=== PATIENT | female | born 1945 | race Caucasian/White ===

== ENCOUNTER 2021-09-19 14:50 | Outpatient (CLI) | payer MEDICARE, OTHER, SELFPAY ==
--- NOTE | 2021-09-19 15:00 | CRLHL7_ITS ---
For Patients: As a result of the Century Cures Act, medical imaging exams and procedure reports are released immediately into your electronic medical record. You may view this report before your referring provider. If you have questions, please contact your health care provider. INDICATION: RIGHT ADNEXAL CYST NOTED ON MRI COMPARISON: Lumbar MRI 12/07/2020 TECHNIQUE: 2D grigsby scale and color Doppler images were acquired of the pelvis using a transabdominal and transvaginal approach. Spectral Doppler evaluation of the right ovary also performed. FINDINGS: Sonographic images demonstrate a normal size and smooth outer contour of the uterus. Uterus measures 5.0 cm in length by 3.0 cm in AP diameter by 3.7 cm in transverse dimension. The myometrium has a heterogeneous echotexture. The endometrial lining measures 2 mm in composite thickness. Complex nabothian cyst is noted measuring 9 millimeters. The right ovary measures 8.7 x 5.7 x 6.3 cm in size and the left ovary is not visualized. The right ovary demonstrates normal arterial and venous blood flow on color Doppler analysis. Normal spectral Doppler flow to the right ovary as well. No torsion. Cystic lesion right ovary with internal septations measuring 7.7 x 5.0 x 5.9 cm. No solid mural component. There are no suspicious fluid collections within the cul-de-sac. IMPRESSION: Complex right ovarian cyst with several thin internal septations measuring 7.7 x 5.0 x 5.9 cm. No torsion. 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 Dictated by David Antoine MD @ 09/19/2021 3:54:04 PM (Electronically Signed)
== END 2021-09-19 14:51 | disposition home or self-care (01) ==
LOC: US 14:55
PROVIDERS: PCP Family Medicine; Visit Provider Family Medicine
DX: N94.9 Unspecified condition associated with female genital organs and menstrual cycle (principal); N83.201 Unspecified ovarian cyst, right side
CPT/HCPCS: 76830; 76856; 93976

== ENCOUNTER 2021-10-24 14:48 | Outpatient (CLI) | payer MEDICARE, OTHER, SELFPAY ==
[2021-10-26 17:57] LABS: Cancer Antigen 125 45 U/mL (<=38)
== END 2021-10-24 14:49 | disposition home or self-care (01) ==
LOC: NFLDREF 14:48
PROVIDERS: PCP Family Medicine; Visit Provider Obstetrics & Gynecology
DX: D39.11 Neoplasm of uncertain behavior of right ovary (principal); Z78.0 Asymptomatic menopausal state
CPT/HCPCS: 86304

== ENCOUNTER 2021-11-08 08:50 | Outpatient (CLI) | payer MEDICARE, OTHER, SELFPAY ==
[2021-11-08 11:21] LABS: Albumin* 4.3 g/dL (3.3-5.0); Chloride* 103 mmol/L (96-114)
[2021-11-08 11:22] LABS: Potassium* 4.7 mmol/L (3.6-5.1); Sodium* 137 mmol/L (135-149)
[2021-11-08 11:24] LABS: Aspartate Amino Transferase* 25 U/L (12-35); Bilirubin Total* 0.5 mg/dL (0.1-1.5); Blood Urea Nitrogen* 24 mg/dL (7-30); Carbon Dioxide* 24 mmol/L (20-32); Cholesterol* 220 mg/dL (90-199); Creatinine* 1.4 mg/dL (0.5-1.5); Estimated Glomerular Filt Rate 39 ml/min; Glucose* 102 mg/dL (60-115); Total Protein* 6.9 g/dL (6.0-8.3)
[2021-11-08 11:25] LABS: Alanine Aminotransferase* 14 U/L (4-35); Alkaline Phosphatase* 92 U/L (40-150); Calcium* 9.8 mg/dL (8.4-10.6); HDL Cholesterol* 67 mg/dL (>=50); LDL Cholesterol Calculated 126 mg/dL (<100); Triglycerides* 134 mg/dL (40-149)
== END 2021-11-08 08:51 | disposition home or self-care (01) ==
PROVIDERS: PCP Family Medicine; Visit Provider Family Medicine
DX: I10 Essential (primary) hypertension (principal); N18.32 Chronic kidney disease, stage 3b; N94.9 Unspecified condition associated with female genital organs and menstrual cycle; E78.5 Hyperlipidemia, unspecified; N39.0 Urinary tract infection, site not specified
CPT/HCPCS: 80053; 80061; 87186

== ENCOUNTER 2021-11-27 08:36 | Outpatient (CLI) | payer MEDICARE, OTHER, SELFPAY ==
[2021-11-27 12:44] LABS: Chloride* 104 mmol/L (96-114); Creatinine Urine 93.8 mg/dL; Sodium* 137 mmol/L (135-149)
[2021-11-27 12:45] LABS: Albumin* 4.1 g/dL (3.3-5.0); Potassium* 4.3 mmol/L (3.6-5.1)
[2021-11-27 12:47] LABS: Creatinine* 1.4 mg/dL (0.5-1.5); Estimated Glomerular Filt Rate 39 ml/min
[2021-11-27 12:48] LABS: Blood Urea Nitrogen* 22 mg/dL (7-30); Calcium* 9.3 mg/dL (8.4-10.6); Carbon Dioxide* 25 mmol/L (20-32); Glucose* 93 mg/dL (60-115); Phosphorus* 3.3 mg/dL (2.5-4.5); Uric Acid* 5.6 mg/dL (2.2-8.4)
[2021-11-27 12:52] LABS: Microalbumin Creatinine Ratio 130 mg/g (0-30); Microalbumin Urine 13 mg/dL
[2021-12-01 00:39] LABS: 25-Hydroxyvitamin D2 1.3 ng/mL; 25-Hydroxyvitamin D2,D3 Total 23.5 ng/mL (30.0-80.0); 25-Hydroxyvitamin D3 22.2 ng/mL
== END 2021-11-27 08:37 | disposition home or self-care (01) ==
PROVIDERS: PCP Family Medicine; Visit Provider Internal Medicine Nephrology
DX: I10 Essential (primary) hypertension (principal); N18.32 Chronic kidney disease, stage 3b; N39.0 Urinary tract infection, site not specified; E66.9 Obesity, unspecified; E78.5 Hyperlipidemia, unspecified
CPT/HCPCS: 80069; 82043; 82306; 82310; 82570; 83970; 84550; 87086

== ENCOUNTER 2022-01-14 07:30 | Outpatient (RCR) | payer MEDICARE, OTHER, SELFPAY ==
--- NOTE | 2021-09-28 14:53 | PT.OPEX ---
PT [place] Outpatient Eval PT [facility] Outpatient Eval Start: 09/28/21 07:27 Freq: Status: Active Protocol: Document 09/28/21 14:11 NAVI (Rec: 09/28/21 14:41 NAVI [id number]) E-signed By Karen Banuelos DPT Physical Therapy Outpatient Evaluation Insurance Information Recert Due Date 12/14/21 Medical Diagnosis lumbosacral radiculopathy L2 hip flexor weakness Treating Diagnosis LBP, L buttock/hip pain, core/ hip/glut weakness, impaired balance, unsteady gait Subjective Subjective Patient reports having chronic LBP issues with an MRI last Jan showing L2 herniated disc. She had prior PT earlier this year which was helpful. States that some of her pain/ sx returned since being done with PT. She is doing a few of the home exercises, but unable to recall them this session. She c/o LBP L>R and L buttock/hip pain. Patient denies pain/sx going down her LEs. States her R ankle is bone on bone so that gives her problems. She has been using a SPC or walking stick when going out of the home. Going some without the cane at home. Reports having a fall a couple of weeks ago. Maybe 2 falls in the last 4 months. She is using tylenol as needed , occasional heating pad. Patient has an appt with Dr Mazariegos coming up in Oct. Pain range 0-6/10. Sleep has been fine. Date of Last Physician Visit 09/12/21 Assessment Assessment/Impression Patient is a 75 year old female with chronic LBP, L buttock/hip pain, core/hip/ glut weakness, impaired balance, unsteady gait. Pain range 0-6/10. Patient localizes her pain to LB L>R and L buttock/hip region. She denies any LE burning/ tingling/numbness with this current flare up. Trunk ROM is limited in all direction with general tightness, stiffness, pain. Patient with increased pain and guarded with transitional movements, initially stiff/painful with standing/walking. Gait is slow, antalgic, shuffling, unsteady with SPC. She reports having hx of falls with one fall last week, 2 falls over the last 4 months. She is active daily on the [employer]. Patient is tight, tender with palpation L buttock region, including glut max, glut med, and piriformis. Patient had MRI last Dec showing L2 herniated disc. Patient with core/hip/glut/LE weakness noted with exercises, transfers, and gait. Patient would benefit from skilled PT for pain/sx management, improved trunk ROM, core/hip/ glut/LE strengthening, posture /body mechanics training, balance/gait training, and establishment of HEP. Plan of Care Rehabilitation Potential Good Physical Therapy Goals 1. Decrease LBP and L buttock /hip pain to less than/equal to 3/10 with daily/work activities and with the progression of PT activities over the next 4-6 weeks. 2. Patient will be educated on posture/body mechanics and pain management strategies over the next 4-6 weeks for decreased stress on LB/hip and decreased LBP and L buttock/ hip pain. 3. Improve core/hip/glut/LE strength and posture over the next 8-10 weeks for improved posture, decreased stress on LB/hip, decreased LBP/L buttock and hip pain, improved stability in LB/spine, and improved tolerance for extended sitting/standing/ walking for daily/work activities with decreased risk of falling. 4. Patient will be I with HEP within 10 weeks for progression toward above goals, ongoing self management of pain/sx, ongoing self improvements in core/hip/glut/LE strength, posture/body mechanics, improved tolerance for extended sitting /standing/walking activities and return to PLF with daily/work activities on the family [employer]. Coordination/Communication With Referral Source Treatment Plan/Direct Interventions Manual Therapy,Neuromuscular Re-ed,Therapeutic Exercises Frequency/Duration 1-2x/week Patient Will Be Discharged From Therapy Completion of LTG(s),Skills Plateau,Independent w/HEP, Independently Progressing Evaluation Billing Untimed Code Treatment Minutes 22 Complexity Moderate Certification Information Initial Certification Date 09/28/21 Ending Certification Date 12/14/21 Provider Signature Shows Agreement With POC & Medical Necessity Physician Comment/Change Comment or Changes Physician NPI Number #
--- NOTE | 2021-12-03 08:33 | PT.OPDNX ---
PT [place] Outpatient Daily Note PT [facility] Outpatient Daily Note Start: 09/28/21 07:27 Freq: Status: Active Protocol: Document 12/03/21 07:52 LINSEY (Rec: 12/03/21 08:31 LINSEY [id number]) E-signed By Ghassan Monique, PT PT OP Daily Progress Note Visit Information Note Type Daily Note,Recert/Progress Note Visit Number [id number] Insurance Authorized Visits - Physician Authorized Visits - Insurance Information Recert Due Date 12/14/21 Insurance Name Medicare B,[employer] Medical Diagnosis lumbosacral radiculopathy L2 hip flexor weakness Treating Diagnosis LBP, L buttock/hip pain, core/ hip/glut weakness, impaired balance, unsteady gait Referring MD Tilley Subjective Subjective Pt reports seeing MD at spine clinic for assessment and he wanted her to continue with aggressive therapy for strengthening at this time. She states that overall she has made slow but steady progress in PT. Her biggest complaint is her balance and her left sided LBP currently. She feels like continued therapy will benefit her with continued functional improvement. Pain Comments 0-07/20 Home Exercise Home Exercise Comments [facility]: [facility] Objective Other/Pertinent Objective Isometric strength testing Hip flexor index: 75% Quad index: 71% ROM Lumbar flexion: WNL; pain free Lumbar extension: WNL; pain free Lumbar rotation L: WNL; pain free R: WNL; pain free Lumbar side flexion L: Provoked pain in back R: WNL; pain free Balance: Romberg WBOS + EO: 9 seconds Romberg NBOS + EC: 2 seconds Special test: +SLR -Slump -Cross over SLR +pain w. resisted abduction testing +pain w. resisted hip ER testing TTP: Over glute medius and greater trochanter; Mild TTP present around QL Patient Instructed in Risks/Benefits Yes Therapeutic Exercise Therapeutic Exercise Minutes (minutes) 40 Therapeutic Exercise: To Restore Nu-step machine; L4; x6 Functional Status minutes Leg Press 3x12 w. 95 lbs rotary hip: 1 plate 2 sets of 8 standing hip flexion 2 sets of 10 SLR 2x10 B Glute bridge 2x12 NT Panamanian ball knee to chest x10 NT Straight leg bridge on ball 2x12 NT Posterior pelvic tilting 2x10 NT Supine double leg marches 2x10 -15 NT Adductor squeezes 2x10 w. 3 sec holds NT Leg extension machine 2x12 w. 2 plates Added tandem stance to HEP Neuromuscular Re-Ed Neuromuscular Reeducation Minutes ( 10 minutes) Neuromuscular Reeducation Comments tandem stance in parallel bars 5 reps each 4 sec max with right 2 sec max with left back. sidestepping at wall: [address] backwards walking with bar 20 ft 3 reps. Treatment Minutes Timed Code Treatment Minutes 50 Total Treatment Time 50 Billing Units Neuromuscular Reeducation Units 1 Therapeutic Exercise Units 2 Assessment/Impression Assessment/Impression Pt. returns today after seeing Dr[facility]. He felt that continued aggressive therapy for strengthening is best plan at this point. Today she continues to show decreased leg strength on her L side compared to her R side, with continued deficits in gait noted including impaired balance and decreased gait speed. She continues to demonstrate weakness during single limb workouts, most significant with quad and hip flexion movements. Ongoing skilled PT services recommended to achieve PLOF goals as outlined in PT plan of care. She will be seen 1-2 times a week moving forward as part of our [facility] rehab protocol. Plan of Care Physical Therapy Goals 1. Decrease LBP and L buttock /hip pain to less than/equal to 3/10 with daily/work activities and with the progression of PT activities over the next 8 weeks. 2. Patient will be educated on posture/body mechanics and pain management strategies over the next 4-6 weeks for decreased stress on LB/hip and decreased LBP and L buttock/ hip pain. 3. Improve core/hip/glut/LE strength and posture over the next 8-10 weeks for improved posture, decreased stress on LB/hip, decreased LBP/L buttock and hip pain, improved stability in LB/spine, and improved tolerance for extended sitting/standing/ walking for daily/work activities with decreased risk of falling. 4. Patient will be I with HEP within 10 weeks for progression toward above goals , ongoing self management of pain/sx, ongoing self improvements in core/hip/glut/ LE strength, posture/body mechanics, improved tolerance for extended sitting/standing/ walking activities and return to PLF with daily/work activities on the [employer]. Daily Plan of Care Change POC; See Comments Daily Plan of Care Comments See pt. 2 times a week for 6-8 weeks for aggressive strengthening and balance rehab Recertification Information Initial Certification Date 09/28/21 Recertification Start Date 12/03/21 Recertification Due Date 02/25/22 Reasons to Continue Skilled Therapy Pt. returns today after seeing Dr. Mazariegos [facility] for assessment. He felt that continued aggressive therapy for strengthening is best plan at this point. Today she continues to show decreased leg strength on her L side compared to her R side, with continued deficits in gait noted including impaired balance and decreased gait speed. She continues to demonstrate weakness during single limb workouts, most significant with quad and hip flexion movements. Ongoing skilled PT services recommended to achieve PLOF goals as outlined in PT plan of care. She will be seen 1-2 times a week moving forward as part of our [facility] rehab protocol. Rehabilitation Potential Good for Goals Continued Plan of Care and Interventions See pt. 2 times a week for 6-8 weeks for spine care rehab program. Provider Signature Shows Agreement With POC & Medical Necessity Physician Comment/Change Comment or Changes Physician NPI Number #
== END 2022-05-21 13:56 | disposition home or self-care (01) ==
PROVIDERS: PCP Family Medicine; Visit Provider Family Medicine
DX: M54.17 Radiculopathy, lumbosacral region (principal); M25.552 Pain in left hip; R26.81 Unsteadiness on feet; M79.18 Myalgia, other site; Z51.89 Encounter for other specified aftercare
CPT/HCPCS: 97110; 97112; 97140; 97162

== ENCOUNTER 2022-02-21 12:45 | Outpatient (CLI) | payer OTHER, SELFPAY ==
--- NOTE | 2022-02-21 13:00 | MR_ITS ---
[facility] [address] [facility] [address] Phone:?[phone] Fax:?[phone] Referring Physician Information: Nain Mazariegos M.D. [address] [facility] [address] Phone:?[phone] Fax:?[phone] Patient:?Ladan Garcia D.O.B:?1945 Sex:?Female Phone:?[phone] [facility] MRN:?[id number] Exam Date:?02/21/2022 ? EXAM:?MR LUMBAR SPINE WITHOUT CONTRAST CLINICAL INFORMATION: Left-sided low back pain and left leg radiculopathy. COMPARISON: 12/07/2020.?CONTRAST:?None.?SEDATION:?None. TECHNICAL INFORMATION: Imaging was performed at [facility]. Sagittal and axial T1 / FSE T2, and sagittal STIR images were obtained through the lumbar spine. INTERPRETATION: L5-S1:?Moderate degeneration, no herniation or central stenosis and mild right facet degeneration. No ganglion compression. L4-5: Mild degeneration with 5 mm spondylolisthesis and moderate central/left subarticular stenosis. Facet hypertrophy contributes to left L5 root impingement. Foramina appear patent. L3-4: Mild disc degeneration, left hypertrophic facet arthropathy without central stenosis and mild left foraminal narrowing with ganglion contact. Mild Modic 1 endplate marrow changes and active left facet capsulitis. L2-3: Moderate left-sided disc degeneration with mild Modic 1 marrow changes. Left subarticular L3 encroachment due to osteophyte and disc protrusion. Left facet joint hypertrophy and mild left/no right foraminal stenosis. L1-2: Mild degeneration, osteophyte and bulge flatten the dural sac without central stenosis and foramina appear patent. T12-L1: Left central disc herniation indents the dural sac without neural impingement and mild right foraminal narrowing/patent left nerve root canal. T11-12: Normal dorsal disc margin and no central or foraminal stenosis. Unremarkable facet joints. Osseous Structures: Fat suppressed images are negative for acute or subacute fractures. Paraspinous Soft Tissues: No mass lesions. Conus, Cord and Cauda Equina: Normal position conus and no evidence of intradural mass or arachnoiditis. CONCLUSION: Multilevel spondylosis, no acute fractures and right convex scoliosis. Significant findings are as follows: 1. Moderate central and left foraminal stenosis at L4-5 due to grade I spondylolisthesis and hypertrophic facet arthropathy. 2. Active Modic 1 endplate marrow changes at L2-3 and L3-4, and multilevel chronic hypertrophic facet degeneration including moderate left L3-4 facet capsulitis. 3. Comparison to 12/07/2020 shows progression of central stenosis at L4-5. Electronically signed on 02/22/2022 10:31:00 AM by Porfirio Keys M.D.
== END 2022-02-21 12:46 | disposition home or self-care (01) ==
LOC: MRI 12:48
PROVIDERS: PCP Family Medicine; Visit Provider Family Medicine
DX: M54.50 Low back pain, unspecified (principal); M43.16 Spondylolisthesis, lumbar region; M54.16 Radiculopathy, lumbar region
CPT/HCPCS: 72148

== ENCOUNTER 2022-04-30 07:46 | Outpatient (CLI) | payer OTHER, SELFPAY | END 2022-04-30 07:47 | disposition home or self-care (01) | LOC: INJ CL 07:47 | PROVIDERS: PCP Family Medicine; Visit Provider Family Medicine | DX: M54.16 Radiculopathy, lumbar region (principal); M51.36 Other intervertebral disc degeneration, lumbar region | CPT/HCPCS: 62323; J0702; Q9966 ==

== ENCOUNTER 2022-05-31 10:01 | Outpatient (CLI) | payer OTHER, SELFPAY | END 2022-05-31 10:02 | disposition home or self-care (01) | LOC: NFLDREF 06-02 07:46 | PROVIDERS: PCP Family Medicine; Referring Provider Family Medicine; Visit Provider Internal Medicine Nephrology | DX: D63.1 Anemia in chronic kidney disease (principal); I10 Essential (primary) hypertension; M54.16 Radiculopathy, lumbar region; N18.30 Chronic kidney disease, stage 3 unspecified; N18.32 Chronic kidney disease, stage 3b; R53.83 Other fatigue; Z52.4 Kidney donor | CPT/HCPCS: 80069; 82043; 82306; 82570; 82728; 83540; 83550; 84550; 87086; 87186 ==

== ENCOUNTER 2022-11-18 07:35 | Outpatient (CLI) | payer OTHER, SELFPAY ==
--- OUTSIDE RECORDS SUMMARY | 2022-11-20 08:21 | XMS_ITS | Continuity of Care Document ---
Author Name Unknown Organization [facility] Address [address] [place] [address] Phone Care Team Providers Care Guzzler Builder Name Role Phone Kwasi JACOBS, PhD, Lee Unavailable Unavai lable Allergies, Adverse Reactions, Alerts Substance Reaction Status Criticality NSAIDS (Non-Steroidal Anti-Inflammatory Drug) Unknown Active No Information hydrochlorothiazide Unknown Active No Infor mation Medications Medication Instructions Dosage Effective Dates (start - stop) Status Comments TYLENOL (unknown strength) Not Available - Active SIMVASTATIN (unknown strength) Not Available - Active LOSARTAN POTASSIUM (unknown strength) Not Available - Active GABAPENTIN (unknown strength) Not Available - Active Procedures Procedure Date Office/Outpatient Visit,Est, Mod 2022 Office/Outpatient Visit,New, Mod 2020 Advance Directives Directive Yes / No Effective Date File Name No Information Encounters Encounter Description Practice Location Reason(s) For Visit Diagnoses Date Provider Providers Copied on Encounter [facility], [address], [place], [place], [id number] , [place] tel:[phone] [facility] - [facility] No Information 3 Kwasi Howard. [facility], [address], [address], [place]. tel:[phone] Referring Provider: Jojo Melara, [facility] [address] [place], [address]. tel:[phone] Office/Outpa tient Visit,Est, Mod [facility], [address], [place], [place], [id number] , [place] tel:[phone] [facility] Spinal stenosis, lumbar region with neurogenic claudication 3 Kwasi Howard. [facility], [address], [place], [address], [place]. tel:[phone] Referring Provider: Jojo Melara, [facility] [address] [place], [address]. tel:[phone] Office/Outpa tient Visit,New, Mod [facility], [address], [place], [place], [id number] , [place] [phone] [facility] Other intervertebral disc displacement, lumbar region No Information Referring Provider: Jojo Melara, [facility] [address] [place], [address]. tel:[phone] Family History Family Member Type Diagnosis Age At Onset No Information Payers Payer name Insurance type Covered constitution party ID Authoriza jeannette(s) [employer] Medicare Gold Choice [facility] [id number] Social History Type Description Quantity Date Captured Comments Alcohol Use Details Unknown Caffeine Use Details Unknown Tobacco Use Status Current non-smoker Smoking Status Never smoker Non-Smoking Tobacco Use Details : No Details Available : No Details Available Sex Female Vital Signs Date / Time: Height Weight BMI Pulse Rate Blood Pressure Temperature Respiratory Rate Body Surface Area Head Circumference Head Circ. Percentile Wt./Tono. Percentile BMI percentile Pulse Ox Inhaled Ox 1:17 PM 63.00 in 73.028 kg (161.00 lbs) 28.5 2 kg/m eter (2) Chief Complaint And Reason For Visit No Information Reason For Referral Reason For Referral No Information Plan Of Treatment Date Type Action Status Appointment Ladan Garcia BOOKMARIYA History Of Present Illness Encounter Date Complaint History Of Prese nt Illness No Information Functional Status Date Functional Assessmen t No Information Instructions Date Instruction Additional Infor mation No Information Assessments Type Assessment Date No Information Patient Care Teams Name Effective Dates (start - stop) Status Members No Information
== END 2022-11-18 07:36 | disposition home or self-care (01) ==
LOC: NFLDREF 11-20 08:19
PROVIDERS: PCP Family Medicine; Referring Provider Family Medicine; Visit Provider Internal Medicine Nephrology
DX: D63.1 Anemia in chronic kidney disease (principal); I10 Essential (primary) hypertension; N18.30 Chronic kidney disease, stage 3 unspecified; N18.32 Chronic kidney disease, stage 3b; E78.5 Hyperlipidemia, unspecified
CPT/HCPCS: 80061; 80069; 82043; 82570; 82728; 83540; 83550; 84550; 87086; 87186

== ENCOUNTER 2022-12-18 07:48 | Outpatient (CLI) | payer OTHER, SELFPAY ==
--- OUTSIDE RECORDS SUMMARY | 2022-12-18 07:50 | XMS_ITS | Continuity of Care Document ---
Author Name Unknown Organization [facility] Address [address] [place] [address] Phone Care Team Providers Care Car Supplier Name Role Phone Kwasi JACOBS, PhD, Lee [...] Procedure Date Office/Outpatient Visit,Est, Mod 2022 Office/Outpatient Visit,Est, Mod 2022 Office/Outpatient Visit,New, Mod 2020 Advance Directives Directive Yes / No Effective Date File Name No Information Encounters Encounter Description Practice Location Reason(s) For Visit Diagnoses Date Provider Providers Copied on Encounter Office/Outpa tient Visit,Est, Mod [facility], [address], [place], [place], [id number] , [place] tel:[phone] [facility] - [facility] Spinal stenosis, lumbar region with neurogenic claudication 3 Kwasi Howard. [facility], [address], [address], [place]. tel:[phone] Referring Provider: Jojo Melara, [facility] [address] [place], [address]. tel:[phone] Office/Outpa tient Visit,Est, Mod [facility], [address], [facility], [place], [id number] , [place] [phone] [facility] Spinal stenosis, lumbar region with neurogenic claudication 3 Kwasi Howard. [facility], [address], [place], [address], [place]. tel:[phone] Referring Provider: Jojo Melara [facility] [address] [place], [address]. [phone] Office/Outpa tient Visit,New, Mod [facility], [address], [place], [place], [id number] , [place] [phone] [facility] Other intervertebral disc displacement, lumbar region No Information [facility] [address] [place], [address]. tel:[phone] Family History Family Member Type Diagnosis Age At Onset No Information Payers Payer name Insurance type Covered green party ID Authoriza tion(s) [employer] Medicare Gold Choice [employer] [id number] Social History Type Description Quantity Date [...] Date Type Action Status Appointment Ladan Garcia BOOKED History Of Present Illness Encounter Date Complaint History Of Prese nt Illness No Information Functional Status Date Functional Assessmen t No Information Instructions Date Instruction Additional Infor mation No Information Assessments Type Assessment Date No Information Patient Care Teams Name Effective Dates (start - stop) Status Members No Information
--- NOTE | 2022-12-18 08:15 | CRLHL7_ITS ---
For Patients: As a result of the Century Cures Act, medical imaging exams and procedure reports are released immediately into your electronic medical record. You may view this report before your referring provider. If you have questions, please contact your health care provider. Indication: Cervical stenosis Technique: Multiplanar, multisequence MRI of the cervical spine obtained without contrast. Comparison: None available Findings: The normal cervical lordosis is preserved. There is grade 1 anterolisthesis at C6-7, C7-T1 and T1-2. Vertebral body heights maintained. No acute osseus abnormality. Unremarkable bone signal. Included views of the intracranial structures demonstrate generalized cerebral volume loss with venous sinus mucosal thickening. The spinal cord appears normal in course, caliber, and intrinsic signal. No suspicious findings in the prevertebral or paraspinal soft tissues. C2-C3: No significant neural foraminal or spinal canal stenosis. C3-C4: Shallow posterior disc bulge. Left asymmetric uncovertebral and facet arthropathy. No right, mild left neural foraminal narrowing. No spinal canal stenosis. C4-C5: Posterior disc-osteophyte complex, uncovertebral arthropathy. No right, mild left neural foraminal narrowing. No spinal canal stenosis. C5-C6: Shallow posterior disc-osteophyte complex, left asymmetric uncovertebral arthropathy. Mild right, mild-moderate left neural foraminal narrowing. No spinal canal stenosis. C6-C7: Anterolisthesis, disc unroofing, uncovertebral and facet arthropathy. No right, moderate left neural foraminal stenosis. No spinal canal stenosis. C7-T1: Trace anterolisthesis, left asymmetric facet arthropathy. No neural foraminal or spinal canal stenosis. Impression: 1. Cervical spondylosis, with degenerative grade 1 spondylolisthesis at the lower cervical/upper thoracic levels. 2. At C5-6, mild-moderate left neural foraminal narrowing. 3. At C6-7, moderate left neural foraminal stenosis. 4. Additional scattered mild neural foraminal narrowing elsewhere as detailed. No spinal canal stenosis. Dictated by Genny Cassidy MD @ 12/18/2022 1:55:40 PM (Electronically Signed)
== END 2022-12-18 07:49 | disposition home or self-care (01) ==
LOC: MRI 07:48
PROVIDERS: PCP Family Medicine; Visit Provider Orthopaedic Surgery Orthopaedic Surgery of the Spine
DX: M48.02 Spinal stenosis, cervical region (principal); M47.892 Other spondylosis, cervical region; M50.222 Other cervical disc displacement at C5-C6 level; M50.223 Other cervical disc displacement at C6-C7 level; M54.2 Cervicalgia
CPT/HCPCS: 72141

== ENCOUNTER 2023-01-09 08:10 | Outpatient (CLI) | payer OTHER, SELFPAY ==
--- OUTSIDE RECORDS SUMMARY | 2023-01-09 08:11 | XMS_ITS | Continuity of Care Document ---
Author Name Unknown Organization [facility] Address [address] [place] [address] Phone Care Team Providers Care Salesperson New Cars Name Role Phone Kwasi JACOBS, PhD, Lee Unavailable Unavai lable Allergies, Adverse Reactions, Alerts Substance Reaction Status Criticality NSAIDS (Non-Steroidal Anti-Inflammatory Drug) Unknown Active No Information hydrochlorothiazide Unknown Active No Infor mation Medications Medication Instructions Dosage Effective Dates (start - stop) Status Comments GABAPENTIN (unknown strength) Not Available - Active LOSARTAN POTASSIUM (unknown strength) Not Available - Active SIMVASTATIN (unknown strength) Not Available - Active TYLENOL (unknown strength) Not Available - Active Procedures Procedure Date Office/Outpatient Visit,Est, Mod 2022 Office/Outpatient Visit,Est, Mod 2022 Office/Outpatient Visit,New, Mod 2020 Advance Directives Directive Yes / No Effective Date File Name No Information Encounters Encounter Description Practice Location Reason(s) For Visit Diagnoses Date Provider Providers Copied on Encounter [facility], [address], [place], [place], [id number] , [place] tel:[phone] [facility] [place] No Information 3 Kwasi Howard. [facility], [address], [place], [address], [place]. tel:[phone] Office/Outpa tient Visit,Est, Mod [facility], [address], [place], [place], [id number] , [place] [phone] [facility] Spinal stenosis, lumbar region with neurogenic claudication 3 Kwasi Howard. [facility], [address], [place], [address], [place]. tel:[phone] Referring Provider: Jojo Melara [facility] [address] [place], [address]. tel:[phone] Office/Outpa tient Visit,Est, Mod [facility], [address], [place], [place], [id number] , [place] tel:[phone] [facility] Spinal stenosis, lumbar region with neurogenic claudication 3 Kwasi Howard. [facility], [address], [place], [address], [place]. tel:[phone] Referring Provider: Jojo Melara [facility] [address] [place], [address]. tel:[phone] Office/Outpa tient Visit,New, Mod [facility], [address], [place], [place], [id number] , [place] tel:[phone] [facility] Other intervertebral disc displacement, lumbar region 1 No Information Referring Provider: Jojo Melara [facility] [address] [place], [address]. tel:[phone] Family History Family Member Type Diagnosis Age At Onset No Information Payers Payer name Insurance type Covered alliance party ID Authoriza tion(s) [employer] Medicare Gold Choice Ada PIERRE [id number] Social History Type Description Quantity Date Captured Comments Sex Female Smoking Status No Information Chief Complaint And Reason For Visit No [...]
--- NOTE | 2023-01-09 08:30 | CRLHL7_ITS ---
For Patients: As a result of the Century Cures Act, medical imaging exams and procedure reports are released immediately into your electronic medical record. You may view this report before your referring provider. If you have questions, please contact your health care provider. DXA BONE MINERAL DENSITY STUDY Current height (in): 64.0. Weight (lb): 145.0. Menopause age: 53. Ethnicity: White. Reason for exam: Neck pain. Followup osteoporosis. 1. Have you had a previous hip or vertebral fracture? No. 2. Have you had any fractures during your adult life which did not result from significant trauma (e.g., auto accident)? No. 3. Did either of your parents have a hip fracture? No. 4. Do you smoke? No. 5. Have you ever taken Glucocorticoids? No. 6. Do you have rheumatoid arthritis? No. 7. Do you have secondary osteoporosis? No. 8. Do you drink 3 or more alcoholic drinks per day? No. 9. Are you being treated for osteoporosis? No. 10. Have you ever taken any of the following medications: Actonel, Evista, Fosamax, Miacalcin, Reclast, Boniva, Forteo, HRT (i.e. estrogen/hormone therapy), Protelos, Prolia, Vitamin D, Calcium, other ??? please specify. ANSWER: Yes, calcium. 11. Do you have any of the following medical conditions: Anorexia or bulimia, asthma or emphysema, end stage renal disease, hyperparathyroidism, any seizure disorders, cancer, inflammatory bowel diseases, hysterectomy, other ??? please specify. ANSWER: No. 12. What was your maximum height (inches)? 64. 13. Do you perform weight bearing exercise regularly? No. 14. Do you regularly consume dairy products? Yes. 15. Do you drink caffeinated beverages? No. 16. At what age did your period start? 12. 17. Are you premenopausal? No. 18. How many full-term pregnancies have you had? 2. 19. Have you ever missed your period for more than 6 months in a row (not including or menopause)? No. TECHNIQUE: Bone mineral density study was performed using the [employer]. FINDINGS: The results of the study expressed as bone mineral density (BMD) are as follows: Lumbar spine L1 to L4: BMD: 0.972 g/cm2. T-score: -0.7. Z-score: 1.9. Neck Left: BMD: 0.660 g/cm2. T-score: -1.7. Z-score: 0.5. Right: BMD: 0.662 g/cm2. T-score: -1.7. Z-score: 0.5. Total Left: BMD: 0.813 g/cm2. T-score: -1.1. Z-score: 0.9. Right: BMD: 0.806 g/cm2. T-score: -1.1. Z-score: 0.8. IMPRESSION: Osteopenia. *Comparison exams done prior to 07/2019 were performed on different unit, [employer]. COMPARISON: Compared with scan of 02/23/2018, the bone mineral density has decreased by 3.9 percent at the spine and decreased by 11.7 percent at the hip. FRAX 10-year Fracture Risk Major Osteoporotic Fracture: 13 percent Hip Fracture: 3.2 percent Reported Risk Factors: [place] () Neck BMD = 0.660, BMI = 24.9 David Antoine M.D. Diagnostic Radiologist [email or web address] Transcribed: 10:24 am DW/Dictated by: David Antoine MD @ 01/13/2023 6:41:00 AM (Electronically Signed)
== END 2023-01-09 08:11 | disposition home or self-care (01) ==
LOC: RAD 08:10
PROVIDERS: PCP Family Medicine; Visit Provider Orthopaedic Surgery Orthopaedic Surgery of the Spine
DX: M54.2 Cervicalgia (principal); M85.89 Other specified disorders of bone density and structure, multiple sites
CPT/HCPCS: 77080

== ENCOUNTER 2023-02-24 07:29 | Outpatient (CLI) | payer OTHER, SELFPAY ==
--- OUTSIDE RECORDS SUMMARY | 2023-02-26 12:11 | XMS_ITS | Encounter Summary ---
Author Name Unknown Organization [facility] Address [address] [place] [address] Care Team Providers Care Pastry Decorator Name Role Phone Elsewhere, Pcp Primary Care Provider Unavailabl e Reason for Visit * Appointment Request (Routine) - Closed Specialty Diagnoses / Procedures Referred By Marko t Referred To Contact Orthopedic Surgery Referral ID Status Reason Start Date Expiration Date Visits Re quested Visits Authorized [id number] Closed 10/24/2022 10/24/2023 1 1 Encounter Details Date Type Department Care Team (Late st Contact Info) Description 11/21/2022 2:15 PM CDT Office Visit Department of Orthopedic Surgery in [place], [place] [address] [place] [phone] Blanco Burt M.D. [address] [place] [phone] Arthritis Ankle (Primary Dx) Social History Tobacco Use Types Packs/Day Years Used Date Smoking Tobacco: Former Cigarettes Smokeless Tobacco: Never Alcohol Use Standard Drinks/Week Comments Yes 0 (1 standard drink = 0.6 oz pur e alcohol) rare glass on wine Nutrition Answer Date Recorded Nutrition: EVOO Fat Source Unknown 04/10 Nutrition: Servings of Fruits/Vegetables per Day Not on file 04/10/2020 Dental Answer Date Recorded Dental: Regular Dentist Unknown 04/11/19 Sex and Gender Information Value Date Recorded Sex Assigned at Female 07/31/2017 10:09 AM CDT Gender Identity Female 07/31/2017 10:09 AM CDT Sexual Orientation Straight 07/31/2017 10 :09 AM CDT documented as of this encounter Progress Notes * Blanco Burt M.D. - 11/21/2022 2:15 PM CDT CHIEF COMPLAINT / PURPOSE OF VISIT: 1. 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 For further details, please refer my last note on February 22, 2021. Since last visit, she has had progressive and persistent right ankle pain. The ankle injection helped for a time but the benefits have diminished. She is tried a brace which did not give much help. The pain is mainly at the ankle that is activity related. PHYSICAL EXAMINATION: General: Awake and alert. No acute distress Skin: The skin is intact. There is swelling diffusely about the right ankle. Musc: She has pes planus bilaterally. Hindfoot alignment about 6?? valgus bilaterally. Decreased motion on the right ankle compared to left. Neuro: Sensation intact to light touch throughout Vasc: Toes are well perfused Today significant tenderness to palpation over the ankle joint. No tenderness over the sinus tarsi. IMAGING: Weight-bearing x-rays of the right foot and ankle were obtained today and reviewed. She has severe ankle arthritis. Overall alignment has not changed since last x-rays. ASSESSMENT & PLAN: The patient has persistent ankle arthritis and pain from this. She feels like she has exhausted nonsurgical treatment and desires surgery. Currently, it seems that the hindfoot is asymptomatic. Therefore, we focused on the ankle joint today. I think surgical options include either an ankle fusion or an ankle replacement. We talked at length about the pros and cons of each. We also discussed the expected postoperative recovery process and outcomes. If she chooses an ankle replacement, we will need to get the CT scan for alignment planning and this will help me to discern if an ankle replacement is reasonable in her situation. She will think about the options and call me to tell me how she would like to proceed. All questions answered. 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 [address] [place] [phone] 03/26/2023 9:00 AM CUSHION SPRING ASSEMBLER Comprehensive Visit Preoperative Evaluation Center in [place], [place] [address] [place] [phone] Mary Partida P.A.-C. [address] [place] [phone] 03/26/2023 10:30 AM CUSHION SPRING ASSEMBLER Office Visit Department of Orthopedic Surgery in [place], [place] [address] [place] [phone] Blanco Burt M.D. [address] [place] [phone] 03/26/2023 1:00 PM CUSHION SPRING ASSEMBLER Comprehensive Visit Department of Physical Medicine and Rehabilitation in [place], [place] [address] [place] [phone] Mary Partida P.A.-C. [address] [place] [phone] Marina Major P.T., D.P.T. [address] [place] [phone] 03/27/2023 7:25 AM CUSHION SPRING ASSEMBLER Hospital Encounter Outpatient Procedure Center in [place], [place] [address] [place] [phone] Blanco Burt M.D. [address] [place] [phone] 03/27/2023 7:25 AM CUSHION SPRING ASSEMBLER - 03/27/2023 10:52 AM CUSHION SPRING ASSEMBLER Surgery Outpatient Procedure Center in [place], [place] [address] [place] [phone] Blanco Burt M.D. [address] [place] [phone] right ARTHROPLASTY replacement total ankle; proceed as indicated Scheduled Procedures Name Priority Associated Diagnoses Date/Ti me ARTHROPLASTY ANKLE Arthritis Ankle 03/27/2023 7:25 AM CUSHION SPRING ASSEMBLER OPERATIVE LAPAROSCOPY Mass Ovary SALPINGO - OOPHORECTOMY Mass Ovary documented as of this encounter Visit Diagnoses Diagnosis Arthritis Ankle- Primary Arthritis Ankle documented in this encounter Care Teams Pastry Decorator Relationship Specialty Start Date End Date Elsewhere, Pcp PCP - General Family Medicine 01/16/18 documented as of this encounter
--- OUTSIDE RECORDS SUMMARY | 2023-02-26 12:11 | XMS_ITS | Clinical Summary ---
Author Name Unknown Organization [facility] Address [address] [place] [address] Care Team Providers Care Acoustical Material Worker Name Role Phone Elsewhere, Pcp Primary Care Provider Unavailabl e Source Comments Patient records contain information from all sites at [facility]. For routine questions regarding patient records, call [phone] during business hours, M-F 8:00 AM - 5:00 PM Central Time. Record requests for emergency care only can be directed to [phone] at any time.[facility] Allergies Active Allergy Reactions Criticality Noted Date Comments Nsaids (Non-Steroidal Anti-Inflammatory Drug) Other (see comments) 11/21/2017 Other reaction(s): Other - Describe In Comment Field Triamterene-Hydrochl orothiazid Rash 11/28/2005 Medications Medication Sig Dispensed Refills Start Date End Date Status losartan (COZAAR) 50 mg tablet Take 1 tablet by mouth daily. 0 12/30/2008 Active simvastatin (ZOCOR) 10 mg tablet Take 1 tablet by mouth at bedtime. 0 12/29/2008 Active acetaminophen (TYLENOL EXTRA STRENGTH ORAL) Take 2 capsules by mouth as needed. pain 0 07/20/2013 Active amLODIPine (NORVASC) 2.5 mg tablet Take 1 tablet (2.5 mg total) by mouth at bedtime. 90 tablet 3 12/05/2021 Active calcium carbonate-vitamin D3 1,250 mg (500 mg calcium)-5 mcg (200 Unit) per tablet Take 1 tablet by mouth daily with breakfast. 0 Active Active Problems Problem Noted Date Diagnosed Date Hypertension Essential Primary 01/15/2023 Obesity Unspecified 01/15/2023 Arthritis Ankle 11/21/2022 Mass Ovary 12/20/2021 Overview: Added automatically from request for surgery [id number] Proteinuria 03/13/2020 Hyperparathyroidism Secondary 07/24/2016 Incontinence Urinary Stress Female 10/09/2015 Abnormal Pap Smear Cervix 05/30/2011 Overview: reactive reparative 12/2006; ASCUS 07/2007(negative HPV) ASCUS positve HPV 10/16/2009 LEEP on 05/17/2010 Pap 05/30/2011 is Negative for intraepithelial lesion or malignancy. 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 Question 01/15/2023 Orders Only Department of Orthopedic Surgery in [address] [phone] Mary Partida P.A.-CStephen Arthritis Ankle (Primary Dx); Deficiency Vitamin D 01/14/2023 10:03 AM SOLDERING INSPECTOR - 01/14/2023 11:59 PM SOLDERING INSPECTOR Hospital Encounter Department of Radiology, [facility], in [place], [place] [address] [place] [phone] Mary Partida P.A.-CStephen Arthritis Ankle Discharge Disposition: Home or Self Care 12/30/2022 Orders Only Department of Orthopedic Surgery in [place], [place] [address] [place] [phone] Mary Partida P.A.-CStepehn Arthritis Ankle (Primary Dx) 12/30/2022 Clinical Communication Department of Orthopedic Surgery in [place], [place] [address] [place] [address] Blanco Burt M.D. Surgical Listing from Last 3 Months Immunizations Name Administration Dates Next Due HZV (ZOSTAVAX) 05/12/2009 Influenza (IM) Preservative Free 11/02/2014 Influenza Split 12/11/2014,11/10/2013,11/10/2010 Influenza, Seasonal, Injectable 11/04/19 14,12/08/2012,10/24/2011,2010 Influenza, Unspecified 12/04/2015,2014,11/04/2013,2010 PCV13 11/03/2014 PPSV23 07/11/2009 Td (Adult), adsorbed 05/16/2001 Td, (Adult) Unspecified 05/16/2001 Tdap 05/31/2011 Tetanus Toxoid, Adsorbed (discontinued) 08/03/2001 influenza high dose (65 year s or older) (PF) 11/19/2016,12/03/2015,12/11/2014,2013 Family History Medical History Relation Name Comments Diabetes Mother Hypertension Mother Relation Name Status Comments Mother Social History Tobacco Use Types Packs/Day Years [...] Date Recorded Dental: Regular Dentist Unknown 04/11/19 21 Sex and Gender Information Value Date Recorded Sex Assigned at Female 07/31/2017 10:09 AM CDT Gender Identity Female 07/31/2017 10:09 AM CDT Sexual Orientation Straight 07/31/2017 10 :09 AM CDT Last Filed Vital Signs Vital Sign Reading Time Taken Comments Blood Pressure 148/98 06/20/2021 10:55 AM CDT Pulse 63 06/20/2021 10:54 AM CDT Temperature 36.6 ??C (97.9 ??F) 07/31/2017 1 0:37 AM CDT Respiratory Rate 16 10/09/2015 8:51 AM CDT Oxygen Saturation - - Inhaled Oxygen Concentration - - Weight 78.4 kg (172 lb 13.5 oz) 018 10:37 AM CDT Height 160 cm (5' 2.99) 07/31/2017 10: 37 AM CDT Body Mass Index 30.63 07/31/2017 10:37 AM CDT Plan of Treatment Upcoming Encounters Date Type Department Care Team (Latest Contact Info) Description 03/25/2023 9:00 AM SOLDERING INSPECTOR Clinical Communication Virtual Review in [place], [place] 200 [place] [address] 03/26/2023 8:30 AM SOLDERING INSPECTOR Appointment Department of Laboratory Medicine and Pathology, [facility] in [place], [place] [address] [place] [phone] Mary Partida P.A.-Holly [address] [place] [phone] 03/26/2023 9:00 AM SOLDERING INSPECTOR Comprehensive Visit Preoperative Evaluation Center in [address] [phone] Mary Partida P.A.-C. [address] [place] [phone] 03/26/2023 10:30 AM SOLDERING INSPECTOR Office Visit Department of Orthopedic Surgery in [address] [phone] Blanco Burt M.D. [address] [place] [phone] 03/26/2023 1:00 PM SOLDERING INSPECTOR Comprehensive Visit Department of Physical Medicine and Rehabilitation in [address] [phone] Mary Partida P.A.-CStephen [address] [place] [phone] Marina Major P.T., D.P.T. [address] [place] [phone] 03/27/2023 7:25 AM SOLDERING INSPECTOR Hospital Encounter Outpatient Procedure Center in [place], [place] [address] [place] [address] Blanco Burt M.D. [address] [place] [phone] 03/27/2023 7:25 AM SOLDERING INSPECTOR - 03/27/2023 10:52 AM SOLDERING INSPECTOR Surgery Outpatient Procedure Center in [place], [place] [address] [place] [address] Blanco Burt M.D. [address] [place] [address] right ARTHROPLASTY replacement total ankle; proceed as indicated Scheduled Procedures Name Priority Associated Diagnoses Date/Ti me ARTHROPLASTY ANKLE Arthritis Ankle 03/27/2023 7:25 AM SOLDERING INSPECTOR OPERATIVE LAPAROSCOPY Mass Ovary SALPINGO - OOPHORECTOMY Mass Ovary Health Maintenance Due Date Last Done Comments Pneumococcal vaccine (65+ ye ars) (3 of 3 - PPSV23 or PCV20) 11/04/2019 11/03/2014, 07/11/2009 DTaP,Tdap,and Td Vaccines (2 - Td or Tdap) 05/30/2021 05/31/2011, 07/14/2001, 05/16/2001, Additional history exists Office Visit for Blood Press ure Check / Re-check 09/20/2021 06/20/2021 Creatinine Level (Kidney Fun ction Test) 12/20/2022 12/20/2021, 07/31/2017, 07/24/2016, Additional history exists Potassium Level 12/20/2022 12/20/2021, 07/12, 07/24/2016, Additional history exists Sodium Level 12/20/2022 12/20/2021, 07/12, 07/24/2016, Additional history exists Depression Screening (Annual PHQ-2) 02/10/2023 Fall Risk Screen (Annual) 02/10/2023 Hepatitis C Screening Completed 11/27/2005 Mammogram Discontinued 09/27/2019, 06/11 (Performed elsewhere), 05/19/2015, Additional history exists Zoster Vaccines Completed 02/27/2021, 12/11, 05/12/2009 Influenza Vaccine Completed 10/22/2022, , 12/01/2020, Additional history exists COVID-19 Vaccine Completed 11/13/2022, 06/2021, 06/22/2021, Additional history exists Procedures Procedure Name Priority Date/Time Associated Diagnosis Comments CT ANKLE RIGHT WITHOUT IV CONTRAST RAD - Routine (most inpatients and all outpatients) 01/14/2023 11:16 AM SOLDERING INSPECTOR Arthritis Ankle from Last 3 Months Results * CT Ankle Right without IV Contrast (01/14/2023 11:16 AM SOLDERING INSPECTOR) Anatomical Region Laterality Modality Ankle, Lower Extremity, Musc uloskeletal RST LOS, Musculoskeletal ARZ LOS, Muskuloskeletal FLA LOS Right Computed Tomography, Compute d Tomography 01/14/2023 11:2 1 AM SOLDERING INSPECTOR Impressions 01/14/2023 12:06 PM SOLDERING INSPECTOR 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 Narrative 01/14/2023 12:06 PM SOLDERING INSPECTOR EXAM: ??CT ANKLE RIGHT WITHOUT IV CONTRAST No 3D post-processing performed. COMPARISON: Correlation with radiographs 11/21/2022. FINDINGS: Noncontrast CT right ankle. Additional imaging of the right knee performed according to the [facility] ankle protocol for preoperative planning. Advanced osteoarthrosis of the tibiotalar joint with complete joint space loss and ihrx-ka-kuix apposition centrally. Chronic flattening and remodeling of the talar dome and distal tibial articular surface. There may be an old posttraumatic deformity of the distal right tibia. Multifocal subchondral cysts and sclerosis. Hypertrophic changes. Heterotopic ossification and/or loose bodies anterior to the joint. Lateral talar tilt. There are also advanced degenerative changes between the distal fibula and the talus. Mild widening of the syndesmosis with chronic posttraumatic changes at the syndesmotic ligament is attachment sites. More moderate degenerative findings in the subtalar joint. Os trigonum and os naviculare. No acute fracture or dislocation. Well-corticated loose bodies adjacent to the malleoli likely degenerative or sequela of prior trauma. Hindfoot valgus. Dorsal and plantar calcaneal enthesophytes. Fusiform thickening of the Achilles tendon suggests tendinopathy. Fluid/synovitis within the proximal flexor hallucis longus tendon sheath. Additional scattered osteoarthrosis throughout the midfoot and forefoot including severe osteoarthrosis at the 1st MTP with hallux valgus/bony bunion. Vascular calcifications. Slight lateral subluxation of the patella. Procedure Note Greta Jacob M.D. - 01/14/2023 EXAM: CT ANKLE RIGHT WITHOUT IV CONTRAST No 3D post-processing performed. COMPARISON: Correlation with radiographs 11/21/2022. FINDINGS: Noncontrast CT right ankle. Additional imaging of the right knee performedaccording to the [facility] ankle protocol for preoperative planning. Advanced osteoarthrosis of the tibiotalar joint with complete joint spaceloss and wvoj-fg-pmhl apposition centrally. Chronic flattening andremodeling of the talar dome and distal tibial articular surface. Theremay be an old posttraumatic deformity of the distal right tibia. Multifocal subchondral cysts and sclerosis.Hypertrophic changes. Heterotopic ossification and/or loose bodiesanterior to the joint. Lateral talar tilt. There are also advanceddegenerative changes between the distal fibula and the talus. Mild widening of the syndesmosis with chronic posttraumaticchanges at the syndesmotic ligament is attachment sites. More moderatedegenerative findings in the subtalar joint. Os trigonum and osnaviculare. No acute fracture or dislocation. Well-corticated loose bodies adjacent tothe malleoli likely degenerative or sequela of prior trauma. Hindfootvalgus. Dorsal and plantar calcaneal enthesophytes. Fusiform thickening ofthe Achilles tendon suggests tendinopathy. Fluid/synovitis within the proximal flexor hallucis longustendon sheath. Additional scattered osteoarthrosis throughout the midfootand forefoot including severe osteoarthrosis at the 1st MTP with halluxvalgus/bony bunion. Vascular calcifications. Slight lateral subluxation of the patella. IMPRESSION: 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 Mary Partida P.A.-C. IMG CT PROCEDURES from Last 3 Months Care Teams Acoustical Material Worker Relationship Specialty Start Date End Date Elsewhere, Pcp PCP - General Family Medicine 01/16/18
--- OUTSIDE RECORDS SUMMARY | 2023-02-26 12:11 | XMS_ITS ---
Author Name Unknown Organization [facility] Address [address] [place] [address] Care Team Providers Care Administrative Support Associate Name Role Phone Unavailable Unavailable Unavailable Surgery Details Not on file Complications Check Surgery Details section. Procedure Estimated Blood Loss Check Surgery Details section. Procedure Findings Check Surgery Details section. Procedure Specimens Taken Check Surgery Details section.
--- OUTSIDE RECORDS SUMMARY | 2023-02-26 12:11 | XMS_ITS | Encounter Summary ---
Author Name Unknown Organization [facility] Address [address] [place] [address] Care Team Providers Care Handmade Tile Artist Name Role Phone Elsewhere, Pcp Primary Care Provider Unavailabl e Reason for Referral * Outpatient (Routine) - Authorized Specialty Diagnoses / Procedures Referred By Homeac t Referred To Contact Anesthesiology Diagnoses Arthritis Ankle Mary Partida P.A.-C. [address] [place] [phone] [facility] Referral ID Status Reason Start Date Expiration Date V isits Requested Visits Authorized [id number] Authorized 01/15/2023 01/15/2024 1 1 CAL TRANSCRIPTION RADIOLOGY * Physical Therapy (Routine) - Authorized Specialty Diagnoses / Procedures Referred By Contac t Referred To Contact Diagnoses Arthritis Ankle Procedures PT Evaluate and treat Mary Partida P.A.-C. [address] [place] [phone] [facility] Referral ID Status Reason Start Date Expiration Date V isits Requested Visits Authorized [id number] Authorized 01/15/2023 01/15/2024 1 1 CAL TRANSCRIPTION RADIOLOGY * Outpatient (Routine) - Authorized Specialty Diagnoses / Procedures Referred By Contac t Referred To Contact Orthopedic Surgery Mary Partida P.A.-C. [address] [place] [phone] Blanco Burt M.D. [address] [place] [phone] Referral ID Status Reason Start Date Expiration Date V isits Requested Visits Authorized [id number] Authorized 01/15/2023 01/14/2026 1 1 CAL TRANSCRIPTION RADIOLOGY Encounter Details Date Type Department Care Team (Late st Contact Info) Description 01/15/2023 Orders Only Department of Orthopedic Surgery in [place], [place] [address] [place] [phone] Mayr Partida P.A.-C. [address] [place] [phone] Arthritis Ankle (Primary Dx); Deficiency Vitamin D Social History Tobacco Use Types Packs/Day Years [...] AM CDT documented as of this encounter Plan of Treatment Upcoming Encounters Date Type Department Care Team (Latest Contact Info) Description 03/25/2023 9:00 AM MEDICAL TRANSCRIPTION RADIOLOGY Clinical Communication Virtual Review in [place], [place] 200 [place] [address] 03/26/2023 8:30 AM MEDICAL TRANSCRIPTION RADIOLOGY Appointment Department of Laboratory Medicine and Pathology, [facility], in [place], [place] [address] [place] [phone] Mary Partida P.A.-C. [address] [place] [phone] 03/26/2023 9:00 AM MEDICAL TRANSCRIPTION RADIOLOGY Comprehensive Visit Preoperative Evaluation Center in [place], [place] [address] [place] [phone] Mary Partida P.A.-C. [address] [place] [phone] 03/26/2023 10:30 AM MEDICAL TRANSCRIPTION RADIOLOGY Office Visit Department of Orthopedic Surgery in [address] [phone] Blanco Burt M.D. [address] [place] [phone] 03/26/2023 1:00 PM MEDICAL TRANSCRIPTION RADIOLOGY Comprehensive Visit Department of Physical Medicine and Rehabilitation in [address] [phone] Mary Partida P.A.-C. [address] [place] [phone] Marina Major P.T., D.P.TStephen [address] [place] [phone] 03/27/2023 7:25 AM MEDICAL TRANSCRIPTION RADIOLOGY Hospital Encounter Outpatient Procedure Center in [address] [phone] Blanco Burt M.D. [address] [place] [phone] 03/27/2023 7:25 AM MEDICAL TRANSCRIPTION RADIOLOGY - 03/27/2023 10:52 AM MEDICAL TRANSCRIPTION RADIOLOGY Surgery Outpatient Procedure Center in [address] [phone] Blanco Burt M.D. [address] [place] [phone] right ARTHROPLASTY replacement total ankle; proceed as indicated Scheduled Orders Name Type Priority Associated Diagnoses Orde r Schedule 1,25-Dihydroxyvitamin D Lab Routine Deficiency Vitamin D Expected: 03/26/2023 (Approximate), Expires: 01/16/2024 25-Hydroxyvitamin D2 and D3 Lab Routine Deficiency Vitamin D Expected: 03/26/2023 (Approximate), Expires: 01/16/2024 Calcium, Total Lab Routine Deficiency Vitamin D Expected: 03/26/2023 (Approximate), Expires: 01/16/2024 Scheduled Procedures Name Priority Associated Diagnoses Date/Ti me ARTHROPLASTY ANKLE Arthritis Ankle 03/27/2023 7:25 AM MEDICAL TRANSCRIPTION RADIOLOGY OPERATIVE LAPAROSCOPY Mass Ovary SALPINGO - OOPHORECTOMY Mass Ovary Scheduled Referrals Name Type Priority Associated Diagnoses Order Schedule Orthopedic Surgery Pre Op (clinic) Outpatient Referral Routine Expected: 03/26/2023, Expires: 04/15/2024 Preoperative Evaluation GUILLERMO consult (clinic) Outpatient Referral Routine Arthritis Ankle Expected: 03/26/2023, Expires: 04/15/2024 documented as of this encounter Visit Diagnoses Diagnosis Arthritis Ankle- Primary Deficiency Vitamin D Arthritis Ankle- Primary Arthritis Ankle documented in this encounter Care Teams Handmade Tile Artist Relationship Specialty Start Date End Date Elsewhere, Pcp PCP - General Family Medicine 01/16/18 documented as of this encounter
--- OUTSIDE RECORDS SUMMARY | 2023-02-26 12:11 | XMS_ITS | Encounter Summary ---
Author Name Unknown Organization [facility] Address [address] [place] [address] Care Team Providers Care Utility Tractor Operator Name Role Phone Elsewhere, Pcp Primary Care Provider Unavailabl e Reason for Referral * MRI/CAT/PET Scan (Routine) - Closed Specialty Diagnoses / Procedures Referred By Contac t Referred To Contact Radiology Diagnoses Arthritis Ankle Procedures CT Ankle Right without IV Contrast Mary Partida P.A.-C. [address] [place] [phone] [facility] Referral ID Status Reason Start Date Expiration Date Visits Re quested Visits Authorized [id number] Closed 12/30/2022 12/30/2023 1 1 L OPERATOR Encounter Details Date Type Department Care Team (Late st Contact Info) Description 12/30/2022 Orders Only Department of Orthopedic Surgery in [place], [place] [address] [place] [phone] Mary Partida P.A.-C. [address] [place] [phone] Arthritis Ankle (Primary Dx) Social History Tobacco [...] (Latest Contact Info) Description 03/25/2023 9:00 AM BEVEL OPERATOR Clinical Communication Virtual Review in [place], [place] 200 [place] [address] 03/26/2023 8:30 AM BEVEL OPERATOR Appointment Department of Laboratory Medicine and Pathology, [facility] in [place], [place] [address] [place] [phone] Mary Partida P.A.-CStephen [address] [place] [phone] 03/26/2023 9:00 AM BEVEL OPERATOR Comprehensive Visit Preoperative Evaluation Center in [place], [place] [address] [place] [phone] Mary Partida P.A.-CStephen [address] [place] [phone] 03/26/2023 10:30 AM BEVEL OPERATOR Office Visit Department of Orthopedic Surgery in [place], [place] [address] [place] [phone] Blanco Burt M.D. [address] [place] [phone] 03/26/2023 1:00 PM BEVEL OPERATOR Comprehensive Visit Department of Physical Medicine and Rehabilitation in [place], [place] [address] [place] [phone] Mary Partida P.A.-CStephen [address] [place] [phone] Marina Major P.T., D.P.T. [address] [place] [phone] 03/27/2023 7:25 AM BEVEL OPERATOR Hospital Encounter Outpatient Procedure Center in [place], [place] [address] [place] [address] Blanco Burt M.D. [address] [place] [phone] 03/27/2023 7:25 AM BEVEL OPERATOR - 03/27/2023 10:52 AM BEVEL OPERATOR Surgery Outpatient Procedure Center in [place], [place] [address] [place] [phone] Blanco Burt M.D. [address] [place] [phone] right ARTHROPLASTY replacement total ankle; proceed as indicated Scheduled Procedures Name Priority Associated Diagnoses Date/Ti me ARTHROPLASTY ANKLE Arthritis Ankle 03/27/2023 7:25 AM BEVEL OPERATOR OPERATIVE LAPAROSCOPY Mass Ovary SALPINGO - OOPHORECTOMY Mass Ovary documented as of this encounter Results * CT Ankle Right without IV Contrast (01/14/2023 11:16 AM BEVEL OPERATOR) Anatomical Region Laterality Modality Ankle, Lower Extremity, Musc uloskeletal RST LOS, Musculoskeletal ARZ LOS, Muskuloskeletal FLA LOS Right Computed Tomography, Compute d Tomography 01/14/2023 11:2 1 AM BEVEL OPERATOR Impressions 01/14/2023 12:06 PM BEVEL OPERATOR 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 Narrative 01/14/2023 12:06 PM BEVEL OPERATOR EXAM: ??CT ANKLE RIGHT WITHOUT IV CONTRAST No 3D post-processing performed. COMPARISON: Correlation with radiographs 11/21/2022. FINDINGS: Noncontrast CT right ankle. Additional imaging of the right knee performed according to the [facility] ankle protocol for preoperative planning. Advanced osteoarthrosis of the tibiotalar joint with complete joint space loss and [id number] apposition centrally. Chronic flattening and remodeling of [...] of the right knee performedaccording to the [facility] ankle protocol for preoperative planning. Advanced osteoarthrosis of the tibiotalar joint with complete joint spaceloss and xnuw-to-jyum apposition centrally. Chronic flattening andremodeling of the [...] ankle. Mary Partida P.A.-C. IMG CT PROCEDURES documented in this encounter Visit Diagnoses Diagnosis Arthritis Ankle- Primary Arthritis Ankle Arthritis Ankle documented in this encounter Care Teams Utility Tractor Operator Relationship Specialty Start Date End Date Elsewhere, Pcp PCP - General Family Medicine 01/16/18 documented as of this encounter
--- OUTSIDE RECORDS SUMMARY | 2023-02-26 12:11 | XMS_ITS | Encounter Summary ---
Author Name Unknown Organization [facility] Address [address] [place] [address] Care Team Providers Care Recreation Officer Name Role Phone Elsewhere, Pcp Primary Care Provider Unavailabl e Reason for Visit * Reason Onset Date Comments Question 02/24/2023 Encounter Details Date Type Department Care Team (Late st Contact Info) Description 02/24/2023 Clinical Communication Department of Orthopedic Surgery in [place], [place] [address] [place] [phone] Blanco Burt M.D. [address] [place] [phone] Question Social History Tobacco Use Types Packs/Day Years [...] (Latest Contact Info) Description 03/25/2023 9:00 AM LOCKER ROOM MANAGER Clinical Communication Virtual Review in [place], [place] 200 [place] [address] 03/26/2023 8:30 AM LOCKER ROOM MANAGER Appointment Department of Laboratory Medicine and Pathology, [facility], in [place], [place] [address] [place] [phone] Mary Partida P.A.-C. [address] [place] [phone] 03/26/2023 9:00 AM LOCKER ROOM MANAGER Comprehensive Visit Preoperative Evaluation Center in [place], [place] [address] [place] [phone] Mary Partida P.A.-C. [address] [place] [phone] 03/26/2023 10:30 AM LOCKER ROOM MANAGER Office Visit Department of Orthopedic Surgery in [address] [phone] Blanco Burt M.D. [address] [place] [phone] 03/26/2023 1:00 PM LOCKER ROOM MANAGER Comprehensive Visit Department of Physical Medicine and Rehabilitation in [address] [phone] Mary Partida P.A.-C. [address] [place] [phone] Marina Major P.T., D.P.T. [address] [place] [phone] 03/27/2023 7:25 AM LOCKER ROOM MANAGER Hospital Encounter Outpatient Procedure Center in [place], [place] [address] [place] [phone] Blanco Burt M.D. [address] [place] [phone] 03/27/2023 7:25 AM LOCKER ROOM MANAGER - 03/27/2023 10:52 AM LOCKER ROOM MANAGER Surgery Outpatient Procedure Center in [place], [place] [address] [place] [address] Blanco Burt M.D. [address] [place] [address] right ARTHROPLASTY replacement total ankle; proceed as indicated Scheduled Procedures Name Priority Associated Diagnoses Date/Ti me ARTHROPLASTY ANKLE Arthritis Ankle 03/27/2023 7:25 AM LOCKER ROOM MANAGER OPERATIVE LAPAROSCOPY Mass Ovary SALPINGO - OOPHORECTOMY Mass Ovary documented as of this encounter Visit Diagnoses Not on filedocumented in this encounter Care Teams Recreation Officer Relationship Specialty Start Date End Date Elsewhere, Pcp PCP - General Family Medicine 01/16/18 documented as of this encounter
--- OUTSIDE RECORDS SUMMARY | 2023-02-26 12:11 | XMS_ITS | Referral Summary ---
Author Name Unknown Organization [facility] Address [address] [place] [address] Care Team Providers Care Computer Hardware Developer Name Role Phone Elsewhere, Pcp Primary Care Provider Unavailabl e Source Comments Patient records contain information from all sites at [facility]. For routine questions regarding patient records, call [phone] during business hours, M-F 8:00 AM - 5:00 PM Central Time. Record requests for emergency care only can be directed to [phone] at any time.[facility] Encounters Date Type Department Care Team Description 02/24/2023 Clinical Communication Department of Orthopedic Surgery in [place], [place] [address] [place] [phone] Blanco Burt M.D. Question 01/15/2023 Orders Only Department of Orthopedic Surgery in [place], [place] [address] [place] [address] Mary Partida P.A.-C. Arthritis Ankle (Primary Dx); Deficiency Vitamin D 01/14/2023 10:03 AM INDUSTRIAL ELECTRICAL ENGINEER - 01/14/2023 11:59 PM INDUSTRIAL ELECTRICAL ENGINEER Hospital Encounter Department of Radiology, [facility], in [place], [place] [address] [place] [address] Mary Partida P.A.-C. Arthritis Ankle Discharge Disposition: Home or Self Care 12/30/2022 Orders Only Department of Orthopedic Surgery in [place], [place] [address] [place] [address] HelgaMary kirby P.A.-C. Arthritis Ankle (Primary Dx) 12/30/2022 Clinical Communication Department of Orthopedic Surgery in [place], [place] [address] [place] [address] Blanco Burt M.D. Surgical Listing from Last 3 Months Allergies Active Allergy Reactions Criticality Noted Date [...] Overview: Added automatically from request for surgery [id number] Proteinuria 03/13/2020 Hyperparathyroidism Secondary 07/24/2016 Incontinence Urinary Stress Female 10/09/2015 Abnormal Pap Smear Cervix 05/30/2011 Overview: reactive reparative 12/2006; ASCUS 07/2007(negative HPV) ASCUS positve HPV 10/16/2009 LEEP on 05/17/2010 Pap 05/30/2011 is Negative for intraepithelial lesion or malignancy. 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[place] Chronic Kidney Disease (CKD) , Stage 3b Glomerular Filtration Rate (GFR) 30 To 44 12/15/2005 Donor Kidney 12/15/2005 Hypertensive Chronic Kidney Disease (CKD) Stage 3b Glomerular Filtration Rate (GFR) 30 To 44 12/02/2005 Immunizations Name Administration Dates Next Due HZV (ZOSTAVAX) 05/12/2009 Influenza (IM) Preservative Free 11/02/2014 Influenza Split 12/11/2014,11/10/2013,11/10/2010 Influenza, Seasonal, Injectable 11/04/19 14,12/08/2012,10/24/2011,2010 Influenza, Unspecified 12/04/2015,2014,11/04/2013,2010 PCV13 11/03/2014 PPSV23 07/11/2009 Td (Adult), adsorbed 05/16/2001 Td, (Adult) Unspecified 05/16/2001 Tdap 05/31/2011 Tetanus Toxoid, Adsorbed (discontinued) 08/03/2001 influenza high dose (65 year s or older) (PF) 11/19/2016,12/03/2015,12/11/2014,2013 Social History Tobacco Use Types Packs/Day Years [...] (Latest Contact Info) Description 03/25/2023 9:00 AM INDUSTRIAL ELECTRICAL ENGINEER Clinical Communication Virtual Review in [place], [place] 200 [place] [address] 03/26/2023 8:30 AM INDUSTRIAL ELECTRICAL ENGINEER Appointment Department of Laboratory Medicine and Pathology, [facility] in [place], [place] [address] [place] [phone] Mary Partida P.A.-C. [address] [place] [phone] 03/26/2023 9:00 AM INDUSTRIAL ELECTRICAL ENGINEER Comprehensive Visit Preoperative Evaluation Center in [address] [phone] Mary Partida P.A.-C. [address] [place] [phone] 03/26/2023 10:30 AM INDUSTRIAL ELECTRICAL ENGINEER Office Visit Department of Orthopedic Surgery in [address] [phone] Blanco Burt M.D. [address] [place] [phone] 03/26/2023 1:00 PM INDUSTRIAL ELECTRICAL ENGINEER Comprehensive Visit Department of Physical Medicine and Rehabilitation in [address] [phone] Mary Partida P.A.-C. [address] [place] [phone] Marina Major P.T., D.P.T. [address] [place] [phone] 03/27/2023 7:25 AM INDUSTRIAL ELECTRICAL ENGINEER Hospital Encounter Outpatient Procedure Center in [address] [place] [address] Blanco Burt M.D. [address] [place] [address] 03/27/2023 7:25 AM INDUSTRIAL ELECTRICAL ENGINEER - 03/27/2023 10:52 AM INDUSTRIAL ELECTRICAL ENGINEER Surgery Outpatient Procedure Center in [place], [place] [address] [place] [address] Blanco Burt M.D. [address] [place] [address] right ARTHROPLASTY replacement total ankle; proceed as indicated Scheduled Procedures Name Priority Associated Diagnoses Date/Ti me ARTHROPLASTY ANKLE Arthritis Ankle 03/27/2023 7:25 AM INDUSTRIAL ELECTRICAL ENGINEER OPERATIVE LAPAROSCOPY Mass Ovary SALPINGO - OOPHORECTOMY Mass Ovary Procedures Procedure Name Priority Date/Time Associated Diagnosis Comments CT ANKLE RIGHT WITHOUT IV CONTRAST RAD - Routine (most inpatients and all outpatients) 01/14/2023 11:16 AM INDUSTRIAL ELECTRICAL ENGINEER Arthritis Ankle from Last 3 Months Results * CT Ankle Right without IV Contrast (01/14/2023 11:16 AM INDUSTRIAL ELECTRICAL ENGINEER) Anatomical Region Laterality Modality Ankle, Lower Extremity, Musc uloskeletal RST LOS, Musculoskeletal ARZ LOS, Muskuloskeletal FLA LOS Right Computed Tomography, Compute d Tomography 01/14/2023 11:2 1 AM INDUSTRIAL ELECTRICAL ENGINEER Impressions 01/14/2023 12:06 PM INDUSTRIAL ELECTRICAL ENGINEER 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 Narrative 01/14/2023 12:06 PM INDUSTRIAL ELECTRICAL ENGINEER EXAM: ??CT ANKLE RIGHT WITHOUT IV CONTRAST No 3D post-processing performed. COMPARISON: Correlation with radiographs 11/21/2022. FINDINGS: Noncontrast CT right ankle. Additional imaging of the right knee performed according to the [facility] ankle protocol for preoperative planning. Advanced osteoarthrosis of the tibiotalar joint with complete joint space loss and [id number] apposition centrally. Chronic flattening and remodeling of [...] of the right knee performedaccording to the [facility] ankle protocol for preoperative planning. Advanced osteoarthrosis of the tibiotalar joint with complete joint spaceloss and [id number] apposition centrally. Chronic flattening andremodeling of the [...] PROCEDURES from Last 3 Months Care Teams Computer Hardware Developer Relationship Specialty Start Date End Date Elsewhere, Pcp PCP - General Family Medicine 01/16/18
--- OUTSIDE RECORDS SUMMARY | 2023-02-26 12:11 | XMS_ITS | Encounter Summary ---
Author Name Unknown Organization [facility] Address [address] [place] [address] Care Team Providers Care Liquefier Name Role Phone Elsewhere, Pcp Primary Care Provider Unavailabl e Reason for Referral * Outpatient (Routine) - Closed Specialty Diagnoses / Procedures Referred By Marko mares Referred To Contact Diagnoses Pain Right Ankle And Joints Right Foot Procedures DX Foot Ankle Right 3+ Views Mary Partida P.A.-C. [address] [place] [phone] [facility] Referral ID Status Reason Start Date Expiration Date Visits Re quested Visits Authorized [id number] Closed 10/24/2022 10/24/2023 1 1 Reason for Visit * Outpatient (Routine) - Closed Specialty Diagnoses / Procedures Referred By Marko mares Referred To Contact Diagnoses Pain Right Ankle And Joints Right Foot Procedures DX Foot Ankle Right 3+ Views Mary Partida P.A.-C. [address] [place] [phone] [facility] Referral ID Status Reason Start Date Expiration Date Visits Re quested Visits Authorized [id number] Closed 10/24/2022 10/24/2023 1 1 Encounter Details Date Type Department Care Team (Latest Contact Info) Description 11/21/2022 12:41 PM CDT - 11/21/2022 11:59 PM CDT Hospital Encounter Department of Radiology, [facility], in [place], [place] [address] [place] [address] Mary Partida P.A.-C. [address] [place] [address] Pain Right Ankle And Joints Right Foot Discharge Disposition: Home or Self Care Social History Tobacco Use Types Packs/Day Years [...] AM CDT documented as of this encounter Medications at Time of Discharge Medication Sig Dispensed Refills Start Date End Date acetaminophen (TYLENOL EXTRA STRENGTH ORAL) Take 2 capsules by mouth as needed. pain 0 07/20/2013 amLODIPine (NORVASC) 2.5 mg tablet Take 1 tablet (2.5 mg total) by mouth at bedtime. 90 tablet 3 12/05/2021 calcium carbonate-vitamin D3 1,250 mg (500 mg calcium)-5 mcg (200 Unit) per tablet Take 1 tablet by mouth daily with breakfast. 0 losartan (COZAAR) 50 mg tablet Take 1 tablet by mouth daily. 0 12/30/2008 simvastatin (ZOCOR) 10 mg tablet Take 1 tablet by mouth at bedtime. 0 12/29/2008 cefdinir (OMNICEF) 300 mg capsule Take 1 capsule (300 mg total) by mouth 2 (two) times a day before breakfast and dinner for 5 days. 10 capsule 0 11/20/2022 11/25/2022 documented as of this encounter Plan of Treatment Upcoming Encounters Date Type Department Care Team (Latest Contact Info) Description 03/25/2023 9:00 AM PRESCHOOL AIDE Clinical Communication Virtual Review in [place], [place] 200 [place] [address] 03/26/2023 8:30 AM PRESCHOOL AIDE Appointment Department of Laboratory Medicine and Pathology, [facility], in [place], [place] [address] [place] [phone] Mary Partida P.A.-C. [address] [place] [phone] 03/26/2023 9:00 AM PRESCHOOL AIDE Comprehensive Visit Preoperative Evaluation Center in [address] [phone] Mary Partida P.A.-C. [address] [place] [phone] 03/26/2023 10:30 AM PRESCHOOL AIDE Office Visit Department of Orthopedic Surgery in [address] [phone] Blanco Butr M.D. [address] [place] [phone] 03/26/2023 1:00 PM PRESCHOOL AIDE Comprehensive Visit Department of Physical Medicine and Rehabilitation in [address] [phone] Mary Partida P.A.-C. [address] [place] [phone] Marina Major P.T., D.P.T. [address] [place] [phone] 03/27/2023 7:25 AM PRESCHOOL AIDE Hospital Encounter Outpatient Procedure Center in [address] [phone] Blanco Burt M.D. [address] [place] [phone] 03/27/2023 7:25 AM PRESCHOOL AIDE - 03/27/2023 10:52 AM [facility] Surgery Outpatient Procedure Center in [place], [place] [address] [place] [address] Blanco Burt M.D. [address] [place] [address] right ARTHROPLASTY replacement total ankle; proceed as indicated Scheduled Procedures Name Priority Associated Diagnoses Date/Ti me ARTHROPLASTY ANKLE Arthritis Ankle 03/27/2023 7:25 AM PRESCHOOL AIDE OPERATIVE LAPAROSCOPY Mass Ovary SALPINGO - OOPHORECTOMY Mass Ovary documented as of this encounter Procedures Procedure Name Priority Date/Time Associated Diagnosis Comments DX FOOT ANKLE RIGHT 3+ VIEWS RAD - Routine (most inpatients and all outpatients) 11/21/2022 1:07 PM CDT Pain Right Ankle And Joints Right Foot documented in this encounter Results * DX Foot Ankle Right 3+ Views (11/21/2022 1:07 PM CDT) Anatomical Region Laterality Modality Lower Extremity, Foot, Ankle , Musculoskeletal RST LOS, Musculoskeletal ARZ LOS, Muskuloskeletal FLA LOS Right Digit al Radiography 11/21/2022 2:44 PM CDT Impressions 11/21/2022 2:45 PM CDT Advanced right tibiotalar joint degeneration. Mild to moderate subtalar and midfoot degeneration. Large osteochondral joint body right tibiotalar joint. Small right heel spur. Pes planus. Advanced right 1st MTP joint degeneration with moderate hallux valgus. Large bony bunion deformities. Mild to moderate left 1st MTP joint degeneration. Mild left hallux valgus. Narrative 11/21/2022 2:45 PM CDT EXAM: ??DX FOOT ANKLE RIGHT 3+ VIEWS Procedure Note Jimmy Brian M.D. - 11/21/2022 EXAM: DX FOOT ANKLE RIGHT 3+ VIEWS IMPRESSION: Advanced right tibiotalar joint degeneration. Mild to moderate subtalarand midfoot degeneration. Large osteochondral joint body right tibiotalar joint. Smallright heel spur. Pes planus. Advanced right 1st MTP joint degeneration with moderate halluxvalgus. Large bony bunion deformities. Mild to moderate left 1st MTP joint degeneration. Mild lefthallux valgus. Mary Partida P.A.-C. IMG DIAGNOSTIC IM AGING PROCEDURES documented in this encounter Visit Diagnoses Diagnosis Pain Right Ankle And Joints Right Foot Arthritis Ankle documented in this encounter Care Teams Liquefier Relationship Specialty Start Date End Date Elsewhere, Pcp PCP - General Family Medicine 01/16/18 documented as of this encounter
--- OUTSIDE RECORDS SUMMARY | 2023-02-26 12:11 | XMS_ITS | Encounter Summary ---
Author Name Unknown Organization [facility] Address [address] [place] [address] Care Team Providers Care Aged Or Disabled Care Worker Name Role Phone Elsewhere, Pcp Primary Care Provider Unavailabl e Reason for Referral * MRI/CAT/PET Scan (Routine) - Closed Specialty Diagnoses / Procedures Referred By Marko mares Referred To Contact Radiology Diagnoses Arthritis Ankle Procedures CT Ankle Right without IV Contrast Mary Partida P.A.-C. [address] [place] [phone] [facility] Referral ID Status Reason Start Date Expiration Date Visits Re quested Visits Authorized [id number] Closed 12/30/2022 12/30/2023 1 1 S SALES MANAGER Reason for Visit * MRI/CAT/PET Scan (Routine) - Closed Specialty Diagnoses / Procedures Referred By Marko mares Referred To Contact Radiology Diagnoses Arthritis Ankle Procedures CT Ankle Right without IV Contrast Mary Partida P.A.-C. [address] [place] [phone] [facility] Referral ID Status Reason Start Date Expiration Date Visits Re quested Visits Authorized [id number] Closed 12/30/2022 12/30/2023 1 1 Encounter Details Date Type Department Care Team (Latest Contact Info) Description 01/14/2023 10:03 AM PARTS SALES MANAGER - 01/14/2023 11:59 PM PARTS SALES MANAGER Hospital Encounter Department of Radiology, [facility] in [place], [place] [address] [place] [address] Mary Partida P.A.-C. [address] [place] [phone] Arthritis Ankle Discharge Disposition: Home or Self Care Social [...] by mouth as needed. pain 0 07/20/2013 calcium carbonate-vitamin D3 1,250 mg (500 mg calcium)-5 mcg (200 Unit) per tablet Take 1 tablet by mouth daily with breakfast. 0 losartan (COZAAR) 50 mg tablet Take 1 tablet by mouth daily. 0 12/30/2008 simvastatin (ZOCOR) 10 mg tablet Take 1 tablet by mouth at bedtime. 0 12/29/2008 documented as of this encounter Plan of Treatment Upcoming Encounters Date Type Department Care Team (Latest Contact Info) Description 03/25/2023 9:00 AM PARTS SALES MANAGER Clinical Communication Virtual Review in [place], [place] 200 [place] [address] 03/26/2023 8:30 AM PARTS SALES MANAGER Appointment Department of Laboratory Medicine and Pathology, [facility], in [place], [place] [address] [place] [phone] Mary Partida P.A.-C. [address] [place] [phone] 03/26/2023 9:00 AM PARTS SALES MANAGER Comprehensive Visit Preoperative Evaluation Center in [place], [place] [address] [place] [phone] Mary Partida P.A.-C. [address] [place] [phone] 03/26/2023 10:30 AM PARTS SALES MANAGER Office Visit Department of Orthopedic Surgery in [place], [place] [address] [place] [phone] Blanco Burt M.D. [address] [place] [phone] 03/26/2023 1:00 PM PARTS SALES MANAGER Comprehensive Visit Department of Physical Medicine and Rehabilitation in [place], [place] [address] [place] [phone] Mary Partida P.A.-C. [address] [place] [phone] Marina Major PEma, D.P.T. [address] [place] [phone] 03/27/2023 7:25 AM PARTS SALES MANAGER Hospital Encounter Outpatient Procedure Center in [place], [place] [address] [place] [phone] Blanco Burt M.D. [address] [place] [phone] 03/27/2023 7:25 AM PARTS SALES MANAGER - 03/27/2023 10:52 AM PARTS SALES MANAGER Surgery Outpatient Procedure Center in [place], [place] [address] [place] [phone] Blanco Burt M.D. [address] [place] [phone] right ARTHROPLASTY replacement total ankle; proceed as indicated Scheduled Procedures Name Priority Associated Diagnoses Date/Ti me ARTHROPLASTY ANKLE Arthritis Ankle 03/27/2023 7:25 AM PARTS SALES MANAGER OPERATIVE LAPAROSCOPY Mass Ovary SALPINGO - OOPHORECTOMY Mass Ovary documented as of this encounter Procedures Procedure Name Priority Date/Time Associated Diagnosis Comments CT ANKLE RIGHT WITHOUT IV CONTRAST RAD - Routine (most inpatients and all outpatients) 01/14/2023 11:16 AM PARTS SALES MANAGER Arthritis Ankle documented in this encounter Results * CT Ankle Right without IV Contrast (01/14/2023 11:16 AM PARTS SALES MANAGER) Anatomical Region Laterality Modality Ankle, Lower Extremity, Musc uloskeletal RST LOS, Musculoskeletal ARZ LOS, Muskuloskeletal FLA LOS Right Computed Tomography, Compute d Tomography 01/14/2023 11:2 1 AM PARTS SALES MANAGER Impressions 01/14/2023 12:06 PM PARTS SALES MANAGER 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 Narrative 01/14/2023 12:06 PM PARTS SALES MANAGER EXAM: ??CT ANKLE RIGHT WITHOUT IV CONTRAST No 3D post-processing performed. COMPARISON: Correlation with radiographs 11/21/2022. FINDINGS: Noncontrast CT right ankle. Additional imaging of the right knee performed according to the [facility] ankle protocol for preoperative planning. Advanced osteoarthrosis of the tibiotalar joint with complete joint space loss and [id number] apposition centrally. Chronic flattening and remodeling of [...] of the right knee performedaccording to the [facility] ankle protocol for preoperative planning. Advanced osteoarthrosis of the tibiotalar joint with complete joint spaceloss and [id number] apposition centrally. Chronic flattening andremodeling of the [...] of the right ankle. Mary Partida P.A.-C. [facility] [place] PROCEDURES documented in this encounter Visit Diagnoses Diagnosis Arthritis Ankle Arthritis Ankle documented in this encounter Care Teams Aged Or Disabled Care Worker Relationship Specialty Start Date End Date Elsewhere, Pcp PCP - General Family Medicine 01/16/18 documented as of this encounter
--- OUTSIDE RECORDS SUMMARY | 2023-02-26 12:11 | XMS_ITS | Clinical Summary ---
Author Name Unknown Organization [facility] Address [place], [place] [address] Care Team Providers Care Mutuel Machine Operator Name Role Phone None Primary Care Provider Unavailabl e Allergies Active Allergy Reactions Criticality Noted Date Comments Hydrochlorothiazide *Unknown 11/09/2015 Nsaids (Non-Steroidal Anti-Inflammatory Drug) Other - Describe In Comment Field,*Unknown 11/21/2017 Other reaction(s): Other - Describe In Comment Field Medications Medication Sig Dispensed Refills Start Date End Date Status simvastatin (ZOCOR) 10 mg tablet Take 10 mg by mouth at bedtime. 0 Active losartan (COZAAR) 50 mg tablet Take 50 mg by mouth once daily. 0 Active acetaminophen (TYLENOL EXTRA STRGTH) 500 mg tablet Three Times A Day as needed 0 08/04/2019 Active Active Problems No known active problems Social History Tobacco Use Types Packs/Day Years Used Date Smoking Tobacco: Former Smokeless Tobacco: Never Tobacco Cessation:Counseling Given: Yes Alcohol Use Standard Drinks/Week Comments Never 0 (1 standard drink = 0.6 oz pur e alcohol) Social Connections Answer Date Recorded Frequency of Communication with Friends and Fami ly Not on file 12/31/2021 Sex and Gender Information Value Date Recorded Sex Assigned at Not on file Gender Identity Not on file Sexual Orientation Not on file Obstetrics History Last Filed Vital Signs Vital Sign Reading Time Taken Comments Blood Pressure 124/84 07/31/2022 1:38 PM CDT Pulse 77 07/31/2022 1:38 PM CDT Temperature 36.5 ??C (97.7 ??F) 04/25/2022 8:43 AM CD T Respiratory Rate 18 11/16/2015 12:00 PM CDT Oxygen Saturation 98% 07/31/2022 1:38 PM CDT Inhaled Oxygen Concentration - - Weight 75.3 kg (166 lb 1.6 oz) 07/31/2022 1:38 P M CDT Height - - Body Mass Index - - Plan of Treatment Health Maintenance Due Date Last Done Comments Tdap 10/30/1955 Depression screening for age 12+ 1956 BMI (ht and wt on same day) for age 18+ 1962 Hepatitis C screening for ag e 18-79 1962 Tetanus booster 1964 Zoster (shingles) series for age 50+ (1 of 2) 1994 DEXA/DXA scan for age 65+ 2009 Medicare Wellness for age 65+ 2009 Pneumococcal series for age 65+ (1 of 1 - PCV) 2009 COVID-19 vaccine series (2022- season) 2022 11/14/2021, 06/22/2021, 12/07/2020, Additional history exists Influenza for age 65+ 10/11/2022 Advance Directives Latest Code Status on File Code Status Date Activated Date Inactivated Comments Full Code 11/16/2015 9:37 AM 11/16/2015 2:27 PM Care Teams Mutuel Machine Operator Relationship Specialty Start Date End Date None . PCP - General 07/31/22
--- OUTSIDE RECORDS SUMMARY | 2023-02-26 12:11 | XMS_ITS | Encounter Summary ---
Author Name Unknown Organization [facility] Address [address] [place] [address] Care Team Providers Care Brand Strategist Name Role Phone Elsewhere, Pcp Primary Care Provider Unavailabl e Reason for Visit * Reason Onset Date Comments Surgical Listing 12/30/2022 Encounter Details Date Type Department Care Team (Latest Contact Info) Description 12/30/2022 Clinical Communication Department of Orthopedic Surgery in [place], [place] [address] [place] [phone] Blanco Burt M.D. [address] [place] [phone] Surgical Listing Social History Tobacco Use Types Packs/Day Years [...] (Latest Contact Info) Description 03/25/2023 9:00 AM PLANT OPERATOR HELPER Clinical Communication Virtual Review in [place], [place] 200 [place] [address] 03/26/2023 8:30 AM PLANT OPERATOR HELPER Appointment Department of Laboratory Medicine and Pathology, [facility], in [place], [place] [address] [place] [phone] Mary Partida P.A.-C. [address] [place] [phone] 03/26/2023 9:00 AM PLANT OPERATOR HELPER Comprehensive Visit Preoperative Evaluation Center in [place], [place] [address] [place] [phone] Mary Partida P.A.-C. [address] [place] [phone] 03/26/2023 10:30 AM PLANT OPERATOR HELPER Office Visit Department of Orthopedic Surgery in [address] [phone] Blanco Burt M.D. [address] [place] [phone] 03/26/2023 1:00 PM PLANT OPERATOR HELPER Comprehensive Visit Department of Physical Medicine and Rehabilitation in [address] [phone] Mary Partida P.A.-C. [address] [place] [phone] Marina Major P.T., D.P.T. [address] [place] [phone] 03/27/2023 7:25 AM PLANT OPERATOR HELPER Hospital Encounter Outpatient Procedure Center in [place], [place] [address] [place] [phone] Blanco Burt M.D. [address] [place] [phone] 03/27/2023 7:25 AM PLANT OPERATOR HELPER - 03/27/2023 10:52 AM PLANT OPERATOR HELPER Surgery Outpatient Procedure Center in [place], [place] [address] [place] [address] Blanco Burt M.D. [address] [place] [address] right ARTHROPLASTY replacement total ankle; proceed as indicated Scheduled Procedures Name Priority Associated Diagnoses Date/Ti me ARTHROPLASTY ANKLE Arthritis Ankle 03/27/2023 7:25 AM PLANT OPERATOR HELPER OPERATIVE LAPAROSCOPY Mass Ovary SALPINGO - OOPHORECTOMY Mass Ovary documented as of this encounter Visit Diagnoses Not on filedocumented in this encounter Care Teams Brand Strategist Relationship Specialty Start Date End Date Elsewhere, Pcp PCP - General Family Medicine 01/16/18 documented as of this encounter
--- OUTSIDE RECORDS SUMMARY | 2023-02-26 12:11 | XMS_ITS | Encounter Summary ---
Author Name Unknown Organization [facility] Address [address] [place] [address] Care Team Providers Care Ophthalmic Lens Inspector Name Role Phone Elsewhere, Pcp Primary Care Provider Unavailabl e Encounter Details Date Type Department Care Team ( Contact Info) Description 11/20/2022 Orders Only Division of Nephrology and Hypertension in [place], [place] [address] [place] [phone] Debra Zarate M.D., Ph.D. [address] [place] [phone] Social History Tobacco Use Types Packs/Day Years [...] (Latest Contact Info) Description 03/25/2023 9:00 AM TWISTING PRESS OPERATOR Clinical Communication Virtual Review in [place], [place] 200 [place] [address] 03/26/2023 8:30 AM TWISTING PRESS OPERATOR Appointment Department of Laboratory Medicine and Pathology, [facility], in [place], [place] [address] [place] [phone] Mary Partida P.A.-C. [address] [place] [phone] 03/26/2023 9:00 AM TWISTING PRESS OPERATOR Comprehensive Visit Preoperative Evaluation Center in [place], [place] [address] [place] [phone] Mary Partida P.A.-C. [address] [place] [phone] 03/26/2023 10:30 AM TWISTING PRESS OPERATOR Office Visit Department of Orthopedic Surgery in [place], [place] [address] [place] [phone] Blanco Burt M.D. [address] [place] [phone] 03/26/2023 1:00 PM TWISTING PRESS OPERATOR Comprehensive Visit Department of Physical Medicine and Rehabilitation in [place], [place] [address] [place] [phone] Mary Partida P.A.-C. [address] [place] [phone] Marina Major PEma, D.P.T. [address] [place] [phone] 03/27/2023 7:25 AM TWISTING PRESS OPERATOR Hospital Encounter Outpatient Procedure Center in [place], [place] [address] [place] [phone] Blanco Burt M.D. [address] [place] [phone] 03/27/2023 7:25 AM TWISTING PRESS OPERATOR - 03/27/2023 10:52 AM TWISTING PRESS OPERATOR Surgery Outpatient Procedure Center in [place], [place] [address] [place] [address] Blanco Burt M.D. [address] [place] [phone] right ARTHROPLASTY replacement total ankle; proceed as indicated Scheduled Procedures Name Priority Associated Diagnoses Date/Ti me ARTHROPLASTY ANKLE Arthritis Ankle 03/27/2023 7:25 AM TWISTING PRESS OPERATOR OPERATIVE LAPAROSCOPY Mass Ovary SALPINGO - OOPHORECTOMY Mass Ovary documented as of this encounter Visit Diagnoses Not on filedocumented in this encounter Care Teams Ophthalmic Lens Inspector Relationship Specialty Start Date End Date Elsewhere, Pcp PCP - General Family Medicine 01/16/18 documented as of this encounter
--- OUTSIDE RECORDS SUMMARY | 2023-02-26 12:12 | XMS_ITS | Encounter Summary ---
Author Name Unknown Organization [facility] Address [address] [place] [address] Care Team Providers Care Drafting Layout Man Name Role Phone Elsewhere, Pcp Primary Care Provider Unavailabl e Encounter Details Date Type Department Care Team (Latest Contact Info) Description 07/04/2022 10:40 AM CDT - 07/04/2022 10:55 AM CDT Hospital Encounter Department of Laboratory Medicine and Pathology, [place], [place] [address] [place] [address] Raisa Vasques M.D. [address] [place] [phone] Mass Ovary Discharge Disposition: Home or Self Care Social [...] (Latest Contact Info) Description 03/25/2023 9:00 AM MIXOLOGIST Clinical Communication Virtual Review in [place], [place] 200 [place] [address] 03/26/2023 8:30 AM MIXOLOGIST Appointment Department of Laboratory Medicine and Pathology, [facility] in [address] [phone] Mary Partida, P.A.-CStephen [address] [place] [phone] 03/26/2023 9:00 AM MIXOLOGIST Comprehensive Visit Preoperative Evaluation Center in [address] [phone] Mary Partida P.A.-CStephen [address] [place] [phone] 03/26/2023 10:30 AM MIXOLOGIST Office Visit Department of Orthopedic Surgery in [address] [phone] Blanco Burt M.D. [address] [place] [phone] 03/26/2023 1:00 PM MIXOLOGIST Comprehensive Visit Department of Physical Medicine and Rehabilitation in [address] [phone] Mary Partida P.A.-C. [address] [place] [phone] Marina Major P.T., Priscilla.P.T. [address] [place] [phone] 03/27/2023 7:25 AM MIXOLOGIST Hospital Encounter Outpatient Procedure Center in [place], [place] [address] [place] [phone] Blanco Burt M.D. [address] [place] [phone] 03/27/2023 7:25 AM MIXOLOGIST - 03/27/2023 10:52 AM MIXOLOGIST Surgery Outpatient Procedure Center in [place], [place] [address] [place] [phone] Blanco Burt M.D. [address] [place] [phone] right ARTHROPLASTY replacement total ankle; proceed as indicated Scheduled Procedures Name Priority Associated Diagnoses Date/Ti me ARTHROPLASTY ANKLE Arthritis Ankle 03/27/2023 7:25 AM MIXOLOGIST OPERATIVE LAPAROSCOPY Mass Ovary SALPINGO - OOPHORECTOMY Mass Ovary documented as of this encounter Procedures Procedure Name Priority Date/Time Associated Diagnosis Comments CANCER AG 125 (CA 125), S Routine 07/04/2022 10:45 AM CDT Mass Ovary documented in this encounter Results * Cancer Antigen 125 (CA 125) (07/04/2022 10:45 AM CDT) Cancer Ag 125 (CA 125), S 38 <46 U/mL 07/04/2022 3:38 PM CDT [facility] Comment: ----ADDITIONAL INFORMATION---- The testing method is an electrochemiluminescence assay manufactured by [employer] and performed on the Richard system. Values obtained with different assay methods or kits may be different and cannot be used interchangeably. Test results cannot be interpreted as absolute evidence for the presence or absence of malignant disease. Blood (Blood, Venous) 07/04/2022 10:45 AM CDT 07/04/2022 3:01 PM CDT Raisa Vasques M.D. LAB BLOOD ADD-ON [facility] [address] [place] [address] [place] [facility] [address] [place] [address] documented in this encounter Visit Diagnoses Diagnosis Mass Ovary Arthritis Ankle documented in this encounter Care Teams Drafting Layout Man Relationship Specialty Start Date End Date Elsewhere, Pcp PCP - General Family Medicine 01/16/18 documented as of this encounter
--- OUTSIDE RECORDS SUMMARY | 2023-02-26 12:12 | XMS_ITS | Encounter Summary ---
Author Name Unknown Organization [facility] Address [address] [place] [address] Care Team Providers Care Hardwood Floor Refinisher Name Role Phone Elsewhere, Pcp Primary Care Provider Unavailabl e Reason for Visit * Appointment Request (Routine) - Closed Specialty Diagnoses / Procedures Referred By Contge t Referred To Contact Nephrology and Hypertension Referral ID Status Reason Start Date Expiration Date Visits Re quested Visits Authorized [id number] Closed 04/18/2022 04/18/2023 1 Encounter Details Date Type Department Care Team (Latest Contact Info) Description 06/05/2022 10:00 AM CDT External Outreach Division of Nephrology and Hypertension in [place], [place] [address] [place] [address] Debra Zarate M.D., Ph.D. [address] [place] [address] Chronic Kidney Disease (CKD), Stage 3b Glomerular Filtration Rate (GFR) 30 To 44 (HCC) (Primary Dx); Donor Kidney; Hypertensive Chronic Kidney Disease (CKD) Stage 3b Glomerular Filtration Rate (GFR) 30 To 44 (HCC) Social History Tobacco Use Types Packs/Day Years [...] as of this encounter Progress Notes * Debra Zarate M.D., Ph.D. - 06/05/2022 10:00 AM CDT SUBJECTIVE REASON FOR CONSULT Follow up CKD stage 3 management. [facility] [place] outreach visit Location: [facility] HISTORY OF PRESENT ILLNESS Ms. 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 She donated a kidney to her son. Her baseline creatinine has been ranging between 1.3 and 1.4. She has history of hypertension that is well controlled on therapy with losartan 50 mg daily and amlodipine 2.5 mg daily. Her blood pressure has been at goal at home. 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 She follows a low-salt diet. Overall she fells well and does not have any current concerns. Recently treated for UTI, she is about to complete antibiotic therapy. She does not recall name of antibiotic. Patient has not noticed any lightheadedness, dizziness, vision changes, diaphoresis, chest pain, difficulty breathing, or edema. Patient has not noticed any changes in urinary habits. No hesitancy tourinate, no difficulty to urinate. OBJECTIVE VITAL SIGNS Blood pressure 138/80, pulse 72. PHYSICAL EXAMINATION General: No acute distress, breathing comfortably. Neuro: No focal deficits. Alert and oriented X 4. Skin: Warm. No rashes. Psych: Answers questions appropriately. No signs of anxiety or depression noted. DIAGNOSTICS Labs: I have reviewed available labs in detail with patient. Cr. 1.3, uACR 310 UA is cloudy, presence of bacteria. ASSESSMENT / PLAN #1 CKD stage 3 in the setting of solitary kidney status post kidney donation in 1999 and hypertension #2 Anemia in CKD #3 Vitamin D deficiency Her kidney function remains stable. There are no signs of progression. She has an albumin to creatinine ratio of 1310 when compared to 6 months ago it was 130 mg/g. As her blood pressure is well controlled, I will not increase the dose of losartan at this moment. Increased proteinuria could be fromUTI. I will continue to monitor and perhaps increase losartan in the future if her albuminuria was to progress and discontinuation of amlodipine at that time. Her low hemoglobin of 11.8 has improved to 13.4. Iron studies at goal. She has low vitamin D levels. She restarted supplementation with calcium and vitamin D. We have rechecked levels they are currently pending. For now, continue Calcium + Vit D. Follow up in 6 months Vielka Crouch M.D., Ph.D. documented in this encounter Plan of Treatment Upcoming Encounters Date Type Department Care Team (Latest Contact Info) Description 03/25/2023 9:00 AM CASINO DEALER Clinical Communication Virtual Review in [address] [address] 03/26/2023 8:30 AM CASINO DEALER Appointment Department of Laboratory Medicine and Pathology, [facility] in [address] [phone] Mary Partida P.A.-Holly [address] [place] [phone] 03/26/2023 9:00 AM CASINO DEALER Comprehensive Visit Preoperative Evaluation Center in [address] [phone] Mary Partida P.A.-C. [address] [place] [phone] 03/26/2023 10:30 AM CASINO DEALER Office Visit Department of Orthopedic Surgery in [address] [phone] Blanco Burt M.D. [address] [place] [phone] 03/26/2023 1:00 PM CASINO DEALER Comprehensive Visit Department of Physical Medicine and Rehabilitation in [place], [place] [address] [place] [address] Mary Partida P.A.-C. [address] [place] [phone] Marina Major P.T., D.P.T. [address] [place] [phone] 03/27/2023 7:25 AM CASINO DEALER Hospital Encounter Outpatient Procedure Center in [place], [place] [address] [place] [address] Blanco Burt M.D. [address] [place] [phone] 03/27/2023 7:25 AM CASINO DEALER - 03/27/2023 10:52 AM CASINO DEALER Surgery Outpatient Procedure Center in [place], [place] [address] [place] [address] Blanco Burt M.D. [address] [place] [phone] right ARTHROPLASTY replacement total ankle; proceed as indicated Scheduled Procedures Name Priority Associated Diagnoses Date/Ti me ARTHROPLASTY ANKLE Arthritis Ankle 03/27/2023 7:25 AM CASINO DEALER OPERATIVE LAPAROSCOPY Mass Ovary SALPINGO - OOPHORECTOMY Mass Ovary documented as of this encounter Visit Diagnoses Diagnosis Chronic Kidney Disease (CKD), Stage 3b Glomerular Filtration Rate (GFR) 30 To 44 (HCC)- Primary Donor Kidney Hypertensive Chronic Kidney Disease (CKD) Stage 3b Glomerular Filtration Rate (GFR) 30 To 44 (HCC) Arthritis Ankle documented in this encounter Care Teams Hardwood Floor Refinisher Relationship Specialty Start Date End Date Elsewhere, Pcp PCP - General Family Medicine 01/16/18 documented as of this encounter
--- OUTSIDE RECORDS SUMMARY | 2023-02-26 12:12 | XMS_ITS | Encounter Summary ---
Author Name Unknown Organization [facility] Address [address] [place] [address] Care Team Providers Care Fishing Floats Assembler Name Role Phone Elsewhere, Pcp Primary Care Provider Unavailabl e Reason for Referral * Outpatient (Routine) - Closed Specialty Diagnoses / Procedures Referred By Contac t Referred To Contact Diagnoses Pain Right Ankle And Joints Right Foot Procedures DX Foot Ankle Right 3+ Views Mary Partida P.A.-C. [address] [place] [phone] [facility] Referral ID Status Reason Start Date Expiration Date Visits Re quested Visits Authorized [id number] Closed 10/24/2022 10/24/2023 1 1 Encounter Details Date Type Department Care Team (Late st Contact Info) Description 10/24/2022 Orders Only Department of Orthopedic Surgery in [place], [place] [address] [place] [phone] Mary Partida P.A.-C. [address] [place] [phone] Pain Right Ankle And Joints Right Foot (Primary Dx) Social History Tobacco Use Types [...] (Latest Contact Info) Description 03/25/2023 9:00 AM SYSTEMS DESIGN ENGINEER Clinical Communication Virtual Review in [place], [place] 200 [place] [address] 03/26/2023 8:30 AM SYSTEMS DESIGN ENGINEER Appointment Department of Laboratory Medicine and Pathology, [facility] in [place], [place] [address] [place] [phone] Mary Partida P.A.-CStephen [address] [place] [phone] 03/26/2023 9:00 AM SYSTEMS DESIGN ENGINEER Comprehensive Visit Preoperative Evaluation Center in [address] [phone] Mary Partida P.A.-CStephen [address] [place] [phone] 03/26/2023 10:30 AM SYSTEMS DESIGN ENGINEER Office Visit Department of Orthopedic Surgery in [place], [place] [address] [place] [phone] Blanco Burt M.D. [address] [place] [phone] 03/26/2023 1:00 PM SYSTEMS DESIGN ENGINEER Comprehensive Visit Department of Physical Medicine and Rehabilitation in [place], [place] [address] [place] [phone] Mary Partida P.A.-CStephen [address] [place] [phone] Marina Major P.T., Priscilla.P.T. [address] [place] [phone] 03/27/2023 7:25 AM SYSTEMS DESIGN ENGINEER Hospital Encounter Outpatient Procedure Center in [place], [place] [address] [place] [address] Blanco Burt M.D. [address] [place] [phone] 03/27/2023 7:25 AM SYSTEMS DESIGN ENGINEER - 03/27/2023 10:52 AM SYSTEMS DESIGN ENGINEER Surgery Outpatient Procedure Center in [place], [place] [address] [place] [address] Blanco Burt M.D. [address] [place] [phone] right ARTHROPLASTY replacement total ankle; proceed as indicated Scheduled Procedures Name Priority Associated Diagnoses Date/Ti me ARTHROPLASTY ANKLE Arthritis Ankle 03/27/2023 7:25 AM SYSTEMS DESIGN ENGINEER OPERATIVE LAPAROSCOPY Mass Ovary SALPINGO - OOPHORECTOMY Mass Ovary documented as of this encounter Results * DX Foot Ankle [...] Diagnosis Pain Right Ankle And Joints Right Foot- Primary Pain Right Ankle And Joints Right Foot Arthritis Ankle documented in this encounter Care Teams Fishing Floats Assembler Relationship Specialty Start Date End Date Elsewhere, Pcp PCP - General Family Medicine 01/16/18 documented as of this encounter
--- OUTSIDE RECORDS SUMMARY | 2023-02-26 12:12 | XMS_ITS | Encounter Summary ---
Author Name Unknown Organization [facility] Address [address] [place] [address] Care Team Providers Care Parachute Harness Rigger Name Role Phone Elsewhere, Pcp Primary Care Provider Unavailabl e Reason for Visit * Reason Onset Date Comments Appointment 10/24/2022 Encounter Details Date Type Department Care Team (Late st Contact Info) Description 10/24/2022 Clinical Communication Department of Orthopedic Surgery in [place], [place] [address] [place] [phone] Blanco Burt M.D. [address] [place] [phone] Appointment Social History Tobacco Use Types Packs/Day Years [...] Contact Info) Description 03/25/2023 9:00 AM SYSTEMS INTEGRATION ADVISOR Clinical Communication Virtual Review in [place], [place] 200 [place] [address] 03/26/2023 8:30 AM SYSTEMS INTEGRATION ADVISOR Appointment Department of Laboratory Medicine and Pathology, [facility], in [place], [place] [address] [place] [phone] Mary Partida P.A.-C. [address] [place] [phone] 03/26/2023 9:00 AM SYSTEMS INTEGRATION ADVISOR Comprehensive Visit Preoperative Evaluation Center in [place], [place] [address] [place] [phone] Mary Partida P.A.-C. [address] [place] [phone] 03/26/2023 10:30 AM SYSTEMS INTEGRATION ADVISOR Office Visit Department of Orthopedic Surgery in [address] [phone] Blanco Burt M.D. [address] [place] [phone] 03/26/2023 1:00 PM SYSTEMS INTEGRATION ADVISOR Comprehensive Visit Department of Physical Medicine and Rehabilitation in [address] [phone] Mary Partida P.A.-C. [address] [place] [phone] Marina Major P.T., D.P.T. [address] [place] [phone] 03/27/2023 7:25 AM SYSTEMS INTEGRATION ADVISOR Hospital Encounter Outpatient Procedure Center in [place], [place] [address] [place] [phone] Blanco Burt M.D. [address] [place] [phone] 03/27/2023 7:25 AM SYSTEMS INTEGRATION ADVISOR - 03/27/2023 10:52 AM SYSTEMS INTEGRATION ADVISOR Surgery Outpatient Procedure Center in [place], [place] [address] [place] [address] Blanco Burt M.D. [address] [place] [address] right ARTHROPLASTY replacement total ankle; proceed as indicated Scheduled Procedures Name Priority Associated Diagnoses Date/Ti me ARTHROPLASTY ANKLE Arthritis Ankle 03/27/2023 7:25 AM SYSTEMS INTEGRATION ADVISOR OPERATIVE LAPAROSCOPY Mass Ovary SALPINGO - OOPHORECTOMY Mass Ovary documented as of this encounter Visit Diagnoses Not on filedocumented in this encounter Care Teams Parachute Harness Rigger Relationship Specialty Start Date End Date Elsewhere, Pcp PCP - General Family Medicine 01/16/18 documented as of this encounter
--- OUTSIDE RECORDS SUMMARY | 2023-02-26 12:12 | XMS_ITS | Encounter Summary ---
Author Name Unknown Organization [facility] Address [address] [place] [address] Care Team Providers Care Aligning Inspector Name Role Phone Elsewhere, Pcp Primary Care Provider Unavailabl e Reason for Visit * Appointment Request (Routine) - Closed Specialty Diagnoses / Procedures Referred By Contge t Referred To Contact Nephrology and Hypertension Referral ID Status Reason Start Date Expiration Date Visits Re quested Visits Authorized [id number] Closed 10/03/2022 10/03/2023 1 1 Encounter Details Date Type Department Care Team (Latest Contact Info) Description 11/20/2022 8:00 AM CDT External Outreach Division of Nephrology and Hypertension in [place], [place] [address] [place] [address] Debra Zarate M.D., Ph.D. [address] [place] [address] Chronic Kidney Disease (CKD), Stage 3b Glomerular Filtration Rate (GFR) 30 To 44 (HCC) (Primary Dx); Hypertension Essential Primary Social History Tobacco Use Types Packs/Day Years [...] Notes * Debra Zarate M.D., Ph.D. - 11/20/2022 8:00 AM CDT PROGRESS NOTE SUBJECTIVE CHIEF COMPLAINT / REASON FOR VISIT Follow up CKD 3B management [facility] [place] Outreach Visit Location: [facility] HISTORY OF PRESENT ILLNESS Ladan Garcia is a 77 y.o. female who is seen for follow up. 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 She donated a kidneyto her son. Her baseline creatinine has been [...] and does not have any current concerns. Her last UTI was in May 2022, she received antibiotic therapy at that time. She does not have anysymptoms of UTI, but her urine shows presence of bacteria, WBC, RBCs and it is cloudy. OBJECTIVE BP 140/78 mmHg Pulse 68 Weight 73.4 BMI 27.8 DIAGNOSTICS I have reviewed available labs in detail with patient. ASSESSMENT / PLAN #1 CKD stage 3 in the setting of solitary kidney status post kidney donation in 1999 and hypertension #2 Anemia in CKD #3 Vitamin D deficiency Her kidney function remains stable. No metabolic acidosis. There are no signs of progression. She has an albumin to creatinine ratio of 200 but she has cloudy urine, unclear if it is related to UTI. I'm ordering a urine culture and treat accordingly. Her blood pressure is well controlled at home, it is slightly higher today in clinic. I will not increase the dose of losartan at this moment. I will continue to monitor and perhaps increase losartanin the future if her albuminuria was to progress and discontinuation of amlodipine at that time. Her more recent hemoglobin is 13.4 from 05/2022. Iron studies at goal. Plan to repeat CBC in next visit for monitoring. She had low vitamin D levels. She restarted supplementation with calcium and vitamin D. We have rechecked levels next visit. Follow up in 6 months Vielka Crouch M.D., Ph.D. documented in this encounter Plan of Treatment Upcoming Encounters Date Type Department Care Team (Latest Contact Info) Description 03/25/2023 9:00 AM TRUCK REPAIR SUPERVISOR Clinical Communication Virtual Review in [address] [address] 03/26/2023 8:30 AM TRUCK REPAIR SUPERVISOR Appointment Department of Laboratory Medicine and Pathology, [facility], in [address] [phone] Mary Partida P.A.-Holly [address] [place] [phone] 03/26/2023 9:00 AM TRUCK REPAIR SUPERVISOR Comprehensive Visit Preoperative Evaluation Center in [address] [phone] Mary Partida P.A.-CStephen [address] [place] [phone] 03/26/2023 10:30 AM TRUCK REPAIR SUPERVISOR Office Visit Department of Orthopedic Surgery in [address] [phone] Blanco Burt M.D. [address] [place] [phone] 03/26/2023 1:00 PM TRUCK REPAIR SUPERVISOR Comprehensive Visit Department of Physical Medicine and Rehabilitation in [address] [phone] Mary Partida P.A.-CStephen [address] [place] [phone] Marina Major P.T., D.P.T. [address] [place] [phone] 03/27/2023 7:25 AM TRUCK REPAIR SUPERVISOR Hospital Encounter Outpatient Procedure Center in [place], [place] [address] [place] [phone] Blanco Burt M.D. [address] [place] [phone] 03/27/2023 7:25 AM TRUCK REPAIR SUPERVISOR - 03/27/2023 10:52 AM TRUCK REPAIR SUPERVISOR Surgery Outpatient Procedure Center in [place], [place] [address] [place] [address] Blanco Burt M.D. [address] [place] [phone] right ARTHROPLASTY replacement total ankle; proceed as indicated Scheduled Procedures Name Priority Associated Diagnoses Date/Ti me ARTHROPLASTY ANKLE Arthritis Ankle 03/27/2023 7:25 AM TRUCK REPAIR SUPERVISOR OPERATIVE LAPAROSCOPY Mass Ovary SALPINGO - OOPHORECTOMY Mass Ovary documented as of this encounter Visit Diagnoses Diagnosis Chronic Kidney Disease (CKD), Stage 3b Glomerular Filtration Rate (GFR) 30 To 44 (HCC)- Primary Hypertension Essential Primary Arthritis Ankle documented in this encounter Care Teams Aligning Inspector Relationship Specialty Start Date End Date Elsewhere, Pcp PCP - General Family Medicine 01/16/18 documented as of this encounter
--- OUTSIDE RECORDS SUMMARY | 2023-02-26 12:12 | XMS_ITS | Encounter Summary ---
Author Name Unknown Organization [facility] Address [address] [place] [address] Care Team Providers Care Auto Body Straightener Name Role Phone Elsewhere, Pcp Primary Care Provider Unavailabl e Reason for Referral * Outpatient (Routine) - Closed Specialty Diagnoses / Procedures Referred By Contac t Referred To Contact Diagnoses Mass Ovary Procedures US Pelvis Transvaginal and Transabdominal Raisa Vasques M.D. [address] [place] [address] [facility] Referral ID Status Reason Start Date Expiration Date Visits Re quested Visits Authorized [id number] Closed 01/04/2022 01/04/2023 1 1 Reason for Visit * Outpatient (Routine) - Closed Specialty Diagnoses / Procedures Referred By Contac t Referred To Contact Diagnoses Mass Ovary Procedures US Pelvis Transvaginal and Transabdominal Raisa Vasques M.D. [address] [place] [address] [facility] Referral ID Status Reason Start Date Expiration Date Visits Re quested Visits Authorized [id number] Closed 01/04/2022 01/04/2023 1 1 Encounter Details Date Type Department Care Team (Latest Contact Info) Description 07/04/2022 10:56 AM CDT - 07/04/2022 11:59 PM CDT Hospital Encounter Department of Radiology, [facility], in [place], [place] [address] [place] [phone] Raisa Vasques M.D. [address] [place] [phone] Mass Ovary Discharge Disposition: Home or Self [...] (Latest Contact Info) Description 03/25/2023 9:00 AM TITLE I DIRECTOR Clinical Communication Virtual Review in [place], [place] 200 [place] [address] 03/26/2023 8:30 AM TITLE I DIRECTOR Appointment Department of Laboratory Medicine and Pathology, [facility], in [place], [place] [address] [place] [phone] Mary Partida P.A.-C. [address] [place] [phone] 03/26/2023 9:00 AM TITLE I DIRECTOR Comprehensive Visit Preoperative Evaluation Center in [place], [place] [address] [place] [address] Mary Partida P.A.-C. [address] [place] [phone] 03/26/2023 10:30 AM TITLE I DIRECTOR Office Visit Department of Orthopedic Surgery in [place], [place] [address] [place] [phone] Blanco Burt M.D. [address] [place] [phone] 03/26/2023 1:00 PM TITLE I DIRECTOR Comprehensive Visit Department of Physical Medicine and Rehabilitation in [place], [place] [address] [place] [phone] Mary Partida P.A.-C. [address] [place] [phone] Marina Major PEma, D.P.TStephen [address] [place] [phone] 03/27/2023 7:25 AM TITLE I DIRECTOR Hospital Encounter Outpatient Procedure Center in [place], [place] [address] [place] [phone] Blanco Burt M.D. [address] [place] [phone] 03/27/2023 7:25 AM TITLE I DIRECTOR - 03/27/2023 10:52 AM TITLE I DIRECTOR Surgery Outpatient Procedure Center in [place], [place] [address] [place] [phone] Blanco Burt M.D. [address] [place] [phone] right ARTHROPLASTY replacement total ankle; proceed as indicated Scheduled Procedures Name Priority Associated Diagnoses Date/Ti me ARTHROPLASTY ANKLE Arthritis Ankle 03/27/2023 7:25 AM TITLE I DIRECTOR OPERATIVE LAPAROSCOPY Mass Ovary SALPINGO - OOPHORECTOMY Mass Ovary documented as of this encounter Procedures Procedure Name Priority Date/Time Associated Diagnosis Comments US PELVIS TRANSVAGINAL AND TRANSABDOMINAL RAD - Routine (most inpatients and all outpatients) 07/04/2022 12:36 PM CDT Mass Ovary documented in this encounter Results * US Pelvis Transvaginal and Transabdominal (07/04/2022 12:36 PM CDT) Anatomical Region Laterality Modality Pelvis, Ultrasound RST LOS, Ultrasound ARZ LOS, Ultrasound FLA LOS N/A Ultrasound 07/04/2022 12:3 7 PM CDT Impressions 07/04/2022 12:45 PM CDT No substantial change in the multilocular right adnexal cystic lesion with thin avascular septations, 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 Continued follow-up recommended given postmenopausal status. Narrative 07/04/2022 12:45 PM CDT EXAM: US PELVIS TRANSVAGINAL AND TRANSABDOMINAL COMPARISON: CT abdomen/pelvis 01/03/2022 and pelvic ultrasound 09/19/2021. TECHNIQUE: Transabdominal and transvaginal. Transvaginal exam performed to better visualize the uterus and/or adnexal regions. FINDINGS: Uterus: 2.8 cm x 4.4 cm x . Myometrium: Small fibroid. Possible tiny calcifications, better seen on the comparison CT. Endometrium: Normal. Thickness: 1 mm ?? Right ovary: Multilocular cyst with thin avascular septations measures 8.6 x 5.9 x 6 cm, not substantially changed. ??Ovarian volume: 168 ml. Left ovary: Not seen. ?? Intraperitoneal Fluid: None. Procedure Note Corey Donis M.D., M.S. - 07/04/2022 EXAM: US PELVIS TRANSVAGINAL AND TRANSABDOMINAL COMPARISON: CT abdomen/pelvis 01/03/2022 and pelvic aaxvqkpvzh83/10/2022. TECHNIQUE: Transabdominal and transvaginal. Transvaginal exam performed tobetter visualize the uterus and/or adnexal regions. FINDINGS: Uterus: 2.8 cm x 4.4 cm x . Myometrium: Small fibroid. Possible tiny calcifications, better seen onthe comparison CT. Endometrium: Normal. Thickness: 1 mm Right ovary: Multilocular cyst with thin avascular septations measures 8.6x 5.9 x 6 cm, not substantially changed. Ovarian volume: 168 ml. Left ovary: Not seen. Intraperitoneal Fluid: None. IMPRESSION: No substantial change in the multilocular right adnexal cystic lesion withthin avascular septations, 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 Continued follow-uprecommended given postmenopausal status. Raisa COBOS US PROCEDURES documented in this encounter Visit Diagnoses Diagnosis Mass Ovary Arthritis Ankle documented in this encounter Care Teams Auto Body Straightener Relationship Specialty Start Date End Date Elsewhere, Pcp PCP - General Family Medicine 01/16/18 documented as of this encounter
--- OUTSIDE RECORDS SUMMARY | 2023-02-26 12:12 | XMS_ITS | Encounter Summary ---
Author Name Unknown Organization [facility] Address [address] [place] [address] Care Team Providers Care Last Pattern Grader Name Role Phone Elsewhere, Pcp Primary Care Provider Unavailabl e Encounter Details Date Type Department Care Team (Late st Contact Info) Description 07/05/2022 Clinical Communication Department of Obstetrics and Gynecology in [place], [place] [address] [place] [address] Liz Collazo RStephenN. [address] [place] [address] Social History Tobacco Use Types Packs/Day Years [...] AM CDT documented as of this encounter Miscellaneous Notes * Telephone Encounter - Liz Collazo RStephenN. - 07/05/2022 10:21 AM CDT Doctor Aury saw Ladan in December 2021 for right adnexal mass, and it was decided to repeat ultrasound and CA-125 in 6 months. Per Doctor Jeffers, I contacted Ladan to notify her that the pelvic ultrasound on 07/02/22 was unchanged or stable. The CA-125 was 38, which is also stable. Patient denies any pelvic pain, pressure, or any other symptoms at this time. Doctor Aury recommends repeating the ultrasound and CA-125, which I will schedule. Ladan understands to contact us if she has any new symptoms before then. documented in this encounter Plan of Treatment Upcoming Encounters Date Type Department Care Team (Latest Contact Info) Description 03/25/2023 9:00 AM ATTORNEY AT LAW Clinical Communication Virtual Review in [address] [address] 03/26/2023 8:30 AM ATTORNEY AT LAW Appointment Department of Laboratory Medicine and Pathology, [facility] in [address] [phone] Mary Partida, P.A.-C. [address] [place] [phone] 03/26/2023 9:00 AM ATTORNEY AT LAW Comprehensive Visit Preoperative Evaluation Center in [address] [phone] Mary Partida, P.A.-C. [address] [place] [phone] 03/26/2023 10:30 AM ATTORNEY AT LAW Office Visit Department of Orthopedic Surgery in [address] [phone] Blanco Burt M.D. [address] [place] [phone] 03/26/2023 1:00 PM ATTORNEY AT LAW Comprehensive Visit Department of Physical Medicine and Rehabilitation in [address] [phone] Mary Partida P.A.-C. [address] [place] [phone] Marina Major P.T., D.P.T. [address] [place] [phone] 03/27/2023 7:25 AM ATTORNEY AT LAW Hospital Encounter Outpatient Procedure Center in [place], [place] [address] [place] [phone] Blanco Burt M.D. [address] [place] [phone] 03/27/2023 7:25 AM ATTORNEY AT LAW - 03/27/2023 10:52 AM ATTORNEY AT LAW Surgery Outpatient Procedure Center in [place], [place] [address] [place] [phone] Blanco Burt M.D. [address] [place] [phone] right ARTHROPLASTY replacement total ankle; proceed as indicated Scheduled Procedures Name Priority Associated Diagnoses Date/Ti me ARTHROPLASTY ANKLE Arthritis Ankle 03/27/2023 7:25 AM ATTORNEY AT LAW OPERATIVE LAPAROSCOPY Mass Ovary SALPINGO - OOPHORECTOMY Mass Ovary documented as of this encounter Visit Diagnoses Not on filedocumented in this encounter Care Teams Last Pattern Grader Relationship Specialty Start Date End Date Elsewhere, Pcp PCP - General Family Medicine 01/16/18 documented as of this encounter
--- OUTSIDE RECORDS SUMMARY | 2023-02-26 12:12 | XMS_ITS | Continuity of Care Document ---
Author Name Unknown Organization [facility] Address [address] [place] [address] Phone Care Team Providers Care Scrum Product Owner Name Role Phone Kwasi JACOBS, PhD, Lee [...] on Encounter [facility], [address], [place], [place], [id number] , [place] tel:[phone] [facility] [place] No Information 3 Kwasi Howard. [facility], [address], [place], [address], [place]. tel:[phone] Office/Outpa tient Visit,Est, Mod [facility], [address], [place], [place], [id number] , [place] [phone] [facility] Spinal stenosis, lumbar region with neurogenic claudication 3 Kwasi Lee. [facility], [address], [place], [address], [place]. tel:[phone] Referring Provider: Jojo Melara [facility] [address] [place], [address]. tel:[phone] Office/Outpa tient Visit,Est, Mod [facility], [address], [place], [place], [id number] , [place] tel:[phone] [facility] Spinal stenosis, lumbar region with neurogenic claudication 3 Kwasi Howard. [facility], [address], [place], [address], [place]. tel:[phone] Referring Provider: Jojo Melara [facility] [address] [place], [address]. tel:[phone] Office/Outpa tient Visit,New, Mod [facility], [address], [place], [place], [id number] , [place] tel:[phone] [facility] Other intervertebral disc displacement, lumbar region 1 No Information Referring Provider: Jojo Melara [facility] [address] [place], [address]. tel:[phone] Family History Family Member Type Diagnosis Age At Onset No Information Payers Payer name Insurance type Covered alliance party ID Authoriza tisuman(s) [employer] Medicare Gold Choice Ada PIERRE [id number] Social History Type Description Quantity Date Captured Comments Sex Female Smoking Status No Information Chief Complaint And Reason For Visit No Information Reason For Referral Reason For Referral No Information History Of Present Illness Encounter Date Complaint History Of Prese nt Illness No Information Functional Status Date Functional Assessmen t No Information Instructions Date Instruction Additional Infor mation No Information Assessments Type Assessment Date No Information Patient Care Teams Name Effective Dates (start - stop) Status Members No Information
--- OUTSIDE RECORDS SUMMARY | 2023-02-26 12:12 | XMS_ITS | Encounter Summary ---
Author Name Unknown Organization [facility] Address [address] [place] [address] Care Team Providers Care Liver Trimmer Name Role Phone Elsewhere, Pcp Primary Care Provider Unavailabl e Reason for Referral * Outpatient (Routine) - Authorized Specialty Diagnoses / Procedures Referred By Contac t Referred To Contact Diagnoses Mass Ovary Procedures US Pelvis Transvaginal and Transabdominal Mike Sellers M.D. 200 [place] [address] [facility] Referral ID Status Reason Start Date Expiration Date V isits Requested Visits Authorized [id number] Authorized 07/05/2022 07/05/2023 1 1 Encounter Details Date Type Department Care Team (Late st Contact Info) Description 07/05/2022 Orders Only Department of Obstetrics and Gynecology in [place], [place] [address] [place] [phone] Liz Collazo RStephenNStephen [address] [place] [phone] Mass Ovary (Primary Dx) Social History Tobacco Use Types [...] (Latest Contact Info) Description 03/25/2023 9:00 AM MILITARY SOURCE OPERATIONS SPECIALIST Clinical Communication Virtual Review in [place], [place] 200 [place] [address] 03/26/2023 8:30 AM MILITARY SOURCE OPERATIONS SPECIALIST Appointment Department of Laboratory Medicine and Pathology, [facility] in [address] [phone] Mary Partida P.A.-CStephen [address] [place] [phone] 03/26/2023 9:00 AM MILITARY SOURCE OPERATIONS SPECIALIST Comprehensive Visit Preoperative Evaluation Center in [address] [phone] Mary Partida P.A.-CStephen [address] [place] [phone] 03/26/2023 10:30 AM MILITARY SOURCE OPERATIONS SPECIALIST Office Visit Department of Orthopedic Surgery in [address] [phone] Blanco Burt M.D. [address] [place] [phone] 03/26/2023 1:00 PM MILITARY SOURCE OPERATIONS SPECIALIST Comprehensive Visit Department of Physical Medicine and Rehabilitation in [address] [phone] Mary Partida P.A.-CStephen [address] [place] [phone] Marina Major P.T., GodwinP.TStephen [address] [place] [address] 03/27/2023 7:25 AM MILITARY SOURCE OPERATIONS SPECIALIST Hospital Encounter Outpatient Procedure Center in [place], [place] [address] [place] [address] Blanco Burt M.D. [address] [place] [phone] 03/27/2023 7:25 AM MILITARY SOURCE OPERATIONS SPECIALIST - 03/27/2023 10:52 AM MILITARY SOURCE OPERATIONS SPECIALIST Surgery Outpatient Procedure Center in [place], [place] [address] [place] [address] Blanco Burt M.D. [address] [place] [phone] right ARTHROPLASTY replacement total ankle; proceed as indicated Scheduled Orders Name Type Priority Associated Diagnoses Order Schedule Cancer Antigen 125 (CA 125) Lab Routine Mass Ovary Expected: 07/06/2023 (Approximate), Expires: 07/06/2023 US Pelvis Transvaginal and Transabdominal Imaging RAD - Routine (most inpatients and all outpatients) Mass Ovary Expected: 07/06/2023 (Approximate), Expires: 10/06/2023 Scheduled Procedures Name Priority Associated Diagnoses Date/Ti me ARTHROPLASTY ANKLE Arthritis Ankle 03/27/2023 7:25 AM MILITARY SOURCE OPERATIONS SPECIALIST OPERATIVE LAPAROSCOPY Mass Ovary SALPINGO - OOPHORECTOMY Mass Ovary documented as of this encounter Visit Diagnoses Diagnosis Mass Ovary- Primary Arthritis Ankle documented in this encounter Care Teams Liver Trimmer Relationship Specialty Start Date End Date Elsewhere, Pcp PCP - General Family Medicine 01/16/18 documented as of this encounter
== END 2023-02-24 07:30 | disposition home or self-care (01) ==
LOC: NFLDREF 02-26 12:08
PROVIDERS: PCP Family Medicine; Referring Provider Family Medicine; Visit Provider Family Medicine
DX: D63.1 Anemia in chronic kidney disease (principal); I10 Essential (primary) hypertension; N18.30 Chronic kidney disease, stage 3 unspecified; N18.32 Chronic kidney disease, stage 3b; R41.3 Other amnesia
CPT/HCPCS: 80053; 82607; 84443

== ENCOUNTER 2023-03-05 13:00 | Outpatient (RCR) | payer OTHER, SELFPAY ==
--- NOTE | 2023-01-20 15:37 | PT.OPEX ---
Please sign the attached outpatient physical therapy evaluation completed on 01/20/23. Thank you. PT [facility] Outpatient Eval PT [facility] Outpatient Eval Start: 01/17/23 08:42 Freq: Status: Active Protocol: Document 01/20/23 14:08 TLQ (Rec: 01/20/23 15:32 TLQ [id number]) E-signed By Taylor Lamb DPT Physical Therapy Outpatient Evaluation Insurance Information Recert Due Date 04/20/23 Insurance Name Medicare B Insurance Information/Comments Medicare Advantage [employer] Gold Choice Medical Diagnosis Other abnormality of gait and mobility R26.89 Treating Diagnosis Unsteady on feet R26.81 Gait abnormality R26.9 Falls R29.6 Muscle weakness M62.81 Referring MD Jojo Tilley MD Subjective Subjective Patient states her primary complaint is that she has a pinched nerve in her neck that is causing some numbness and tingling in her left arm and hand, patient is right hand dominant. Patient states she had a pinched nerve for 2 years before it un-pinched. Patient is also here to address her balance. States she is falling about once a week, fell this morning after she turned around too fast. Denies any injuries related to her falls, is usually able to get herself back up after she falls. States she also has some trouble with her left leg ever since she had her pinched nerve. Patient is here today using a cane for ambulation, this is what she uses at home. [place], son lives nearby and is over everyday. Lives in a 3-story home, has railings with all of her stairs, no stairs to enter her home. States she does a lot of walking in the [place] because it is warm and soft if she falls. Scheduled to have surgery on her R ankle at [facility] on 03/25/23 . Per MD note on 01/14/23 patient had MRI of cervical spine without findings of stenosis or narrowing of the spinal canal. 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 Preferred Name Ladan Precautions Therapy Limitations/Systems Review Not Limited Objective Other/Pertinent Objective BALANCE 30 seconds STS: 7 reps, arms crossed, fair eccentric control TU seconds trial 1, 21 seconds trial 2, use of SPC SLS: L <1 seconds, R <2 seconds Romberg: eyes open <2 seconds Myers Balance Scale: 43/56 (<45 risk of falls) GAIT use of SPC, short stride length B, minimal foot clearance on L gait speed: 0.47 m/s STAIR NAVIGATION step over step with use of 2 railings LOWER EXTREMITY STRENGTH hip flexion: L 4-, R 4+ hip abduction: 4 B hip adduction: 4 B knee flexion: L 4-, R 4+ knee extension: L 4, R 4+ dorsiflexion: L 4-, R 5 Assessment Assessment/Impression Patient is a 77 year old female who presents to outpatient physical therapy to address balance deficits due to history of falling. Per patient's report she falls about 1x per week without significant injury, often able to get herself off of the floor without assistance. Using a SPC for all ambulation , lives in a three-story home and demonstrates ability to ascend/descend stairs safely today with use of 2 railings/ wall support. Strength assessments revealed weakness of bilateral lower extremities , weaker in the LLE where patient reports history of radiculopathy and weakness. Functional strength deficits observed during 30 second STS, patient completed 7 repetitions with fair eccentric control, <10 reps are indicative of increased risk of falls for her age/ gender. Patient is also at risk for falls based on score on Myers Balance Scale, Timed Up and Go, and gait zane (< 1.0 m/s). Patient is observed to ambulate with use of SPC, decreased stride length present bilaterally with minimal toe clearance on the L . Patient was educated on today's examination findings and expected POC, she verbally agreed to this plan. I instructed her through initial strength and balance exercises and provided her with a printed home program. Patient also verbalizes complaint of LUE numbness/ tingling of 2 years duration which she would like to address, this PT will reach out to referring provider for PT/OT referral. Based on today 's examination findings the patient is appropriate for skilled physical therapy interventions to address strength and balance deficits to reduce the frequency at which the patient falls. Primary Functional Limitations muscle weakness, LLE weakness, abnormal gait, impaired balance, history of falls Plan of Care Rehabilitation Potential Fair Physical Therapy Goals In 6 weeks: - Patient will complete TUG in <20 seconds to meet standards associated with IND transfer ability. - Patient will report no falls for 2 consecutive weeks to demonstrate functional improvements in balance. In 12 weeks: - Patient will complete TUG with LRD in <15 seconds to demonstrates functional improvements of gait and transitional movements. - Patient will complete 10 reps during 30 second STS to meet age-appropriate standards for decreased risk of falls. - Score on BBS will improve to >45/56 for decreased risk of falls. - Patient will report no falls for 1 month for improved safety when navigating her home environment. Treatment Plan/Direct Interventions Gait Training,Manual Therapy, Neuromuscular Re-ed,Self-Care/ Home Management,Therapeutic Activities,Therapeutic Exercises Frequency/Duration 1-2x/week for 10-12 weeks Patient Will Be Discharged From Therapy Completion of LTG(s),Skills Plateau,Independent w/HEP, Independently Progressing Evaluation Billing Untimed Code Treatment Minutes 30 Complexity Low Certification Information Initial Certification Date 01/20/23 Ending Certification Date 04/20/23 Provider Signature Shows Agreement With POC & Medical Necessity Physician Signature & Date Requested Please Sign/Date Here Physician Comment/Change : Physician NPI Number #
--- NOTE | 2023-01-20 15:56 | REH.PT ---
Cristian Tilley, I evaluated the patient earlier this afternoon (01/20/23) for gait and balance. During the evaluation she mentioned chronic numbness and tingling in her L arm/hand that she wanted to be addressed in therapy. If possible, please send a referral for PT/OT to evaluate/treat these symptoms. Thank you, Taylor Lamb DPT P: [phone]
== END 2023-05-12 10:19 | disposition home or self-care (01) ==
PROVIDERS: PCP Family Medicine; Visit Provider Family Medicine
DX: R26.89 Other abnormalities of gait and mobility (principal); R26.81 Unsteadiness on feet; R26.9 Unspecified abnormalities of gait and mobility; R29.6 Repeated falls; M62.81 Muscle weakness (generalized); Z51.89 Encounter for other specified aftercare
CPT/HCPCS: 97110; 97112; 97161; 97530

== ENCOUNTER 2023-06-25 14:08 | Outpatient (CLI) | payer OTHER, SELFPAY ==
--- OUTSIDE RECORDS SUMMARY | 2023-06-26 05:16 | XMS_ITS | Clinical Summary ---
Author Name Unknown Organization [facility] Address [place], [place] [address] Care Team Providers Care Banking Attorney Name Role Phone None Primary Care Provider Unavailabl e Allergies Active Allergy Reactions Criticality Noted Date Comments Hydrochlorothiazide *Unknown 11/09/2015 Nsaids (Non-Steroidal Anti-Inflammatory Drug) Other - Describe In Comment Field,*Unknown 11/21/2017 Other reaction(s): Other - Describe In Comment Field Medications Medication Sig Dispensed Refills Start Date End Date Status simvastatin (ZOCOR) 10 mg tablet Take 10 mg by mouth at bedtime. Active losartan (COZAAR) 50 mg tablet Take 50 mg by mouth once daily. Active acetaminophen (TYLENOL EXTRA STRGTH) 500 mg tablet Three Times A Day as needed 08/04/2019 Active Active Problems Problem Noted Date Diagnosed Date Stage 3b chronic kidney disease 05/01/2023 History of arthroplasty of right ankle Encounters Date Type Department Care Team Description 06/18/2023 Telephone [facility] [address] [place] [address] Marina Sharp PA Form 05/01/2023 12:45 PM CDT Office Visit [facility] [address] [place] [address] Marina Sharp PA Hospital F/U (Right ankle replacement//Parking permit ) 05/01/2023 Travel 04/08/2023 Lab Requisition [facility] [phone] Ladan Caputo BUCKLE ATTACHER from Last 3 Months Immunizations Name Administration Dates Next Due COVID-19 vaccine (OQOBio NTech 30mcg/0.3mL) LEEANN FRANKEL 06/22/2021 Influenza Virus, Unspecified 12/04/2015, 11/03/2014,11/04/2013,2010 Influenza, High-dose Inactivated 019,12/03/2017,11/19/2016,2015,12/11/2014,11/10/2013 Influenza, High-dose Quadriv alent Inactivated 11/14/2021,12/01/2020,11/23/2019 Influenza, IIV3 (Age 6-35 mos) 11/02/2014 Influenza, IIV3 (Age >=3 years) 11/04/19 14,12/08/2012,10/24/2011,2010 Influenza, split (incl. david fied surface antigen) 12/11/2014,11/10/2013,11/10/2010 Pneumococcal Poly,23-Valent (Pneumovax) 07/11/2009 Pneumococcal conj 13-Valent (Prevnar 13) 11/02/2014 TD, UNSPECIFIED 05/16/2001 Td (Age >=7 Years) 07/14/2001,05/16/2001 Td, Preservative Free (age > = 7 Years) 05/31/2011,07/14/2001 Tdap 05/31/2011 Tetanus Toxoid 08/03/2001 Varicella Vaccine 05/12/2009 Zoster (Shingrix-RZV, recombinant) 02/27/2021, Zoster (Zostavax-ZVL, live) 05/12/2009 Social History Tobacco Use Types Packs/Day Years [...] Sign Reading Time Taken Comments Blood Pressure 115/77 05/01/2023 12:48 PM CDT Pulse 88 05/01/2023 12:48 PM CDT Temperature 36.5 ??C (97.7 ??F) 04/25/2022 8:43 AM CD T Respiratory Rate 18 11/16/2015 12:00 PM CDT Oxygen Saturation 98% 05/01/2023 12:48 PM CDT Inhaled Oxygen Concentration - - Weight 75.3 kg (166 lb 1.6 oz) 07/31/2022 1:38 P M CDT Height - - Body Mass Index - - Plan of Treatment Health Maintenance Due Date Last Done Comments Depression screening for age 12+ 1956 BMI (ht and wt on same day) for age 18+ 1962 Hepatitis C screening for ag e 18-79 1962 DEXA/DXA scan for age 65+ 2009 Medicare Wellness for age 65+ 2009 Pneumococcal series for age 65+ (3 of 3 - PPSV23 or PCV20) 11/03/2019 11/02/2014, 07/11/2009 Tetanus booster 05/30/2021 05/31/2011, 05/12, 07/14/2001, Additional history exists Influenza for age 65+ 10/12/2023 11/14/2021 , 12/01/2020, 11/23/2019, Additional history exists Tdap Completed 05/31/2011 Zoster (shingles) series for age 50+ Completed 02/27/2021, 12/28/2020, 05/12/2009 COVID-19 vaccine series Completed 11/14/19, 11/14/2021, 06/22/2021, Additional history exists Procedures Procedure Name Priority Date/Time Associated Diagnosis Comments BASIC METABOLIC PANEL Routine 04/09/2023 8:09 AM SPECIAL NEEDS TUTOR Encounter for other orthopedic aftercare Hyperlipidemia, unspecified Chronic kidney disease, stage 3 unspecified (HC) Essential (primary) hypertension CBC W PLT NO DIFF Routine 04/09/2023 8:0 9 AM SPECIAL NEEDS TUTOR Encounter for other orthopedic aftercare Hyperlipidemia, unspecified Chronic kidney disease, stage 3 unspecified (HC) Essential (primary) hypertension from Last 3 Months Results * CBC W PLT NO DIFF (04/09/2023 8:09 AM SPECIAL NEEDS TUTOR) WHITE BLOOD COUNT 10.8 4.5 - 11.0 thou/cu mm 04/09/2023 8:59 AM SPECIAL NEEDS TUTOR [facility] RED BLOOD COUNT 4.41 4.00 - 5.20 mil/cu mm 04/09/2023 8:59 AM [facility] HEMOGLOBIN 13.4 12.0 - 16.0 g/dL 04/09/2023 8:59 AM [facility] HEMATOCRIT 40.6 33.0 - 51.0 % 04/09/2023 8:59 AM [facility] MCV 92 80 - 100 fL 04/09/2023 8:59 AM [facility] MCH 30.4 26.0 - 34.0 pg 04/09/2023 8:59 AM [facility] MCHC 33.0 32.0 - 36.0 g/dL 04/09/2023 8:59 AM [facility] RDW 14.5 11.5 - 15.5 % 04/09/2023 8:59 AM [facility] PLATELET COUNT 373 140 - 440 thou/cu mm 04/09/2023 8:59 AM [facility] MPV 9.9 6.5 - 11.0 fL 04/09/2023 8:59 AM [facility] Blood BLOOD SPECIMEN / Unknown Venipuncture / Unknown 04/09/2023 8:[address] [facility] 04/09/2023 8:[address] [facility] Ladan Caputo NP HEMATOLOGY [facility] [address] [place] [phone] * (ABNORMAL) BASIC METABOLIC PANEL (04/09/2023 8:[address] [facility]) SODIUM 139 136 - 145 mmol/L 04/09/2023 9:14 AM [facility] POTASSIUM 4.3 3.5 - 5.1 mmol/L 04/09/2023 9:14 AM [facility] CHLORIDE 107 98 - 107 mmol/L 04/09/2023 9:14 AM [facility] CO2,TOTAL 23 22 - 29 mmol/L 04/09/2023 9:14 AM [facility] ANION GAP 9 5 - 18 04/09/2023 9:14 AM [facility] GLUCOSE 94 70 - 99 mg/dL 04/09/2023 9:14 AM [facility] CALCIUM 8.7(L) 8.8 - 10.2 mg/dL 04/09/2023 9:14 AM [facility] BUN 22 8 - 23 mg/dL 04/09/2023 9:14 AM [facility] CREATININE 1.09(H) 0.50 - 0.90 mg/dL 04/09/2023 9:14 AM [facility] BUN/CREAT RATIO 20 10 - 20 9:14 AM [facility] eGFR 52(L) >90 mL/min/1.7 3m2 04/09/2023 9:14 AM [facility] Comment:As of 2021, eG FR is calculated by the CKD-EPI creatinine equation without race adjustment. ??eGFR can be influenced by muscle mass, exercise, and diet. ??The reported eGFR is an estimation only and is only applicable if the renal function is stable. Blood BLOOD SPECIMEN / Unknown Venipuncture / Unknown 04/09/2023 8:09 AM SPECIAL NEEDS TUTOR 04/09/2023 8:49 AM SPECIAL NEEDS TUTOR Ladan Caputo NP CHEMISTRY Performing Organization Address City/State/[facility] Co de Phone Number [facility] [address] [place] [address] from Last 3 Months Advance Directives * Full Code (Latest Code Status on File) Date Activated Date Inactivated Comments 11/16/2015 9:37 AM 11/16/2015 2:27 PM Care Teams Banking Attorney Relationship Specialty Start Date End Date None . PCP - General 07/31/22
--- OUTSIDE RECORDS SUMMARY | 2023-06-26 05:17 | XMS_ITS | Encounter Summary ---
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 [address] [place] [phone] [facility] Referral ID Status Reason Start Date Expiration Date V isits Requested Visits Authorized [id number] Authorized 06/18/2023 06/17/2024 1 1 * Outpatient (Routine) - Authorized Specialty Diagnoses / Procedures Referred By Contac t Referred To Contact Orthopedic Surgery Jin Purvis M.D. [address] [place] [address] [facility] Referral ID Status Reason Start Date Expiration Date V isits Requested Visits Authorized [id number] Authorized 06/18/2023 12/17/2024 1 1 * Physical Therapy (Routine) - Authorized Specialty Diagnoses / Procedures Referred By Contac t Referred To Contact Diagnoses Replacement Ankle Status Post Right Jin Purvis M.D. [address] [place] [phone] Referral ID Status Reason Start Date Expiration Date Visits Requested Visits Authorized [id number] Authorized Patient Preference 06/18/2023 12/17/2024 1 1 Reason for Visit * Outpatient (Routine) - Closed Specialty Diagnoses / Procedures Referred By Marko mares Referred To Contact Orthopedic Surgery Mary Partida P.A.-C. [address] [place] [phone] [facility] Referral ID Status Reason Start Date Expiration Date Visits Re quested Visits Authorized [id number] Closed 03/25/2023 09/23/2024 1 1 Encounter Details Date Type Department Care Team (Late st Contact Info) Description 06/18/2023 11:15 AM CDT Office Visit Department of Orthopedic Surgery in [place], [place] [address] [place] [phone] Blanco Burt M.D. [address] [place] [phone] Replacement Ankle Status Post Right (Primary Dx) Social History Tobacco Use Types Packs/Day Years Used Date Smoking Tobacco: Former Cigarettes Smokeless Tobacco: Never Alcohol Use Standard Drinks/Week Comments Yes 0 (1 standard drink = 0.6 oz pur e alcohol) rare glass on wine [facility] Utilities Answer Date Recorded In the past 12 months has [employer] electric, gas, oil, or water [employer] threatened to shut off services in your home? No 03/31/2023 Humiliation, Afraid, Rape, a nd Kick questionnaire Answer Date Recorded Within the last year, have y ou been afraid of your partner or ex-partner? Patient unable to answer 03/31/2023 Within the last year, have y ou been humiliated or emotionally abused in other ways by your partner or ex-partner? Patient unable to answer 03/31/2023 Within the last year, have y ou been kicked, hit, slapped, or otherwise physically hurt by your partner or ex-partner? Patient unable to answer 03/31/2023 Within the last year, have y ou been raped or forced to have any kind of sexual activity by your partner or ex-partner? Patient unable to answer 03/31/2023 Hunger Vital Sign Answer Date Recorded Within the past 12 months, y ou worried that your food would run out before you got the money to buy more. Never true 03/31/19 24 Within the past 12 months, t he food you bought just didn't last and you didn't have money to get more. Never true 03/31/2023 PRAPARE - Transportation Answer Date Re corded In the past 12 months, has l ack of transportation kept you from medical appointments or from getting medications? No 03/13 In the past 12 months, has l ack of transportation kept you from meetings, work, or from getting things needed for daily living? No 03/31/2023 Nutrition Answer Date Recorded Nutrition: EVOO Fat Source Unknown 04/10 Nutrition: Servings of Fruits/Vegetables per Day Not on file 04/10/2020 Dental Answer Date Recorded Dental: Regular Dentist Unknown 04/11/19 Housing Stability Answer Date Recorded What is your living situation today? I have a [facility] place to live 03/31/2023 Sex and Gender Information Value Date Recorded Sex Assigned at Female 07/31/2017 10:09 AM CDT Gender Identity Female 07/31/2017 10:09 AM CDT Sexual Orientation Straight 07/31/2017 10 :09 AM CDT documented as of this encounter Progress Notes * Blanco Burt M.D. - 06/18/2023 11:15 AM CDT CHIEF COMPLAINT / PURPOSE OF VISIT: 1. 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 She is doing well. She is up to full weight-bearing in the boot. She has no pain and no complaints. PHYSICAL EXAMINATION: General: Awake and alert. No acute distress Skin: The incision is well healed. No erythema or drainage. The swelling about the ankle, has dramatically increased since last visit. Musc: Smooth ankle motion. No pain. Neuro: Sensation intact to light touch throughout Vasc: Toes are well perfused IMAGING: Weight-bearing x-rays of the right ankle were obtained today and reviewed. Alignment satisfactory. There is no evidence of loosening. The components look to be well fixed. ASSESSMENT & PLAN: The patient is doing well. She can now wean out of the boot and work with physical therapy to gradually strengthen the ankle. She can gradually increase activities as tolerated. I would like to see her back for routine follow up at the year sadia from the time of surgery. She expressed understanding. documented in this encounter Plan of Treatment Scheduled Orders Name Type Priority Associated Diagnoses Orde r Schedule DX Ankle Right 3+ Views Imaging RAD - Routine (most inpatients and all outpatients) Replacement Ankle Status Post Right Expected: 03/29/2024 (Approximate), Expires: 09/17/2024 Scheduled Procedures Name Priority Associated Diagnoses Date/Ti me OPERATIVE LAPAROSCOPY [place] SALPINGO - OOPHORECTOMY [place] Scheduled Referrals Name Type Priority Associated Diagnoses Order Schedule PT non-Frank referral Outpatient Referral Routine Replacement Ankle Status Post Right Expected: 06/18/2023, Expires: 09/17/2024 Orthopedic Surgery office visit (clinic) Outpatient Referral Routine Expected: 03/29/2024 (Approximate), Expires: 09/17/2024 documented as of this encounter Visit Diagnoses Diagnosis Replacement Ankle Status Post Right- Primary documented in this encounter 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
--- OUTSIDE RECORDS SUMMARY | 2023-06-26 05:17 | XMS_ITS | Clinical Summary ---
Author Name Unknown Organization [facility] Address [address] [place] [address] Care Team Providers Care Respiratory Care Specialist Name Role Phone Elsewhere, Pcp Primary Care Provider Unavailabl e Source Comments Patient records contain information from all sites at [facility]. For routine questions regarding patient records, call [phone] during business hours, M-F 8:00 AM - 5:00 PM Central Time. Record requests for emergency care only can be directed to [phone] at any time.[facility] Allergies Active Allergy Reactions Criticality Noted Date Comments Nsaids (Non-Steroidal Anti-Inflammatory Drug) Other (see comments) 11/21/2017 Other reaction(s): Other - Describe In Comment Field Triamterene Other (see comments) 07/29/2022 Triamterene-Hydrochloro thiazid Rash 11/28/2005 Medications Medication Sig Dispensed Refills Start Date End Date Status losartan (COZAAR) 50 mg tablet Take 1 tablet by mouth daily. 12/30/2008 Active simvastatin (ZOCOR) 10 mg tablet Take 1 tablet by mouth at bedtime. 12/29/2008 Active enoxaparin (LOVENOX) 40 mg/0.4 mL injection Inject 0.4 mL (40 mg total) under the skin daily. Beginning the day after surgery, take for 2 weeks. 5.6 mL 03/28/2023 Active Additional Information Patient not taking.Reported on 06/16/2023 acetaminophen (TYLENOL) 500 mg tablet Take 2 tablets (1,000 mg total) by mouth every 6 (six) hours as needed for pain. Take on a routine schedule following surgery while having pain. Safe to combine with oxycodone. 03/27/2023 Active aspirin 325 mg tablet Take 1 tablet (325 mg total) by mouth 2 (two) times a day. After finishing Lovenox injections, take twice daily until done with immobilization. 100 tablet 1 04/12/2023 Active Additional Information Patient not taking.Reported on 06/16/2023 oxyCODONE (ROXICODONE) 5 mg immediate release tabletIndications :Acute Pain Exception Take 1 tablet (5 mg total) by mouth every 4 (four) hours as needed for pain Indication: Acute Pain Exception. 25 tablet 04/01/2023 Active ergocalciferol (Vitamin D2) 50,000 Unit capsule Take 1 capsule (50,000 Units total) by mouth once a week. Until healed 12 capsule 3 04/15/2023 04/14/2024 Active Additional Information Patient not taking.Reported on 06/16/2023 Active Problems Problem Noted Date Diagnosed Date Replacement Ankle Status Post Right 03/27/2023 Dyslipidemia 03/26/2023 Hypertension Essential Primary 01/15/2023 Obesity Unspecified 01/15/2023 Arthritis Ankle 11/21/2022 Mass Ovary 12/20/2021 Overview: Added automatically from request for surgery [id number] Proteinuria 03/13/2020 Hyperparathyroidism Secondary 07/24/2016 Incontinence Urinary Stress Female 10/09/2015 Abnormal Pap Smear Cervix 05/30/2011 Overview: reactive reparative 12/2006; ASCUS 07/2007(negative HPV) ASCUS positve HPV 10/16/2009 LEEP on 05/17/2010 Pap 05/30/2011 is Negative for intraepithelial lesion or malignancy. 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 Replacement Ankle Status Post Right (Primary Dx) 06/18/2023 9:41 AM CDT - 06/18/2023 11:59 PM CDT Hospital Encounter Department of Radiology, [facility], in [address] [address] Mary Partida P.A.-CStephen Replacement Ankle Status Post Right Discharge Disposition: Home or Self Care 06/16/2023 10:15 AM CDT Clinical Communication Virtual Review in [address] [address] Pre-visit Intake 05/09/2023 2:13 PM CDT - 05/09/2023 11:59 PM CDT Hospital Encounter Department of Radiology, [facility], in [address] [address] Mary Partida P.A.-CStephen Replacement Ankle Status Post Right Discharge Disposition: Home or Self Care 05/09/2023 2:13 PM CDT - 05/09/2023 3:58 PM CDT Hospital Encounter Department of Orthopedic Surgery in [address] [address] Mary Partida P.A.-CStephen Replacement Ankle Status Post Right Discharge Disposition: Home or Self Care 04/15/2023 2:35 PM PROTOTYPE TECHNICIAN - 04/15/2023 11:59 PM PROTOTYPE TECHNICIAN Hospital Encounter Department of Radiology, [facility], in [address] [address] Mary Partida P.A.-CStephen Replacement Ankle Status Post Right Discharge Disposition: Home or Self Care 04/15/2023 2:35 PM PROTOTYPE TECHNICIAN - 04/15/2023 3:49 PM PROTOTYPE TECHNICIAN Hospital Encounter Department of Orthopedic Surgery in [address] [address] Mary Partida P.A.-C. Replacement Ankle Status Post Right 04/01/2023 Orders Only Department of Orthopedic Surgery in [place], [place] [address] [place] [address] Mary Partida P.A.-C. 03/31/2023 8:22 AM PROTOTYPE TECHNICIAN - 03/31/2023 11:59 PM PROTOTYPE TECHNICIAN Hospital Encounter Department of Radiology, [facility], in [place], [place] [address] [place] [address] Blanco Burt M.D. Replacement Ankle Status Post Right Discharge Disposition: Home or Self Care 03/31/2023 7:55 AM PROTOTYPE TECHNICIAN - 03/31/2023 8:21 AM PROTOTYPE TECHNICIAN Hospital Encounter Department of Orthopedic Surgery in [place], [place] [address] [place] [address] Sam Graham M.D. Ryssman, Daniel B, M.D. Arthritis Ankle (Primary Dx); Replacement Ankle Status Post Right Discharge Disposition: Home or Self Care 03/29/2023 Orders Only Department of Orthopedic Surgery in [place], [place] [address] [place] [address] Porfirio Luna M.D. 03/28/2023 Documentation Department of Orthopedic Surgery in [place], [place] [address] [place] [phone] Blanco Burt M.D. 03/27/2023 6:17 AM PROTOTYPE TECHNICIAN - 04/01/2023 11:18 AM PROTOTYPE TECHNICIAN Hospital Encounter [facility], Ninth Floor [address] [place] [address] Blanco Burt M.D. Other Abnormalities Of Gait And Mobility [R26.89] (Primary Dx); Difficulty Walking Orthopedic Ankle Cause [R26.2]; Decline Functional Status [R53.81] Discharge Disposition: Long-Term Facility from Last 3 Months Immunizations Name Administration [...] Smoking Tobacco: Former Cigarettes Smokeless Tobacco: Never Tobacco Cessation:Counseling Given: Not Answered Alcohol Use Standard Drinks/Week Comments Yes 0 (1 standard drink = 0.6 oz pur e alcohol) rare glass on wine [employer] Answer Date Recorded In the past 12 months has [employer] gas, oil, or water [employer] threatened to shut off services in your [...] your living situation today? I have a [facility] place to live 03/31/2023 Sex and Gender Information Value Date Recorded Sex Assigned at Female 07/31/2017 10:09 AM CDT Gender Identity Female 07/31/2017 10:09 AM CDT Sexual Orientation Straight 07/31/2017 10 :09 AM CDT Last Filed Vital Signs Vital Sign Reading Time Taken Comments Blood Pressure 135/94 04/01/2023 11:04 AM PROTOTYPE TECHNICIAN Pulse 81 04/01/2023 11:04 AM PROTOTYPE TECHNICIAN Temperature 36.4 ??C (97.5 ??F) 04/01/2023 11:[address] Respiratory Rate 18 04/01/2023 11:04 AM PROTOTYPE TECHNICIAN Oxygen Saturation 98% 04/01/2023 11:04 AM PROTOTYPE TECHNICIAN Inhaled Oxygen Concentration - - Weight 73.7 kg (162 lb 7.7 oz) 03/27/2023 3:00 P M PROTOTYPE TECHNICIAN Height 162 cm (5' 3.78) 03/27/2023 3:00 PM PROTOTYPE TECHNICIAN Body Mass Index 28.08 03/27/2023 3:00 PM PROTOTYPE TECHNICIAN Plan of Treatment Scheduled Procedures Name Priority Associated Diagnoses Date/Ti me OPERATIVE LAPAROSCOPY Mass Ovary SALPINGO - OOPHORECTOMY Mass Ovary Health Maintenance Due Date Last Done Comments Pneumococcal vaccine (65+ ye ars) (3 of 3 - PPSV23 or PCV20) 11/04/2019 11/03/2014, 07/11/2009 DTaP,Tdap,and Td Vaccines (2 - Td or Tdap) 05/30/2021 05/31/2011, 05/31/2011, 07/14/2001, Additional history exists Depression Screening (Annual PHQ-2) 02/10/2023 COVID-19 Vaccine (2022-2 4 season) 2023 11/13/2022, 11/14/2021, 06/22/2021, Additional history exists Office Visit for Blood Press ure Check / Re-check 03/26/2024 03/26/2023 Creatinine Level (Kidney Fun ction Test) 04/09/2024 04/09/2023, 03/28/2023, 12/20/2021, Additional history exists Potassium Level 04/09/2024 04/09/2023, 03/13, 12/20/2021, Additional history exists Sodium Level 04/09/2024 04/09/2023, 03/13, 12/20/2021, Additional history exists Hepatitis C Screening Completed 11/27/2005 Mammogram Discontinued 09/27/2019, 06/11 (Performed elsewhere), 05/19/2015, Additional history exists Zoster Vaccines Completed 02/27/2021, 12/11, 05/12/2009 Influenza Vaccine Completed 10/22/2022, , 12/01/2020, Additional history exists Fall Risk Screen (Annual) Completed 03/27/2023 Medical Devices Implanted Type Area Petrophysicist Device Identifier Shelf Expiration Date Model / Serial / Lot Ankl Tlr Dom Inf 3d Sz2 Implanted:Qt y: 1 on 03/27/2023 by Blanco Burt M.D. at [facility] Ankle Implant Right: Ankle [facility] [id number] 11/11/2030 [id number] / / [id number] Ankl Tib Comp 3d Inf Sz2 Implanted:Qt y: 1 on 03/27/2023 by [facility] at [facility] Ank[facility] Implant Right: Ankle [facility] [id number] 06/17/2030 [id number] / / [id number] Ankl Tl Inf Sz2.8 Implanted:Qt y: 1 on 03/27/2023 by Bl[facility] M[facility]D. at [facility] Ank[facility] Implant Right: Ankle [facility] [id number] 10/21/2030 [id number] / / [id number] Procedures Procedure Name Priority Date/Time Associated Diagnosis Comments DX ANKLE RIGHT 3+ VIEWS RAD - Routine (most inpatients and all outpatients) 06/18/2023 10:17 AM CDT Replacement Ankle Status Post Right DX ANKLE RIGHT 3+ VIEWS RAD - Routine (most inpatients and all outpatients) 05/09/2023 3:36 PM CDT Replacement Ankle Status Post Right ORS CAST ROOM VISIT Routine 05/09/2023 3:00 PM CDT Replacement Ankle Status Post Right DX ANKLE RIGHT 3+ VIEWS RAD - Routine (most inpatients and all outpatients) 04/15/2023 3:33 PM PROTOTYPE TECHNICIAN Replacement Ankle Status Post Right ORS CAST ROOM VISIT Routine 04/15/2023 3:00 PM PROTOTYPE TECHNICIAN Replacement Ankle Status Post Right EXTI BASIC METABOLIC PANEL, S/P Routine 04/09/2023 8:09 AM PROTOTYPE TECHNICIAN DX ANKLE RIGHT 3+ VIEWS RAD - Routine (most inpatients and all outpatients) 03/31/2023 9:11 AM PROTOTYPE TECHNICIAN Replacement Ankle Status Post Right DIPSTICK, U Routine 03/29/2023 2:17 PM PROTOTYPE TECHNICIAN PH, U Routine 03/29/2023 2:17 PM PROTOTYPE TECHNICIAN OSMOLALITY, U Routine 03/29/2023 2:17 PM PROTOTYPE TECHNICIAN MICROSCOPIC AUTOMATED Routine 03/29/2023 2:17 PM PROTOTYPE TECHNICIAN URINALYSIS WITH MICROSCOPIC Routine 03/29/2023 2:17 PM PROTOTYPE TECHNICIAN ECG Routine 03/29/2023 8:58 AM PROTOTYPE TECHNICIAN CBC WITHOUT DIFFERENTIAL, B Routine 03/28/2023 4:26 AM PROTOTYPE TECHNICIAN BASIC METABOLIC PANEL, S/P Routine 03/28/2023 4:26 AM PROTOTYPE TECHNICIAN OUTSIDE MG MAMMOGRAM Routine 09/27/2019 1:45 PM CDT from Last 3 Months or Most Recently Relevant to Health Maintenance Results * DX Ankle Right 3+ Views (06/18/2023 10:17 AM CDT) Only the most recent of4 resultswithin the time period is included. Anatomical Region Laterality Modality Lower Extremity, Ankle, Musc uloskeletal RST LOS, Musculoskeletal ARZ LOS, Muskuloskeletal FLA LOS Right Digit al Radiography Impressions 06/18/2023 10:34 AM CDT Right total ankle arthroplasty. No radiographic evidence of loosening. Marked soft tissue swelling about the ankle. Metallic debris about the distal leg and ankle. Degenerative changes about the tibiofibular syndesmosis and between the distal tibia and talus. Degenerative changes between medial malleolus and talus. Osteopenia. Calcaneal spurs. Pes planus deformity. 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 Narrative 06/18/2023 10:34 AM CDT EXAM: ??DX ANKLE RIGHT 3+ VIEWS Procedure Note Geovanna Diallo M.D. - 06/18/2023 EXAM: DX ANKLE RIGHT 3+ VIEWS IMPRESSION: Right total ankle arthroplasty. No radiographic evidence of loosening.Marked soft tissue swelling about the ankle. Metallic debris about thedistal leg and ankle. Degenerative changes about the tibiofibularsyndesmosis and between the distal tibia and talus. Degenerative changes between medial malleolus andtalus. Osteopenia. Calcaneal spurs. Pes planus deformity. Degenerativearthritis multiple joints of the foot. Mary Partida P.A.-C. IMG DIAGNOSTIC IM AGING PROCEDURES * PROCEDURE PLACEHOLDER (05/09/2023 3:00 PM CDT) Narrative MMODAL - 05/09/2023 3:00 PM CDT Mary Partida P.A.-C. ? 05/09/2023 ??4:06 PM ORS Cast Room Visit Performed by: Mary Partida P.A.-C. Authorized by: Mary Partida P.A.-C. ?? Cast Room Note GONDA CASTROOM PREPROCEDURE/POSTPROCEDURE DIAGNOSIS: 1. Status post right total ankle arthroplasty (March 27, 2023) INDICATION: Continuing care SURGEON: Mary Partida PA-C PROCEDURE: Right cast removal and boot application HISTORY OF PRESENT ILLNESS: Ladan Garcia is about 6 weeks out from surgery. ??She is doing well. Pain is well-controlled. ??She states that she has been walking some in the cast. PHYSICAL EXAM: On exam the incision is well-healed with some residual scabbing in the midportion of the incision overlying the ankle. ??There is no drainage, erythema, or evidence of infection. ??She has a significant amount of swelling about the foot and ankle. ??No tenderness to palpation.. Alignment of the ankle and hindfoot is satisfactory. ??She is neurovascularly intact distally. ?? IMAGING: Weightbearing x-rays of the right ankle were obtained today and reviewed personally. ??They show satisfactory alignment with no evidence of hardware failure. ??There is bony on growth to the prosthesis. PLAN: The patient was seen in conjunction with Dr. Burt and is doing well. ?? Unfortunately, she started weight-bearing sooner than we wanted her to in the cast. ??However, her x-rays are looking very good. ??Therefore, she was placed in a boot. ??We will start gradual progressive weight-bearing in the boot as instructed and was provided with written instructions. ??Follow-up in 6 weeks, in clinic, with standing x-rays. ??At that time, hopefully we can start weaning out of the boot and progressing activities. ??She was given an Say bandage and will work persistently on edema control. ??She will continue to elevate consistently for edema control as well. ??She will never walk without the boot. ??She needs to sleep in the boot also. ??She will work on gentle active motion up and down with the ankle. ??She will keep a close eye on the anterior ankle incision. ??If she notices any changes she will let us know. ??Certainly, if she notices any drainage or erythema she needs to back off on her activities and give us a call right away. ??All questions were answered. ??The patient expressed understanding. ?? Mary Partida P.A.-C. PROCEDURE/MINOR S URGICAL ORDERABLES EVARISTO NA * PROCEDURE PLACEHOLDER (04/15/2023 3:00 PM PROTOTYPE TECHNICIAN) Narrative MMODAL - 04/15/2023 3:00 PM PROTOTYPE TECHNICIAN Mary Partida P.A.-C. ? 04/15/2023 ??3:47 PM ORS Cast Room Visit Performed by: Mary Partida P.A.-C. Authorized by: Mary Partida P.A.-C. ?? Cast Room Note GONDA CASTROOM PREPROCEDURE/POSTPROCEDURE DIAGNOSIS: Status post right total ankle arthroplasty (March 27, 2023) INDICATION: Continuing care SURGEON: Mary Partida PA-C PROCEDURE: Right splint removal, suture removal, and short-leg cast application HISTORY OF PRESENT ILLNESS: Ladan aGrcia is about 2 weeks out from surgery. ??She is doing well. Pain is well-controlled. ??She has at a care home facility. PHYSICAL EXAM: On exam the incision is clean, dry, and intact with sutures. Alignment of the ankle and hindfoot is satisfactory. ??She is neurovascularly intact distally. ?? IMAGING: Nonweightbearing x-rays of the right ankle were obtained today and reviewed personally. ??They show satisfactory alignment with no evidence of hardware failure. PLAN: The patient is doing well. Sutures were removed today. She was placed in a short-leg cast by the castroom personnel. ??She will remain nonweightbearing on the operative extremity. ??Follow-up in 4 weeks for cast removal, x-rays and likely transition to a boot. ??She was instructed to bring the boot that she already has to that appointment. ??Her last Lovenox injection was yesterday and she states that she initiated aspirin this morning. ??I reminded her that this is twice daily for the duration of immobilization. ??Her vitamin-D is low (34) and we will initiate a weekly vitamin-D supplement. ??A prescription was provided for her to bring to the facility. ??All questions were answered. ??The patient expressed understanding. ?? Mary Partida P.A.-C. PROCEDURE/MINOR S URGICAL ORDERABLES Performing Organization Address [facility] de Phone Number MMODAL NA * Dipstick, Urine (03/29/2023 2:17 PM PROTOTYPE TECHNICIAN) Hemoglobin, QL, U Negative Negative 03/29/2023 2:50 PM PROTOTYPE TECHNICIAN DTL Leukocyte Esterase, U Negative Negative 03/29/2023 2:50 PM PROTOTYPE TECHNICIAN DTL Nitrite, U Negative Negative 03/29/2023 2:50 PM PROTOTYPE TECHNICIAN DTL Ketone, U Negative Negative mg/dL 03/29/2023 2:50 PM PROTOTYPE TECHNICIAN DTL Glucose, U Negative Negative mg/dL 03/29/2023 2:50 PM PROTOTYPE TECHNICIAN DTL Urine 03/29/2023 2:17 PM PROTOTYPE TECHNICIAN 03/29/2023 2:28 PM PROTOTYPE TECHNICIAN David Fuller M.D. LAB URINE ORDERA BLES Performing Organization Address [facility] de Phone Number [facility] [address] [place] [address], [facility] DTL [facility] [address] [place] [address] * Microscopic Automated (03/29/2023 2:17 PM PROTOTYPE TECHNICIAN) Pathologist [facility] Microscopy Normal 03/29/2023 2:50 PM PROTOTYPE TECHNICIAN DTL RBC None Seen <3 /hpf 03/29/2023 2:50 PM PROTOTYPE TECHNICIAN DTL WBC 1-3 /hpf 03/29/2023 2:50 PM PROTOTYPE TECHNICIAN DTL Comment: ----REFERENCE VALUE---- <4 ??(Males) <11 (Females) Casts, Hyaline 1-3 /lpf 03/29/2023 2:50 PM PROTOTYPE TECHNICIAN DTL Squamous Epithelial Cells, U 1-3 /hpf 03/29/2023 2:50 PM PROTOTYPE TECHNICIAN DTL Urine 03/29/2023 2:17 PM PROTOTYPE TECHNICIAN 03/29/2023 2:28 PM PROTOTYPE TECHNICIAN David Fuller M.D. LAB URINE ORDERA BLES Performing Organization Address [facility]/ZIP Co de Phone Number [facility] [address] [place] [address], [facility] [address] [place] [address] * pH, Urine (03/29/2023 2:17 PM PROTOTYPE TECHNICIAN) pH, U 5.6 4.5 - 8.0 03/29/2023 3:2 1 PM PROTOTYPE TECHNICIAN DTL Urine 03/29/2023 2:17 PM PROTOTYPE TECHNICIAN 03/29/2023 2:28 PM PROTOTYPE TECHNICIAN David Fuller M.D. LAB URINE ORDERA KELLY Performing Organization Address City/[facility] Co de Phone Number [facility] [address] [place] [address], [facility] [address] [place] [address] * Osmolality, Urine (03/29/2023 2:17 PM PROTOTYPE TECHNICIAN) Osmolality, U 366 150 - 1150 mOsm/kg 03/29/2023 3:21 PM PROTOTYPE TECHNICIAN DTL Urine 03/29/2023 2:17 PM PROTOTYPE TECHNICIAN 03/29/2023 2:28 PM PROTOTYPE TECHNICIAN David Fuller M.D. LAB URINE ORDERA MASSIMOAlejandra Performing Organization Address City/[facility] Co de Phone Number [facility] [address] [place] [address], [facility] [address] [place] [address] * Urinalysis, with Microscopic: Urine, Midstream (03/29/2023 2:17 PM PROTOTYPE TECHNICIAN) Source Urine, Urine, Midstream 03/29/2023 2:28 PM PROTOTYPE TECHNICIAN DTL Color, U Yellow 03/29/2023 2:28 PM PROTOTYPE TECHNICIAN DTL Clarity, U Clear 03/29/2023 2:28 PM PROTOTYPE TECHNICIAN DTL Protein, U 10 <26 mg/dL 03/29/2023 3:14 PM PROTOTYPE TECHNICIAN DTL Protein/Osmol ality 0.27 <0.42 ratio 03/29/2023 3:21 PM PROTOTYPE TECHNICIAN DTL Predicted 24 HR Protein, U 206 <229 mg/24 h 03/29/2023 3:21 PM PROTOTYPE TECHNICIAN DTL Predicted Range 51-834 mg/24 h 03/29/2023 3:21 PM PROTOTYPE TECHNICIAN DTL Urine (Urine, Midstream) 03/29/2023 2:17 PM PROTOTYPE TECHNICIAN 03/29/2023 2:28 PM PROTOTYPE TECHNICIAN David Fuller M.D. LAB URINE ORDERA BLES Performing Organization Address [facility] de Phone Number [facility] [address] [place] [address], [facility] DTL [facility] [address] [place] [address] * ECG 12 Lead (03/29/2023 8:58 AM PROTOTYPE TECHNICIAN) Ventricular Rate ECG/Min 68 BPM MUSE IN Interval 164 ms MUSE QRSD Interval 72 ms MUSE QT Interval 366 ms MUSE QTC Interval 389 ms MUSE P [place] 51 degrees MUSE R [place] -21 degrees MUSE T Wave [place] 50 degrees MUSE 03/29/2023 8:58 AM PROTOTYPE TECHNICIAN 03/29/2023 9:13 AM PROTOTYPE TECHNICIAN Impressions MUSE - 03/29/2023 9:13 AM PROTOTYPE TECHNICIAN Normal sinus rhythm Normal ECG When compared with ECG of 20-DEC-2021 12:54, Premature ventricular complexes are no longer present Reviewed by EMILY Castrejon Narrative Procedure Note Nando Valdes M.D. - 03/29/2023 IMPRESSION: Normal sinus rhythm Normal ECG When compared with ECG of 20-DEC-2021 12:54, Premature ventricular complexes are no longer present Reviewed by EMILY Castrejon David Fuller M.D. ECG ORDERABLES Performing Organization Address [facility] Co de Phone Number MUSE NA * (ABNORMAL) CBC without Differential (03/28/2023 4:26 AM PROTOTYPE TECHNICIAN) Hemoglobin 12.8 11.6 - 15.0 g/dL 03/28/2023 4:56 AM PROTOTYPE TECHNICIAN DTL Hematocrit 37.6 35.5 - 44.9 % 03/28/2023 4:56 AM PROTOTYPE TECHNICIAN DTL Erythrocytes 4.20 3.92 - 5.13 x10(12)/L 03/28/2023 4:56 AM PROTOTYPE TECHNICIAN DTL MCV 89.5 78.2 - 97.9 fL 03/28/2023 4:56 AM PROTOTYPE TECHNICIAN DTL RBC Distrib Width 13.7 12.2 - 16.1 % 03/28/2023 4:56 AM PROTOTYPE TECHNICIAN DTL Platelet Count 286 157 - 371 x10(9)/L 03/28/2023 4:56 AM PROTOTYPE TECHNICIAN DTL Leukocytes 16.4(H) 3.4 - 9.6 x10(9)/L 03/28/2023 4:56 AM PROTOTYPE TECHNICIAN DTL Blood (Blood, Venous) 03/28/2023 4:26 AM PROTOTYPE TECHNICIAN 03/28/2023 4:50 AM PROTOTYPE TECHNICIAN Sam Graham M.D. LAB BLOOD ADD-ON [address] [address], [facility] [address] [place] [address] * (ABNORMAL) Basic Metabolic Panel (03/28/2023 4:26 AM PROTOTYPE TECHNICIAN) Pathologist [facility] Potassium, S 4.2 3.6 - 5.2 mmol/L 03/28/2023 5:30 AM PROTOTYPE TECHNICIAN DTL Sodium, S 139 135 - 145 mmol/L 03/28/2023 5:30 AM PROTOTYPE TECHNICIAN DTL Chloride, S 107 98 - 107 mmol/L 03/28/2023 5:30 AM PROTOTYPE TECHNICIAN DTL Bicarbonate, S 20(L) 22 - 29 mmol/L 03/28/2023 5:30 AM PROTOTYPE TECHNICIAN DTL Anion Gap 12 7 - 15 03/28/2023 5:30 AM PROTOTYPE TECHNICIAN DTL BUN (Blood Urea Nitrogen), S 23(H) 6 - 21 mg/dL 03/28/2023 5:30 AM PROTOTYPE TECHNICIAN DTL Creatinine 1.37(H) 0.59 - 1.04 mg/dL 03/28/2023 5:30 AM PROTOTYPE TECHNICIAN DTL Estimated GFR (eGFR) 40(L) >=60 mL/min/BSA 03/28/2023 5:30 AM PROTOTYPE TECHNICIAN DTL Comment: Estimated GFR calculated using the 2020 CKD_EPI creatinine equation. Calcium, Total, S 8.9 8.8 - 10.2 mg/dL 03/28/2023 5:30 AM PROTOTYPE TECHNICIAN DTL Glucose, S 93 70 - 140 mg/dL 03/28/2023 5:30 AM PROTOTYPE TECHNICIAN DTL Blood (Blood, Venous) 03/28/2023 4:26 AM PROTOTYPE TECHNICIAN 03/28/2023 5:05 AM PROTOTYPE TECHNICIAN Sam Graham M.D. LAB BLOOD ADD-ON Performing Organization Address City/[facility]/ZIP Co de Phone Number [facility] [address] [place] [address], [facility] [address] [place] [address] * MAMMO SCREEN, BILAT, W/CAD-Outside Mammogram (09/27/2019 1:45 PM CDT) Narrative [facility] - 01/02/2021 3:36 PM PROTOTYPE TECHNICIAN This order has been created and auto-finalized to support the import of outside images. If available, original interpretation can be found on the Media Tab in Chart Review, in Document Viewer, or as an image in QREADS. If a re-interpretation or overread is required please follow defined workflow. ?? Provider Not In System IMG BI PROCEDURES [facility] NA from Last 3 Months or Most Recently Relevant to Health Maintenance Advance Directives For more information, please contact: [phone] * Full Code (Latest Code Status on File) Date Activated Date Inactivated Comments 03/27/2023 12:11 PM 04/01/2023 1:23 PM Question Answer Comments Full Code: Not Discussed Due to: Patient not available Care Teams Respiratory Care Specialist Relationship Specialty Start Date End Date Elsewhere, Pcp PCP - General Family Medicine 01/16/18
--- OUTSIDE RECORDS SUMMARY | 2023-06-26 05:17 | XMS_ITS | Encounter Summary ---
Author Name Unknown Organization [facility] Address [address] [place] [address] Care Team Providers Care Sidehand Name Role Phone Elsewhere, Pcp Primary Care Provider Unavailabl e Reason for Visit * Reason Onset Date Comments Pre-visit Intake 06/16/2023 Encounter Details Date Type Department Care Team (Latest Contact Info) Description 06/16/2023 10:15 AM CDT Clinical Communication Virtual Review in [place], [place] [address] [place] [phone] Pre-visit Intake Social History Tobacco Use Types Packs/Day Years Used Date Smoking Tobacco: Former Cigarettes Smokeless Tobacco: Never Alcohol Use Standard Drinks/Week Comments Yes 0 (1 standard drink = 0.6 oz pur e alcohol) rare glass on wine [facility] Utilities Answer Date Recorded In the past 12 months has [employer], gas, oil, or water [employer] threatened to shut off services in your [...] your living situation today? I have a [facility] place to live 03/31/2023 Sex and Gender Information Value Date Recorded Sex Assigned at Female 07/31/2017 10:09 AM CDT Gender Identity Female 07/31/2017 10:09 AM CDT Sexual Orientation Straight 07/31/2017 10 :09 AM CDT documented as of this encounter Plan of Treatment Scheduled Procedures Name Priority Associated Diagnoses Date/Ti me OPERATIVE LAPAROSCOPY Mass Ovary SALPINGO - OOPHORECTOMY Mass Ovary documented as of this encounter Visit Diagnoses Not on filedocumented in this encounter Care Teams Sidehand Relationship Specialty Start Date End Date Elsewhere, Pcp PCP - General Family Medicine 01/16/18 documented as of this encounter
--- OUTSIDE RECORDS SUMMARY | 2023-06-26 05:17 | XMS_ITS | Encounter Summary ---
Author Name Unknown Organization [facility] Address [address] [place] [address] Care Team Providers Care Electric Welder Helper Name Role Phone Elsewhere, Pcp Primary Care Provider Unavailabl e Reason for Referral * Outpatient (Routine) - Closed Specialty Diagnoses / Procedures Referred By Contac t Referred To Contact Diagnoses Replacement Ankle Status Post Right Procedures DX Ankle Right 3+ Views Mary Partida P.A.-C. [address] [place] [phone] [facility] Referral ID Status Reason Start Date Expiration Date Visits Re quested Visits Authorized [id number] Closed 03/25/2023 03/24/2024 1 1 NESS SYSTEMS CONSULTANT Reason for Visit * Outpatient (Routine) - Closed Specialty Diagnoses / Procedures Referred By Marko mares Referred To Contact Diagnoses Replacement Ankle Status Post Right Procedures DX Ankle Right 3+ Views Mary Partida P.A.-C. [address] [place] [phone] [facility] Referral ID Status Reason Start Date Expiration Date Visits Re quested Visits Authorized [id number] Closed 03/25/2023 03/24/2024 1 1 Encounter Details Date Type Department Care Team (Latest Contact Info) Description 04/15/2023 2:35 PM BUSINESS SYSTEMS CONSULTANT - 04/15/2023 11:59 PM BUSINESS SYSTEMS CONSULTANT Hospital Encounter Department of Radiology, [facility], in [place], [place] [address] [place] [phone] Mary Partida P.A.-C. [address] [place] [phone] Replacement Ankle Status Post Right Discharge Disposition: Home or Self Care Social History Tobacco Use Types Packs/Day Years Used Date Smoking Tobacco: Former Cigarettes Smokeless Tobacco: Never Alcohol Use Standard Drinks/Week Comments Yes 0 (1 standard drink = 0.6 oz pur e alcohol) rare glass on wine [facility] Utilities Answer Date Recorded In the past 12 months has e electric, gas, oil, or water [employer] threatened to shut off services in your [...] your living situation today? I have a [facility] place to live 03/31/2023 Sex and Gender Information Value Date Recorded Sex Assigned at Female 07/31/2017 10:09 AM CDT Gender Identity Female 07/31/2017 10:09 AM CDT Sexual Orientation Straight 07/31/2017 10 :09 AM CDT documented as of this encounter Medications at Time of Discharge Medication Sig Dispensed Refills Start Date End Date acetaminophen (TYLENOL) 500 mg tablet Take 2 tablets (1,000 mg total) by mouth every 6 (six) hours as needed for pain. Take on a routine schedule following surgery while having pain. Safe to combine with oxycodone. 03/27/2023 aspirin 325 mg tablet Take 1 tablet (325 mg total) by mouth 2 (two) times a day. After finishing Lovenox injections, take twice daily until done with immobilization. 100 tablet 1 04/12/2023 enoxaparin (LOVENOX) 40 mg/0.4 mL injection Inject 0.4 mL (40 mg total) under the skin daily. Beginning the day after surgery, take for 2 weeks. 5.6 mL 03/28/2023 ergocalciferol (Vitamin D2) 50,000 Unit capsule Take 1 capsule (50,000 Units total) by mouth once a week. Until healed 12 capsule 3 04/15/2023 04/14/2024 losartan (COZAAR) 50 mg tablet Take 1 tablet by mouth daily. 12/30/2008 oxyCODONE (ROXICODONE) 5 mg immediate release tabletIndications:Acut e Pain Exception Take 1 tablet (5 mg total) by mouth every 4 (four) hours as needed for pain Indication: Acute Pain Exception. 25 tablet 04/01/2023 simvastatin (ZOCOR) 10 mg tablet Take 1 tablet by mouth at bedtime. 12/29/2008 documented as of this encounter Plan of Treatment Scheduled Procedures Name Priority Associated Diagnoses Date/Ti me OPERATIVE LAPAROSCOPY Mass Ovary SALPINGO - OOPHORECTOMY Mass Ovary documented as of this encounter Procedures Procedure Name Priority Date/Time Associated Diagnosis Comments DX ANKLE RIGHT 3+ VIEWS RAD - Routine (most inpatients and all outpatients) 04/15/2023 3:33 PM BUSINESS SYSTEMS CONSULTANT Replacement Ankle Status Post Right documented in this encounter Results * DX Ankle Right 3+ Views (04/15/2023 3:33 PM BUSINESS SYSTEMS CONSULTANT) Anatomical Region Laterality Modality Lower Extremity, Ankle, Musc uloskeletal RST LOS, Musculoskeletal ARZ LOS, Muskuloskeletal FLA LOS Right Compu corinne Radiography Impressions 04/15/2023 3:35 PM BUSINESS SYSTEMS CONSULTANT Right ankle arthroplasty is well seated. Plantar calcaneal spur. Soft tissue swelling about the right ankle. Narrative 04/15/2023 3:35 PM BUSINESS SYSTEMS CONSULTANT EXAM: ??DX ANKLE RIGHT 3+ VIEWS Procedure Note Joshua Long M.D. - 04/15/2023 EXAM: DX ANKLE RIGHT 3+ VIEWS IMPRESSION: Right ankle arthroplasty is well seated. Plantar calcaneal spur. Softtissue swelling about the right ankle. Mary Partida P.A.-C. IMG DIAGNOSTIC IM AGING PROCEDURES documented in this encounter Visit Diagnoses Diagnosis Replacement Ankle Status Post Right documented in this encounter Care Teams Electric Welder Helper Relationship Specialty Start Date End Date Elsewhere, Pcp PCP - General Family Medicine 01/16/18 documented as of this encounter
--- OUTSIDE RECORDS SUMMARY | 2023-06-26 05:17 | XMS_ITS | Encounter Summary ---
Author Name Unknown Organization [facility] Address [address] [place] [address] Care Team Providers Care Histopathology Technician Name Role Phone Elsewhere, Pcp Primary Care Provider Unavailabl e Encounter Details Date Type Department Care Team (Late st Contact Info) Description 04/01/2023 Orders Only Department of Orthopedic Surgery in [place], [place] [address] [place] [phone] Mary Partida P.A.-Juana. [address] [place] [phone] Social History Tobacco Use Types Packs/Day Years Used Date Smoking Tobacco: Former Cigarettes Smokeless Tobacco: Never Alcohol Use Standard Drinks/Week Comments Yes 0 (1 standard drink = 0.6 oz pur e alcohol) rare glass on wine [facility] Utilities Answer Date Recorded In the past 12 months has th e electric, gas, oil, or water [employer] threatened to shut off services in your [...] your living situation today? I have a [facility] place to live 03/31/2023 Sex and Gender [...] on filedocumented in this encounter Care Teams Histopathology Technician Relationship Specialty Start Date End Date Elsewhere, Pcp PCP - General Family Medicine 01/16/18 documented as of this encounter
--- OUTSIDE RECORDS SUMMARY | 2023-06-26 05:17 | XMS_ITS | Encounter Summary ---
Author Name Unknown Organization [facility] Address [address] [place] [address] Care Team Providers Care Catering Driver Name Role Phone Elsewhere, Pcp Primary Care Provider Unavailabl e Reason for Visit * Auth/Cert (Routine) Specialty Diagnoses / Procedures Referred By Marko t Referred To Contact Diagnoses Arthritis Ankle Arthritis Ankle [M19.90] Procedures MT ARTHROPLASTY ANK W IMPLANT right ARTHROPLASTY replacement total ankle; proceed as indicated Referral ID Status Reason Start Date Expiration Date Visits Re quested Visits Authorized [id number] 1 1 Encounter Details Date Type Department Care Team (Latest Contact Info) Description 03/27/2023 6:17 AM PERISHABLE FREIGHT INSPECTOR - 04/01/2023 11:18 AM PERISHABLE FREIGHT INSPECTOR Hospital Encounter [facility], Ninth Floor [address] [place] [address] Blanco Burt M.D. [address] [place] [address] Other Abnormalities Of Gait And Mobility [R26.89] (Primary Dx); Difficulty Walking Orthopedic Ankle Cause [R26.2]; Decline Functional Status [R53.81] Discharge Disposition: Alf Facility Social History Tobacco Use Types Packs/Day Years Used Date Smoking Tobacco: Former Cigarettes Smokeless Tobacco: Never Tobacco Cessation:Counseling Given: Not Answered Alcohol Use Standard Drinks/Week Comments Yes 0 (1 standard drink = 0.6 oz pur e alcohol) rare glass on wine [facility] Utilities Answer Date Recorded In the past 12 months has e electric, gas, oil, or water company threatened to shut off services in your [...] money to buy more. Never true 03/31/19 Within the past 12 months, t he [...] your living situation today? I have a [facility] place to live 03/31/2023 Sex and Gender Information Value Date Recorded Sex Assigned at Female 07/31/2017 10:09 AM CDT Gender Identity Female 07/31/2017 10:09 AM CDT Sexual Orientation Straight 07/31/2017 10 :09 AM CDT documented as of this encounter Last Filed Vital Signs Vital Sign Reading Time Taken Comments Blood Pressure 135/94 04/01/2023 11:04 AM PERISHABLE FREIGHT INSPECTOR Pulse 81 04/01/2023 11:04 AM PERISHABLE FREIGHT INSPECTOR Temperature 36.4 ??C (97.5 ??F) 04/01/2023 11:[address] Respiratory Rate 18 04/01/2023 11:04 AM PERISHABLE FREIGHT INSPECTOR Oxygen Saturation 98% 04/01/2023 11:04 AM PERISHABLE FREIGHT INSPECTOR Inhaled Oxygen Concentration - - Weight 73.7 kg (162 lb 7.7 oz) 03/27/2023 3:00 P M PERISHABLE FREIGHT INSPECTOR Height 162 cm (5' 3.78) 03/27/2023 3:00 PM PERISHABLE FREIGHT INSPECTOR Body Mass Index 28.08 03/27/2023 3:00 PM PERISHABLE FREIGHT INSPECTOR documented in this encounter Discharge Summaries * Sam Graham M.D. - 04/01/2023 8:30 AM CST DISCHARGE SUMMARY BRIEF OVERVIEW Hospital: [facility] Discharge Provider: Blanco Burt M.D. Primary Team: [facility] Orthopedic Surgery - [facility] Primary Care Providers: Elsewhere, Pcp (General) No address on file Primary Care Provider Phone Number: None Primary Care Provider Fax Number: None Other Providers: Admission Date: 03/27/2023 Discharge Date: 04/01/23 PRINCIPAL DIAGNOSIS Arthritis Ankle SECONDARY DIAGNOSES Principal Problem: Arthritis Ankle Active Problems: Replacement Ankle Status Post Right Resolved Problems: * No resolved hospital problems. * Surgery Information This Encounter Past Procedures (04/01/2022 to Today) Date Procedures Providers Loc / Dept 03/27/2023 Right ARTHROPLASTY replacement total ankle and Achilles tendon lengthening Blanco Burt M.D.Hamann, Emily N, P.A.-C.Sam Graham M.D. RST [facility] 15 OR DISCHARGE DISPOSITION Alf Facility [3] ACTIVE ISSUES REQUIRING FOLLOW UP OUTPATIENT FOLLOW UP Scheduled Appointments 04/15/2023 3:00 PM Mary Partida, P.A.-C.; RM CAST RESERVED [facility] ORS Orthopedic Surgery 04/15/2023 4:15 PM DX [facility] 15 RM 455E ORS CR Radiology 05/09/2023 3:00 PM Blanco Burt M.D.; RM CAST RESERVED [facility] ORS Orthopedic Surgery 05/09/2023 4:15 PM DX [facility] 15 RM 455E ORS CR Radiology 06/16/2023 10:15 AM RST INTAKE VISIT POD G 07 Admitting/Central Scheduling 06/18/2023 10:15 AM DX [facility] [address] [place] 06/18/2023 11:15 AM Blanco Burt M.D. Orthopedic Surgery For appointment details refer to your Patient Appointment Guide. TEST RESULTS PENDING AT DISCHARGE Pending Labs None DETAILS OF HOSPITAL STAY REASON FOR ADMISSION Arthritis Ankle Replacement Ankle Status Post Right HOSPITAL COURSE Operative Course: The patient was taken to the operating room on the above date and underwent the above-stated procedure by Dr. Burt. Please see Dr. Burt's dictation for additional operative details. The patient tolerated the procedure without complications. The patient was transferred from the operating room to the post-anesthesia care unit for postoperative monitoring. Postoperative Course: The patient was transferred to the orthopedic floor in stable condition. The patient's pain was managed with oral pain medications with excellent effect as the patient's diet was advanced. The patient's diet was advanced as tolerated. When the patient's pain was well controlled with oral pain medication, they were mobilizing and toileting acceptably, and tolerating a regular diet, they were dismissed from the hospital. CONSULTS ORDERED DURING THIS ADMISSION IP CONSULT TO CARE MANAGEMENT CONDITION AT DISCHARGE stable Discharge instructions were provided to the patient and caregiver(s). Total time spent in discharge services today: 15 minutes. SHABLE FREIGHT INSPECTOR documented in this encounter Medications at Time of Discharge [...] take for 2 weeks. 5.6 mL 03/28/2023 losartan (COZAAR) 50 mg tablet Take 1 tablet by mouth daily. 12/30/2008 oxyCODONE (ROXICODONE) 5 mg immediate release tabletIndications:Acute Pain Exception Take 1 tablet (5 mg total) by mouth every 4 (four) hours as needed for pain Indication: Acute Pain Exception. 25 tablet 04/01/2023 simvastatin (ZOCOR) 10 mg tablet Take 1 tablet by mouth at bedtime. 12/29/2008 documented as of this encounter Progress Notes * María Whittaker P.T.A. - 03/31/2023 4:11 PM CST Physical Therapy Inpatient Treatment Note SUBJECTIVE Patient's Name: Ladan Garcia Referring/Attending: Blanco Burt M.D. Medical Diagnosis: Arthritis Ankle [M19.90] Replacement Ankle Status Post Right [Z96.661] Reason for Referral: PT Evaluate and Treat PT - Ortho Payor: HUMANA / Plan: HU[employer]NA CHOICE / Product Type: PPO / History of Present Illness: Patient was admitted 03/27/2023 for R TAA and Achilles tendon lengthening. She is R LE non-weight bearing. Family/Caregiver Present: No Patient/Caregiver Goals: Son present. Goal for dismissal to shelter facility Patient Comments: Patient greeted in bed and agreeable to working with physical therapy. Patient reports no pain too little pain in her right leg/foot. Patient now with short leg cast on right. Precautions Weight Bearing Status: R LE non-weight bearing Other Precautions: fall risk, cognition Fall Risk (65 and older) Fall in the last 12 months: Yes Did you have an injury with the fall?: Yes (she scraped her nose) Fall Risk Comments: has fallen forward twice, patient attributes to lack of balance and ankle issues OBJECTIVE Treatment consisted of: Bed Mobility - Supine to Sit # of Assistants: 1 Level of Assistance: Supervision/Set-up, Minimal assistance Device: Bed rail, Head of bed elevated Cuing: Verbal Bed Mobility - Sit to Supine # of Assistants: 1 Level of Assistance: Minimal assistance Device: Head of bed elevated, Bed rail Cuing: Verbal, Tactile Sit to Stand Transfers # of Assistants: 1 (2nd person standing by to assist if needed) Transfer Surface: Bed Transfer Equipment: Gait belt, Other (comment) Level of Assistance: Minimal assistance Assessment/Delivery: Assessed, Instructed, Therapist assisted, Educated Comments: Verbal cues to have patient push off the bed bathroom left upper extremity and maintain right nonweightbearing. Stand to Sit Transfers # of Assistants: 1 Transfer Surface: Bed Transfer Equipment: Gait belt, Front wheeled walker Level of Assistance: Minimal assistance Assessment/Delivery: Assessed, Instructed Comments: Verbal cues for reaching back with her left upper extremity reaching for the bed while maintaining right and weight-bearing.. Gait Assessment/Training Distance (m): 0.25 m Surface: Even, Smooth/hard Device: Gait belt, Front-wheeled walker # of Assistants: 2 Level of Assistance: Minimal assistance Assessment of Gait: Patient stood with front wheeled walker patient was able to take some slight hops with left lower extremity but had difficulty maintaining right nonweightbearing. Patient tried toscoot to the left but was unable to move her left lower extremity towards the head of the bed. Cueing Provided: Verbal, Tactile Training/Intervention: Verbal cues for having patient stand erect and to use her upper extremities to straighten her arms to hold more weight. Patient reported my arms are strong but I can not do this. Patient transferred from sit to stand several times maintaining nonweightbearing with static standing but not when trying to move. Response: Very fatiguing to perform, but no adverse symptoms reported. Patient's nurse was contacted and patient's status was discussed Patient was left in bed at end of session with call light in reach, all needs met and questions answered. Outcome Measures -[facility] Inpatient Short Form: AM-[facility] Basic Mobility (V.2) How much help from another person do you currently need???If the patient hasn't done an activity recently, how much help from another person do you think he/she would needif he/she tried? 1. Turning from your back to your side while in a flat bed without using bedrails?: A Little 2. Moving from lying on your back to sitting on the side of a flat bed without using bedrails?: A Little 3. Moving to and from a bed to a chair (including a wheelchair)?: A Lot 4. Standing up from a chair using your arms (e.g., wheelchair, or bedside chair)?: A Lot 5. To walk in hospital room?: Total 6. Climbing 3-5 steps with a railing?: Total -[facility] Basic Mobility (V.2) Raw Score: 12 -[facility] Basic Mobility (V.2) Standardized Score: 32.23 Interpretation: Clinicians answer the -[facility] Inpatient Short Form based on observed patient activity and/or clinical judgement (ie. patient can be scored without physically performing each activity) Based on scoring guidelines using the raw score value: Those going to home had an average score at or above 18 Those going to facility had an average score at or below 17 Assessment Discharge Therapy Needs - PT: Ongoing skilled physical therapy Skilled therapy can include physical therapy provided by home health, outpatient clinic, or a post-acute facility. The location of these services is determined by the patient's care team in partnership with patient/family. Level of Care Needed - PT: Assistance with transfers (Comment), Assistance with walking and moving around the home, Assistance with stairs, Physical assistance needed Equipment Recommended - PT: Front-wheeled walker Owns FWW From a physical therapy perspective, the level of care above has been recommended for Ms. Garciaafter hospital discharge. This level of care is based on her functional abilities during today's session. This may change throughout the hospital course and will be updated as appropriate. Clinical Impression of today's session: Patient actively participate in physical therapy for transfers, standing with front wheeled walker.Patient unable to ambulate and maintain right nonweightbearing so did not ambulate at this date. Patient distracted by her mobile phone ringing at one point let go of walker reaching for her phone while trying to stand maintaining right nonweightbearing. Patient's functional baseline and will continue to benefit from skilled physical therapy intervention. Rehab potential: Ms. Garcia has potential to achieve established physical therapy goals within the time frame outlined below. Progress: Slow progress, limited activity tolerance Functional Goals and Timeframes: PT Inpatient Goals PT Goal #1: Patient will perform sit to stand from standard height surface, modified independent, to return to prior level of function. PT Goal #1 Status: Slowly progressing PT Goal #2: Patient will ambulate 20m with least restrictive assistive device, modified independent, to navigate from bedroom to bathroom. PT Goal #2 Status: Slowly progressing PT Goal #3: Patient will climb 4 stairs with 1 rail, modified independent, to access home and community. PT Goal #3 Status: Ongoing Plan Patient agrees with the plan of care and goals. Treatment Plan: PT Frequency: PT Amount: 1 visit per day PT Frequency: 6 times per week PT Inpatient Duration : Until goals are met or hospital discharge Requires Inpatient Follow-Up: Yes PT - Next Inpatient Appointment: 04/01/23 PT Plan Comments: Progress transfers as able to maintain weight bearing precautions, strengthening,ambulation, stairs when appropriate. Trial platform walker if left wrist inhibits ability to ambulate with front wheeled walker Treatment interventions may include: Treatment/Interventions: Therapeutic exercise, Therapeutic functional activity, Neuromuscular re-education, Gait training, Self-care/home management SEXUAL ASSAULT SOCIAL WORKER Visit Trackin Billing: Time Spent with Patient Therapeutic Interventions Therapeutic Activity (min): 21 min Time Tracking Total Timed Units (min): 21 min Total Treatment Time (min): 21 min María Whittaker P.T.A. SHABLE FREIGHT INSPECTOR Associated attestation - Maryuri Michaud P.T., D.P.TStephen - 04/02/2023 3:47 PM PERISHABLE FREIGHT INSPECTOR The patient has dismissed from the hospital. Current functional status is documented in this note. Further skilled therapy is recommended at this time. Patient is discharged from acute physical therapy. Maryuri Michaud P.T., D.P.TStephen * Dora Lopez D.T.R. - 03/31/2023 3:52 PM CST Patient was assessed and determined to be nutritionally stable. Clinical nutrition will sign off but will continue to screen per departmental guidelines. Please reconsult for any questions/concerns regarding patient's nutritional status. For questions about patient's nutritional care please contact pager [phone] on weekdays or [phone] on weekends/holidays. SHABLE FREIGHT INSPECTOR * Alana Mendez R.N. - 03/31/2023 11:45 AM CST SUBJECTIVE Following for Discharge Planning: Alf [facility] OBJECTIVE The patient is hospitalized on [facility], Room 209 ASSESSMENT / PLAN ASSESSMENT The Nurse Vision Teacher spoke with Narinder in admissions from the [facility]. Narinder shared thathe has received the insurance authorization approval. The Nurse Vision Teacher also relayed to Narinder about the patient's delirium over the weekend and verified that it has been resolved since Friday. He stated he would still accept the patient for admission on Friday04/01/23. The Nurse Vision Teacher met with the patient and her son, Timothy. The Nurse Vision Teacher relayed that the facility has accepted her for an admission tomorrow. She needs to arrive by 3:00 PM. Timothy statedlucille could provide transportation and would like to pick her up at 10:00 AM. The patient is in agreement with the following plan. PLAN The patient is being prepared to discharge on Friday04/01/23 at 10:00 AM if medically ready for transfer. Contact CASE MANAGEMENT if time needs to be changed. Transportation will be provided by family. . Destination - Admitted Since 03/27/2023 Service Provider Selected Services Address Phone Fax Patient Preferred The [address] [phone] -- Contact: Intake Nurse for handoff report Transportation oxygen: No oxygen needed. NURSING: - Complete documentation in the Discharge Navigator including Nursing Report Info and Facility/NextLevel of Care Info - Contact facility to give report on morning of discharge. - Please have any narcotics faxed to [facility] in [place] [phone]. Orders needto be faxed by 2:00 PM - Send After Visit Summary, Medication Administration Record, and Discharge Summary and required packet of dismissal information with patient, including advance directive. PRIMARY SERVICE: - Provider to Provider call is not required. - Provide written prescriptions for all narcotics. After Visit Summary to Include: - All discharge medications include dosage, times for administration, diagnosis, and stop date. - Ongoing care - wound care, infection precautions and phone numbers to call. CASE MANAGEMENT: - Pre-admission screen has been completed. Confirmation number is: [id number] - Will continue to follow. Alana Mendez R.N. 03/31/23 SHABLE FREIGHT INSPECTOR * Sam Graham M.D. - 03/31/2023 6:28 AM CST Orthopedic Surgery Progress Note Name: Ladan Garcia ADMISSION DATE: 03/27/2023 SUBJECTIVE Ms. Garcia is doing well this morning. No further documented episodes of agitation or delirium since Friday. Her son was at bedside this morning. She complains of some expected soreness in her ankle but otherwise feels okay. She has been intermittently elevating the leg. Her son is aware of the facility in [facility] that has been selected and is hopeful of potentially selecting a facility here in [place], but he is appropriately cautious of any further delays in discharge. OBJECTIVE Physical Exam: Vital signs: Temperature: [36.4 ??C-36.7 ??C] 36.5 ??C Resp Rate: [14-16] 15 Blood Pressure: (126-155)/(79-103) 144/103 SpO2: [93 %-96 %] 96 % Pulse Rate: [63-86] 84 GEN: Resting comfortably in bed in no acute distress. Alert and oriented x 3. Answers questions appropriately. HEART: Regular rate. LUNGS: Normal work of breathing. MUSCULOSKELETAL: Right lower extremity. Short-leg splint in place. Clean dry and intact. Able to wiggle all toes. Sensory intact to light touch in dorsal, plantar, and in the first webspace surfaces of the toes and foot. Toes well-perfused. ?? LABS Lab Results Component Value Date HGB 12.8 03/28/2023 WBC 16.4 (H) 03/28/2023 PLT 286 03/28/2023 CREATININE 1.37 (H) 03/28/2023 NA 139 03/28/2023 ASSESSMENT / PLAN Radha / [phone] y.o. female now s/p right total ankle replacement and Achilles tendon lengthening performed by Dr. Burt on March 28, 2023. She is doing fine from this perspective. We will take her to the cast room this morning for splint removal, wound examination, and short leg cast application. Pending a uthorization of her SNF, she may discharge today. PLAN #1 Arthritis Ankle #2 Replacement Ankle Status Post Right - Activity: Mobilize as tolerated. Non-weight bearing on operative extremity. Physical therapy to assist with mobility. - Antibiotics: Perioperative cefazolin x2 doses completed. - Blood: Hemodynamically stable; currently asymptomatic. - Brace: Short leg splint in place - Cultures/Path: None. - Diet: ADAT to general diet. - Drains: None. - Dressing: Surgical dressing in place. Will remove at cast room this morning - VTE Prophylaxis: Mechanical prophylaxis with SCDs, early mobilization, and Lovenox 40mg daily - Pain: Acetaminophen, oxycodone, and hydromorphone IV pushes for breakthrough pain. P.r.n. Seroquel available for continued agitation and delirium. To be used only after verbal attempts for re orientation are exhausted. - Bowel Regimen: Senna, Miralax, Bisacodyl enema prn - Urinary: No urinary catheter. Urinalysis from 03/29 unremarkable. - Labs: CBC and BMP compatible with baseline. No new labs needed. - Consults: PT, OT, SW - Dispo: Anticipate discharge to shelter facility as early as today. From 6am-6pm Friday-Friday, please contact [facility] with any questions regarding this patient. If overnight [phone] or any time on weekends, please contact the [facility] at [phone] For any questions or concerns from 6 am until 6 pm, please page the service of Dr. Burt at [phone]. If outside of 06:00 - 18:00 on weekdays or any time on the weekend, please contact the [facility] Orthopedic Surgery house resident customer resolution specialist at [phone]. Glen Graham M.D. Orthopedic Surgery Resident 03/31/23 6:29 AM PERISHABLE FREIGHT INSPECTOR SHABLE FREIGHT INSPECTOR * Becki Smith M.S., O.T., CLT-CRYSTAL - 03/30/2023 10:37 AM CST Occupational Therapy Acute Hospital Inpatient Treatment SUBJECTIVE Patient's Name: Ladan Garcia Referring/Attending Provider: Blanco Burt M.D. Medical Diagnosis: Arthritis Ankle [M19.90] Replacement Ankle Status Post Right [Z96.661] Reason for Referral: Occupational Therapy Evaluation and Treatment OT eval and treat - ortho, ankle Onset Date: Payor: HUMANA / Plan: HUMANA CHOICE / Product Type: PPO / History of Present Illness:Patient was admitted 03/27/2023 for R TAA and Achilles tendon lengthening. She is R LE non-weight bearing. Family/Caregiver Present: Yes (Son) Patient/Caregiver Goals: Son present. Goal for dismissal to shelter facility Patient Comments: Patient in bed upon arrival and agreeable to OT session. I remember you from yesterday. Rates her pain 2/10 and that right leg feels heavy with all the bandaging Fall Risk (65 and older) Fall in the last 12 months: Yes Did you have an injury with the fall?: Yes (she scraped her nose) Fall Risk Comments: has fallen forward twice, patient attributes to lack of balance and ankle issues OBJECTIVE Cognition Cognitive assessment method: Cognitive screening results Arousal/Alertness: Appropriate responses to stimuli Initiation: No difficulty with initiation Orientation: Oriented X4 Following Commands: One Step Commands, Two Step Commands, Multistep Commands One Step Commands: Follows one step commands consistently Two Step Commands: Follows two step commands with increased time Multistep Commands: Follows multistep commands with repetition, Follows multistep commands with increased time Following Commands Comments: ACL score: 4.4/5.8 with most difficulty with new learning and multi-step instructions; does well with simple, direct tasks/commands and routine-based, familiar activities Cognition Comments: See below for cognitive screen scores and results Education provided today: Handout on ACL score with caregiver recommendations. Team Communication: Patient's nurse was contacted and patient's status was discussed Outcome Measures Current Cognitive Status-: Short Blessed Test: What year is it now?: Correct What month is it now?: Correct Without looking at your watch or clock, tell me about what time it is.: Incorrect Count aloud backwards from 20: 0 errors Say the months of the year in reverse order: 0 errors Repeat the name and address I asked you to remember: 1 error Short Blessed Test Total: 5 Patient was administered the Short Blessed Test, a screening tool used to assess orientation, memory and concentration. Results indicate 5 - 9 Questionable Impairment (evaluate for early dementing disorder). ACLS: Yaniv Cognitive Level Screen-5 (ACLS-5) Patients ACLS-5 Score: 4.4/5.8 - live with someone wiith a daily check The Yaniv Cognitive Level Screen-5 (ACLS-5) is a standardized screening measurement of current cognitive functioning. It measures what the patient can do as an estimate of cognitive function that mayinclude features such as: cues, attention, action/activity, speed, visual spatial processes, verbalpropositional processes, and memory. Optimally it would be validated by further observations of performance as allowed by time. [facility] Inpatient Short Form: Putting on and taking off regular lower body clothing?: A lot Putting on and taking off regular upper body clothing?: A Little Taking care of personal grooming such as brushing teeth?: A Little Bathing (including washing, rinsing, drying)?: A lot Toileting, which includes using toilet, bedpan, or urinal?: A lot Eating meals?: None Daily Activities Raw Score (max 24): 16 Daily Activities Standardized Score: 35.96 Interpretation: Clinicians answer the [facility] [facility] In[facility] Short Form based on observed patient activity and/or clinical judgement (ie. patient can be scored without physically performing each activity) Based on scoring guidelines using the raw score value: Those going to home had an average score at or above 18 Those going to facility had an average score at or below 17 Patient was left in bed with bed alarm on at end of session with call light in reach, all needs metand questions answered. Assessment Discharge Therapy Needs - OT: Ongoing skilled occupational therapy Skilled therapy can include occupational therapy provided by home health, outpatient clinic, or a post-acute facility. The location of these services is determined by the patient's care team in partnership with patient/family. Level of Care Needed - OT: Assistance with toileting, Assistance with toilet/shower transfers, Assistance with medication set up/administration, Assistance with showering/bathing, Assistance with dressing, Assistance with financial services manager, Assistance with transportation, Assistance with housekee ping, Assistance with shopping, Assistance with meal preparation, Cognitive assistance needed, Physical assistance needed Recommended Adaptive Equipment - OT: Shower chair with back Barriers to Discharge Home: Current functional status, Fall risk Clinical Impression: Ladan was pleasant this morning after having taken a shower and done full morning routine prior to OT session. She participated in a Tier 1 and Tier 2 cognitive screens this morning as family has noticed cognitive changes especially with hospitalization. Her scores for the Short Blessed Test and Yaniv Cognitive Lacing Screen both indicate impairment is present especially with new learning and multi-step learning and cueing impacting her problem solving, frustration tolerance and recall. Family is planning for patient to discharge to a Alf Facility from the hospital and would recommend a more formal cognitive assessment with ongoing occupational therapy services to assess her safety and independence with more functional IADL tasks such as cooking, medication management, driving, etc. Rehab potential: Ms. Garcia has good potential to achieve established occupational therapy goalswithin the time frame outlined below. Functional Goals: OT Goal #1: Patient to complete cognitive screen and/or assessment in order to assist with caregiver training for instruction and level of assist in order for patient to complete tasks with maximum level of independence and safety. OT Goal #1 Status: Achieved OT Goal #2: Patient to complete functional ADLs with Minimal Assistance while adhering to her NWB for right lower extremity. OT Goal #2 Status: Ongoing Progress: Progressing toward goals Plan Occupational Therapy Attestation Statement: Patient agrees with the plan of care and goals. OT Frequency: OT Frequency: 2 times per week OT Inpatient Duration : Until goals are met or hospital discharge Requires Inpatient OT Follow-Up: Yes OT - Next Inpatient Appointment: 04/01/23 Plan: Continue with current plan OT Plan Comments: ADL session with bathroom tasks to assess clothing management, standing toleranceon left lower extremity during grooming tasks. Treatment interventions may include: Treatment Interventions: Self-care/home management, Cognitive skills training, Therapeutic functional activity Billing: Time Spent with Patient Therapeutic Interventions Home Management Training (min): 32 min Time Tracking Total Timed Units (min): 32 min Total Treatment Time (min): 32 min Becki Smith M.S., O.T., SIMEON SHABLE FREIGHT INSPECTOR * David Fuller M.D. - 03/30/2023 6:54 AM CST Orthopedic Surgery Progress Note Name: Ladan Garcia ADMISSION DATE: 03/27/2023 SUBJECTIVE NAEO. No further episodes of delirium. UA returns clean. EKG normal. Patient denies fevers, chills,shortness of breath, nausea. Patient's sons are not present this morning. The RJ on her right lowerextremity remains intact and in proper condition. Patient requests to be left alone so that she cancontinue to rest. OBJECTIVE Physical Exam: Vital signs: Temperature: [36.4 ??C-36.9 ??C] 36.4 ??C Resp Rate: [14-16] 14 Blood Pressure: (136-155)/(85-105) 155/94 SpO2: [94 %-96 %] 95 % Pulse Rate: [63-81] 63 GEN: Resting comfortably in bed in no acute distress. Alert and oriented x 3. Answers questions appropriately. HEART: Regular rate. LUNGS: Normal work of breathing. MUSCULOSKELETAL: Right lower extremity. Short-leg splint in place. Clean dry and intact. Able to wiggle all toes. Sensory intact to light touch in dorsal, plantar, and in the first webspace surfaces of the toes and foot. Toes well-perfused. ?? LABS Lab Results Component Value Date HGB 12.8 03/28/2023 WBC 16.4 (H) 03/28/2023 PLT 286 03/28/2023 CREATININE 1.37 (H) 03/28/2023 NA 139 03/28/2023 ASSESSMENT / PLAN Radha / [phone] y.o. female now s/p right total ankle replacement and Achilles tendon lengthening performed by Dr. Burt on March 28, 2023. Her delirium continued overnight. At this time it was likely due topostoperative measures. Urinalysis will be checked this morning given her continued trips to the [facility]. Suspicion for PE remain low at this time. We will continue close observation, and the importance of continued non weight-bearing of her right lower extremity were emphasized. It was explained that she missed be helped to the commode since she can not bear weight on her right ankle. The patient expressed understanding. PLAN #1 Arthritis Ankle #2 Replacement Ankle Status Post Right - Activity: Mobilize as tolerated. Non-weight bearing on operative extremity. Physical therapy to assist with mobility. - Antibiotics: Perioperative cefazolin x2 doses. - Blood: Hemodynamically stable; currently asymptomatic. - Brace: Short leg splint in place - Cultures/Path: None. - Diet: ADAT to general diet. - Drains: None. - Dressing: Surgical dressing in place. Will remain in place until follow-up - VTE Prophylaxis: Mechanical prophylaxis with SCDs, early mobilization, and Lovenox 40mg daily - Pain: Acetaminophen, oxycodone, and hydromorphone IV pushes for breakthrough pain. P.r.n. Seroquel available for continued agitation and delirium. To be used only after verbal attempts for re orientation are exhausted. - Bowel Regimen: Senna, Miralax, Bisacodyl enema prn - Urinary: No urinary catheter. We will check UTI morning of March 29. - Labs: CBC and BMP compatible with baseline. No new labs needed. - Consults: PT, OT, SW - Dispo: Anticipate discharge to shelter facility. From 6am-6pm Friday-Friday, please contact [facility] with any questions regarding this patient. If overnight [phone] or any time on weekends, please contact the [facility] at [phone] For any questions or concerns from 6 am until 6 pm, please page the service of Dr. Burt at [phone]. If outside of 06:00 - 18:00 on weekdays or any time on the weekend, please contact the [facility] Orthopedic Surgery house resident customer resolution specialist at [phone]. David Fuller MD Orthopedic Surgery Resident 03/30/23 6:55 AM PERISHABLE FREIGHT INSPECTOR SHABLE FREIGHT INSPECTOR * Michael Castelan P.T., D.P.T. - 03/29/2023 11:10 AM CST Physical Therapy Inpatient Treatment Note SUBJECTIVE Patient's Name: Ladan Garcia Referring/Attending: Blanco Burt M.D. Medical Diagnosis: Arthritis Ankle [M19.90] Replacement Ankle Status Post Right [Z96.661] Reason for Referral: PT Evaluate and Treat PT - Ortho Payor: [employer] / Plan: [employer] CHOICE / Product Type: PPO / History of Present Illness: Patient was admitted 03/27/2023 for R TAA and Achilles tendon lengthening. She is R LE non-weight bearing. Family/Caregiver Present: Yes (Son) Patient/Caregiver Goals: Son present. Goal for dismissal to shelter facility Patient Comments: Patient in bed upon PT arrival. Patient moderately agreeable to physical therapy,citing lack of energy, but willing to trial knee scooter after PT educated on therapy style. Pain: Not at rest, increased with any right leg movement with associated pain behavior (verbal exclamation). She intermittently argumentative during session, but was easily redirectable with validation of her concerns and explanation of next steps. Precautions Weight Bearing Status: R LE non-weight bearing Other Precautions: fall risk Fall Risk (65 and older) Fall in the last 12 months: Yes Did you have an injury with the fall?: Yes (she scraped her nose) Fall Risk Comments: has fallen forward twice, patient attributes to lack of balance and ankle issues OBJECTIVE Treatment consisted of: Bed Mobility - Supine to Sit # of Assistants: 1 Level of Assistance: Moderate assistance Comments: Performs approximate log roll to left, requiring assist at right lower extremity to position with foot off edge of bed before transitioning to assist at trunk to help with sitting up. Once in sitting, able to maintain steadiness with light use of arms on bed surface; sat for 3 minutes to allow patient time to rehabituate to upright sitting position as she had been in bed all morning. Bed Mobility - Sit to Supine # of Assistants: 1 Level of Assistance: Moderate assistance Device: Head of bed elevated, Bed rail Comments: Assistance provided at right lower extremity. Performed with poor trunk control to a diagonal supine position, but able to readjust herself with use of bed rail. Sit to Stand Transfers # of Assistants: 1 Transfer Surface: Bed Transfer Equipment: Gait belt, Other (comment) (Knee Scooter) Level of Assistance: Minimal assistance Assessment/Delivery: Assessed Comments: Verbal and visual education on transfer performance with knee scooter for optimal safety and efficiency. Adequate power to rise with both hands on knee scooter but did weightbear slightly through right lower extremity during performance despite instruction to maintain off ground. Once in standing, patient endorsed that she could not lift her right leg to the knee scooter, requiring physical assistance to complete this. Stood within knee scooter for approximately 2 minutes to allow patient to habituate to standing position. Stand to Sit Transfers # of Assistants: 1 Transfer Surface: Bed Transfer Equipment: Gait belt, Other (comment) (Knee scooter) Level of Assistance: Minimal assistance Assessment/Delivery: Assessed Comments: Required physical assistance at right lower extremity to mobilize during transfer and formaintaining nonweightbearing status during performance. Verbal cues during performance for optimizing hand placement and pelvic positioning awareness. Gait Assessment/Training Distance (m): 0.25 m Device: Gait belt, Knee scooter # of Assistants: 1 Level of Assistance: Minimal assistance Stability: No instability when on knee scooter, but not much dynamic movement occurred. Assessment of Gait: Significant exertion required to move left lower extremity forward with contactguard assistance maintained at trunk to ensure stability; completed 2 movements with left leg forward. Required physical assistance to move left lower extremity back and postural support with moving knee scooter backwards. Cueing Provided: Verbal, Visual Training/Intervention: Verbal and visual education on knee scooter use. Verbal cues for using detacker brakes for advancing left leg due to exertion required, then to use push brakes for stability duringassisted retroambulation. Response: Very fatiguing to perform, but no adverse symptoms reported. Stairs/Curb Stairs Comments: Attempted to educate on alternate stair navigation method with use of adjusted shower chair, but patient was not attending to education as she was more concerned about level-ground mobility tolerance. Education provided this session: Importance of mobility out of bed (including sitting edge of bed) for improving activity tolerance and avoiding hospital- based deconditioning. The following coordination of care occurred today: Patient's nurse was contacted and patient's status was discussed, Discussed patient's care with OT Patient was left in bed at end of session with call light in reach, all needs met and questions answered. Outcome Measures AM-PAC Inpatient Short Form: AM-PAC Basic Mobility (V.2) How much help from another person do you currently need???If the patient hasn't done an activity recently, how much help from another person do you think he/she would needif he/she tried? 1. Turning from your back to your side while in a flat bed without using bedrails?: A Little 2. Moving from lying on your back to sitting on the side of a flat bed without using bedrails?: A Little 3. Moving to and from a bed to a chair (including a wheelchair)?: A Lot 4. Standing up from a chair using your arms (e.g., wheelchair, or bedside chair)?: A Lot 5. To walk in hospital room?: Total 6. Climbing 3-5 steps with a railing?: Total -[facility] Basic Mobility (V.2) Raw Score: 12 -[facility] Basic Mobility (V.2) Standardized Score: 32.23 Interpretation: Clinicians answer the -[facility] Inpatient Short Form based on observed patient activity and/or clinical judgement (ie. patient can be scored without physically performing each activity) Based on scoring guidelines using the raw score value: Those going to home had an average score at or above 18 Those going to facility had an average score at or below 17 Assessment Discharge Therapy Needs - PT: Ongoing skilled physical therapy Skilled therapy can include physical therapy provided by home health, outpatient clinic, or a post-acute facility. The location of these services is determined by the patient's care team in partnership with patient/family. Level of Care Needed - PT: Assistance with transfers (Comment), Assistance with walking and moving around the home, Assistance with stairs, Physical assistance needed Equipment Recommended - PT: Front-wheeled walker, Other (Comment) (Knee Scooter) Owns FWW Barriers to Discharge Home: Current functional status, Fall risk From a physical therapy perspective, the level of care above has been recommended for Ms. Garciaafter hospital discharge. This level of care is based on her functional abilities during today's session. This may change throughout the hospital course and will be updated as appropriate. Clinical Impression of today's session: Patient tolerated today's session [id number]. Demonstrated bed mobility with physical assistance,functional transfers to/from knee scooter with physical assistance for moving right lower extremity, and very brief performance of ambulation within knee scooter requiring physical assistance for postural support and left leg mobility . She was demonstrating profound fatigue today and had significant difficulty with any functional lower extremity movement bilaterally. Her adherence to weight-bearing status with use of front wheeled walker is likely to be very poor as she has difficulty attending to this weight- bearing restriction and is not incentivized to do so when attempting mobility secondary to generalized weakness limiting her ability to perform 3-limbed ambulation. PT will continue to work with patient on improving mobility tolerance via direct practice of knee scooter mobility, generalized functional strengthening as able. Patient is currently not at baseline functional mobility and continues to be appropriate for skilled inpatient physical therapy services to address remaining deficits. Recommending assist of 2 with front-wheeled walker for stand pivots for bedside chair / commode access; may require 2nd electrical assistant to manually force nonweightbearing directly to ensure adherence to weight-bearing status. Current mobility goal: Sitting Edge of Bed: Multiple times per day, as able, for meals at minimum Rehab potential: Ms. Garcia has Fair potential to achieve established physical therapy goals within the time frame outlined below. Progress: Progressing toward goals Functional Goals and Timeframes: PT Inpatient Goals PT Goal #1: Patient will perform sit to stand from standard height surface, modified independent, to return to prior level of function. PT Goal #1 Status: Slowly progressing PT Goal #2: Patient will ambulate 20m with least restrictive assistive device, modified independent, to navigate from bedroom to bathroom. PT Goal #2 Status: Slowly progressing PT Goal #3: Patient will climb 4 stairs with 1 rail, modified independent, to access home and community. PT Goal #3 Status: Ongoing Plan Patient agrees with the plan of care and goals. Treatment Plan: Plan: Plan of care initiated PT Frequency: PT Amount: 1 visit per day PT Frequency: 6 times per week PT Inpatient Duration : Until goals are met or hospital discharge Requires Inpatient Follow-Up: Yes PT - Next Inpatient Appointment: 03/31/23 PT Plan Comments: Continue knee scooter practice. Progress transfers as able to maintain weight bearing precautions, strengthening, ambulation, stairs when appropriate. Trial platform walker if left wrist inhibits ability to ambulate with front wheeled walker Treatment interventions may include: Treatment/Interventions: Therapeutic exercise, Therapeutic functional activity, Neuromuscular re-education, Gait training, Self-care/home management Billing: Time Spent with Patient Therapeutic Interventions Therapeutic Activity (min): 19 min Time Tracking Total Timed Units (min): 19 min Total Treatment Time (min): 19 min Michael Castelan PEma, D.P.T. SHABLE FREIGHT INSPECTOR * David Fuller M.D. - 03/29/2023 7:39 AM CST Orthopedic Surgery Progress Note Name: Ladan Garcia ADMISSION DATE: 03/27/2023 SUBJECTIVE A second MURALI was called for this patient last night around midnight for continued aggressive behavior. Oriented to person, place this morning, but not time. Initial MURALI was called at 6:00 p.m. See ortho house resident note for further details. After midnight, a p.r.n. of Seroquel was given for continued delirious behavior despite verbal reorientation measures being attempted. The patient reports right lower extremity pain today, appropriate for the surgery she received yesterday. Nursing states the patient was up to the commode several times last night to urinate. Patient denies fevers, chills, shortness of breath, nausea. Patient's sons are not present this morning. The RJ on her right lower extremity remains intact and in proper condition. Patient requests to be left alone so that shecan continue to rest. OBJECTIVE Physical Exam: Vital signs: Temperature: [36.3 ??C-36.6 ??C] 36.4 ??C Resp Rate: [16-20] 16 Blood Pressure: (109-152)/(63-94) 152/94 SpO2: [94 %-96 %] 94 % Pulse Rate: [64-78] 75 GEN: Resting comfortably in bed in no acute distress. Alert and oriented x 3. Answers questions appropriately. HEART: Regular rate. LUNGS: Normal work of breathing. MUSCULOSKELETAL: Right lower extremity. Short-leg splint in place. Clean dry and intact. Able to wiggle all toes. Sensory intact to light touch in dorsal, plantar, and in the first webspace surfaces of the toes and foot. Toes well-perfused. ?? LABS Lab Results Component Value Date HGB 12.8 03/28/2023 WBC 16.4 (H) 03/28/2023 PLT 286 03/28/2023 CREATININE 1.37 (H) 03/28/2023 NA 139 03/28/2023 ASSESSMENT / PLAN Radha / [phone] y.o. female now s/p right total ankle replacement and Achilles tendon lengthening performed by Dr. Burt on March 28, 2023. Her delirium continued overnight. At this time it was likely due topostoperative measures. Urinalysis will be checked this morning given her continued trips to the [facility]. Suspicion for PE remain low at this time. We will continue close observation, and the importance of continued non weight-bearing of her right lower extremity were emphasized. It was explained that she missed be helped to the commode since she can not bear weight on her right ankle. The patient expressed understanding. PLAN #1 Arthritis Ankle #2 Replacement Ankle Status Post Right - Activity: Mobilize as tolerated. Non-weight bearing on operative extremity. Physical therapy to assist with mobility. - Antibiotics: Perioperative cefazolin x2 doses. - Blood: Hemodynamically stable; currently asymptomatic. - Brace: Short leg splint in place - Cultures/Path: None. - Diet: ADAT to general diet. - Drains: None. - Dressing: Surgical dressing in place. Will remain in place until follow-up - VTE Prophylaxis: Mechanical prophylaxis with SCDs, early mobilization, and Lovenox 40mg daily - Pain: Acetaminophen, oxycodone, and hydromorphone IV pushes for breakthrough pain. P.r.n. Seroquel available for continued agitation and delirium. To be used only after verbal attempts for re orientation are exhausted. - Bowel Regimen: Senna, Miralax, Bisacodyl enema prn - Urinary: No urinary catheter. We will check UTI morning of March 29. - Labs: CBC and BMP compatible with baseline. No new labs needed. - Consults: PT, OT, SW - Dispo: Anticipate discharge to shelter facility. From 6am-6pm Friday-Friday, please contact [facility] with any questions regarding this patient. If overnight [phone] or any time on weekends, please contact the [facility] at [phone] For any questions or concerns from 6 am until 6 pm, please page the service of Dr. Burt at [phone]. If outside of 06:00 - 18:00 on weekdays or any time on the weekend, please contact the [facility] Orthopedic Surgery house resident customer resolution specialist at [phone]. SHABLE FREIGHT INSPECTOR * Julio Woods Pharm.D., R.Ph. - 03/29/2023 7:34 AM CST Pharmacist Progress Note Reason for admission: 77 y.o. female (Wt: 73.7 kg) S/P POD #2 Right ARTHROPLASTY replacement total ankle, proceed as indicated. on 03/27/2023. Past Medical History: Diagnosis Date Arthritis Hypertension NOS Patient Active Problem List Diagnosis Hypertensive Chronic Kidney Disease (CKD) Stage 3b Glomerular Filtration Rate (GFR) 30 To 44 (HCC) Peripheral Vascular Disease (HCC) Hyperparathyroidism Secondary (HCC) Chronic Kidney Disease (CKD), Stage 3b Glomerular Filtration Rate (GFR) 30 To 44 (HCC) Abnormal Pap Smear Cervix Donor Kidney Incontinence Urinary Stress Female Proteinuria Mass Ovary Arthritis Ankle Hypertension Essential Primary Obesity Unspecified Dyslipidemia Replacement Ankle Status Post Right OBJECTIVE Home medications: reviewed. Held: Aspirin, Simvastatin. Changed: Home dose of Simvastatin changed to formulary Atorvastatin. Patient own medications: none. Prophylaxis: GI: none. DVT/VTE: Lovenox 40 mg SubQ daily. Results from last 7 days Lab Units 03/28/23 0426 SODIUM mmol/L 139 POTASSIUM mmol/L 4.2 CHLORIDE mmol/L 107 BICARBONATE S mmol/L 20* CREATININE mg/dL 1.37* ESTIMATED GFR EGFR mL/min/BSA 40* BUN mg/dL 23* ANION GAP 12 GLUCOSE S mg/dL 93 CALCIUM mg/dL 8.9 Neuro: pain 5-6/10, managed with Tylenol 1000 mg q6h, PRN Oxycodone (15 mg yesterday), PRN IV Dilaudid (no use). PRN Quetiapine available for sleep. PRN IV Olanzapine x 1 dose available for agitation S/P MURALI call. CV: hypertensive, SBP 116 - 152, HR 64 - 78, no CV medications. Neph: SCr 1.37 (on 03/28), 0.7 mL/kg/hour, UOP adequate. ID: AF, completed Ancef x24 hours on 03/28. GI: bowel regimen (Senna-S 1 tablet BID, Miralax daily, PRN Bisacodyl). Continues Atorvastatin for HLD. ASSESSMENT / PLAN Neuro: Pain managed with scheduled Tylenol and PRN Oxycodone. CV: Hypertensive overnight, monitoring vital sign. Consider resuming home dosing of Losartan. Changes to medications anticipated at discharge: Acetaminophen 1000 mg orally every 6 hours as needed for pain. Bowel regimen. Enoxaparin (Lovenox) 40 mg subcutaneous daily for 6 weeks. Oxycodone 5 mg orally every 4 hours as needed for pain. Pharmacy barriers to discharge: none. Julio Woods Pharm.D., R.Ph. [phone] SHABLE FREIGHT INSPECTOR * Porfirio Luna M.D. - 03/29/2023 12:44 AM CST I visited with the patient around 9 P.M to check in and see how she was doing. When I entered the room, she was resting comfortably in bed in no acute distress. I had a nice discussion with the patient regarding compliance with weightbearing restrictions and the need to comply with our nurses to prevent falls and undue safety concerns. The patient was aware that she had given some resistance to nursing and vowed to make an effort to be more compliant. We provided a 50mg dose of Seroquel to assist with her sleep and delirum. I was then called around midnight after nursing called a MURALI as the patient continued to demonstrate frustration while receiving assistance in getting to the commode, in an event described by nursing as slamming her walker and being combative. When I arrived as bedside, the MURALI team was present and the patient was laying in bed calm with the MEDICAL AIDES TEACHER at bedside. We again discussed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 short, simple sentences to allow patient to process information Environment: Decrease stimulation from the environment by dimming lights, Decrease stimulation fromthe environment by limiting noises from the sim, Decrease stimulation from the environments by limiting number of people in the room at one time, Promote a safe environment by removing medical equipment when not in use, Promote a safe environment by removing objects that could potentially be used as weapons, Provide an environment that supports a healthy sleep-wake cycle by providing adequate stimulation during daytime and decreasing stimulation at night, Use the environment to assist with orientation by dimming lights at night, Use the environment to assist with orientation by opening the blinds during the day, Use the environment to assist with orientation by providing meals at regular meal times Medications: Provide prn medication as ordered for anxiety and agitation Resources: Consider consult to psychiatry Follow Up: The [facility] RN will follow up within the next four hours If there are any questions or concerns please feel free to contact the [facility] RN at [phone], or in an emergent situation by activating the [facility] team through the hospital master control operator by dialing [phone]. SHABLE FREIGHT INSPECTOR documented in this encounter OR Notes * Op Note - Blanco Burt M.D. - 03/27/2023 8:10 AM CST PREOPERATIVE DIAGNOSIS: 1. Right ankle arthritis 2. Right equinus contracture POSTOPERATIVE DIAGNOSIS: As above PROCEDURE: 1. Right total ankle replacement 2. Right percutaneous Achilles tendon lengthening SURGEON: Blanco Burt MD ASSISTANTS: Sam CHAWLA ANESTHESIA: General with popliteal and saphenous block TOURNIQUET TIME: - SPECIMENS: None COMPLICATIONS: None INDICATIONS: Ladan Garcia is a 77 y.o. female with a prolonged history of right ankle pain related to posttraumatic arthritis. Nonsurgical treatment has failed and she desires surgery. We have talked at length about the pros and cons of ankle fusion versus ankle replacement. She expressed understanding and wishes to proceed. PROCEDURE: The patient was identified in the holding area. Informed consent was obtained. The correct surgicalside and site were identified and marked. The patient underwent a right popliteal and saphenous block by our anesthesia colleagues. The patient was brought to the operating room. The patient underwent general anesthesia. She was placed in a supine position with the ipsilateral hip bumped up. The right lower extremity was prepped and draped in the usual sterile fashion. Appropriate IV antibiotics were administered per our insititution protocol. A procedural pause was then performed. The leg was exsanguinated and the thigh tourniquet inflated to 300 mm Hg. I first made a midline, anterior ankle incision. Sharp dissection was carried through skin only. I bluntly dissected through the adipose tissue. Branches of the superficial peroneal nerve were identified, retracted, and protected the entire case. I then incised the extensor retinaculum directly over the EHL tendon. The tibialis anterior tendon was kept in its tendon sheath. The EHL with the neurovascular bundle was mobilized laterally, and the tibialis anterior tendon mobilized medially. I thenexposed sharply the anterior ankle joint. All of the soft tissue was removed from the anterior distal tibia. I used the ishBowlity Total Ankle Replacement system. I first placed the [employer] alignment guide for the tibia directly over the secure position of the distal tibia. Alignment was found to be in satisfactory position using fluoroscopy. I then placed 4 pins in the Prophecy distal tibia alignment guide. Again fluoroscopy confirmed adequate alignment. The tibial cutting jig was included within the prophecy guide. Fluoroscopy confirmed adequate sizing.It appeared that a size 1/2 tibial component would fit nicely. I then used the tibial corner drill to drill both corners. An oscillating saw was then used to make the distal tibia cuts. The cutting block was removed. The cut portion of the distal tibial cut bone was then removed with an osteotome and rongeur. I then turned my attention to the talus. I removed all remaining articular cartilage from off of the anterior talus as well as the soft tissue off the dorsal talus neck. The Prophecy talus alignment guide was then placed in the secure position. This was pinned in place. Fluoroscopy confirmed adequate placement of both pins. The Prophecy guide was then removed. I then placed the talus cutting guide over the pins. Given the preoperative planning, I chose to proceed with a flat top talus, particularly given the plantar flexed position of the talus preoperatively. I therefore used the talus cutting guide for the flat cut. I placed additional gutter pins for stability. I then used an oscillating saw to make the flat dorsal cut on the talus. The cutting guide and pins were removed. The wound was then thoroughly irrigated with normal saline. The trial size 1/2 tibial tray was inserted into place. A laminar electric vehicle electrician was introduced and the joint distracted. Fluoroscopy confirmed adequate placement of the trial tibial tray. The 3 peg holes were then broached through the 3 holes in the trial tibial tray. The talar dome trial with a poly insert trial was then inserted into the appropriate position in the ankle. I ranged the ankle so that the talar dome trial found a good position. Position of the talar dome trial was found to be in satisfactory position with fluoroscopy. This was then pinned in place through the provided holes. I then drilled the 3 peg holes through the talus guide into the talus. I then trialed all components with a size 1/2 tibial tray, size 2 talus component, and size 8 mm polyethylene insert. I ranged the ankle and trialed until I found stability. Fluoroscopy confirmed adequate placement of all trial components. While the ankle replacement was stable with the 8 mm insert, she did have significant equinus contracture. I therefore used a 15 blade scalpel a made for taqueria tenotomies in the Achilles tendon. I then gently manipulated the ankle into dorsiflexion and was able to gain close to 10?? of dorsiflexion of the ankle. The ankle was quite stiff because of the equinus contracture which made trialing of the components and insertion of the components more challenging. Once I was able to get adequate dorsiflexion with the posterior release, I removed all trial components. The wound was thoroughly irrigated with normal saline and pulsatile lavage. I then impacted into place the real size 2 tibial tray. I then impacted into place the size 2 taluscomponent. The ankle was then examined again with a trial 8 mm poly insert, which gave good stability. The trial was removed and the real size 8 mm polyethylene insert was then inserted. The ankle was stable. The wounds were thoroughly irrigated with normal saline. The extensor retinaculum was closed with 2-0 Vicryl. The subcutaneous tissue was closed with 3-0 Monocryl. The skin was closed with 3-0 nylon.Sterile bandages were placed over the incisions. The foot and ankle were placed in well-padded, plaster reinforced splint, with ankle in neutral dorsiflexion. The patient was awakened, extubated, andtransferred to the PACU in stable condition. She tolerated the procedure well, and there no complications. I was present and scrubbed in for the entire case. PLAN: The patient will be admitted to the hospital for close observation and IV antibiotics. I will see the patient in the castroom in 10-14 days for suture removal and cast application. We will initiate Lovenox for DVT prophylaxis. Pre-op Diagnosis Arthritis Ankle Post-op Diagnosis Arthritis Ankle Avionics Electrical Engineer A assistant project manager actively participated and was necessary for one or more of the following: opening, exposure and visualization during the case, maintaining hemostasis, wound closure resulting in itssafe and expeditious completion. Findings As expected. This case was substantially more difficult than usual because of significant effort and difficulty mobilizing and identifying anatomical structures due to altered surgical field secondary to distorted anatomy. Complications Operative Note Narrative Blanco Burt M.D. SHABLE FREIGHT INSPECTOR documented in this encounter Miscellaneous Notes * Hospital Course - Sam Graham M.D. - 04/01/2023 8:30 AM CST Operative Course: The patient was taken to the operating room on the above date and underwent the above-stated procedure by Dr. Burt. Please see Dr. Burt's dictation for additional operative details. The patient tolerated the procedure without complications. The patient was transferred from the operating room to the post-anesthesia care unit for postoperative monitoring. Postoperative Course: The patient was transferred to the orthopedic floor in stable condition. The patient's pain was managed with oral pain medications with excellent effect as the patient's diet was advanced. The patient's diet was advanced as tolerated. When the patient's pain was well controlled with oral pain medication, they were mobilizing and toileting acceptably, and tolerating a regular diet, they were dismissed from the hospital. SHABLE FREIGHT INSPECTOR documented in this encounter Plan of Treatment Scheduled Orders Name Type Priority Associated Diagnoses Orde r Schedule ORS Cast Room Visit Procedures Routine Once for 1 Occurrences starting 03/28/2023 until 03/28/2023 Scheduled Procedures Name Priority Associated Diagnoses Date/Ti me OPERATIVE LAPAROSCOPY Mass Ovary SALPINGO - OOPHORECTOMY Mass Ovary documented as of this encounter Procedures Procedure Name Priority Date/Time Associated Diagnosis Comments DIPSTICK, U Routine 03/29/2023 2:17 PM PERISHABLE FREIGHT INSPECTOR MICROSCOPIC AUTOMATED Routine 03/29/2023 2:17 PM PERISHABLE FREIGHT INSPECTOR PH, U Routine 03/29/2023 2:17 PM PERISHABLE FREIGHT INSPECTOR OSMOLALITY, U Routine 03/29/2023 2:17 PM PERISHABLE FREIGHT INSPECTOR URINALYSIS WITH MICROSCOPIC Routine 03/29/2023 2:17 PM PERISHABLE FREIGHT INSPECTOR ECG Routine 03/29/2023 8:58 AM PERISHABLE FREIGHT INSPECTOR CBC WITHOUT DIFFERENTIAL, B Routine 03/28/2023 4:26 AM PERISHABLE FREIGHT INSPECTOR BASIC METABOLIC PANEL, S/P Routine 03/28/2023 4:26 AM PERISHABLE FREIGHT INSPECTOR FL FLUORO LESS THAN 1 HOUR RAD - Routine (most inpatients and all outpatients) 03/27/2023 10:15 AM PERISHABLE FREIGHT INSPECTOR ARTHROPLASTY ANKLE 03/27/2023 7:24 AM PERISHABLE FREIGHT INSPECTOR Arthritis Ankle Case Notes Service: RyssmanPost-op orders: Family: Son Kaushik: DavidD/C plans: inpatient overnightAssistive Devices: can, walker, crutches @ homeOther needs: Special Needs TXA, supine, hip bump, thigh tourniquet, [employer] total aretha equipment, hard Mundo Girard, big fluoroscopy. ADULT OXYGEN THERAPY Routine 03/27/2023 6:53 AM PERISHABLE FREIGHT INSPECTOR ADULT OXYGEN THERAPY Routine 03/27/2023 6:53 AM PERISHABLE FREIGHT INSPECTOR documented in this encounter Results * Dipstick, Urine (03/29/2023 2:17 PM PERISHABLE FREIGHT INSPECTOR) Hemoglobin, QL, U Negative Negative 03/29/2023 2:50 PM PERISHABLE FREIGHT INSPECTOR DTL Leukocyte Esterase, U Negative Negative 03/29/2023 2:50 PM PERISHABLE FREIGHT INSPECTOR DTL Nitrite, U Negative Negative 03/29/2023 2:50 PM PERISHABLE FREIGHT INSPECTOR DTL Ketone, U Negative Negative mg/dL 03/29/2023 2:50 PM PERISHABLE FREIGHT INSPECTOR DTL Glucose, U Negative Negative mg/dL 03/29/2023 2:50 PM PERISHABLE FREIGHT INSPECTOR DTL Urine 03/29/2023 2:17 PM PERISHABLE FREIGHT INSPECTOR 03/29/2023 2:28 PM PERISHABLE FREIGHT INSPECTOR David Fuller M.D. LAB URINE ORDERA BLES [facility] [address] [place] [address], [place] [facility] [address] [place] [address] * pH, Urine (03/29/2023 2:17 PM PERISHABLE FREIGHT INSPECTOR) pH, U 5.6 4.5 - 8.0 03/29/2023 3:2 1 PM PERISHABLE FREIGHT INSPECTOR DTL Urine 03/29/2023 2:17 PM PERISHABLE FREIGHT INSPECTOR 03/29/2023 2:28 PM PERISHABLE FREIGHT INSPECTOR David Fuller M.D. LAB URINE ORDERA BLES [facility] [address] [place] [address], [facility] [address] [place] [address] * Osmolality, Urine (03/29/2023 2:17 PM PERISHABLE FREIGHT INSPECTOR) Osmolality, U 366 150 - 1150 mOsm/kg 03/29/2023 3:21 PM PERISHABLE FREIGHT INSPECTOR DTL Urine 03/29/2023 2:17 PM PERISHABLE FREIGHT INSPECTOR 03/29/2023 2:28 PM PERISHABLE FREIGHT INSPECTOR David Fuller M.D. LAB URINE ORDERA BLES Performing Organization Address [facility] Co de Phone Number [facility] [address] [place] [address], [facility] [address] [place] [address] * Microscopic Automated (03/29/2023 2:17 PM PERISHABLE FREIGHT INSPECTOR) Microscopy Normal 03/29/2023 2:50 PM PERISHABLE FREIGHT INSPECTOR DTL RBC None Seen <3 /hpf 03/29/2023 2:50 PM PERISHABLE FREIGHT INSPECTOR DTL WBC 1-3 /hpf 03/29/2023 2:50 PM PERISHABLE FREIGHT INSPECTOR DTL Comment: ----REFERENCE VALUE---- <4 ??(Males) <11 (Females) Casts, Hyaline 1-3 /lpf 03/29/2023 2:50 PM PERISHABLE FREIGHT INSPECTOR DTL Squamous Epithelial Cells, U 1-3 /hpf 03/29/2023 2:50 PM PERISHABLE FREIGHT INSPECTOR DTL Urine 03/29/2023 2:17 PM PERISHABLE FREIGHT INSPECTOR 03/29/2023 2:28 PM PERISHABLE FREIGHT INSPECTOR David Fuller M.D. LAB URINE ORDERA BLES [facility] [address] [place] [address], [facility] DTL [facility] [address] [place] [address] * Urinalysis, with Microscopic: Urine, Midstream (03/29/2023 2:17 PM PERISHABLE FREIGHT INSPECTOR) Source Urine, Urine, Midstream 03/29/2023 2:28 PM PERISHABLE FREIGHT INSPECTOR DTL Color, U Yellow 03/29/2023 2:28 PM PERISHABLE FREIGHT INSPECTOR DTL Clarity, U Clear 03/29/2023 2:28 PM PERISHABLE FREIGHT INSPECTOR DTL Protein, U 10 <26 mg/dL 03/29/2023 3:14 PM PERISHABLE FREIGHT INSPECTOR DTL Protein/Osmol ality 0.27 <0.42 ratio 03/29/2023 3:21 PM PERISHABLE FREIGHT INSPECTOR DTL Predicted 24 HR Protein, U 206 <229 mg/24 h 03/29/2023 3:21 PM PERISHABLE FREIGHT INSPECTOR DTL Predicted Range 51-834 mg/24 h 03/29/2023 3:21 PM PERISHABLE FREIGHT INSPECTOR DTL Urine (Urine, Midstream) 03/29/2023 2:17 PM PERISHABLE FREIGHT INSPECTOR 03/29/2023 2:28 PM PERISHABLE FREIGHT INSPECTOR David Fuller M.D. LAB URINE LOIDA MENDOZA [facility] [address] [place] [address], [facility] [address] [place] [address] * ECG 12 Lead (03/29/2023 8:58 AM PERISHABLE FREIGHT INSPECTOR) [facility] Ventricular Rate ECG/Min 68 BPM MUSE MT Interval 164 ms MUSE QRSD Interval 72 ms MUSE QT Interval 366 ms MUSE QTC Interval 389 ms MUSE P [place] 51 degrees MUSE R [place] -21 degrees MUSE T Wave [place] 50 degrees MUSE 03/29/2023 8:58 AM PERISHABLE FREIGHT INSPECTOR 03/29/2023 9:13 AM PERISHABLE FREIGHT INSPECTOR Impressions MUSE - 03/29/2023 9:13 AM PERISHABLE FREIGHT INSPECTOR Normal sinus rhythm Normal ECG When compared with ECG of 20-DEC-2021 12:54, Premature ventricular complexes are no longer present Reviewed by EMILY Castrejon Narrative Procedure Note Nando Valdes M.D. - 03/29/2023 IMPRESSION: Normal sinus rhythm Normal ECG When compared with ECG of 20-DEC-2021 12:54, Premature ventricular complexes are no longer present Reviewed by EMILY Castrejon David Fuller M.D. ECG ORDERABLES Performing Organization Address City/[facility]/ZIP Co de Phone Number MUSE NA * (ABNORMAL) CBC without Differential (03/28/2023 4:26 AM PERISHABLE FREIGHT INSPECTOR) Pathologist [facility] Hemoglobin 12.8 11.6 - 15.0 g/dL 03/28/2023 4:56 AM PERISHABLE FREIGHT INSPECTOR DTL Hematocrit 37.6 35.5 - 44.9 % 03/28/2023 4:56 AM PERISHABLE FREIGHT INSPECTOR DTL Erythrocytes 4.20 3.92 - 5.13 x10(12)/L 03/28/2023 4:56 AM PERISHABLE FREIGHT INSPECTOR DTL MCV 89.5 78.2 - 97.9 fL 03/28/2023 4:56 AM PERISHABLE FREIGHT INSPECTOR DTL RBC Distrib Width 13.7 12.2 - 16.1 % 03/28/2023 4:56 AM PERISHABLE FREIGHT INSPECTOR DTL Platelet Count 286 157 - 371 x10(9)/L 03/28/2023 4:56 AM PERISHABLE FREIGHT INSPECTOR DTL Leukocytes 16.4(H) 3.4 - 9.6 x10(9)/L 03/28/2023 4:56 AM PERISHABLE FREIGHT INSPECTOR DTL Blood (Blood, Venous) 03/28/2023 4:26 AM PERISHABLE FREIGHT INSPECTOR 03/28/2023 4:50 AM PERISHABLE FREIGHT INSPECTOR Sam Graham M.D. LAB BLOOD ADD-ON Performing Organization Address City/[facility]/ZIP Co de Phone Number [facility] [address] [place] [address], [facility] DTL [facility] [address] [place] [address] * (ABNORMAL) Basic Metabolic Panel (03/28/2023 4:26 AM PERISHABLE FREIGHT INSPECTOR) Potassium, S 4.2 3.6 - 5.2 mmol/L 03/28/2023 5:30 AM PERISHABLE FREIGHT INSPECTOR DTL Sodium, S 139 135 - 145 mmol/L 03/28/2023 5:30 AM PERISHABLE FREIGHT INSPECTOR DTL Chloride, S 107 98 - 107 mmol/L 03/28/2023 5:30 AM PERISHABLE FREIGHT INSPECTOR DTL Bicarbonate, S 20(L) 22 - 29 mmol/L 03/28/2023 5:30 AM PERISHABLE FREIGHT INSPECTOR DTL Anion Gap 12 7 - 15 03/28/2023 5:30 AM PERISHABLE FREIGHT INSPECTOR DTL BUN (Blood Urea Nitrogen), S 23(H) 6 - 21 mg/dL 03/28/2023 5:30 AM PERISHABLE FREIGHT INSPECTOR DTL Creatinine 1.37(H) 0.59 - 1.04 mg/dL 03/28/2023 5:30 AM PERISHABLE FREIGHT INSPECTOR DTL Estimated GFR (eGFR) 40(L) >=60 mL/min/BSA 03/28/2023 5:30 AM PERISHABLE FREIGHT INSPECTOR DTL Comment: Estimated GFR calculated using the 2020 CKD_EPI creatinine equation. Calcium, Total, S 8.9 8.8 - 10.2 mg/dL 03/28/2023 5:30 AM PERISHABLE FREIGHT INSPECTOR DTL Glucose, S 93 70 - 140 mg/dL 03/28/2023 5:30 AM PERISHABLE FREIGHT INSPECTOR DTL Blood (Blood, Venous) 03/28/2023 4:26 AM PERISHABLE FREIGHT INSPECTOR 03/28/2023 5:05 AM PERISHABLE FREIGHT INSPECTOR Sam Graham M.D. LAB BLOOD ADD-ON [facility] [address] [place] [address], [facility] DTL [facility] [address] [place] [address] * FL Fluoro Less Than 1 Hour (03/27/2023 10:15 AM PERISHABLE FREIGHT INSPECTOR) Narrative [id number] - 03/27/2023 10:16 AM PERISHABLE FREIGHT INSPECTOR This exam does not require a radiologist review or interpretation. Please refer to the patient's medical record on this date for clinical details. Mary Partida P.A.-C. IMG FLUOROSCOPY P ROCEDURES [id number] NA documented in this encounter Visit Diagnoses Diagnosis Arthritis Ankle- Primary Other Abnormalities Of Gait And Mobility [R26.89] Difficulty Walking Orthopedic Ankle Cause [R26.2] Decline Functional Status [R53.81] Replacement Ankle Status Post Right documented in this encounter Admitting Diagnoses Diagnosis Arthritis Ankle Replacement Ankle Status Post Right documented in this encounter Administered Medications Inactive Administered Medications - up to 3 most recent administrations Medication Order MAR Action Action Date Dose Rate Site acetaminophen tablet 1,000 mg (TYLENOL) 1,000 mg, oral, Once, On Jodie 03/27/23 at 0715, For 1 dose, Pre-Op Given 03/27/2023 7:17 AM PERISHABLE FREIGHT INSPECTOR 1,000 mg acetaminophen tablet 1,000 mg (TYLENOL) 1,000 mg, oral, Every 6 hours, First dose on Jodie 03/27/23 at 1330 Given 04/01/2023 8:10 AM PERISHABLE FREIGHT INSPECTOR 1,000 mg Given 04/01/2023 3:07 AM PERISHABLE FREIGHT INSPECTOR 1,000 mg Given 03/31/2023 8:30 PM PERISHABLE FREIGHT INSPECTOR 1,000 mg atorvastatin tablet 20 mg (LIPITOR) 20 mg, oral, Daily at bedtime, First dose on Jodie 03/27/23 at 2100, atorvaSTATin 20 mg oral daily was interchanged for simvastatin 5-40 mg oral daily Given 03/31/2023 9:48 PM PERISHABLE FREIGHT INSPECTOR 20 mg Given 03/30/2023 9:05 PM PERISHABLE FREIGHT INSPECTOR 20 mg Given 03/29/2023 8:52 PM PERISHABLE FREIGHT INSPECTOR 20 mg ceFAZolin in dextrose (iso osm) IVPB 2 g (ANCEF) 2 g, intravenous, at 200 mL/hr, Administer over 30 Minutes, Every 8 hours, First dose on Jodie 03/27/23 at 1600, For 2 doses, Start within 8 hours of last IV dose. , Drug Monitoring Program: Pharmacist to adjust medication dosing based on indication and drug clearance factors., Indications: Prophylaxis, surgical New Bag 03/28/2023 12:30 AM PERISHABLE FREIGHT INSPECTOR 2 g 200 mL/hr New Bag 03/27/2023 4:40 PM PERISHABLE FREIGHT INSPECTOR 2 g 200 mL/hr D5W infusion 10-250 mL/hr, intravenous, As needed, Medications Incompatible with 0.9% NaCL, Starting on Jodie 03/27/23 at 1513, Infuse at the same rate as the piggyback until tubing clears or up to a volume of 20 mL pre and post infusion for medications incompatible with 0.9% NaCL. Use 100 mL bag then discard. enoxaparin injection 40 mg (LOVENOX) 40 mg, subcutaneous, Daily, First dose on Fri03/28/23 at 0900 Given 04/01/2023 8:11 AM PERISHABLE FREIGHT INSPECTOR 40 mg Right Lower Abdomen Given 03/31/2023 9:32 AM PERISHABLE FREIGHT INSPECTOR 40 mg Le ft Lower Abdomen Given 03/30/2023 8:12 AM PERISHABLE FREIGHT INSPECTOR 40 mg Ri ght Upper Abdomen fentaNYL injection 25 mcg (SUBLIMAZE) 25 mcg, intravenous, Every 2 min PRN, sedation, Administer over 1 minute immediately prior to the procedure. May repeat every 2 minutes to a maximum of 200 mcg, until pain score of 3 or less, or until the patient meets the pain comfort goal, or RASS 0 to -2. Do not give if respiratory rate is less than 8 breaths/minute., Starting on Jodie 03/27/23 at 0653, For 3 hours, Pre-Op Given 03/27/2023 7:27 AM PERISHABLE FREIGHT INSPECTOR 50 mcg haloperidol lactate injection 2 mg (HALDOL) 2 mg, intravenous, Every 8 hours PRN, agitation, Starting on 03/29/23 at 0043 Given 03/29/2023 12:49 AM PERISHABLE FREIGHT INSPECTOR 2 mg Lactated Ringer's 20 mL/hr, intravenous, Continuous, Starting on Jodie 03/27/23 at 0715 Continued from OR 03/27/2023 10:26 AM PERISHABLE FREIGHT INSPECTOR 20 mL/hr 20 mL/hr Rate/Dose Verify 03/27/2023 7:44 AM PERISHABLE FREIGHT INSPECTOR 20 mL/h r New Bag 03/27/2023 7:17 AM PERISHABLE FREIGHT INSPECTOR 20 mL/hr 20 mL/hr Lactated Ringer's 75 mL/hr, intravenous, Continuous, Starting on Jodie 03/27/23 at 1230 New Bag 03/28/2023 12:32 AM PERISHABLE FREIGHT INSPECTOR 75 mL/hr 75 mL/hr Rate/Dose Verify 03/27/2023 10:00 PM PERISHABLE FREIGHT INSPECTOR 75 mL/hr 75 mL/ hr Continued from OR 03/27/2023 12:30 PM PERISHABLE FREIGHT INSPECTOR 75 mL/hr 75 mL /hr losartan tablet 50 mg (COZAAR) 50 mg, oral, Daily, First dose on Fri03/30/23 at 0900 Given 04/01/2023 8:10 AM PERISHABLE FREIGHT INSPECTOR 50 mg Given 03/31/2023 9:32 AM PERISHABLE FREIGHT INSPECTOR 50 mg Given 03/30/2023 8:48 AM PERISHABLE FREIGHT INSPECTOR 50 mg melatonin tablet 3 mg 3 mg, oral, Bedtime PRN, sleep, Starting on [place] 03/30/23 at 2109 midazolam (PF) injection 1 mg (VERSED) 1 mg, intravenous, Every 2 min PRN, sedation, RASS 0, Starting on Jodie 03/27/23 at 0653, For 3 hours, Pre-Op, May repeat every 2 minutes for a maximum of 5 mg. Do not give if respiratory rate is less than 8 breaths/minute. Given 03/27/2023 7:28 AM [employer] 1 mg NaCl 0.9% infusion 10-250 mL/hr, intravenous, As needed, Between Consecutive Piggyback Medications, Starting on Jodie 03/27/23 at 1513, Infuse at the same rate as the piggyback until tubing clears or up to a volume of 20 mL. Select for IV medication administration when no maintenance IV available or when IV medications are not compatible with maintenance fluid. NaCl 0.9% infusion 10-250 mL/hr, intravenous, As needed, Post Medications (Hazardous/Low Fluid Volume), Starting on Jodie 03/27/23 at 1513, Infuse at the same rate as the medication until tubing cleared of medication, then discard. oxyCODONE IR tablet 10 mg (ROXICODONE) 10 mg, oral, Every 4 hours PRN, severe pain or score 7-10 of 10, Starting on Jodie 03/27/23 at 1211, Second line therapy. If patient is greater than 7 after 2 hours, call service for new order. Given 03/28/2023 9:58 AM [employer] 10 mg oxyCODONE IR tablet 5 mg (ROXICODONE) 5 mg, oral, Every 4 hours PRN, moderate pain or score 4-6 of 10, Starting on Jodie 03/27/23 at 1211, Second line therapy Given 03/28/2023 5:04 AM [employer] 5 mg polyethylene glycol powder packet 1 packet (MIRALAX) 1 packet, oral, Daily, First dose on Fri03/28/23 at 0900, Ordered sequence of administration: polyethylene glycol, then bisacodyl until BM achieved. Avoid mixing with starch-based thickened liquids. Given 03/31/2023 9:31 AM [employer]PECT[employer] 1 packe t Given 03/30/2023 8:12 AM [employer] INSPECT[employer] 1 packet Given 03/29/2023 8:09 AM [employer] INSPECT[employer] 1 packet QUEtiapine tablet 50 mg (SEROquel) 50 mg, oral, Bedtime PRN, sleep, delirium, Starting on Fri03/28/23 at 2114 Given 03/28/2023 10:46 PM [employer] 50 mg sennosides-docusate sodium 8.6-50 mg per tablet 1 tablet (SENOKOT-S) 1 tablet, oral, 2 times daily, First dose on Jodie 03/27/23 at 2100, Do not give if patient has diarrhea. Given 03/31/2023 9:48 PM [employer] 1 tablet Given 03/31/2023 9:32 AM [employer] INSPECT[employer] 1 tablet Given 03/30/2023 9:05 PM [employer] INSPECTOR 1 tablet sodium chloride 0.9 % injection 10 mL 10 mL, intravenous, As needed, line care, Peripheral Intravenous Catheter and Rapid Infusion Catheter, Starting on Jodie 03/27/23 at 1513, Prior to blood sampling, post blood transfusion or post blood sampling. sodium chloride 0.9 % injection 3 mL 3 mL, intravenous, As needed, line care, Peripheral Intravenous Catheter and Rapid Infusion Catheter, Starting on Jodie 03/27/23 at 1513, Prior to and following infusion and between multiple consecutive infusions. sodium chloride 0.9 % injection 3 mL 3 mL, intravenous, Every 12 hours scheduled, First dose on Jodie 03/27/23 at 2100, Peripheral Intravenous Catheter and Rapid Infusion Catheter: When no infusion to maintain patency. Given 03/31/2023 9 :49 PM [employer] 3 mL Given 03/30/2023 9:05 PM [employer] INSPECTOR 3 mL Given 03/30/2023 8:13 AM [employer] INSPECTOR 3 mL documented in this encounter Active and Recently Administered Medications Times are shown in [employer]. Scheduled Medication Order 03/30/2023 03/31/2023 04/01/2023 acetaminophen tablet 1,000 mg (TYLENOL) 1,000 mg, oral, Every 6 hours, First dose on Jodie 24 at 1330 0111 (Given - Provider: Danny Phelps R.N.)0660 (Given - Provider: Danny Phelps R.N.)1334 (Given - Provider: Patience Ogden R.N.)1842 (Given - Provider: Patience Ogden R.N.) 0152 (Given - Provider: Delaney Flores R.N.)0639 (Given - Provider: Delaney Flores R.N.)1440 (Given - Provider: Sav Romero R.N.)2030 (Given - Provider: Debra Quiroga R.N.) 0307 (Given - Provider: Cherie ReynaSPaula, R.N.)0810 (Given - Provider: Sav Romero R.N.) atorvastatin tablet 20 mg (LIPITOR) 20 mg, oral, Daily at bedtime, First dose on Fri03/27/23 at 2100, atorvaSTATin 20 mg oral daily was interchanged for simvastatin 5-40 mg oral daily 2105 (Given - Provider: Delaney Flores R.N.) 2148 (Given - Provider: Debra Quiroga R.N.) enoxaparin injection 40 mg (LOVENOX) 40 mg, subcutaneous, Daily, First dose on Fri03/28/23 at 0900 0812 (Given - Provider: Patience Ogden R.N.) 0932 (Given - Provider: Sav Romero R.N.) 0811 (Given - Provider: Sav Romero R.N.) losartan tablet 50 mg (COZAAR) 50 mg, oral, Daily, First dose on Fri03/30/23 at 0900 0848 (Given - Provider: Patience Ogden R.N.) 0932 (Given - Provider: Sav Romero R.N.) 0810 (Given - Provider: Sav Romero R.N.) polyethylene glycol powder packet 1 packet (MIRALAX) 1 packet, oral, Daily, First dose on Fri03/28/23 at 0900, Ordered sequence of administration: polyethylene glycol, then bisacodyl until BM achieved. Avoid mixing with starch-based thickened liquids. 0812 (Given - Provider: Patience Ogden R.N.) 0931 (Given - Provider: Sav Romero R.N.) 0816 (Not Given - Provider: Sav Romero R.N. - Reason: Patient/family refused) sennosides-docusate sodium 8.6-50 mg per tablet 1 tablet (SENOKOT-S) 1 tablet, oral, 2 times daily, First dose on Jodie 03/27/23 at 2100, Do not give if patient has diarrhea. 0812 (Given - Provider: Patience Ogden R.N.)210 (Given - Provider: Delaney Flores R.N.) 0932 (Given - Provider: Sav Romero R.N.)2147 (Given - Provider: Debra Quiroga R.N.) 0816 (Not Given - Provider: Sav Romero R.N. - Reason: Patient/family refused) sodium chloride 0.9 % injection 3 mL 3 mL, intravenous, Every 12 hours scheduled, First dose on Jodie 03/27/23 at 2100, Peripheral Intravenous Catheter and Rapid Infusion Catheter: When no infusion to maintain patency. 0813 (Given - Provider: Patience Ogden R.N.)2104 (Given - Provider: Delaney Flores R.N.) 1000 (Canceled Entry - Provider: Macie Emmanuel R.N.)2149 (Given - Provider: Debra Quiroga R.N.) 0816 (Canceled Entry - Provider: Sav Romero R.N.) Continuous Medication Order 03/30/2023 03/31/2023 04/01/2023 Lactated Ringer's 20 mL/hr, intravenous, Continuous, Starting on Jodie 03/27/23 at 0715 2130 (Stopped - Provider: Kaushik Quiroga R.N.) Lactated Ringer's 75 mL/hr, intravenous, Continuous, Starting on Jodie 03/27/23 at 1230 2130 (Stopped - Provider: Kaushik Quiroga R.N.) PRN Medication Order 03/30/2023 03/31/2023 04/01/2023 benzocaine-menthoL 15-3.6 mg per lozenge 1 lozenge (CEPACOL) 1 lozenge, oral, As needed, sore throat, Starting on Jodie 03/27/23 at 1211 bisacodyL suppository 10 mg (DULCOLAX) 10 mg, rectal, Daily PRN, constipation, Starting on Jodie 03/27/23 at 1211, Ordered sequence of administration: polyethylene glycol, then bisacodyl until BM achieved. calcium carbonate chewable tablet 400 mg of calcium (TUMS) 400 mg of calcium, oral, Every 2 hour PRN, indigestion, Starting on Jodie 03/27/23 at 1211, Doses listed are in mg of elemental calcium. Take with food. 500 mg calcium carbonate contains 200 mg of elemental calcium. D5W infusion 10-250 mL/hr, intravenous, As needed, Medications Incompatible with 0.9% NaCL, Starting on Jodie 03/27/23 at 1513, Infuse at the same rate as the piggyback until tubing clears or up to a volume of 20 mL pre and post infusion for medications incompatible with 0.9% NaCL. Use 100 mL bag then discard. hydrocortisone 1 % cream 1 Application (CORTAID) 1 Application, topical, 4 times daily PRN, pruritus, Starting on Jodie 03/27/23 at 1211 HYDROmorphone (PF) injection 0.2 mg (DILAUDID) 0.2 mg, intravenous, Every 2 hour PRN, severe pain or score 7-10 of 10, Starting on Jodie 03/27/23 at 1211, For 3 doses, May administer if pain is greater than 7 after scheduled and PRN regimen exhausted. If pain remains greater than 7. melatonin tablet 3 mg 3 mg, oral, Bedtime PRN, sleep, Starting on Fri03/30/23 at 2109 NaCl 0.9% infusion 10-250 mL/hr, intravenous, As needed, Between Consecutive Piggyback Medications, Starting on Jodie 03/27/23 at 1513, Infuse at the same rate as the piggyback until tubing clears or up to a volume of 20 mL. Select for IV medication administration when no maintenance IV available or when IV medications are not compatible with maintenance fluid. NaCl 0.9% infusion 10-250 mL/hr, intravenous, As needed, Post Medications (Hazardous/Low Fluid Volume), Starting on Jodie 03/27/23 at 1513, Infuse at the same rate as the medication until tubing cleared of medication, then discard. naloxone injection 0.2 mg (NARCAN) 0.2 mg, intravenous, As needed, respiratory depression, Starting on Jodie 03/27/23 at 1211, For RASS Score -4 or less, respiratory rate of less than 8 breaths/min. Notify provider/service and rapid response team (if available at institution). OLANZapine injection 5 mg (ZyPREXA) 5 mg, intravenous, Once as needed, agitation, Starting on 03/29/23 at 0122, For 1 dose, Reconstitute with SWFI. 10 mg vial: add 2.1 mL Approximate final concentration = 5 mg/mL., Restriction Criteria (Pharmacy will review and approve if criteria met): Oral olanzapine is indicated but refused or unable to be administered oxyCODONE IR tablet 10 mg (ROXICODONE)(Linked Group 1) 10 mg, oral, Every 4 hours PRN, severe pain or score 7-10 of 10, Starting on Jodie 03/27/23 at 1211, Second line therapy. If patient is greater than 7 after 2 hours, call service for new order. oxyCODONE IR tablet 5 mg (ROXICODONE)(Linked Group 1) 5 mg, oral, Every 4 hours PRN, moderate pain or score 4-6 of 10, Starting on Jodie 03/27/23 at 1211, Second line therapy QUEtiapine tablet 50 mg (SEROquel) 50 mg, oral, Bedtime PRN, sleep, delirium, Starting on Fri03/28/23 at 2114 sodium chloride 0.9 % injection 10 mL 10 mL, intravenous, As needed, line care, Peripheral Intravenous Catheter and Rapid Infusion Catheter, Starting on Jodie 03/27/23 at 1513, Prior to blood sampling, post blood transfusion or post blood sampling. sodium chloride 0.9 % injection 3 mL 3 mL, intravenous, As needed, line care, Peripheral Intravenous Catheter and Rapid Infusion Catheter, Starting on Jodie 03/27/23 at 1513, Prior to and following infusion and between multiple consecutive infusions. Linked Groups Order Group 1: oxyCODONE IR tablet 5 mg (ROXICODONE)Jump to med 5 mg, oral, Every 4 hours PRN, moderate pain or score 4-6 of 10, Starting on Jodie 03/27/23 at 1211, Second line therapy Or oxyCODONE IR tablet 10 mg (ROXICODONE)Jump to med 10 mg, oral, Every 4 hours PRN, severe pain or score 7-10 of 10, Starting on Jodie 03/27/23 at 1211, Second line therapy. If patient is greater than 7 after 2 hours, call service for new order. documented in this encounter Care Teams Catering Driver Relationship Specialty Start Date End Date Elsewhere, Pcp PCP - General Family Medicine 01/16/18 documented as of this encounter
--- OUTSIDE RECORDS SUMMARY | 2023-06-26 05:17 | XMS_ITS | Referral Summary ---
Author Name Unknown Organization [facility] Address [address] [place] [address] Care Team Providers Care Automobile Relocation Engineer Name Role Phone Elsewhere, Pcp Primary Care Provider Unavailabl e Source Comments Patient records contain information from all sites at [facility]. For routine questions regarding patient records, call [phone] during business hours, M-F 8:00 AM - 5:00 PM Central Time. Record requests for emergency care only can be directed to [phone] at any time.[facility] Encounters Date Type Department Care Team Description 06/18/2023 11:15 AM CDT Office Visit Department of Orthopedic Surgery in [place], [place] [address] [place] [phone] Blanco Burt M.D. Replacement Ankle Status Post Right (Primary Dx) 06/18/2023 9:41 AM CDT - 06/18/2023 11:59 PM CDT Hospital En[facility] in [place], [place] [address] [place] [phone] Mary Partida P.A.-C. Replacement Ankle Status Post Right Discharge Disposition: Home or Self Care 06/16/2023 10:15 AM CDT Clinical Communication Virtual Review in [place], [place] 200 [place] [address] Pre-visit Intake 05/09/2023 2:13 PM CDT - 05/09/2023 11:59 PM CDT Hospital Encounter [facility] in [place], [place] [address] [place] [address] Mary Partida P.A.-C. Replacement Ankle Status Post Right Discharge Disposition: Home or Self Care 05/09/2023 2:13 PM CDT - 05/09/2023 3:58 PM CDT Hospital Encounter Department of Orthopedic Surgery in [place], [place] [address] [place] [address] Mary Partida P.A.-C. Replacement Ankle Status Post Right Discharge Disposition: Home or Self Care 04/15/2023 2:35 PM AIRPLANE WOODWORKER - 04/15/2023 11:59 PM AIRPLANE WOODWORKER Hospital Encounter [facility] in [place], [place] [address] [place] [address] Mary Partida P.A.-C. Replacement Ankle Status Post Right Discharge Disposition: Home or Self Care 04/15/2023 2:35 PM AIRPLANE WOODWORKER - 04/15/2023 3:49 PM AIRPLANE WOODWORKER Hospital Encounter Department of Orthopedic Surgery in [place], [place] [address] [place] [address] Mary Partida P.A.-C. Replacement Ankle Status Post Right 04/01/2023 Orders Only Department of Orthopedic Surgery in [place], [place] [address] [place] [address] Mary Partida P.A.-C. 03/27/2023 6:17 AM AIRPLANE WOODWORKER - 04/01/2023 11:18 AM AIRPLANE WOODWORKER Hospital Encounter [facility], Ninth Floor [address] [place] [address] Blanco Burt M.D. Other Abnormalities Of Gait And Mobility [R26.89] (Primary Dx); Difficulty Walking Orthopedic Ankle Cause [R26.2]; Decline Functional Status [R53.81] Discharge Disposition: [facility] 03/31/2023 8:22 AM AIRPLANE WOODWORKER - 03/31/2023 11:59 PM AIRPLANE WOODWORKER Hospital Encounter [facility] in [place], [place] [address] [place] [address] Blanco Burt M.D. Replacement Ankle Status Post Right Discharge Disposition: Home or Self Care 03/31/2023 7:55 AM AIRPLANE WOODWORKER - 03/31/2023 8:21 AM AIRPLANE WOODWORKER Hospital Encounter Department of Orthopedic Surgery in [place], [place] [address] [place] [address] Sam Graham M.D. Ryssman, Daniel B, M.D. Arthritis Ankle (Primary Dx); Replacement Ankle Status Post Right Discharge Disposition: Home or Self Care 03/29/2023 Orders Only Department of Orthopedic Surgery in [place], [place] [address] [place] [phone] Porfirio Luna M.D. 03/28/2023 Documentation Department of Orthopedic Surgery in [place], [place] [address] [place] [phone] Blanco Burt M.D. from Last 3 Months Allergies Active Allergy [...] Overview: Added automatically from request for surgery [id number] Proteinuria 03/13/2020 Hyperparathyroidism Secondary 07/24/2016 Incontinence Urinary Stress Female 10/09/2015 Abnormal Pap Smear Cervix 05/30/2011 Overview: reactive reparative 12/2006; ASCUS 07/2007(negative HPV) ASCUS positve HPV 10/16/2009 LEEP on 05/17/2010 Pap 05/30/2011 is Negative for intraepithelial lesion or malignancy. 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 Utilities Answer Date Recorded In the past 12 months has e [employer], gas, oil, or water [employer] threatened to shut off services in your [...] your living situation today? I have a [facility] place to live 03/31/2023 Sex and Gender Information Value Date Recorded Sex Assigned at Female 07/31/2017 10:09 AM CDT Gender Identity Female 07/31/2017 10:09 AM CDT Sexual Orientation Straight 07/31/2017 10 :09 AM CDT Last Filed Vital Signs Vital Sign Reading Time Taken Comments Blood Pressure 135/94 04/01/2023 11:04 AM AIRPLANE WOODWORKER Pulse 81 04/01/2023 11:04 AM AIRPLANE WOODWORKER Temperature 36.4 ??C (97.5 ??F) 04/01/2023 11:[address] Respiratory Rate 18 04/01/2023 11:04 AM AIRPLANE WOODWORKER Oxygen Saturation 98% 04/01/2023 11:04 AM AIRPLANE WOODWORKER Inhaled Oxygen Concentration - - Weight 73.7 kg (162 lb 7.7 oz) 03/27/2023 3:00 P M AIRPLANE WOODWORKER Height 162 cm (5' 3.78) 03/27/2023 3:00 PM AIRPLANE WOODWORKER Body Mass Index 28.08 03/27/2023 3:00 PM AIRPLANE WOODWORKER Plan of Treatment Scheduled Procedures Name Priority Associated Diagnoses Date/Ti me OPERATIVE LAPAROSCOPY Mass Ovary SALPINGO - OOPHORECTOMY Mass Ovary Medical Devices Implanted Type Area Door Glass Installer Device Identifier Shelf Expiration Date Model / Serial / Lot Ankl Tlr Dom Inf 3d Sz2 Implanted:Qt y: 1 on 03/27/2023 by Blanco Burt M.D. at [facility] Ankle Implant Right: Ankle [employer] [id number] 11/11/2030 [id number] / / [id number] Ankl Tib Comp 3d Inf Sz2 Implanted:Qt y: 1 on 03/27/2023 by Blanco Burt M.D. at [facility]/[place] Ankle Implant Right: Ankle [employer] [id number] 06/17/2030 [id number] / / [id number] Ankl Tl Inf Sz2.8 Implanted:Qt y: 1 on 03/27/2023 by Blanco Burt M.D. at [facility] Ankle Implant Right: Ankle [employer] [id number] 10/21/2030 [id number] / / [id number] Procedures Procedure Name Priority Date/Time Associated Diagnosis [...] inpatients and all outpatients) 04/15/2023 3:33 PM AIRPLANE WOODWORKER Replacement Ankle Status Post Right ORS CAST ROOM VISIT Routine 04/15/2023 3:00 PM AIRPLANE WOODWORKER Replacement Ankle Status Post Right EXTI BASIC METABOLIC PANEL, S/P Routine 04/09/2023 8:09 AM AIRPLANE WOODWORKER DX ANKLE RIGHT 3+ VIEWS RAD - Routine (most inpatients and all outpatients) 03/31/2023 9:11 AM AIRPLANE WOODWORKER Replacement Ankle Status Post Right DIPSTICK, U Routine 03/29/2023 2:17 PM AIRPLANE WOODWORKER PH, U Routine 03/29/2023 2:17 PM AIRPLANE WOODWORKER OSMOLALITY, U Routine 03/29/2023 2:17 PM AIRPLANE WOODWORKER MICROSCOPIC AUTOMATED Routine 03/29/2023 2:17 PM AIRPLANE WOODWORKER URINALYSIS WITH MICROSCOPIC Routine 03/29/2023 2:17 PM AIRPLANE WOODWORKER ECG Routine 03/29/2023 8:58 AM AIRPLANE WOODWORKER CBC WITHOUT DIFFERENTIAL, B Routine 03/28/2023 4:26 AM AIRPLANE WOODWORKER BASIC METABOLIC PANEL, S/P Routine 03/28/2023 4:26 AM AIRPLANE WOODWORKER OUTSIDE MG MAMMOGRAM Routine 09/27/2019 1:45 PM [...] were answered. ??The patient expressed understanding. ?? aMry Partida P.A.-C. PROCEDURE/MINOR S URGICAL ORDERABLES EVARISTO NA * PROCEDURE PLACEHOLDER (04/15/2023 3:00 PM AIRPLANE WOODWORKER) Narrative MMODAL - 04/15/2023 3:00 PM AIRPLANE WOODWORKER Mary Partida P.A.-C. ? 04/15/2023 ??3:47 PM ORS Cast Room Visit Performed by: Mary Partida P.A.-C. Authorized by: Mary Partida P.A.-C. ?? Cast Room Note GONDA CASTROOM PREPROCEDURE/POSTPROCEDURE DIAGNOSIS: Status post right total ankle arthroplasty (March 27, 2023) INDICATION: Continuing care SURGEON: Mary Partida PA-C PROCEDURE: Right splint removal, suture removal, and short-leg cast application HISTORY OF PRESENT ILLNESS: Ladan Garcia is about 2 weeks out from surgery. ??She is doing well. Pain is well-controlled. ??She has at a fdc facility. PHYSICAL EXAM: On exam the incision [...] PROCEDURE/MINOR S URGICAL ORDERABLES Performing Organization Address City/[facility] Co de Phone Number MMODAL NA * Dipstick, Urine (03/29/2023 2:17 PM AIRPLANE WOODWORKER) Hemoglobin, QL, U Negative Negative 03/29/2023 2:50 PM AIRPLANE WOODWORKER DTL Leukocyte Esterase, U Negative Negative 03/29/2023 2:50 PM AIRPLANE WOODWORKER DTL Nitrite, U Negative Negative 03/29/2023 2:50 PM AIRPLANE WOODWORKER DTL Ketone, U Negative Negative mg/dL 03/29/2023 2:50 PM AIRPLANE WOODWORKER DTL Glucose, U Negative Negative mg/dL 03/29/2023 2:50 PM AIRPLANE WOODWORKER DTL Urine 03/29/2023 2:17 PM AIRPLANE WOODWORKER 03/29/2023 2:28 PM AIRPLANE WOODWORKER David Fuller M.D. LAB URINE ORDERA BLES Performing Organization Address [facility] Co de Phone Number [facility] [address] DTL [facility] [address] [place] [address] * Microscopic Automated (03/29/2023 2:17 PM AIRPLANE WOODWORKER) Microscopy Normal 03/29/2023 2:50 PM AIRPLANE WOODWORKER DTL RBC None Seen <3 /hpf 03/29/2023 2:50 PM AIRPLANE WOODWORKER DTL WBC 1-3 /hpf 03/29/2023 2:50 PM AIRPLANE WOODWORKER DTL Comment: ----REFERENCE VALUE---- <4 ??(Males) <11 (Females) Casts, Hyaline 1-3 /lpf 03/29/2023 2:50 PM AIRPLANE WOODWORKER DTL Squamous Epithelial Cells, U 1-3 /hpf 03/29/2023 2:50 PM AIRPLANE WOODWORKER DTL Urine 03/29/2023 2:17 PM AIRPLANE WOODWORKER 03/29/2023 2:28 PM AIRPLANE WOODWORKER David Fuller M.D. LAB URINE ORDERA BLES [facility] [address] [place] [address], [facility] [place] [address] [place] [address] * pH, Urine (03/29/2023 2:17 PM AIRPLANE WOODWORKER) pH, U 5.6 4.5 - 8.0 03/29/2023 3:2 1 PM AIRPLANE WOODWORKER DTL Urine 03/29/2023 2:17 PM AIRPLANE WOODWORKER 03/29/2023 2:28 PM AIRPLANE WOODWORKER David Fuller M.D. LAB URINE ORDERA BLES Performing Organization Address City/[facility]/ZIP Co de Phone Number [facility] [address] [place] [address], [facility] [address] [place] [address] * Osmolality, Urine (03/29/2023 2:17 PM AIRPLANE WOODWORKER) Osmolality, U 366 150 - 1150 mOsm/kg 03/29/2023 3:21 PM AIRPLANE WOODWORKER DTL Urine 03/29/2023 2:17 PM AIRPLANE WOODWORKER 03/29/2023 2:28 PM AIRPLANE WOODWORKER David Fuller M.D. LAB URINE ORDERA BLES [facility] [address] [place] [address], [facility] [place] [facility] [place] [address] [place] [address] * Urinalysis, with Microscopic: Urine, Midstream (03/29/2023 2:17 PM AIRPLANE WOODWORKER) Source Urine, Urine, Midstream 03/29/2023 2:28 PM AIRPLANE WOODWORKER DTL Color, U Yellow 03/29/2023 2:28 PM AIRPLANE WOODWORKER DTL Clarity, U Clear 03/29/2023 2:28 PM AIRPLANE WOODWORKER DTL Protein, U 10 <26 mg/dL 03/29/2023 3:14 PM AIRPLANE WOODWORKER DTL Protein/Osmol ality 0.27 <0.42 ratio 03/29/2023 3:21 PM AIRPLANE WOODWORKER DTL Predicted 24 HR Protein, U 206 <229 mg/24 h 03/29/2023 3:21 PM AIRPLANE WOODWORKER DTL Predicted Range 51-834 mg/24 h 03/29/2023 3:21 PM AIRPLANE WOODWORKER DTL Urine (Urine, Midstream) 03/29/2023 2:17 PM AIRPLANE WOODWORKER 03/29/2023 2:28 PM AIRPLANE WOODWORKER David Fuller M.D. LAB URINE LOIDA MENDOZA [facility] [address] [place] [address], [facility] [place] [facility] [place] [address] [place] [address] * ECG 12 Lead (03/29/2023 8:58 AM AIRPLANE WOODWORKER) Ventricular Rate ECG/Min 68 BPM MUSE NM Interval 164 ms MUSE QRSD Interval 72 ms MUSE QT Interval 366 ms MUSE QTC Interval 389 ms MUSE P [place] 51 degrees MUSE R [place] -21 degrees MUSE T Wave [place] 50 degrees MUSE 03/29/2023 8:58 AM AIRPLANE WOODWORKER 03/29/2023 9:13 AM AIRPLANE WOODWORKER Impressions MUSE - 03/29/2023 9:13 AM AIRPLANE WOODWORKER Normal sinus rhythm Normal ECG When compared with ECG of 20-DEC-2021 12:54, Premature ventricular complexes are no longer present Reviewed by EMILY Castrejon Narrative Procedure Note Nando Valdes M.D. - 03/29/2023 IMPRESSION: Normal sinus rhythm Normal ECG When compared with ECG of 20-DEC-2021 12:54, Premature ventricular complexes are no longer present Reviewed by EMILY Castrejon David Fuller M.D. ECG ORDERABLES MUSE NA * (ABNORMAL) CBC without Differential (03/28/2023 4:26 AM AIRPLANE WOODWORKER) Hemoglobin 12.8 11.6 - 15.0 g/dL 03/28/2023 4:56 AM AIRPLANE WOODWORKER DTL Hematocrit 37.6 35.5 - 44.9 % 03/28/2023 4:56 AM AIRPLANE WOODWORKER DTL Erythrocytes 4.20 3.92 - 5.13 x10(12)/L 03/28/2023 4:56 AM AIRPLANE WOODWORKER DTL MCV 89.5 78.2 - 97.9 fL 03/28/2023 4:56 AM AIRPLANE WOODWORKER DTL RBC Distrib Width 13.7 12.2 - 16.1 % 03/28/2023 4:56 AM AIRPLANE WOODWORKER DTL Platelet Count 286 157 - 371 x10(9)/L 03/28/2023 4:56 AM AIRPLANE WOODWORKER DTL Leukocytes 16.4(H) 3.4 - 9.6 x10(9)/L 03/28/2023 4:56 AM AIRPLANE WOODWORKER DTL Blood (Blood, Venous) 03/28/2023 4:26 AM AIRPLANE WOODWORKER 03/28/2023 4:50 AM AIRPLANE WOODWORKER Sam Graham M.D. LAB BLOOD ADD-ON [facility] [address] [place] [address], [facility] DTL [facility] [address] [place] [address] * (ABNORMAL) Basic Metabolic Panel (03/28/2023 4:26 AM AIRPLANE WOODWORKER) Potassium, S 4.2 3.6 - 5.2 mmol/L 03/28/2023 5:30 AM AIRPLANE WOODWORKER DTL Sodium, S 139 135 - 145 mmol/L 03/28/2023 5:30 AM AIRPLANE WOODWORKER DTL Chloride, S 107 98 - 107 mmol/L 03/28/2023 5:30 AM AIRPLANE WOODWORKER DTL Bicarbonate, S 20(L) 22 - 29 mmol/L 03/28/2023 5:30 AM AIRPLANE WOODWORKER DTL Anion Gap 12 7 - 15 03/28/2023 5:30 AM AIRPLANE WOODWORKER DTL BUN (Blood Urea Nitrogen), S 23(H) 6 - 21 mg/dL 03/28/2023 5:30 AM AIRPLANE WOODWORKER DTL Creatinine 1.37(H) 0.59 - 1.04 mg/dL 03/28/2023 5:30 AM AIRPLANE WOODWORKER DTL Estimated GFR (eGFR) 40(L) >=60 mL/min/BSA 03/28/2023 5:30 AM AIRPLANE WOODWORKER DTL Comment: Estimated GFR calculated using the 2020 CKD_EPI creatinine equation. Calcium, Total, S 8.9 8.8 - 10.2 mg/dL 03/28/2023 5:30 AM AIRPLANE WOODWORKER DTL Glucose, S 93 70 - 140 mg/dL 03/28/2023 5:30 AM AIRPLANE WOODWORKER DTL Blood (Blood, Venous) 03/28/2023 4:26 AM AIRPLANE WOODWORKER 03/28/2023 5:05 AM AIRPLANE WOODWORKER Sam Graham M.D. LAB BLOOD ADD-ON [address] [address], [place] [address] * MAMMO SCREEN, BILAT, W/CAD-Outside Mammogram (09/27/2019 1:45 PM CDT) Narrative IIMS - 01/02/2021 3:36 PM AIRPLANE WOODWORKER This order has been created and auto-finalized to support the import of outside images. If available, original interpretation can be found on the Media Tab in Chart Review, in Document Viewer, or as an image in QREADS. If a re-interpretation or overread is required please follow defined workflow. ?? Provider Not In System IMG BI PROCEDURES Performing Organization Address City/[facility]/ZIP Co de Phone Number IIMS NA from Last 3 Months or Most Recently Relevant to Health Maintenance Advance Directives For more information, please contact: [phone] * Full Code (Latest Code Status on File) Date Activated Date Inactivated Comments 03/27/2023 12:11 PM 04/01/2023 1:23 PM Question Answer Comments Full Code: Not Discussed Due to: Patient not available Care Teams Automobile Relocation Engineer Relationship Specialty Start Date End Date Elsewhere, Pcp PCP - General Family Medicine 01/16/18
--- OUTSIDE RECORDS SUMMARY | 2023-06-26 05:17 | XMS_ITS | Encounter Summary ---
Author Name Unknown Organization [facility] Address [address] [place] [id number] Care Team Providers Care Local Intermodal Truck Driver Name Role Phone Elsewhere, Pcp Primary Care Provider Unavailabl e Reason for Referral * Outpatient (Routine) - Closed Specialty Diagnoses / Procedures Referred By Contac t Referred To Contact Diagnoses Replacement Ankle Status Post Right Procedures DX Ankle Right 3+ Views Mary Partida P.A.-C. [address] [place] [phone] [facility] Referral ID Status Reason Start Date Expiration Date Visits Re quested Visits Authorized [id number] Closed 03/25/2023 03/24/2024 1 1 Reason for Visit * Outpatient (Routine) - Closed Specialty Diagnoses / Procedures Referred By Marko mares Referred To Contact Diagnoses Replacement Ankle Status Post Right Procedures DX Ankle Right 3+ Views Mary Partida P.A.-C. [address] [place] [phone] [facility] Referral ID Status Reason Start Date Expiration Date Visits Re quested Visits Authorized [id number] Closed 03/25/2023 03/24/2024 1 1 Encounter Details Date Type Department Care Team (Latest Contact Info) Description 05/09/2023 2:13 PM CDT - 05/09/2023 11:59 PM CDT Hospital Encounter Department of Radiology, [facility], in [place], [place] [address] [place] [address] Mary Partida P.A.-C. [address] [place] [address] Replacement Ankle Status Post Right Discharge Disposition: Home or Self Care Social History Tobacco Use Types Packs/Day Years Used Date Smoking Tobacco: Former Cigarettes Smokeless Tobacco: Never Alcohol Use Standard Drinks/Week Comments Yes 0 (1 standard drink = 0.6 oz pur e alcohol) rare glass on wine [facility] [employer] Answer Date Recorded In the past 12 months has th e electric, gas, oil, or water [employer] threatened to shut off services in your [...] your living situation today? I have a [facility] place to live 03/31/2023 Sex [...] PM CDT Replacement Ankle Status Post Right documented in this encounter Results * DX Ankle Right 3+ Views (05/09/2023 3:36 PM CDT) Anatomical Region Laterality Modality Lower Extremity, Ankle, Musc uloskeletal RST LOS, Musculoskeletal ARZ LOS, Muskuloskeletal FLA LOS Right Compu corinne Radiography Impressions 05/09/2023 3:39 PM CDT Right ankle arthroplasty is well-seated. Plantar calcaneal spur. Pes planus. Soft tissue swelling. Narrative 05/09/2023 3:39 PM CDT EXAM: ??DX ANKLE RIGHT 3+ VIEWS Procedure Note Alana Badillo M.D. - 05/09/2023 EXAM: DX ANKLE RIGHT 3+ VIEWS IMPRESSION: Right ankle arthroplasty is well-seated. Plantar calcaneal spur. Pesplanus. Soft tissue swelling. Mary Partida P.A.-C. IMG DIAGNOSTIC IM AGING PROCEDURES documented in this encounter Visit Diagnoses Diagnosis Replacement Ankle Status Post Right documented in this encounter Care Teams Local Intermodal Truck Driver Relationship Specialty Start Date End Date Elsewhere, Pcp PCP - General Family Medicine 01/16/18 documented as of this encounter
--- OUTSIDE RECORDS SUMMARY | 2023-06-26 05:17 | XMS_ITS | Encounter Summary ---
Author Name Unknown Organization [facility] Address [address] [place] [address] Care Team Providers Care Keyboarding Clerk Name Role Phone Elsewhere, Pcp Primary Care Provider Unavailabl e Reason for Referral * Outpatient (Routine) - Closed Specialty Diagnoses / Procedures Referred By Marko mares Referred To Contact Diagnoses Replacement Ankle Status Post Right Procedures ORS Cast Room Visit Mary Partida P.A.-C. [address] [place] [phone] [facility] Referral ID Status Reason Start Date Expiration Date Visits Re quested Visits Authorized [id number] Closed 03/25/2023 03/24/2024 1 1 Reason for Visit * Reason Comments Follow-up Cast Check * Outpatient (Routine) - Closed Specialty Diagnoses / Procedures Referred By Marko mares Referred To Contact Diagnoses Replacement Ankle Status Post Right Procedures ORS Cast Room Visit Mary Partida P.A.-C. [address] [place] [phone] [facility] Referral ID Status Reason Start Date Expiration Date Visits Re quested Visits Authorized [id number] Closed 03/25/2023 03/24/2024 1 1 Encounter Details Date Type Department Care Team (Latest Contact Info) Description 05/09/2023 2:13 PM CDT - 05/09/2023 3:58 PM CDT Hospital Encounter Department of Orthopedic Surgery in [place], [place] [address] [place] [address] Mary Partida P.A.-C. [address] [place] [address] Replacement Ankle Status Post Right Discharge Disposition: Home or Self Care Social History Tobacco Use Types Packs/Day Years Used Date Smoking Tobacco: Former Cigarettes Smokeless Tobacco: Never Alcohol Use Standard Drinks/Week Comments Yes 0 (1 standard drink = 0.6 oz pur e alcohol) rare glass on wine [facility] [employer] Answer Date Recorded In the past 12 months has th e electric, gas, oil, or water [employer] threatened to shut off services in your [...] your living situation today? I have a [facility] place to live 03/31/2023 Sex [...] bedtime. 12/29/2008 documented as of this encounter Procedure Notes * Mary Partida P.A.-C. - 05/09/2023 3:00 PM CDTAssociated Order(s): ORS Cast Room Visit Pre-Procedure Diagnose(s): Replacement Ankle Status Post Right Post-Procedure Diagnose(s): Replacement Ankle Status Post Right ORS Cast Room Visit Performed by: Mary Partida P.A.-C. Authorized by: Mary Partida P.A.-C. Cast Room Note GONDA CASTROOM PREPROCEDURE/POSTPROCEDURE DIAGNOSIS: 1. Status post right total ankle arthroplasty (March 27, 2023) INDICATION: Continuing care SURGEON: Mary Partida PA-C PROCEDURE: Right cast removal and boot application HISTORY OF PRESENT ILLNESS: Ladan Garcia is about 6 weeks out from surgery. She is doing well. Pain is well-controlled. She states that she has been walking some in the cast. PHYSICAL EXAM: On exam the incision is well-healed with some residual scabbing in the midportion of the incision overlying the ankle. There is no drainage, erythema, or evidence of infection. She has a significant amount of swelling about the foot and ankle. No tenderness to palpation.. Alignment of the ankle andhindfoot is satisfactory. She is neurovascularly intact distally. IMAGING: Weightbearing x-rays of the right ankle were obtained today and reviewed personally. They show satisfactory alignment with no evidence of hardware failure. There is bony on growth to the prosthesis. PLAN: The patient was seen in conjunction with Dr. Burt and is doing well. Unfortunately, she started weight-bearing sooner than we wanted her to in the cast. However, her x-rays are looking very good. Therefore, she was placed in a boot. We will start gradual progressive weight-bearing in the boot asinstructed and was provided with written instructions. Follow-up in 6 weeks, in clinic, with standing x-rays. At that time, hopefully we can start weaning out of the boot and progressing activities. She was given an Say bandage and will work persistently on edema control. She will continue to elevate consistently for edema control as well. She will never walk without the boot. She needs to sleep in the boot also. She will work on gentle active motion up and down with the ankle. She will keep a close eye on the anterior ankle incision. If she notices any changes she will let us know. Certainly, if she notices any drainage or erythema she needs to back off on her activities and give us a callright away. All questions were answered. The patient expressed understanding. documented in this encounter Miscellaneous Notes * Addendum Note - Mary Partida P.A.-C. - 05/09/2023 3:00 PM CDTEncounter addended by: Mary Partida P.A.-C. on: 05/09/2023 4:06 PM Actions taken: SmartForm saved, Clinical Note Signed documented in this encounter Plan of Treatment Scheduled Procedures Name Priority Associated Diagnoses Date/Ti me OPERATIVE LAPAROSCOPY Mass Ovary SALPINGO - OOPHORECTOMY Mass Ovary documented as of this encounter Procedures Procedure Name Priority Date/Time Associated Diagnosis Comments ORS CAST ROOM VISIT Routine 05/09/2023 3 :00 PM CDT Replacement Ankle Status Post Right documented in this encounter Results * PROCEDURE PLACEHOLDER (05/09/2023 3:00 PM CDT) [...] Mary Partida P.A.-C. PROCEDURE/MINOR S URGICAL ORDERABLES MMODAL NA documented in this encounter Visit Diagnoses Diagnosis Replacement Ankle Status Post Right documented in this encounter Care Teams Keyboarding Clerk Relationship Specialty Start Date End Date Elsewhere, Pcp PCP - General Family Medicine 01/16/18 documented as of this encounter
--- OUTSIDE RECORDS SUMMARY | 2023-06-26 05:17 | XMS_ITS | Encounter Summary ---
Author Name Unknown Organization [facility] Address [address] [place] [address] Care Team Providers Care Collar Closer Lockstitch Name Role Phone Elsewhere, Pcp Primary Care Provider Unavailabl e Reason for Referral * Outpatient (Routine) - Closed Specialty Diagnoses / Procedures Referred By Contac t Referred To Contact Diagnoses Replacement Ankle Status Post Right Procedures DX Ankle Right 3+ Views Mary Partida P.A.-C. [address] [place] [phone] [facility] Referral ID Status Reason Start Date Expiration Date Visits Re quested Visits Authorized [id number] Closed 03/25/2023 03/24/2024 1 1 Reason for Visit * Outpatient (Routine) - Closed Specialty Diagnoses / Procedures Referred By Marko mares Referred To Contact Diagnoses Replacement Ankle Status Post Right Procedures DX Ankle Right 3+ Views Mary Partida P.A.-C. [address] [place] [phone] [facility] Referral ID Status Reason Start Date Expiration Date Visits Re quested Visits Authorized [id number] Closed 03/25/2023 03/24/2024 1 1 Encounter Details Date Type Department Care Team (Latest Contact Info) Description 06/18/2023 9:41 AM CDT - 06/18/2023 11:59 PM CDT Hospital Encounter Department of Radiology, [facility], in [place], [place] [address] [place] [address] Mary Partida P.A.-C. [address] [place] [address] Replacement Ankle Status Post Right Discharge Disposition: Home or Self Care Social History Tobacco Use Types Packs/Day Years Used Date Smoking Tobacco: Former Cigarettes Smokeless Tobacco: Never Alcohol Use Standard Drinks/Week Comments Yes 0 (1 standard drink = 0.6 oz pur e alcohol) rare glass on wine [facility] [employer] Answer Date Recorded In the past 12 months has th e electric, gas, oil, or water [employer] threatened to shut off services in your [...] your living situation today? I have a [facility] place to live 03/31/2023 Sex [...] AM CDT Replacement Ankle Status Post Right documented in this encounter Results * DX Ankle Right 3+ Views (06/18/2023 10:17 AM CDT) Anatomical Region Laterality Modality Lower Extremity, [...] Right documented in this encounter Care Teams Collar Closer Lockstitch Relationship Specialty Start Date End Date Elsewhere, Pcp PCP - General Family Medicine 01/16/18 documented as of this encounter
--- OUTSIDE RECORDS SUMMARY | 2023-06-26 05:17 | XMS_ITS | Encounter Summary ---
Author Name Unknown Organization [facility] Address [address] [place] [phone] Care Team Providers Care Molder Automobile Carpets Name Role Phone Elsewhere, Pcp Primary Care Provider Unavailabl e Reason for Referral * Outpatient (Routine) - Closed Specialty Diagnoses / Procedures Referred By Contac t Referred To Contact Diagnoses Replacement Ankle Status Post Right Procedures ORS Cast Room Visit Mary Partida P.A.-C. [address] [place] [phone] [facility] Referral ID Status Reason Start Date Expiration Date Visits Re quested Visits Authorized [id number] Closed 03/25/2023 03/24/2024 1 1 SSMENT NURSE PRACTITIONER Reason for Visit * Reason Comments Follow-up * Outpatient (Routine) - Closed Specialty Diagnoses / Procedures Referred By Marko mares Referred To Contact Diagnoses Replacement Ankle Status Post Right Procedures ORS Cast Room Visit Mary Partida P.A.-C. [address] [place] [phone] [facility] Referral ID Status Reason Start Date Expiration Date Visits Re quested Visits Authorized [id number] Closed 03/25/2023 03/24/2024 1 1 Encounter Details Date Type Department Care Team (Latest Contact Info) Description 04/15/2023 2:35 PM ASSESSMENT NURSE PRACTITIONER - 04/15/2023 3:49 PM ASSESSMENT NURSE PRACTITIONER Hospital Encounter Department of Orthopedic Surgery in [place], [place] [address] [place] [address] Mary Partida P.A.-C. [address] [place] [address] Replacement Ankle Status Post Right Social History Tobacco Use Types Packs/Day Years Used Date Smoking Tobacco: Former Cigarettes Smokeless Tobacco: Never Alcohol Use Standard Drinks/Week Comments Yes 0 (1 standard drink = 0.6 oz pur e alcohol) rare glass on wine [facility] Utilities Answer Date Recorded In the past 12 months has e [employer], gas, oil, or water [employer] threatened to shut off services in your [...] your living situation today? I have a [facility] place to live 03/31/2023 Sex and [...] Procedure Notes * Mary Partida P.A.-C. - 04/15/2023 3:00 PM CSTAssociated Order(s): ORS Cast Room Visit Pre-Procedure Diagnose(s): [...] is about 2 weeks out from surgery. She is doing well. Pain is well-controlled. She has at a [facility] facility. PHYSICAL EXAM: On exam the incision is clean, dry, and intact with sutures. Alignment of the ankle and hindfoot issatisfactory. She is neurovascularly intact distally. IMAGING: Nonweightbearing x-rays of the right ankle were obtained today and reviewed personally. They show satisfactory alignment with no evidence of hardware failure. PLAN: The patient is doing well. Sutures were removed today. She was placed in a short-leg cast by the castroom personnel. She will remain nonweightbearing on the operative extremity. Follow-up in 4 weeks for cast removal, x-rays and likely transition to a boot. She was instructed to bring the boot that she already has to that appointment. Her last Lovenox injection was yesterday and she states that she initiated aspirin this morning. I reminded her that this is twice daily for the duration of immobilization. Her vitamin-D is low (34) and we will initiate a weekly vitamin-D supplement. A prescription was provided for her to bring to the facility. All questions were answered. The patient expressed understanding. SSMENT NURSE PRACTITIONER documented in this encounter Miscellaneous Notes * Addendum Note - Jimmy Myers R.N. - 04/15/2023 3:00 PM CSTEncounter addended by: Jimmy Myers R.N. on: 04/15/2023 4:28 PM Actions taken: Flowsheet accepted SSMENT NURSE PRACTITIONER documented in this encounter Plan of Treatment Scheduled Procedures Name Priority Associated Diagnoses Date/Ti me OPERATIVE LAPAROSCOPY Mass Ovary SALPINGO - OOPHORECTOMY Mass Ovary documented as of this encounter Procedures Procedure Name Priority Date/Time Associated Diagnosis Comments ORS CAST ROOM VISIT Routine 04/15/2023 3 :00 PM ASSESSMENT NURSE PRACTITIONER Replacement Ankle Status Post Right documented in this encounter Results * PROCEDURE PLACEHOLDER (04/15/2023 3:00 PM ASSESSMENT NURSE PRACTITIONER) Narrative MMODAL - 04/15/2023 3:00 PM ASSESSMENT NURSE PRACTITIONER Mary Partida P.A.-C. ? 04/15/2023 ??3:47 PM [...] Right documented in this encounter Care Teams Molder Automobile Carpets Relationship Specialty Start Date End Date Elsewhere, Pcp PCP - General Family Medicine 01/16/18 documented as of this encounter
--- OUTSIDE RECORDS SUMMARY | 2023-06-26 05:17 | XMS_ITS ---
Author Name Unknown Organization [facility] Address [address] [place] [address] Care Team Providers Care Supervisor Pole Yard Name Role Phone Unavailable Unavailable Unavailable Surgery Details Not on file Complications Check Surgery Details section. Procedure Estimated Blood Loss Check Surgery Details section. Procedure Findings Check Surgery Details section. Procedure Specimens Taken Check Surgery Details section.
--- OUTSIDE RECORDS SUMMARY | 2023-06-26 05:18 | XMS_ITS | Encounter Summary ---
Author Name Unknown Organization [facility] Address [address] [place] [address] Care Team Providers Care Tour Coordinator Name Role Phone Elsewhere, Pcp Primary Care Provider Unavailabl e Reason for Referral * Outpatient (Routine) - Closed Specialty Diagnoses / Procedures Referred By Marko mares Referred To Contact Diagnoses Replacement Ankle Status Post Right Procedures DX Ankle Right 3+ Views Blanco Burt M.D. [address] [place] [address] [facility] Referral ID Status Reason Start Date Expiration Date Visits Re quested Visits Authorized [id number] Closed 03/31/2023 03/30/2024 1 1 T THROWER Reason for Visit * Auth/Cert (Routine) Specialty Diagnoses / Procedures Referred By Marko mares Referred To Contact Diagnoses Arthritis Ankle Arthritis Ankle [M19.90] Procedures CT ARTHROPLASTY ANK W IMPLANT right ARTHROPLASTY replacement total ankle; proceed as indicated Referral ID Status Reason Start Date Expiration Date Visits Re quested Visits Authorized [id number] 1 1 Encounter Details Date Type Department Care Team (Latest Contact Info) Description 03/31/2023 8:22 AM RIVET THROWER - 03/31/2023 11:59 PM RIVET THROWER Hospital Encounter Department of Radiology, [facility], in [place], [place] [address] [place] [phone] Blanco Burt M.D. [address] [place] [address] Replacement Ankle Status Post Right Discharge Disposition: Home or Self Care Social History Tobacco Use Types Packs/Day Years Used Date Smoking Tobacco: Former Cigarettes Smokeless Tobacco: Never Alcohol Use Standard Drinks/Week Comments Yes 0 (1 standard drink = 0.6 oz pur e alcohol) rare glass on wine [facility] Utilities Answer Date Recorded In the past 12 months has th e [employer], gas, oil, or water [employer] threatened to shut off services in your [...] your living situation today? I have a [facility] place to live 03/31/2023 Sex and Gender [...] 1 tablet by mouth at bedtime. 12/29/2008 acetaminophen (TYLENOL EXTRA STRENGTH ORAL) Take 2 capsules by mouth as needed. pain 07/20/2013 04/01/2023 oxyCODONE (ROXICODONE) 5 mg immediate release tabletIndications:Acut e Pain Take 1-2 tablets by mouth every 4-6 hours as needed for post-operative pain. 15 tablet 03/27/2023 04/01/2023 documented as of this encounter Plan of Treatment Scheduled Procedures Name Priority Associated Diagnoses Date/Ti me OPERATIVE LAPAROSCOPY Mass Ovary SALPINGO - OOPHORECTOMY Mass Ovary documented as of this encounter Procedures Procedure Name Priority Date/Time Associated Diagnosis Comments DX ANKLE RIGHT 3+ VIEWS RAD - Routine (most inpatients and all outpatients) 03/31/2023 9:11 AM RIVET THROWER Replacement Ankle Status Post Right documented in this encounter Results * DX Ankle Right 3+ Views (03/31/2023 9:11 AM RIVET THROWER) Anatomical Region Laterality Modality Lower Extremity, Ankle, Musc uloskeletal RST LOS, Musculoskeletal ARZ LOS, Muskuloskeletal FLA LOS Right Compu corinne Radiography Impressions 03/31/2023 9:18 AM RIVET THROWER Compared to prior radiographs 11/21/2022, interval tibiotalar arthroplasty. No hardware fracture or radiographic findings of loosening. Ghost tracks from intraoperative fixation hardware. Scattered hypertrophic changes. Small plantar calcaneal enthesophyte. Diffusely diminished bone mineral density. Soft tissue swelling about the ankle is presumably postoperative. Narrative 03/31/2023 9:18 AM RIVET THROWER EXAM: ??DX ANKLE RIGHT 3+ VIEWS Procedure Note Pilo Wyatt D.O. - 03/31/2023 EXAM: DX ANKLE RIGHT 3+ VIEWS IMPRESSION: Compared to prior radiographs 11/21/2022, interval tibiotalararthroplasty. No hardware fracture or radiographic findings of loosening.Ghost tracks from intraoperative fixation hardware. Scattered hypertrophicchanges. Small plantar calcaneal enthesophyte. Diffusely diminished bone mineral density. Softtissue swelling about the ankle is presumably postoperative. Blanco [facility] PROCEDURES documented in this encounter Visit Diagnoses Diagnosis Replacement Ankle Status Post Right documented in this encounter Care Teams Tour Coordinator Relationship Specialty Start Date End Date Elsewhere, Pcp PCP - General Family Medicine 01/16/18 documented as of this encounter
--- OUTSIDE RECORDS SUMMARY | 2023-06-26 05:18 | XMS_ITS | Continuity of Care Document ---
Author Name Unknown Organization [facility] Address [address] [place] [address] Phone Care Team Providers Care Director Of Accounting Name Role Phone Kwasi JACOBS, PhD, Lee [...] on Encounter [facility], [address], [place], [place], [id number] , [place] [phone] [facility] [place] No Information 3 Kwasi Howard. [facility], [address], [place], [address], [place]. tel:[phone] Office/Outpa tient Visit,Est, Mod [facility], [address], [place], [place], [id number] , [place] [phone] [facility] Spinal stenosis, lumbar region with neurogenic claudication 3 Kwasi Lee. [facility], [address], [place], [address], [place]. tel:[phone] Referring Provider: Jojo Melara Chan [facility] [address] [place], [address]. tel:[phone] Office/Outpa tient Visit,Est, Mod [facility], [address], [place], [place], [id number] , [place] tel:[phone] [facility] Spinal stenosis, lumbar region with neurogenic claudication 3 Kwasi Howard. [facility], [address], [place], [address], [place]. tel:[phone] Referring Provider: Jojo Melara Chan [facility] [address] [place], [address]. tel:[phone] Office/Outpa tient Visit,New, Mod [facility], [address], [place], [place], [id number] , [place] tel:[phone] [facility] Other intervertebral disc displacement, lumbar region 1 No Information Referring Provider: Jojo Melara Chan [facility] [address] [place], [address]. tel:[phone] Family History Family Member Type Diagnosis Age At Onset No Information Payers Payer name Insurance type Covered libertarian ID Authoriza tisuman(s) [employer] Gold Choice Ada PIERRE [id number] Social History Type Description Quantity Date [...]
--- OUTSIDE RECORDS SUMMARY | 2023-06-26 05:18 | XMS_ITS | Encounter Summary ---
Author Name Unknown Organization [facility] Address [address] [place] [id number] Care Team Providers Care Program Support Assistant Name Role Phone Elsewhere, Pcp Primary Care Provider Unavailabl e Reason for Visit * Physical Therapy (Routine) - Closed Specialty Diagnoses / Procedures Referred By Marko t Referred To Contact Diagnoses Arthritis Ankle Procedures PT Evaluate and treat Mary Partida P.A.-Holly [address] [place] [phone] [facility] Referral ID Status Reason Start Date Expiration Date Visits Re quested Visits Authorized [id number] Closed 01/15/2023 01/15/2024 1 1 Encounter Details Date Type Department Care Team (Latest Contact Info) Description 03/26/2023 1:00 PM INTERNATIONAL NURSE Comprehensive Visit Department of Physical Medicine and Rehabilitation in [place], [place] [address] [place] [phone] Mary Partida P.A.-CStephen [address] [place] [phone] Mraina Major PEma, D.P.TStephen [address] [place] [phone] Pain Right Ankle And Joints Right Foot (Primary Dx); Arthritis Ankle Social History Tobacco Use Types Packs/Day Years Used Date Smoking Tobacco: Former Cigarettes Smokeless Tobacco: Never Alcohol Use Standard Drinks/Week Comments Yes 0 (1 standard drink = 0.6 oz pur e alcohol) rare glass on wine [facility] Utilities Answer Date Recorded In the past 12 months has th e electric, gas, oil, or water company threatened to shut off services in your home? No 03/27/2023 Humiliation, Afraid, Rape, a nd Kick questionnaire Answer Date Recorded Within the last year, have y ou been afraid of your partner or ex-partner? Patient unable to answer 03/27/2023 Within the last year, have y ou been humiliated or emotionally abused in other ways by your partner or ex-partner? Patient unable to answer 03/27/2023 Within the last year, have y ou been kicked, hit, slapped, or otherwise physically hurt by your partner or ex-partner? Patient unable to answer 03/27/2023 Within the last year, have y ou been raped or forced to have any kind of sexual activity by your partner or ex-partner? Patient unable to answer 03/27/2023 Hunger Vital Sign Answer Date Recorded Within the past 12 months, y ou worried that your food would run out before you got the money to buy more. Never true 03/27/19 Within the past 12 months, t he food you bought just didn't last and you didn't have money to get more. Never true 03/27/2023 PRAPARE - Transportation Answer Date Re corded In the past 12 months, has l ack of transportation kept you from medical appointments or from getting medications? No 03/13 In the past 12 months, has l ack of transportation kept you from meetings, work, or from getting things needed for daily living? No 03/27/2023 Nutrition Answer Date Recorded Nutrition: EVOO Fat Source Unknown 04/10 Nutrition: Servings of Fruits/Vegetables per Day Not on file 04/10/2020 Dental Answer Date Recorded Dental: Regular Dentist Unknown 04/11/19 Housing Stability Answer Date Recorded What is your living situation today? I have a [facility] place to live 03/27/2023 Sex and Gender Information Value Date Recorded Sex Assigned at Female 07/31/2017 10:09 AM CDT Gender Identity Female 07/31/2017 10:09 AM CDT Sexual Orientation Straight 07/31/2017 10 :09 AM CDT documented as of this encounter Consult Notes * Marina Major P.T., D.P.T. - 03/26/2023 1:00 PM CST Physical Therapy Musculoskeletal Outpatient Evaluation and Treatment By co-signing this note, the provider certifies the therapy being provided to this patient is reasonable and necessary for the diagnosis or treatment of this patient. SUBJECTIVE Patient's Name: Ladan Garcia Referring Provider: Mary Partida P.A.-C. Medical Diagnosis: 1. Pain Right Ankle And Joints Right Foot 2. Arthritis Ankle Reason for Referral: pre operative gait aid instruction Payor: [employer] / Plan: [employer] CHOICE / Product Type: PPO / PT Next Certification Date: 06/24/23 PERTINENT MEDICAL / SURGICAL HISTORY: Patient Active [...] Ankle Hypertension Essential Primary Obesity Unspecified Dyslipidemia Past Surgical History: Procedure Laterality Date APPENDECTOMY N/A 02/24/1954 Appendectomy BUNIONECTOMY N/A 08/24/2005 Bunionectomy CRYOSURGERY N/A 02/25/1980 Cryosurgery EXTRACTION OF CATARACT N/A 12/11/2013 Cataract extraction KIDNEY SURGERY 1999 donated a kidney Ladan Garcia is a 77 y.o. female who presents to outpatient physical therapy for lower extremity pre-operative gait aid assessment and instruction. Patient weight bearing restrictions: Non-weight bearing Prior level of function: occasionally limited. Current assistive device: cane Home environment: multiple level home 5 stairs to enter with 2 handrails Assistance: home independently, family is nearby and can help intermittently but not all of the time Assistive devices patient owns: Cane, front wheeled walker, wheelchair Total Visit Count: 1 PT Next Certification Date: 06/24/23 OBJECTIVE REVIEW OF SYSTEMS History obtained from chart review and the patient PHYSICAL EXAM Strength: generalized weakness was noted Balance with weight bearing restrictions: Poor (Requires assist to maintain balance) Sit to stand transition: requires use of upper extremities and requires assistance of another TREATMENT Gait/mobility instruction: Patient was instructed in use of appropriate assistive device with weight bearing restrictions. Patient had significant difficulty with pivot transfers trialed with different devices/setups and required minimal to moderate assistance of another person for all transfers in order to maintain safety and prevent falls. Gait devices used in session: trial of pivot with front wheeled walker, low pivot to wheelchair, and slide board pivot to wheelchair Stair training: Unsafe/unable to trial stair training based on patient's mobility with transfers I paged the referring surgical service regarding patient's status/performance and PT recommendations for assistance following surgery after this appointment. Assessment Clinical Impression: Patient presents with functional limitations with impending weight bearing restrictions. She had significant difficulty with mobility while attempting to maintain these weight bearing restrictions and required assistance of another person to complete a slide board pivot transfer to/from a wheelchair. She was unable to to complete a low or stand pivot transfer even with assistance of another from a chair to another surface (wheelchair and/or knee scooter). Given that patient lives alone with 5 stairs to enter and only has intermittent family assistance available, this presents a safety concernand I made clear my recommendations that would be safest either considering a stay a a skilled rehab facility following surgery or being able to find increased physical assistance that is available at all times. Recommended gait aid: slide board pivot to wheelchair with assistance of another person Comorbid Conditions: Arthritis Personal Factors: Age, Needs assistive device Clinical Presentation: Evolving Examination elements: 3 Clinical Decision Making: Moderate complexity clinical decision making Clinical Decision Making Complexity: Moderate complexity clinical decision making Functional Goals and Timeframes: Patient will demonstrate ability to transfer, ambulate, and negotiate stairs with weight bearing restrictions using appropriate gait aid in one session to allow for safe transition to home. Plan Ms. Garcia was educated regarding evaluative findings, diagnosis, prognosis, potential risks andbenefits of rehabilitation interventions. A collaborative effort was used to establish goals and plan of care. She was informed of her right to make decisions regarding her care, including refusal ofexamination or treatment or selection of services from another provider if desired. The treatment plan may be progressed or modified based upon her response to treatment. Physical Therapy Attestation Statement: Patient agrees with the plan of care and goals. Treatment Plan: Plan: Plan of care initiated Start of Plan of Care: 03/26/2023 PT Next Certification Date: 06/24/23 Number of Visits: up to 1 visits PT Duration: up to 1 days PT Frequency: One-time visit Time Spent with Patient Evaluations PT Eval - Mod Complexity: 15 min Therapeutic Interventions Therapeutic Activity (min): 42 min Time Tracking Total Timed Units (min): 42 min Total Treatment Time (min): 57 min Marina Major P.T., D.P.T. RNATIONAL NURSE documented in this encounter Plan of Treatment Scheduled Procedures Name Priority Associated Diagnoses Date/Ti me OPERATIVE LAPAROSCOPY Mass Ovary SALPINGO - OOPHORECTOMY Mass Ovary documented as of this encounter Visit Diagnoses Diagnosis Pain Right Ankle And Joints Right Foot- Primary Arthritis Ankle documented in this encounter Care Teams Program Support Assistant Relationship Specialty Start Date End Date Elsewhere, Pcp PCP - General Family Medicine 01/16/18 documented as of this encounter
--- OUTSIDE RECORDS SUMMARY | 2023-06-26 05:18 | XMS_ITS | Encounter Summary ---
Author Name Unknown Organization [facility] Address [address] [place] [address] Care Team Providers Care Last Greaser Name Role Phone Elsewhere, Pcp Primary Care Provider Unavailabl e Reason for Referral * Outpatient (Routine) - Closed Specialty Diagnoses / Procedures Referred By Marko mares Referred To Contact Diagnoses Replacement Ankle Status Post Right Procedures DX Ankle Right 3+ Views Blanco Burt M.D. [address] [place] [phone] [facility] Referral ID Status Reason Start Date Expiration Date Visits Re quested Visits Authorized [id number] Closed 03/31/2023 03/30/2024 1 1 UNICATIONS CONSULTANT Reason for Visit * Reason Comments Follow-up * Auth/Cert (Routine) Specialty Diagnoses / Procedures Referred By Marko mares Referred To Contact Diagnoses Arthritis Ankle Arthritis Ankle [M19.90] Procedures CT ARTHROPLASTY ANK W IMPLANT right ARTHROPLASTY replacement total ankle; proceed as indicated Referral ID Status Reason Start Date Expiration Date Visits Re quested Visits Authorized [id number] 1 1 Encounter Details Date Type Department Care Team (Latest Contact Info) Description 03/31/2023 7:55 AM COMMUNICATIONS CONSULTANT - 03/31/2023 8:21 AM COMMUNICATIONS CONSULTANT Hospital Encounter Department of Orthopedic Surgery in [place], [place] [address] [place] [phone] Sam Graham M.D. [address] [place] [phone] Blanco Burt M.D. [address] [place] [phone] Arthritis Ankle (Primary Dx); Replacement Ankle Status Post Right Discharge Disposition: Home or Self Care Social History Tobacco Use Types Packs/Day Years Used Date Smoking Tobacco: Former Cigarettes Smokeless Tobacco: Never Alcohol Use Standard Drinks/Week Comments Yes 0 (1 standard drink = 0.6 oz pur e alcohol) rare glass on wine [facility] [employer] Answer Date Recorded In the past 12 months has e electric, gas, oil, or water aihuishou threatened to shut off services in your [...] your living situation today? I have a [facility] place to live 03/31/2023 Sex and [...] 03/27/2023 04/01/2023 documented as of this encounter Procedure Notes * Blanco Burt M.D. - 03/31/2023 8:00 AM CST [facility]ED[facility]POSTPROCEDURE DIAGNOSIS: 1. 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 Her pain is well controlled. Overall she is doingpretty well. She did have some delirium on the first day after surgery but the last couple days shehas been doing well and oriented. PHYSICAL EXAM: The incisions are clean, dry, and intact with sutures. The skin is intact. Smooth ankle motion. Sheis neurovascular intact distally. IMAGING: Nonweightbearing x-rays of the right ankle were obtained today and reviewed. Alignment satisfactory. The ankle replacement is in good position with no sign of loosening. PLAN: Overall the patient is doing well. I went over the results of surgery with her. The wounds were dressed again. She was placed in a short-leg cast to protect the ankle. She will remain nonweightbearing the right lower extremity. She can leave the hospital as soon as she finds placement. I would liketo see her back in the cast room in 10-14 days for suture removal and cast exchange. She expressed understanding. UNICATIONS CONSULTANT documented in this encounter Plan of Treatment Scheduled Procedures Name Priority Associated Diagnoses Date/Ti me OPERATIVE LAPAROSCOPY Mass Ovary SALPINGO - OOPHORECTOMY Mass Ovary documented as of this encounter Results * DX Ankle Right 3+ Views (03/31/2023 9:11 AM COMMUNICATIONS CONSULTANT) Anatomical Region Laterality Modality Lower Extremity, Ankle, Musc uloskeletal RST LOS, Musculoskeletal ARZ LOS, Muskuloskeletal FLA LOS Right Compu corinne Radiography Impressions 03/31/2023 9:18 AM COMMUNICATIONS CONSULTANT Compared to prior radiographs 11/21/2022, interval tibiotalar arthroplasty. No hardware fracture or radiographic findings of loosening. Ghost tracks from intraoperative fixation hardware. Scattered hypertrophic changes. Small plantar calcaneal enthesophyte. Diffusely diminished bone mineral density. Soft tissue swelling about the ankle is presumably postoperative. Narrative 03/31/2023 9:18 AM COMMUNICATIONS CONSULTANT EXAM: ??DX ANKLE RIGHT 3+ VIEWS Procedure Note Pilo Wyatt D.O. - 03/31/2023 EXAM: DX ANKLE RIGHT 3+ VIEWS IMPRESSION: Compared to prior radiographs 11/21/2022, interval tibiotalararthroplasty. No hardware fracture or radiographic findings of loosening.Ghost tracks from intraoperative fixation hardware. Scattered hypertrophicchanges. Small plantar calcaneal enthesophyte. Diffusely diminished bone mineral density. Softtissue swelling about the ankle is presumably postoperative. Blanco Burt M.D. [facility] PROCEDURES documented in this encounter Visit Diagnoses Diagnosis Arthritis Ankle- Primary Replacement Ankle Status Post Right Replacement Ankle Status Post Right documented in this encounter Care Teams Last Greaser Relationship Specialty Start Date End Date Elsewhere, Pcp PCP - General Family Medicine 01/16/18 documented as of this encounter
--- OUTSIDE RECORDS SUMMARY | 2023-06-26 05:18 | XMS_ITS | Encounter Summary ---
Author Name Unknown Organization [facility] Address [address] [place] [phone] Care Team Providers Care Esthetician Makeup Artist Name Role Phone Elsewhere, Pcp Primary Care Provider Unavailabl e Reason for Visit * Reason Onset Date Comments Question 02/24/2023 Encounter Details Date Type Department Care Team (Late st Contact Info) Description 02/24/2023 Clinical Communication Department of Orthopedic Surgery in [place], [place] [address] [place] [phone] Blanco Burt M.D. [address] [place] [phone] Question Social History Tobacco Use Types Packs/Day Years Used Date Smoking Tobacco: Former Cigarettes Smokeless Tobacco: Never Alcohol Use Standard Drinks/Week Comments Yes 0 (1 standard drink = 0.6 oz pur e alcohol) rare glass on wine [facility] Utilities Answer Date Recorded In the [...] money to buy more. Never true 03/27/19 24 Within the past 12 months, t [...] your living situation today? I have a [facility] place to live 03/27/2023 Sex and [...] on filedocumented in this encounter Care Teams Esthetician Makeup Artist Relationship Specialty Start Date End Date Elsewhere, Pcp PCP - General Family Medicine 01/16/18 documented as of this encounter
--- OUTSIDE RECORDS SUMMARY | 2023-06-26 05:18 | XMS_ITS | Encounter Summary ---
Author Name Unknown Organization [facility] Address [address] [place] [id number] Care Team Providers Care Lehr Cutter Name Role Phone Elsewhere, Pcp Primary Care Provider Unavailabl e Reason for Visit * Auth/Cert (Routine) Specialty Diagnoses / Procedures Referred By Marko t Referred To Contact Diagnoses Arthritis Ankle Arthritis Ankle [M19.90] Procedures NE ARTHROPLASTY ANK W IMPLANT right ARTHROPLASTY replacement total ankle; proceed as indicated Referral ID Status Reason Start Date Expiration Date Visits Re quested Visits Authorized [id number] 1 1 Encounter Details Date Type Department Care Team (Late st Contact Info) Description 03/27/2023 7:44 AM FRANCHISE FIELD CONSULTANT Anesthesia Event [facility] in [place], [place] [address] [place] [address] Esthela Weinberg APRN LEAD BASED PAINT TECHNICIAN, DNAP [address] [place] [address] Rios Kohli M.D. [address] [place] [id number] Anesthesia Record Procedure Summary Procedure Name Responsible Anesthesiologist Anesthesia Start Time Anesthesia Stop Time Right ARTHROPLASTY replacement total ankle and Achilles tendon lengthening (Right) Esthela Weinberg APRN LEAD BASED PAINT TECHNICIAN, DNAP 03/27/23 0744 03/27/23 1021 Events Date Time Event Comment 03/27/2023 0731 Block Start Documented by n ursing staff 0738 Block End Documented by n ursing staff 0744 An Start Machine/Equipme nt Checked Infection Precautions Followed Procedure/Site Verified NPO Status Verified Supine Standard ASA Monitors Applied 0752 An Induction 0752 An Intubation 0752 Turnover to Proceduralist 0806 An Tourn Inflated 0810 Proc Start 1000 Proc Fin 1001 An Tourn Deflated 1006 Turnover to ANE Staff 1008 Airway Removal Criteria Met 1008 Extubation/Airway Removed 1008 an stop data 1021 An End I completed my handoff to the receiving staff during which we 1. Identified the patient 2. Identified the responsible provider 3. Reviewed the pertinent medical history 4. Discussed the surgical course 5. Reviewed intra-op anesthesia management and issues during anesthesia 6. Set expectations for post-procedure period 7. Allowed opportunity for questions and acknowledgement of understanding. Meds Name Total fentanyl injection 50 mcg/mL 150 mcg lidocaine 2% (mg) injection 60 mg propofol 10 mg/mL infusion 587.76 mg propofol 10 mg/mL injection 170 mg BUPivacaine-EPINEPHrine (MARCAINE w/ EPI ) PF injection 0.5%-1:200,000 40 mL ceFAZolin injection 2,000 mg (ANCEF) 2 g tranexamic acid in NaCl IVPB 1,000 mg (C YKLOKAPRON) 1 g tranexamic acid in NaCl IVPB 1,000 mg (C YKLOKAPRON) 1 g dexAMETHasone (DECADRON) injection 4 mg/ mL 8 mg ondansetron PF 4 mg/2 mL injection 4 mg Lactated Ringer's 1,000 mL * Agents No agents on file. * Blood No blood administrations on file. Lines, Drains, and Airways Type Details Placement Removal Wound 03/27/23; 08; Incision; Ankle; Anterior, Right 03/27/23 0837 by Jasmeet Up, R.N. Peripheral IV Placement Date: 03/27/23; Placement Time: 714; Catheter Size: 20 G; Orientation: Anterior, Distal, Lower, Right; Location: Arm; Site Prep: Chlorhexidine (Preferred); Inserted by: SP; Insertion Attempts: 1; Removal Date: 04/01/23; Removal Time: 09; Removal Reason: Per order 03/27/23 0715 by Ashley Josue, R.NStephen 04/01/23 09 by [place], Abdibaasid M Supraglottic Airway Placement Date: 03/27/23; Placement Time: 075 (created via procedure documentation); Mask Ventilation: Not attempted; Brand: Unique; Size: 4; Removal Date: 03/27/23; Removal Time: 10003/27/23 0752 by Esthela Weinberg APRN, CRNA, DNAP 03/27/23 1008 by Esthela Weinberg APRN, CRNA, DNAP documented in this encounter Social History Tobacco Use Types Packs/Day Years Used Date Smoking Tobacco: Former Cigarettes Smokeless Tobacco: Never Alcohol Use Standard Drinks/Week Comments Yes 0 (1 standard drink = 0.6 oz pur e alcohol) rare glass on wine [facility] Utilities Answer Date Recorded In the past 12 months has e [employer], gas, oil, or water [employer] threatened to shut off services in [...] living situation today? I have a [facility] place to live 03/27/2023 Sex and Gender Information Value Date Recorded Sex Assigned at Female 07/31/2017 10:09 AM CDT Gender Identity Female 07/31/2017 10:09 AM CDT Sexual Orientation Straight 07/31/2017 10 :09 AM CDT documented as of this encounter OR Notes * Anesthesia Postprocedure Evaluation - Esthela Weinberg APRN, CRNA, DNAP - 03/27/2023 10:21 AM CST Patient: Ladan Garcia Procedure Summary Date: 03/27/23 Room / Location: [place] [address] / [facility] in [place], [place] Anesthesia Start: 743 Anesthesia Stop: 102 Procedure: Right ARTHROPLASTY replacement total ankle and Achilles tendon lengthening (Right) Diagnosis: Arthritis Ankle (Arthritis Ankle [M19.90].) Surgeons: Blanco Burt M.D. Responsible Provider: Esthela Weinberg APRN, CRNA, DNAP Anesthesia Type: general with pain block ASA Status: 2 Anesthesia Type: general with pain block Last vitals Vitals Value Taken Time BP Temp Pulse 55 03/27/23 1020 Resp 8 03/27/23 1020 SpO2 92 % 03/27/23 1020 Vitals shown include unfiled device data. Please reference Vitals flowsheet for most recent vital signs. Anesthesia Post Evaluation Patient Disposition: dismissal Cardiovascular status: hemodynamics (HR & BP) acceptable Respiratory status: patent airway with spontaneous effort Temperature: normothermic Oxygen requirements: room air Level of consciousness: awake Pain score: pain adequately controlled and/or at baseline Post Op nausea/vomiting: none Hydration status: euvolemic CHISE FIELD CONSULTANT * Anesthesia Procedure Notes - Esthela Weinberg APRN, CRNA, DNAP - 03/27/2023 8:08 AM CSTAssociated Order(s): Airway Airway Date/Time: 03/27/2023 7:52 AM Performed by: Esthela Weinberg APRN, CRNA, DNAP Authorized by: Esthela Weinberg APRN, CRNA, DNAP Patient location during procedure: OR / Procedure Area PROCEDURE DETAILS: Mask difficulty assessment: not attempted Final airway type: supraglottic airway Device size: 4 Number of attempt to successful placement: 1 Supraglottic device: LMA unique Supraglottic device size: 4 Airway confirmation: bilateral breath sounds, positive ETCO2 and bilateral chest rise Other previous techniques attempted: none PRE PROCEDURE DETAILS: Pre evaluation for airway management: procedure Urgency: elective Preop assessment of probable difficulty: no difficulty anticipated Preoxygenation: bag valve mask SEDATION / ANESTHESIA Anesthesia method: anesthesia POST PROCEDURE DETAILS: Procedure outcome: successful Notable Events: no complications CHISE FIELD CONSULTANT * Anesthesia Procedure Notes - Rios Kohli M.D. - 03/27/2023 7:42 AM FRANCHISE FIELD CONSULTANT Associated Order(s): Regional Block Regional Block Date/Time: 03/27/2023 7:36 AM Performed by: Rios Kohli M.D. Authorized by: Rios Kohli M.D. Location: Pre Op / PACU PROCEDURE DETAILS: Block Indication: post-op pain block Block indication comment: Post-Op pain block at request of surgeon Block Type - Lower extremity: adductor canal Positioning: supine Laterality: right Block technique: ultrasound guided Ultrasound image guidance used to localize target, identify at risk structures, and dynamically used to direct therapy to the target. Procedure was performed under sterile conditions.Image(s) acquired and saved Injection technique: single injection Needle type: echogenic Gauge: 20G Length: 10 Test dose: yes- negative test dose Incremental injection of local anesthetic with aspiration every:5cc Pain with needle advancement or injection of local anesthetic: no Injected Medications: Injection(s), anesthetic agent(s) and/or steroid; See MAR UNIVERSAL PROTOCOL All relevant documentation and testing were reviewed and available. All required blood products, implants, devices and or special equipment were made available as applicable. Pre-procedure verification was conducted and the correct site was marked if required. A fire risk assessment was done as applicable. The procedural time-out to verify correct patient, correct side/site, and procedure was conducted prior to performing the procedure and confirmed in a procedural pause. PRE-PROCEDURE DETAILS: Appropriate hand hygiene, gown, cap, mask, protective eyewear, sterile gloves, skin preparation, sterile drape, and strict aseptic technique were utilized as applicable for the procedure.: yes Skin prep: chlorhexidine / alcohol SEDATION / ANESTHESIA Anesthesia method: local infiltration and moderate sedation POST-PROCEDURE DETAILS: Procedure completed successfully: successful procedure Notable Events: none CHISE FIELD CONSULTANT * Anesthesia Procedure Notes - Rios Kohli M.D. - 03/27/2023 7:42 AM FRANCHISE FIELD CONSULTANT Associated Order(s): Regional Block Regional Block Date/Time: 03/27/2023 7:30 AM Performed by: Rios Kohli M.D. Authorized by: Rios Kohli M.D. Location: Pre Op / PACU PROCEDURE DETAILS: Block Indication: post-op pain block Block indication comment: Post-Op pain block at request of surgeon Block Type - Lower extremity: popliteal Positioning: supine Laterality: right Block technique: ultrasound guided Ultrasound image guidance used to localize target, identify at risk structures, and dynamically used to direct therapy to the target. Procedure was performed under sterile conditions.Image(s) acquired and saved Injection technique: single injection Needle type: echogenic Gauge: 20G Length: 10 Test dose: yes- negative test dose Incremental injection of local anesthetic with aspiration every:5cc Pain with needle advancement or injection of local anesthetic: no Injected Medications: Injection(s), anesthetic agent(s) and/or steroid; See MAR UNIVERSAL PROTOCOL All relevant documentation and testing were reviewed and available. All required blood products, implants, devices and or special equipment were made available as applicable. Pre-procedure verification was conducted and the correct site was marked if required. A fire risk assessment was done as applicable. The procedural time-out to verify correct patient, correct side/site, and procedure was conducted prior to performing the procedure and confirmed in a procedural pause. PRE-PROCEDURE DETAILS: Appropriate hand hygiene, gown, cap, mask, protective eyewear, sterile gloves, skin preparation, sterile drape, and strict aseptic technique were utilized as applicable for the procedure.: yes Skin prep: chlorhexidine / alcohol SEDATION / ANESTHESIA Anesthesia method: local infiltration and moderate sedation Local infiltrate type: lidocaine POST-PROCEDURE DETAILS: Procedure completed successfully: successful procedure Notable Events: none CHISE FIELD CONSULTANT * Anesthesia Preprocedure Evaluation - Rios Kohli M.D. - 03/27/2023 6:54 AM CST Preprocedure Anesthesia & H&P Assessment Procedure Summary Date/Time: 03/27/23724 Procedure: Right ARTHROPLASTY replacement total ankle, proceed as indicated. (Right) - popliteal and saphenous blocks, general, supine, hip bump. Diagnosis: Arthritis Ankle [M19.90] Pre-op diagnosis: Arthritis Ankle [M19.90]. Location: [address] in [place], [place] Surgeons: Blanco Burt M.D. Pertinent components of the patient's history including current problem list, medical history, surgical history, family history, social history, medications and allergies were reviewed. Present illness and pre-op diagnosis were confirmed. The planned surgery / procedure was verified with the patient / legal guardian. The patient's general health condition remains unchanged RELEVANT COMORBID CONDITIONS CV (+) Hypertension Essential Primary (+) Hypertensive Chronic Kidney Disease (CKD) Stage 3b Glomerular Filtration Rate (GFR) 30 To 44 (HCC) (+) Peripheral Vascular Disease (HCC) RENAL/REPRO (+) Chronic Kidney Disease (CKD), Stage 3b Glomerular Filtration Rate (GFR) 30 To 44 (HCC) (+) Hypertensive Chronic Kidney Disease (CKD) Stage 3b Glomerular Filtration Rate (GFR) 30 To 44 (HCC) Musculoskeletal (+) Arthritis Ankle Endocrine/Metabolic (+) Dyslipidemia (+) Hyperparathyroidism Secondary (HCC) Other (+) Obesity Unspecified OBJECTIVE PHYSICAL EXAMINATION Airway (HEENT) Mallampati: II TM Distance: >3 FB Neck ROM: Full Mouth Opening: >3 cm Cardiovascular Rhythm: Regular Rate: Normal Cardiovascular Assessment: cardiovascular normal Functional Capacity: >4 METS Pulmonary Pulmonary Assessment: Clear General / Constitutional Constitutional Assessment: Normal General State of Health:: healthy appearing and calm ASSESSMENT / PLAN ANESTHESIA PLAN ASA: 2 Anesthesia Plan: general with pain block Patient seen and allergies reviewed, anesthesia plan and risks discussed directly with patient /legal guardian or through an bowstring maker. Risks/Benefits/Alternatives of Blood transfusion discussed with patient / legal guardian, includingan opportunity to ask questions and/or decline some or all transfusion therapies. The patient / legal guardian consented to the use of all blood products, as deemed medically necessary Approval to Proceed: approved for anesthesia CHISE FIELD CONSULTANT documented in this encounter Plan of Treatment Scheduled Procedures Name Priority Associated Diagnoses Date/Ti me OPERATIVE LAPAROSCOPY Mass Ovary SALPINGO - OOPHORECTOMY Mass Ovary documented as of this encounter Procedures Procedure Name Priority Date/Time Associated Diagnosis Comments LDA ANE NON-SURGICAL AIRWAY Routine 03/27/2023 7:52 AM FRANCHISE FIELD CONSULTANT NE INJ ANES FEM NERVE W GUIDANCE Routine 03/27/2023 7:36 AM FRANCHISE FIELD CONSULTANT NE INJ ANES SCIATIC NERVE W GUIDANCE Routine 03/27/2023 7:30 AM FRANCHISE FIELD CONSULTANT documented in this encounter Results * LDA ANE NON-SURGICAL AIRWAY (03/27/2023 7:52 AM FRANCHISE FIELD CONSULTANT) Narrative Esthela Weinberg APRN, CRNA, DNAP - 03/27/2023 7:52 AM FRANCHISE FIELD CONSULTANT Esthela Weinberg APRN, CRNA, DNAP ? 03/27/2023 ??8:09 AM Airway Date/Time: 03/27/2023 7:52 AM Performed by: Esthela Weinberg APRN, CRNA DNAP Authorized by: Esthela Weinberg APRN, CRNA DNAP ?? Patient location during procedure: OR / Procedure Area PROCEDURE DETAILS: Mask difficulty assessment: not attempted Final airway type: supraglottic airway Device size: 4 Number of attempt to successful placement: 1 Supraglottic device: LMA unique ?? Supraglottic device size: 4 ?? Airway confirmation: bilateral breath sounds, positive ETCO2 and bilateral chest rise Other previous techniques attempted: none PRE PROCEDURE DETAILS: Pre evaluation for airway management: procedure Urgency: elective Preop assessment of probable difficulty: no difficulty anticipated Preoxygenation: bag valve mask SEDATION / ANESTHESIA Anesthesia method: anesthesia POST PROCEDURE DETAILS: ? Procedure outcome: successful ?? Notable Events: no complications Esthela Weinberg CORD CUTTER, LEAD BASED PAINT TECHNICIAN, DNAP ANESTHE AMY ORDERABLES * NE INJ ANES FEM NERVE W GUIDANCE (03/27/2023 7:36 AM FRANCHISE FIELD CONSULTANT) Narrative Rios Kohli M.D. - 03/27/2023 7:36 AM FRANCHISE FIELD CONSULTANT Rios Kohli M.D. ? 03/27/2023 ??7:43 AM Regional Block Date/Time: 03/27/2023 7:36 AM Performed by: Rios Kohli M.D. Authorized by: Rios Kohli M.D. ?? Location: Pre Op / PACU PROCEDURE DETAILS: Block Indication: post-op pain block ?? Block indication comment: Post-Op pain block at request of surgeon Block Type - Lower extremity: adductor canal Positioning: supine ?? Laterality: right Block technique: ultrasound guided ?? Ultrasound image guidance used to localize target, identify at risk structures, and dynamically used to direct therapy to the target. Procedure was performed under sterile conditions.Image(s) acquired and saved Injection technique: single injection Needle type: echogenic Gauge: 20G Length: 10 Test dose: yes- negative test dose ?? Incremental injection of local anesthetic with aspiration every:5cc Pain with needle advancement or injection of local anesthetic: no ?? Injected Medications: Injection(s), anesthetic agent(s) and/or steroid; See [facility] UNIVERSAL PROTOCOL All relevant documentation and testing were reviewed and available. All required blood products, implants, devices and or special equipment were made available as applicable. Pre-procedure verification was conducted and the correct site was marked if required. A fire risk assessment was done as applicable. The procedural time-out to verify correct patient, correct side/site, and procedure was conducted prior to performing the procedure and confirmed in a procedural pause. PRE-PROCEDURE DETAILS: ?? Appropriate hand hygiene, gown, cap, mask, protective eyewear, sterile gloves, skin preparation, sterile drape, and strict aseptic technique were utilized as applicable for the procedure.: yes ?? Skin prep: chlorhexidine / alcohol SEDATION / ANESTHESIA Anesthesia method: local infiltration and moderate sedation POST-PROCEDURE DETAILS: Procedure completed successfully: successful procedure Notable Events: none Rios Kohli M.D. PROCEDURE/MINOR SURG ICAL ORDERABLES * NE INJ ANES SCIATIC NERVE W GUIDANCE (03/27/2023 7:30 AM FRANCHISE FIELD CONSULTANT) Narrative Rios Kohli M.D. - 03/27/2023 7:30 AM FRANCHISE FIELD CONSULTANT Rios Kohli M.D. ? 03/27/2023 ??7:42 AM Regional Block Date/Time: 03/27/2023 7:30 AM Performed by: Rios Kohli M.D. Authorized by: Rios Kohli M.D. ?? Location: Pre Op / PACU PROCEDURE DETAILS: Block Indication: post-op pain block ?? Block indication comment: Post-Op pain block at request of surgeon Block Type - Lower extremity: popliteal Positioning: supine ?? Laterality: right Block technique: ultrasound guided ?? Ultrasound image guidance used to localize target, identify at risk structures, and dynamically used to direct therapy to the target. Procedure was performed under sterile conditions.Image(s) acquired and saved Injection technique: single injection Needle type: echogenic Gauge: 20G Length: 10 Test dose: yes- negative test dose ?? Incremental injection of local anesthetic with aspiration every:5cc Pain with needle advancement or injection of local anesthetic: no ?? Injected Medications: Injection(s), anesthetic agent(s) and/or steroid; See MAR UNIVERSAL PROTOCOL All relevant documentation and testing were reviewed and available. All required blood products, implants, devices and or special equipment were made available as applicable. Pre-procedure verification was conducted and the correct site was marked if required. A fire risk assessment was done as applicable. The procedural time-out to verify correct patient, correct side/site, and procedure was conducted prior to performing the procedure and confirmed in a procedural pause. PRE-PROCEDURE DETAILS: ?? Appropriate hand hygiene, gown, cap, mask, protective eyewear, sterile gloves, skin preparation, sterile drape, and strict aseptic technique were utilized as applicable for the procedure.: yes ?? Skin prep: chlorhexidine / alcohol SEDATION / ANESTHESIA Anesthesia method: local infiltration and moderate sedation Local infiltrate type: lidocaine POST-PROCEDURE DETAILS: Procedure completed successfully: successful procedure Notable Events: none Rios Kohli M.D. PROCEDURE/MINOR SURG ICAL ORDERABLES documented in this encounter Visit Diagnoses Not on filedocumented in this encounter Administered Medications Inactive Administered Medications - up to 3 most recent administrations Medication Order MAR Action Action Date Dose Rate Site BUPivacaine-EPINEPHrine (PF) 0.5 %-1:200,000 injection (MARCAINE w/EPI) peripheral nerve block, As needed, Starting on Jodie 03/27/23 at 0733, Anesthesia Intra-op Given 03/27/2023 7:38 AM FRANCHISE FIELD CONSULTANT 10 mL Given 03/27/2023 7:33 AM FRANCHISE FIELD CONSULTANT 30 mL ceFAZolin injection 2,000 mg (ANCEF) 2,000 mg (rounded from 1,842.5 mg = 25 mg/kg ? 73.7 kg), intravenous, Once, On Jodie 03/27/23 at 0715, For 1 dose, Intra-Op, Administer within 1 hour prior to surgical incision If needed, reconstitute vial per package insert instructions. See IVAG for administration guidelines., Drug Monitoring Program: Pharmacist to adjust medication dosing based on indication and drug clearance factors., Indications: Prophylaxis, surgical Given 03/27/2023 8:03 AM FRANCHISE FIELD CONSULTANT 2 g dexAMETHasone injection (DECADRON) intravenous, As needed, Starting on Jodie 03/27/23 at 0804, Anesthesia Intra-op Given 03/27/2023 8:04 AM FRANCHISE FIELD CONSULTANT 8 mg fentaNYL injection (SUBLIMAZE) intravenous, As needed, Starting on Jodie 03/27/23 at 0806, Anesthesia Intra-op Given 03/27/2023 9:41 AM FRANCHISE FIELD CONSULTANT 50 mcg Given 03/27/2023 9:25 AM FRANCHISE FIELD CONSULTANT 25 mcg Given 03/27/2023 9:03 AM FRANCHISE FIELD CONSULTANT 25 mcg Lactated Ringer's 20 mL/hr, intravenous, Continuous, Starting on Jodie 03/27/23 at 0715 Continued from OR 03/27/2023 10:26 AM FRANCHISE FIELD CONSULTANT 20 mL/hr 20 mL/hr Rate/Dose Verify 03/27/2023 7:44 AM FRANCHISE FIELD CONSULTANT 20 mL/h r New Bag 03/27/2023 7:17 AM FRANCHISE FIELD CONSULTANT 20 mL/hr 20 mL/hr lidocaine (PF) (cardiac) injection intravenous, As needed, Starting on Jodie 03/27/23 at 0752, Anesthesia Intra-op Given 03/27/2023 7:52 AM FRANCHISE FIELD CONSULTANT 60 mg ondansetron (PF) injection (ZOFRAN) intravenous, As needed, Starting on Jodie 03/27/23 at 0804, Anesthesia Intra-op Given 03/27/2023 8:04 AM FRANCHISE FIELD CONSULTANT 4 mg propofol 10 mg/mL infusion (DIPRIVAN) intravenous, Continuous Infusion: Per Instructions PRN, Starting on Jodie 03/27/23 at 0752, Anesthesia Intra-op Rate/Dose Change 03/27/2023 8:37 AM FRANCHISE FIELD CONSULTANT 50 mcg/kg/min 22.11 mL/hr Rate/Dose Change 03/27/2023 8:22 AM FRANCHISE FIELD CONSULTANT 75 mcg/kg/min 33.1 65 mL/hr New Bag 03/27/2023 7:52 AM FRANCHISE FIELD CONSULTANT 100 mcg/kg/min 44.22 mL/ hr propofoL injection (DIPRIVAN) intravenous, As needed, Starting on Jodie 03/27/23 at 0752, Anesthesia Intra-op Given 03/27/2023 7:52 AM FRANCHISE FIELD CONSULTANT 170 mg tranexamic acid in NaCl IVPB 1,000 mg (CYKLOKAPRON) 1,000 mg (1 g), intravenous, at 300 mL/hr, Administer over 20 Minutes, Once, On Jodie 03/27/23 at 0715, For 1 dose, Intra-Op, Administer in OR upon induction Given 03/27/2023 7:58 AM FRANCHISE FIELD CONSULTANT 1 g tranexamic acid in NaCl IVPB 1,000 mg (CYKLOKAPRON) 1,000 mg (1 g), intravenous, at 300 mL/hr, Administer over 20 Minutes, Once, On Jodie 03/27/23 at 0715, For 1 dose, Intra-Op, Administer in OR just before dropping tourniquet Given 03/27/2023 9:42 AM FRANCHISE FIELD CONSULTANT 1 g documented in this encounter Care Teams Lehr Cutter Relationship Specialty Start Date End Date Elsewhere, Pcp PCP - General Family Medicine 01/16/18 documented as of this encounter
--- OUTSIDE RECORDS SUMMARY | 2023-06-26 05:18 | XMS_ITS | Encounter Summary ---
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 Routine (most inpatients and all outpatients) 03/27/2023 10:15 AM RAT FARMER ARTHROPLASTY ANKLE 03/27/2023 7:24 AM RAT FARMER Arthritis Ankle Case Notes Service: RyssmanPost-op orders: Family: Son Kaushik: RadhaenbergD/C plans: inpatient overnightAssistive Devices: can, walker, crutches @ homeOther needs: Special Needs TXA, supine, hip bump, thigh tourniquet, [employer] total aretha equipment, hard Mundo Girard, big fluoroscopy. ADULT OXYGEN THERAPY Routine 03/27/2023 6:53 AM RAT FARMER ADULT OXYGEN THERAPY Routine 03/27/2023 6:53 AM RAT FARMER documented in this encounter Results * Dipstick, Urine (03/29/2023 2:17 PM RAT FARMER) Hemoglobin, QL, U Negative Negative 03/29/2023 2:50 PM RAT FARMER DTL Leukocyte Esterase, U Negative Negative 03/29/2023 2:50 PM RAT FARMER DTL Nitrite, U Negative Negative 03/29/2023 2:50 PM RAT FARMER DTL Ketone, U Negative Negative mg/dL 03/29/2023 2:50 PM RAT FARMER DTL Glucose, U Negative Negative mg/dL 03/29/2023 2:50 PM RAT FARMER DTL Urine 03/29/2023 2:17 PM RAT FARMER 03/29/2023 2:28 PM RAT FARMER David Fuller M.D. LAB URINE ORDERA BLES Performing Organization Address City/[facility]/ZIP Co de Phone Number [facility] [address] [place] [address], [facility] DTL [facility] [address] [place] [address] * pH, Urine (03/29/2023 2:17 PM RAT FARMER) pH, U 5.6 4.5 - 8.0 03/29/2023 3:2 1 PM RAT FARMER DTL Urine 03/29/2023 2:17 PM RAT FARMER 03/29/2023 2:28 PM RAT FARMER David Fuller M.D. LAB URINE ORDERA BLES [facility] [address] [place] [address], [facility] DTL [facility] [address] [place] [address] * Osmolality, Urine (03/29/2023 2:17 PM RAT FARMER) Osmolality, U 366 150 - 1150 mOsm/kg 03/29/2023 3:21 PM RAT FARMER DTL Urine 03/29/2023 2:17 PM RAT FARMER 03/29/2023 2:28 PM RAT FARMER David Fuller M.D. LAB URINE ORDERA BLES Performing Organization Address City/[facility]/ZIP Co de Phone Number [facility] [address] [place] [address], [facility] [address] [place] [address] * Microscopic Automated (03/29/2023 2:17 PM RAT FARMER) Pathologist [facility] [place] Microscopy Normal 03/29/2023 2:50 PM RAT FARMER DTL RBC None Seen <3 /hpf 03/29/2023 2:50 PM RAT FARMER DTL WBC 1-3 /hpf 03/29/2023 2:50 PM RAT FARMER DTL Comment: ----REFERENCE VALUE---- <4 ??(Males) <11 (Females) Casts, Hyaline 1-3 /lpf 03/29/2023 2:50 PM RAT FARMER DTL Squamous Epithelial Cells, U 1-3 /hpf 03/29/2023 2:50 PM RAT FARMER DTL Urine 03/29/2023 2:17 PM RAT FARMER 03/29/2023 2:28 PM RAT FARMER David Fuller M.D. LAB URINE ORDERA BLES Performing Organization Address City/[facility]/ZIP Co de Phone Number [facility] [address] [place] [address], [facility] [address] [place] [address] * Urinalysis, with Microscopic: Urine, Midstream (03/29/2023 2:17 PM RAT FARMER) Source Urine, Urine, Midstream 03/29/2023 2:28 PM RAT FARMER DTL Color, U Yellow 03/29/2023 2:28 PM RAT FARMER DTL Clarity, U Clear 03/29/2023 2:28 PM RAT FARMER DTL Protein, U 10 <26 mg/dL 03/29/2023 3:14 PM RAT FARMER DTL Protein/Osmol ality 0.27 <0.42 ratio 03/29/2023 3:21 PM RAT FARMER DTL Predicted 24 HR Protein, U 206 <229 mg/24 h 03/29/2023 3:21 PM RAT FARMER DTL Predicted Range 51-834 mg/24 h 03/29/2023 3:21 PM RAT FARMER DTL Urine (Urine, Midstream) 03/29/2023 2:17 PM RAT FARMER 03/29/2023 2:28 PM RAT FARMER David Fuller M.D. LAB URINE ORDERA BLES [facility] [address] [place] [address], [facility] [address] [place] [address] * ECG 12 Lead (03/29/2023 8:58 AM RAT FARMER) Ventricular Rate ECG/Min 68 BPM MUSE IA Interval 164 ms MUSE QRSD Interval 72 ms MUSE QT Interval 366 ms MUSE QTC Interval 389 ms MUSE P Hamilton 51 degrees MUSE R Hamilton -21 degrees MUSE T Wave Hamilton 50 degrees MUSE 03/29/2023 8:58 AM RAT FARMER 03/29/2023 9:13 AM RAT FARMER Impressions MUSE - 03/29/2023 9:13 AM RAT FARMER Normal sinus rhythm Normal ECG When compared with ECG of 20-DEC-2021 12:54, Premature ventricular complexes are no longer present Reviewed by EMILY Castrejon Narrative Procedure Note Nando Valdes M.D. - 03/29/2023 IMPRESSION: Normal sinus rhythm Normal ECG When compared with ECG of 20-DEC-2021 12:54, Premature ventricular complexes are no longer present Reviewed by Tatiana Ohm, CRAT David Fuller M.D. ECG ORDERABLES MUSE NA * (ABNORMAL) CBC without Differential (03/28/2023 4:26 AM RAT FARMER) Hemoglobin 12.8 11.6 - 15.0 g/dL 03/28/2023 4:56 AM RAT FARMER DTL Hematocrit 37.6 35.5 - 44.9 % 03/28/2023 4:56 AM RAT FARMER DTL Erythrocytes 4.20 3.92 - 5.13 x10(12)/L 03/28/2023 4:56 AM RAT FARMER DTL MCV 89.5 78.2 - 97.9 fL 03/28/2023 4:56 AM RAT FARMER DTL RBC Distrib Width 13.7 12.2 - 16.1 % 03/28/2023 4:56 AM RAT FARMER DTL Platelet Count 286 157 - 371 x10(9)/L 03/28/2023 4:56 AM RAT FARMER DTL Leukocytes 16.4(H) 3.4 - 9.6 x10(9)/L 03/28/2023 4:56 AM RAT FARMER DTL Blood (Blood, Venous) 03/28/2023 4:26 AM RAT FARMER 03/28/2023 4:50 AM RAT FARMER Sam Graham M.D. LAB BLOOD ADD-ON Performing Organization Address City/[facility] Co de Phone Number [facility] [address] [place] [address], [facility] [address] [place] [address] * (ABNORMAL) Basic Metabolic Panel (03/28/2023 4:26 AM RAT FARMER) Potassium, S 4.2 3.6 - 5.2 mmol/L 03/28/2023 5:30 AM RAT FARMER DTL Sodium, S 139 135 - 145 mmol/L 03/28/2023 5:30 AM RAT FARMER DTL Chloride, S 107 98 - 107 mmol/L 03/28/2023 5:30 AM RAT FARMER DTL Bicarbonate, S 20(L) 22 - 29 mmol/L 03/28/2023 5:30 AM RAT FARMER DTL Anion Gap 12 7 - 15 03/28/2023 5:30 AM RAT FARMER DTL BUN (Blood Urea Nitrogen), S 23(H) 6 - 21 mg/dL 03/28/2023 5:30 AM RAT FARMER DTL Creatinine 1.37(H) 0.59 - 1.04 mg/dL 03/28/2023 5:30 AM RAT FARMER DTL Estimated GFR (eGFR) 40(L) >=60 mL/min/BSA 03/28/2023 5:30 AM RAT FARMER DTL Comment: Estimated GFR calculated using the 2020 CKD_EPI creatinine equation. Calcium, Total, S 8.9 8.8 - 10.2 mg/dL 03/28/2023 5:30 AM RAT FARMER DTL Glucose, S 93 70 - 140 mg/dL 03/28/2023 5:30 AM RAT FARMER DTL Blood (Blood, Venous) 03/28/2023 4:26 AM RAT FARMER 03/28/2023 5:05 AM RAT FARMER Sam Graham M.D. LAB BLOOD ADD-ON Performing Organization Address [facility] [place] [address], [facility] [place] [address] * FL Fluoro Less Than 1 Hour (03/27/2023 10:15 AM RAT FARMER) Narrative [id number] - 03/27/2023 10:16 AM RAT FARMER This exam does not require a radiologist review or interpretation. Please refer to the patient's medical record on this date for clinical details. Mary Partida P.A.-C. IMG FLUOROSCOPY P ROCEDURES Performing Organization Address [facility] Co de Phone Number [id number] NA documented in this encounter Visit Diagnoses Diagnosis Arthritis Ankle- Primary Other Abnormalities Of Gait And Mobility [R26.89] Difficulty Walking Orthopedic Ankle Cause [R26.2] Decline Functional Status [R53.81] Replacement Ankle Status Post Right Arthritis Ankle documented in this encounter Admitting Diagnoses Diagnosis Arthritis Ankle Replacement Ankle Status Post Right documented in this encounter Administered Medications Inactive Administered Medications - up to 3 most recent administrations Medication Order MAR Action Action Date Dose Rate Site acetaminophen tablet 1,000 mg (TYLENOL) 1,000 mg, oral, Every 6 hours, First dose on Fri03/27/23 at 1330 Given 04/01/2023 8:10 AM RAT FARMER 1,000 mg Given 04/01/2023 3:07 AM RAT FARMER 1,000 mg Given 03/31/2023 8:30 PM RAT FARMER 1,000 mg atorvastatin tablet 20 mg (LIPITOR) 20 mg, oral, Daily at bedtime, First dose on Fri03/27/23 at 2100, atorvaSTATin 20 mg oral daily was interchanged for simvastatin 5-40 mg oral daily Given 03/31/2023 9:48 PM RAT FARMER 20 mg Given 03/30/2023 9:05 PM RAT FARMER 20 mg Given 03/29/2023 8:52 PM RAT FARMER 20 mg D5W infusion 10-250 mL/hr, intravenous, As needed, Medications Incompatible with 0.9% NaCL, Starting on Fri03/27/23 at 1513, Infuse at the same rate as the piggyback until tubing clears or up to a volume of 20 mL pre and post infusion for medications incompatible with 0.9% NaCL. Use 100 mL bag then discard. enoxaparin injection 40 mg (LOVENOX) 40 mg, subcutaneous, Daily, First dose on Fri03/28/23 at 0900 Given 04/01/2023 8:11 AM RAT FARMER 40 mg Right Lower Abdomen Given 03/31/2023 9:32 AM RAT FARMER 40 mg Le ft Lower Abdomen Given 03/30/2023 8:12 AM RAT FARMER 40 mg Ri ght Upper Abdomen Lactated Ringer's 20 mL/hr, intravenous, Continuous, Starting on Fri03/27/23 at 0715 Continued from OR 03/27/2023 10:26 AM RAT FARMER 20 mL/hr 20 mL/hr Rate/Dose Verify 03/27/2023 7:44 AM RAT FARMER 20 mL/h r New Bag 03/27/2023 7:17 AM RAT FARMER 20 mL/hr 20 mL/hr Lactated Ringer's 75 mL/hr, intravenous, Continuous, Starting on Fri03/27/23 at 1230 New Bag 03/28/2023 12:32 AM RAT FARMER 75 mL/hr 75 mL/hr Rate/Dose Verify 03/27/2023 10:00 PM RAT FARMER 75 mL/hr 75 mL/ hr Continued from OR 03/27/2023 12:30 PM RAT FARMER 75 mL/hr 75 mL /hr losartan tablet 50 mg (COZAAR) 50 mg, oral, Daily, First dose on Fri03/30/23 at 0900 Given 04/01/2023 8:10 AM RAT FARMER 50 mg Given 03/31/2023 9:32 AM RAT FARMER 50 mg Given 03/30/2023 8:48 AM RAT FARMER 50 mg melatonin tablet 3 mg 3 [...] for new order. Given 03/28/2023 9:58 AM RAT FARMER 10 mg oxyCODONE IR tablet 5 mg (ROXICODONE) 5 mg, oral, Every 4 hours PRN, moderate pain or score 4-6 of 10, Starting on Jodie 03/27/23 at 1211, Second line therapy Given 03/28/2023 5:04 AM RAT FARMER 5 mg polyethylene glycol powder packet 1 packet (MIRALAX) 1 packet, oral, Daily, First dose on Fri03/28/23 at 0900, Ordered sequence of administration: polyethylene glycol, then bisacodyl until BM achieved. Avoid mixing with starch-based thickened liquids. Given 03/31/2023 9:31 AM RAT FARMER 1 packe t Given 03/30/2023 8:12 AM RAT FARMER 1 packet Given 03/29/2023 8:09 AM RAT FARMER 1 packet QUEtiapine tablet 50 mg (SEROquel) 50 mg, oral, Bedtime PRN, sleep, delirium, Starting on Fri03/28/23 at 2114 Given 03/28/2023 10:46 PM RAT FARMER 50 mg sennosides-docusate sodium 8.6-50 mg per tablet 1 tablet (SENOKOT-S) 1 tablet, oral, 2 times daily, First dose on Jodie 03/27/23 at 2100, Do not give if patient has diarrhea. Given 03/31/2023 9:48 PM RAT FARMER 1 tablet Given 03/31/2023 9:32 AM RAT FARMER 1 tablet Given 03/30/2023 9:05 PM RAT FARMER 1 tablet sodium chloride 0.9 % injection [...] maintain patency. Given 03/31/2023 9 :49 PM RAT FARMER 3 mL Given 03/30/2023 9:05 PM RAT FARMER 3 mL Given 03/30/2023 8:13 AM RAT FARMER 3 mL documented in this encounter Active and Recently Administered Medications Times are shown in RAT FARMER. Scheduled Medication Order 03/30/2023 03/31/2023 04/01/2023 acetaminophen tablet 1,000 mg (TYLENOL) 1,000 mg, oral, Every 6 hours, First dose on Jodie 03/27/23 at 1330 0111 (Given - Provider: Danny Phelps RPaula)0610 (Given - Provider: Danny Phelps R.N.)1337 (Given - Provider: Patience Ogden R.N.)1842 (Given - Provider: Patience Ogden R.N.) 0152 (Given - Provider: Delaney Flores R.N.)0639 (Given - Provider: Delaney Flores R.N.)1440 (Given - Provider: Sav Romero R.N.)2030 (Given - Provider: Debra Quiroga R.N.) 0307 (Given - Provider: Mary Ann Reyna, R.N.)0810 (Given - Provider: Sav Romero R.N.) atorvastatin tablet 20 mg (LIPITOR) 20 mg, oral, Daily at bedtime, First dose on Fri03/27/23 at 2100, atorvaSTATin 20 mg oral daily was interchanged for simvastatin 5-40 mg oral daily 2104 (Given - Provider: Delaney Flores R.N.) 214 (Given - Provider: Debra Quiroga R.N.) enoxaparin [...] diarrhea. 0812 (Given - Provider: Patience Ogden R.N.)2104 (Given - Provider: Delaney Flores R.N.) 0932 (Given - Provider: Sav Romero R.N.)214 (Given - Provider: Debra Quiroga R.N.) 0816 [...] 1000 (Canceled Entry - Provider: Macie Emmanuel R.N.)2148 (Given - Provider: Debra Quiroga R.N.) 0816 [...] order. documented in this encounter Care Teams Accounts Payable Manager Relationship Specialty Start Date End Date Elsewhere, Pcp PCP - General Family Medicine 01/16/18 documented as of this encounter
--- OUTSIDE RECORDS SUMMARY | 2023-06-26 05:18 | XMS_ITS | Encounter Summary ---
Author Name Unknown Organization [facility] Address [address] [place] [address] Care Team Providers Care Crm Technical Lead Name Role Phone Elsewhere, Pcp Primary Care Provider Unavailabl e Encounter Details Date Type Department Care Team (Latest Contact Info) Description 03/26/2023 8:06 AM FLARE WORKER - 03/26/2023 11:59 PM FLARE WORKER Hospital Encounter Department of Laboratory Medicine and Pathology, [facility], in [place], [place] [address] [place] [address] Mary Partida PKeysha-C. [address] [place] [address] Deficiency Vitamin D Discharge Disposition: Home or Self Care Social History Tobacco Use Types Packs/Day Years Used Date Smoking Tobacco: Former Cigarettes Smokeless Tobacco: Never Alcohol Use Standard Drinks/Week Comments Yes 0 (1 standard drink = 0.6 oz pur e alcohol) rare glass on wine [facility] Utilities Answer Date Recorded In the past [...] your living situation today? I have a [facility] place [facility] live 03/27/2023 Sex and [...] Procedure Name Priority Date/Time Associated Diagnosis Comments 1,25-DIHYDROXYVITAM IN D, S Routine 03/26/2023 8:21 AM FLARE WORKER Deficiency Vitamin D 25-HYDROXYVITAMIN D2 AND D3, S Routine 03/26/2023 8:21 AM FLARE WORKER Deficiency Vitamin D CALCIUM, TOT, S/P Routine 03/26/2023 8:2 1 AM FLARE WORKER Deficiency Vitamin D documented in this encounter Results * Calcium, Total (03/26/2023 8:21 AM FLARE WORKER) Calcium, Total, S 9.6 8.8 - 10.2 mg/dL 03/26/2023 12:10 PM FLARE WORKER DTL Blood (Blood, Venous) 03/26/2023 8:21 AM FLARE WORKER 03/26/2023 9:51 AM FLARE WORKER Mary Partida P.A.-C. LAB BLOOD ADD-ON Performing Organization Address City/[facility]/ZIP Co de Phone Number [facility] [address] [place] [address], [facility] DTL [facility] [address] [place] [address] * 25-Hydroxyvitamin D2 and D3 (03/26/2023 8:21 AM FLARE WORKER) 25-Hydroxy D2 <4.0 ng/mL 03/28/2023 12:01 AM FLARE WORKER SDS 25-Hydroxy D3 26 ng/mL 03/28/2023 12:01 AM FLARE WORKER [facility] 25-Hydroxy D Total 26 ng/mL 2023 12:01 AM FLARE WORKER [facility] Comment: ----REFERENCE VALUE---- 25-HYDROXY D TOTAL (D2+D3) Optimum levels in the healthy population are 20-50, patients with bone disease may benefit from higher levels within this range. ----ADDITIONAL INFORMATION---- This test was developed and its performance characteristics determined by [facility] in a manner consistent with CLIA requirements. This test has not been cleared or approved by the U.S. Food and Drug Administration. Blood (Blood, Venous) 03/26/2023 8:21 AM FLARE WORKER 03/26/2023 1:05 PM FLARE WORKER Mary Partida P.A.-C. LAB BLOOD ADD-ON Performing Organization Address City/[facility]/ZIP Co de Phone Number [facility] [address] [place] [address] [facility] [address] [place] [address] [place] [address] * 1,25-Dihydroxyvitamin D (03/26/2023 8:21 AM FLARE WORKER) 1, 25 DIHYDROXYVITAMIN D, S 34 18 - 78 pg/mL 03/28/2023 3:23 PM FLARE WORKER [facility] Comment: ----ADDITIONAL INFORMATION---- This test was developed and its performance characteristics determined by [facility] in a manner consistent with CLIA requirements. This test has not been cleared or approved by the U.S. Food and Drug Administration. Blood (Blood, Venous) 03/26/2023 8:21 AM FLARE WORKER 03/26/2023 12:58 PM FLARE WORKER Mary Partida P.A.-C. LAB BLOOD ADD-ON [facility] [address] [place] [address] [facility] [address] [place] [address] [place] [address] documented in this encounter Visit Diagnoses Diagnosis Deficiency Vitamin D documented in this encounter Care Teams Crm Technical Lead Relationship Specialty Start Date End Date Elsewhere, Pcp PCP - General Family Medicine 01/16/18 documented as of this encounter
--- OUTSIDE RECORDS SUMMARY | 2023-06-26 05:18 | XMS_ITS | Encounter Summary ---
Author Name Unknown Organization [facility] Address [address] [place] [address] Care Team Providers Care Credit Portfolio Advisor Name Role Phone Elsewhere, Pcp Primary Care Provider Unavailabl e Encounter Details Date Type Department Care Team (Late st Contact Info) Description 03/28/2023 Documentation Department of Orthopedic Surgery in [place], [place] [address] [place] [phone] Blanco Burt M.D. [address] [place] [phone] Social History Tobacco Use Types Packs/Day Years Used Date Smoking Tobacco: Former Cigarettes Smokeless Tobacco: Never Alcohol Use Standard Drinks/Week Comments Yes 0 (1 standard drink = 0.6 oz pur e alcohol) rare glass on wine [facility] Utilities Answer Date Recorded In the past 12 months has [employer], gas, oil, or water [employer] threatened to shut off services in your [...] your living situation today? I have a [facility] place to live 03/27/2023 Sex and Gender Information Value Date Recorded Sex Assigned at Female 07/31/2017 10:09 AM CDT Gender Identity Female 07/31/2017 10:09 AM CDT Sexual Orientation Straight 07/31/2017 10 :09 AM CDT documented as of this encounter Progress Notes * Blanco Burt M.D. - 03/28/2023 6:16 PM CST CHIEF COMPLAINT: 1. 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 I checked on her this evening around 5:45 p.m.. I did not know this but it sounds like she was having increased agitation and delirium right before I walked in. I was able to see the patient, evaluate her, and have a long conversation with her. During my interaction with her, I felt like she was able to calmed down and was oriented. However, certainly throughout the conversation, she exhibited disorientation as well (for example being glad that the surgery was done yesterday but then frustrated that I have not fixed her ankle yet; or trying to get home to take care of her kitchen). Currently, her pain is well controlled. She denies any chest pain or shortness of breath. I was able to call her son's this evening. It sounds like she has been showing signs of progressive???forgetfulness?? and loss of short-term memory. It sounds like there has been some early workup for her cognition but this has been a process for then. PHYSICAL EXAMINATION: On exam, she is awake, alert, and in no acute distress. However, at times, she is slightly disoriented. The splint is clean, dry, and intact. She is able to wiggle all toes. Sensation is intact to light touch on the dorsal and plantar aspect of the toes. The toes are well perfused. ASSESSMENT & PLAN: The patient is likely experiencing some exacerbation of delirium in the immediate postoperative setting. She has been hemodynamically stable and her vital signs are stable. I have recommended close observation. We will have a one-one staff with her through the night to help reorient her. She is to remain nonweightbearing and keep the right foot elevated at all times. She understands that she will need help to go to the bathroom or to get up to eat but for the rest of the time she should remain in bed and keep the foot elevated. However, she might forget this throughthe course of the night. If her delirium worsens, then I would favor further workup for the delirium, but right now I think we can observe and watch vitals closely. We will re-evaluate in the morning. The patient will be brought to the cast room on Friday morning for splint removal, wound evaluation, and short-leg cast application. She will also go to a correction facility after this hospitalization, as soon as Friday. I was able to discuss all this with her sons who also expressed understanding. ICAL REHAB SPECIALIST documented in this encounter Plan of Treatment Scheduled Procedures Name Priority Associated Diagnoses Date/Ti me OPERATIVE LAPAROSCOPY [place] SALPINGO - OOPHORECTOMY [place] documented as of this encounter Visit Diagnoses Not on filedocumented in this encounter Care Teams Credit Portfolio Advisor Relationship Specialty Start Date End Date Elsewhere, Pcp PCP - General Family Medicine 01/16/18 documented as of this encounter
--- OUTSIDE RECORDS SUMMARY | 2023-06-26 05:18 | XMS_ITS | Encounter Summary ---
Author Name Unknown Organization [facility] Address [address] [place] [address] Care Team Providers Care Senior Bi Architect Name Role Phone Elsewhere, Pcp Primary Care Provider Unavailabl e Reason for Referral * Outpatient (Routine) - Closed Specialty Diagnoses / Procedures Referred By Contac t Referred To Contact Diagnoses Replacement Ankle Status Post Right Procedures DX Ankle Right 3+ Views Mary Partida P.A.-C. [address] [place] [phone] [facility] Referral ID Status Reason Start Date Expiration Date Visits Re quested Visits Authorized [id number] Closed 03/25/2023 03/24/2024 1 1 NE WATCHMAN * Outpatient (Routine) - Closed Specialty Diagnoses / Procedures Referred By Contac t Referred To Contact Orthopedic Surgery Mary Partida P.A.-C. [address] [place] [phone] [facility] Referral ID Status Reason Start Date Expiration Date Visits Re quested Visits Authorized [id number] Closed 03/25/2023 09/23/2024 1 1 NE WATCHMAN * Outpatient (Routine) - Closed Specialty Diagnoses / Procedures Referred By Marko t Referred To Contact Diagnoses Replacement Ankle Status Post Right Procedures DX Ankle Right 3+ Views Mary Partida P.A.-C. [address] [place] [phone] [facility] Referral ID Status Reason Start Date Expiration Date Visits Re quested Visits Authorized [id number] Closed 03/25/2023 03/24/2024 1 1 NE WATCHMAN * Outpatient (Routine) - Closed Specialty Diagnoses / Procedures Referred By Contge t Referred To Contact Diagnoses Replacement Ankle Status Post Right Procedures ORS Cast Room Visit Mary Partida P.A.-C. [address] [place] [phone] [facility] Referral ID Status Reason Start Date Expiration Date Visits Re quested Visits Authorized [id number] Closed 03/25/2023 03/24/2024 1 1 NE WATCHMAN * Outpatient (Routine) - Closed Specialty Diagnoses / Procedures Referred By Contac t Referred To Contact Diagnoses Replacement Ankle Status Post Right Procedures DX Ankle Right 3+ Views Mary Partida P.A.-C. [address] [place] [phone] [facility] Referral ID Status Reason Start Date Expiration Date Visits Re quested Visits Authorized [id number] Closed 03/25/2023 03/24/2024 1 1 NE WATCHMAN * Outpatient (Routine) - Closed Specialty Diagnoses / Procedures Referred By Contac t Referred To Contact Diagnoses Replacement Ankle Status Post Right Procedures ORS Cast Room Visit Mary Partida P.A.-C. [address] [place] [phone] [facility] Referral ID Status Reason Start Date Expiration Date Visits Re quested Visits Authorized [id number] Closed 03/25/2023 03/24/2024 1 1 NE WATCHMAN Reason for Visit * Reason Comments Pre-op Exam * Outpatient (Routine) - Closed Specialty Diagnoses / Procedures Referred By Contac t Referred To Contact Orthopedic Surgery Mary Partida P.A.-C. [address] [place] [phone] Blanco Burt M.D. [address] [place] [phone] Referral ID Status Reason Start Date Expiration Date Visits Re quested Visits Authorized [id number] Closed 01/15/2023 01/14/2026 1 1 Encounter Details Date Type Department Care Team (Late st Contact Info) Description 03/26/2023 10:30 AM ENGINE WATCHMAN Office Visit Department of Orthopedic Surgery in [place], [place] [address] [place] [phone] Blanco Burt M.D. [address] [place] [phone] Arthritis Ankle (Primary Dx); Replacement Ankle Status Post Right Social History Tobacco Use Types Packs/Day Years Used Date Smoking Tobacco: Former Cigarettes Smokeless Tobacco: Never Alcohol Use Standard Drinks/Week Comments Yes 0 (1 standard drink = 0.6 oz pur e alcohol) rare glass on wine [facility] Utilities Answer Date Recorded In the past 12 months has [employer], gas, oil, or water [email or web address] threatened to shut off services in your [...] your living situation today? I have a [facility] place to live 03/31/2023 Sex and Gender Information Value Date Recorded Sex Assigned at Female 07/31/2017 10:09 AM CDT Gender Identity Female 07/31/2017 10:09 AM CDT Sexual Orientation Straight 07/31/2017 10 :09 AM CDT documented as of this encounter Progress Notes * Blanco Burt M.D. - 03/26/2023 10:30 AM CST CHIEF COMPLAINT/PURPOSE OF VISIT 1. Right severe ankle arthritis HISTORY OF PRESENT ILLNESS The patient returns for follow-up today. She feels like nonsurgical treatment has failed and desires surgery for the right ankle. PHYSICAL EXAMINATION Musculoskeletal: Significant tenderness to palpation to the right ankle joint with decreased ankle motion. She is neurovascular intact distally. IMAGING No new imaging ASSESSMENT & PLAN The patient has exhausted nonsurgical treatment for the right ankle and desires surgery. We have talked at length about the pros and cons of ankle fusion versus ankle replacement. She would like to proceed with an ankle replacement. I think this is reasonable. I discussed the risks, benefits, and alternatives to surgery with the patient. The risks include but are not limited to: wound healing problems, infection, nerve damage, failure of the bones to heal,and/or medical problems (such as cardiac event, stroke, thromboembolic event, and so forth). I alsodiscussed the expected postoperative recovery process and outcomes. The patient expressed understanding and desires to proceed. NE WATCHMAN documented in this encounter Plan of Treatment Scheduled Procedures Name Priority Associated Diagnoses Date/Ti me OPERATIVE LAPAROSCOPY Mass Ovary SALPINGO - OOPHORECTOMY Mass Ovary Scheduled Referrals Name Type Priority Associated Diagnoses Order Schedule Orthopedic Surgery office visit (clinic) Outpatient Referral Routine Expected: 05/19/2023, Expires: 06/22/2024 documented as of this encounter Results * [...] joints of the foot. Mary Partida P.A.-C. [facility] DIAGNOSTIC IM AGING PROCEDURES * DX Ankle Right 3+ Views (05/09/2023 [...] Pesplanus. Soft tissue swelling. Mary Partida P.A.-C. [facility] DIAGNOSTIC IM AGING PROCEDURES * PROCEDURE PLACEHOLDER [...] P.A.-C. PROCEDURE/MINOR S URGICAL ORDERABLES MMODAL NA * DX Ankle Right 3+ Views (04/15/2023 3:33 PM ENGINE WATCHMAN) Anatomical Region Laterality Modality Lower Extremity, Ankle, Musc uloskeletal RST LOS, Musculoskeletal ARZ LOS, Muskuloskeletal FLA LOS Right Compu corinne Radiography Impressions 04/15/2023 3:35 PM ENGINE WATCHMAN Right ankle arthroplasty is well seated. Plantar calcaneal spur. Soft tissue swelling about the right ankle. Narrative 04/15/2023 3:35 PM ENGINE WATCHMAN EXAM: ??DX ANKLE RIGHT 3+ VIEWS Procedure Note Joshua Long M.D. - 04/15/2023 EXAM: DX ANKLE RIGHT 3+ VIEWS IMPRESSION: Right ankle arthroplasty is well seated. Plantar calcaneal spur. Softtissue swelling about the right ankle. Mary Partida P.A.-C. IMG DIAGNOSTIC IM AGING PROCEDURES * PROCEDURE PLACEHOLDER (04/15/2023 3:00 PM ENGINE WATCHMAN) Narrative MMODAL - 04/15/2023 3:00 PM ENGINE WATCHMAN Mary Partida P.A.-C. ? 04/15/2023 ??3:47 PM [...] Pain is well-controlled. ??She has at a shelter facility. PHYSICAL EXAM: On exam the incision [...] Post Right Replacement Ankle Status Post Right Replacement Ankle Status Post Right Replacement Ankle Status Post Right Replacement Ankle Status Post Right Replacement Ankle Status Post Right documented in this encounter Care Teams Senior Bi Architect Relationship Specialty Start Date End Date Elsewhere, Pcp PCP - General Family Medicine 01/16/18 documented as of this encounter
--- OUTSIDE RECORDS SUMMARY | 2023-06-26 05:18 | XMS_ITS | Encounter Summary ---
Author Name Unknown Organization [facility] Address [address] [place] [address] Care Team Providers Care Automatic Glove Turner And Former Name Role Phone Elsewhere, Pcp Primary Care Provider Unavailabl e Reason for Visit * Outpatient (Routine) - Closed Specialty Diagnoses / Procedures Referred By Marko t Referred To Contact Anesthesiology Diagnoses Arthritis Ankle Mary Partida, P.A.-C. [address] [place] [phone] [facility] Referral ID Status Reason Start Date Expiration Date Visits Re quested Visits Authorized [id number] Closed 01/15/2023 01/15/2024 1 1 Encounter Details Date Type Department Care Team (Latest Contact Info) Description 03/26/2023 9:00 AM [facility] Comprehensive Visit Preoperative Evaluation Center in [place], [place] [address] [place] [phone] Mary Partida, P.A.-C. [address] [place] [phone] Mike Marcus APRN, C.N.P., M.S.N. [address] [place] [phone] Peripheral Vascular Disease (HCC) (Primary Dx); Preanesthetic Medical Exam; Arthritis Ankle; Hypertension Essential Primary; Dyslipidemia; Hypertensive Chronic Kidney Disease (CKD) Stage 3b Glomerular Filtration Rate (GFR) 30 To 44 (HCC); Hyperparathyroidism Secondary (HCC) Social History Tobacco Use Types Packs/Day Years Used Date Smoking Tobacco: Former Cigarettes Smokeless Tobacco: Never Tobacco Cessation:Counseling Given: Not Answered Alcohol Use Standard Drinks/Week Comments Yes 0 (1 standard drink = 0.6 oz pur e alcohol) rare glass on wine [facility] Utilities Answer Date Recorded In the past 12 months has e [employer], oil, or water [employer] threatened to shut off services in your [...] Recorded Dental: Regular Dentist Unknown 04/11/19 21 Housing Stability Answer Date Recorded What is your living situation today? I have a [facility] [place] place to live 03/27/2023 Sex and Gender Information Value Date Recorded Sex Assigned at Female 07/31/2017 10:09 AM CDT Gender Identity Female 07/31/2017 10:09 AM CDT Sexual Orientation Straight 07/31/2017 10 :09 AM CDT documented as of this encounter Last Filed Vital Signs Vital Sign Reading Time Taken Comments Blood Pressure 139/83 03/26/2023 8:56 AM TEACHER ASST Pulse 69 03/26/2023 8:56 AM TEACHER ASST Temperature 36.2 ??C (97.2 ??F) 03/26/2023 8:56 AM CS T Respiratory Rate - - Oxygen Saturation 98% 03/26/2023 8:56 AM TEACHER ASST Inhaled Oxygen Concentration - - Weight 73.7 kg (162 lb 7.7 oz) 03/26/2023 8:56 A M TEACHER ASST Height 162 cm (5' 3.78) 03/26/2023 8:56 AM TEACHER ASST Body Mass Index 28.08 03/26/2023 8:56 AM TEACHER ASST documented in this encounter Consult Notes * Mike Marcus APRN, C.N.P., M.S.N. - 03/26/2023 9:00 AM CST REASON FOR VISIT: Preoperative Medical Evaluation REFERRING PHYSICIAN: Mary Partida P.A.-C. 03/27/2023: ARTHROPLASTY ANKLE; Blanco Burt M.D. Surgery Specific Risk Classification: Low Risk SUBJECTIVE HISTORY OF PRESENT ILLNESS Ladan Garcia is a 77 y.o. female who is here for preanesthetic medical examination prior to the planned procedure as listed above. REVIEW OF SYSTEMS The following systems were negative: Constitutional, Respiratory, Cardiovascular, Neurological OBJECTIVE OBJECTIVE PHYSICAL EXAMINATION General/Constitutional Constitutional Assessment: Normal General State of Health: Healthy appearing Airway (HEENT) Mallampati: II TM Distance: >3 FB Neck ROM: Full Mouth Opening: > 3 cm Upper Lip Bite Test: I Dental Assessment: Dentition intact Cardiovascular Rhythm: Regular Rate: Normal Cardiovascular Assessment: Normal Pulmonary Pulmonary Assessment: Clear and non labored Neurological Neurologic Assessment: Alert and oriented X 3 Musculoskeletal MSK Assessment: Normal Gait: Normal Ambulate with: Wheelchair Psychiatric Psychiatric Assessment: Calm Dermatology Skin Assessment: normal ASSESSMENT / PLAN Anesthesia: Patient denies previous anesthesia related complications. Airway Hx: None LAB: 11/18/2022 - Na+ 140, K+4.5, Cr 1.3, eGFR 42. Lab Results Component Value Date HGB 12.2 12/20/2021 HCT 38.2 12/20/2021 PLT 354 12/20/2021 ECG 12/20/2021: Sinus rhythm, premature ventricular complexes. Otherwise normal ECG. #1 Preanesthetic Medical Exam Substance use: Former tobacco use, quit in 1969, after a less than 10 pack year history. Denies alcohol use. Denies illicit drug/marijuana use. Activity tolerance: Able to walk up two flights of steps or 4 city blocks without chest pain or shortness of breath. Reports she is limited due to ankle pain only. Denies family history of premature coronary artery disease, anesthesia reactions, bleeding/clottingdisorders. Denies personal history of blood transfusion, bleeding/clotting problems, steroid use in the past year, radiation/chemotherapy, prior neck/spine injuries/procedures, swallowing difficulties and denies anything chipped/cracked/loose/removable in the mouth. #2 Arthritis Ankle This is the reason for surgery. Please see the surgical service consultation notes for full details. #3 Hypertension Essential Primary Chronic, currently maintained on losartan (which will be held the morning of surgery). #4 Dyslipidemia Chronic, maintained on simvastatin, which will be continued perioperatively. #5 Hypertensive Chronic Kidney Disease (CKD) Stage 3b Glomerular Filtration Rate (GFR) 30 To 44 (HCC) #6 Hyperparathyroidism Secondary (HCC) Chronic, followed by nephrology. 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 Per most recent nephrology note dated 11/20/2022 her baseline creatinine has been ranging between 1.3 and 1.4. #7 Peripheral Vascular Disease (HCC) Chronic, denies edema or open wounds. RECOMMENDATIONS: Patient medically optimized for planned procedure: Yes Further Recommendations: None Caprini Total Score: 6 The patient is at high risk for postoperative DVT or PE. Mechanical AND chemoprophylaxis are recommended at the time of procedure and during postoperative hospitalization, as well as chemoprophylaxisat the time of hospital discharge, unless there are contraindications or risk of bleeding outweighsbenefits of chemoprophylaxis. PATIENT EDUCATION: Checklist for Surgical Patients [id number] rev 1221. Educational instructions given. Evening before your surgery: Call [phone] or [phone] between 8:15 p.m. and midnight to learn report time for surgery next day. Phone system will ask for [facility] number and date of . Fasting for Adults: - 8 hours before your report time stop eating solid foods. - 6 hours before your report time stop drinking any non clear liquids such as: milk, soy/almond milk, orange juice, or tomato juice. - 1 hour before your report time stop drinking clear liquids. Clear Liquids: - Water, clear fruit juice (apple/white grape), carbonated beverages, clear broth, gelatin, ice pops or popsicles, and clear tea or black coffee (no milk or creamer). SUMMARY OF YOUR MEDICATION INSTRUCTIONS FOR UPCOMING SURGERY: Stop the following medications 7 days prior to your procedure: Multivitamins/supplements Herbals Aspirin (unless otherwise instructed) Ibuprofen/Advil Naproxen/Aleve Continue these medications, but hold (do not take) the day of your procedure: Losartan Continue taking these medications as usual including the morning of your procedure if that is when you normally take them (If you take at night, take the night prior to surgery as usual): Acetaminophen (Tylenol) (if needed) Simvastatin HER ASST documented in this encounter Plan of Treatment Scheduled Procedures Name Priority Associated Diagnoses Date/Ti co OPERATIVE LAPAROSCOPY Mass Ovary SALPINGO - OOPHORECTOMY Mass Ovary documented as of this encounter Visit Diagnoses Diagnosis Peripheral Vascular Disease (HCC)- Primary Preanesthetic Medical Exam Arthritis Ankle Hypertension Essential Primary Dyslipidemia Hypertensive Chronic Kidney Disease (CKD) Stage 3b Glomerular Filtration Rate (GFR) 30 To 44 Hyperparathyroidism Secondary (HCC) documented in this encounter Care Teams Automatic Glove Turner And Former Relationship Specialty Start Date End Date Elsewhere, Pcp PCP - General Family Medicine 01/16/18 documented as of this encounter
--- OUTSIDE RECORDS SUMMARY | 2023-06-26 05:18 | XMS_ITS | Encounter Summary ---
Author Name Unknown Organization [facility] Address [address] [place] [address] Care Team Providers Care Housing Inspector Name Role Phone Elsewhere, Pcp Primary Care Provider Unavailabl e Encounter Details Date Type Department Care Team (Latest Contact Info) Description 03/27/2023 7:20 AM SEED LABORATORY ASSISTANT Ancillary Procedure Department of Anesthesiology Social History Tobacco Use Types Packs/Day Years Used Date Smoking Tobacco: Former Cigarettes Smokeless Tobacco: Never Alcohol Use Standard Drinks/Week Comments Yes 0 (1 standard drink = 0.6 oz pur e alcohol) rare glass on wine [facility] Utilities Answer Date Recorded In the past 12 months has e electric, gas, oil, or water [employer] threatened to shut off services in your [...] your living situation today? I have a [facility] place to live 03/27/2023 Sex and [...] Procedure Name Priority Date/Time Associated Diagnosis Comments ANESTHESIOLOGY IMAGE EXAM Routine 03/27/2023 7:20 AM SEED LABORATORY ASSISTANT documented in this encounter Results * Non-Radiology Image-Anesthesiology Image Exam (03/27/2023 7:20 AM SEED LABORATORY ASSISTANT) 03/27/2023 7:18 AM SEED LABORATORY ASSISTANT Narrative IIMS - 03/27/2023 7:48 AM SEED LABORATORY ASSISTANT This order has been created and auto-finalized to support the import of images acquired without order. The clinical documentation to support these images can be found on the encounter that produced images. Provider Not In System IMG NON RAD IMAGI NG PROCEDURES IIMS NA documented in this encounter Visit Diagnoses Not on filedocumented in this encounter Care Teams Housing Inspector Relationship Specialty Start Date End Date Elsewhere, Pcp PCP - General Family Medicine 01/16/18 documented as of this encounter
--- OUTSIDE RECORDS SUMMARY | 2023-06-26 05:18 | XMS_ITS | Encounter Summary ---
Author Name Unknown Organization [facility] Address [address] [place] [address] Care Team Providers Care Jewelry Casting Model Maker Apprentice Name Role Phone Elsewhere, Pcp Primary Care Provider Unavailabl e Encounter Details Date Type Department Care Team (Late st Contact Info) Description 03/27/2023 12:35 PM FOOD ASSEMBLER KITCHEN Ancillary Procedure Department of Orthopedic Surgery Social History Tobacco Use Types Packs/Day Years Used Date Smoking Tobacco: Former Cigarettes Smokeless Tobacco: Never Alcohol Use Standard Drinks/Week Comments Yes 0 (1 standard drink = 0.6 oz pur e alcohol) rare glass on wine [facility] Utilities Answer Date Recorded In the past 12 months has [employer], gas, oil, or water [employer] threatened to shut off services in your [...] your living situation today? I have a [facility] place to live 03/27/2023 Sex and [...] Procedure Name Priority Date/Time Associated Diagnosis Comments ORTHOPEDIC SURGERY IMAGE EXAM Routine 03/27/2023 12:35 PM FOOD ASSEMBLER KITCHEN documented in this encounter Results * Thigh-Orthopedic Surgery Image Exam (03/27/2023 12:35 PM FOOD ASSEMBLER KITCHEN) 03/27/2023 12:3 4 PM FOOD ASSEMBLER KITCHEN Narrative IIMS - 03/27/2023 12:37 PM FOOD ASSEMBLER KITCHEN This order has been created and auto-finalized to support the import of images acquired without order. The clinical documentation to support these images can be found on the encounter that produced images. Provider Not In System IMG NON RAD IMAGI NG PROCEDURES IIM[facility] NA documented in this encounter Visit Diagnoses Not on filedocumented in this encounter Care Teams Jewelry Casting Model Maker Apprentice Relationship Specialty Start Date End Date Elsewhere, Pcp PCP - General Family Medicine 01/16/18 documented as of this encounter
--- OUTSIDE RECORDS SUMMARY | 2023-06-26 05:18 | XMS_ITS | Encounter Summary ---
Author Name Unknown Organization [facility] [place] [facility] Address [address] [place] [address] Care Team Providers Care Power Tool Repairer Name Role Phone Elsewhere, Pcp Primary Care Provider Unavailabl e Encounter Details Date Type Department Care Team (Late st Contact Info) Description 03/29/2023 Orders Only Department of Orthopedic Surgery in [place], [place] [address] [place] [phone] Porfirio Luna M.D. [address] [place] [phone] Social History Tobacco Use Types Packs/Day Years Used Date Smoking Tobacco: Former Cigarettes Smokeless Tobacco: Never Alcohol Use Standard Drinks/Week Comments Yes 0 (1 standard drink = 0.6 oz pur e alcohol) rare glass on wine [facility] Utilities Answer Date Recorded In the past 12 months has [employer], gas, oil, or water [email or web address] threatened to shut off services in your [...] your living situation today? I have a [facility] place to live 03/31/2023 Sex [...] on filedocumented in this encounter Care Teams Power Tool Repairer Relationship Specialty Start Date End Date Elsewhere, Pcp PCP - General Family Medicine 01/16/18 documented as of this encounter
--- OUTSIDE RECORDS SUMMARY | 2023-06-26 05:18 | XMS_ITS | Encounter Summary ---
Author Name Unknown Organization [facility] Address [address] [place] [address] Care Team Providers Care Engineering Project Designer Name Role Phone Elsewhere, Pcp Primary Care Provider Unavailabl e Reason for Visit * Reason Onset Date Comments Pre-visit Intake 03/25/2023 Encounter Details Date Type Department Care Team (Latest Contact Info) Description 03/25/2023 9:00 AM SPIRAL MACHINE OPERATOR Clinical Communication Virtual Review in [place], [place] [address] [place] [phone] Pre-visit Intake Social History Tobacco Use Types [...] on filedocumented in this encounter Care Teams Engineering Project Designer Relationship Specialty Start Date End Date Elsewhere, Pcp PCP - General Family Medicine 01/16/18 documented as of this encounter
== END 2023-06-25 14:09 | disposition home or self-care (01) ==
LOC: NFLDREF 06-26 05:14
PROVIDERS: PCP Family Medicine; Referring Provider Family Medicine; Visit Provider Internal Medicine Nephrology
DX: N18.32 Chronic kidney disease, stage 3b (principal); D63.1 Anemia in chronic kidney disease; M19.079 Primary osteoarthritis, unspecified ankle and foot; Z52.4 Kidney donor
CPT/HCPCS: 80069; 82043; 82306; 82570; 82728; 83540; 83550

== ENCOUNTER 2023-06-26 08:58 | Outpatient (CLI) | payer OTHER, SELFPAY ==
--- OUTSIDE RECORDS SUMMARY | 2023-06-27 12:30 | XMS_ITS | Encounter Summary ---
Author Name Unknown Organization [facility] Address [address] [place] [address] Care Team Providers Care Starbucks Clerk Name Role Phone Elsewhere, Pcp Primary Care Provider Unavailabl e Reason for Referral * Outpatient (Routine) - Closed Specialty Diagnoses / Procedures Referred By Contac t Referred To Contact Diagnoses Replacement Ankle Status Post Right Procedures DX Ankle Right 3+ Views Mary Partida P.A.-C. [address] [place] [phone] [facility] Referral ID Status Reason Start Date Expiration Date Visits Re quested Visits Authorized [id number] Closed 03/25/2023 03/24/2024 1 1 CH BUSINESS ADMINISTRATOR Reason for Visit * Outpatient (Routine) - Closed Specialty Diagnoses / Procedures Referred By Marko mares Referred To Contact Diagnoses Replacement Ankle Status Post Right Procedures DX Ankle Right 3+ Views Mary Partida P.A.-C. [address] [place] [phone] [facility] Referral ID Status Reason Start Date Expiration Date Visits Re quested Visits Authorized [id number] Closed 03/25/2023 03/24/2024 1 1 Encounter Details Date Type Department Care Team (Latest Contact Info) Description 04/15/2023 2:35 PM CHURCH BUSINESS ADMINISTRATOR - 04/15/2023 11:59 PM CHURCH BUSINESS ADMINISTRATOR Hospital Encounter Department of Radiology, [facility], in [place], [place] [address] [place] [phone] Mary Partida P.A.-C. [address] [place] [address] Replacement Ankle Status Post Right Discharge Disposition: Home or Self Care Social History Tobacco Use Types Packs/Day Years Used Date Smoking Tobacco: Former Cigarettes Smokeless Tobacco: Never Alcohol Use Standard Drinks/Week Comments Yes 0 (1 standard drink = 0.6 oz pur e alcohol) rare glass on wine [facility] Utilities Answer Date Recorded In the past 12 months has e electric, gas, oil, or water [employer] threatened to shut off services in your [...] your living situation today? I have a [facility] place to live 03/31/2023 Sex and [...] inpatients and all outpatients) 04/15/2023 3:33 PM CHURCH BUSINESS ADMINISTRATOR Replacement Ankle Status Post Right documented in this encounter Results * DX Ankle Right 3+ Views (04/15/2023 3:33 PM CHURCH BUSINESS ADMINISTRATOR) Anatomical Region Laterality Modality Lower Extremity, Ankle, Musc uloskeletal RST LOS, Musculoskeletal ARZ LOS, Muskuloskeletal FLA LOS Right Compu corinne Radiography Impressions 04/15/2023 3:35 PM CHURCH BUSINESS ADMINISTRATOR Right ankle arthroplasty is well seated. Plantar calcaneal spur. Soft tissue swelling about the right ankle. Narrative 04/15/2023 3:35 PM CHURCH BUSINESS ADMINISTRATOR EXAM: ??DX ANKLE RIGHT 3+ VIEWS Procedure Note Joshua Long M.D. - 04/15/2023 EXAM: DX ANKLE RIGHT 3+ VIEWS IMPRESSION: Right ankle arthroplasty is well seated. Plantar calcaneal spur. Softtissue swelling about the right ankle. Mary Partida P.A.-C. IMG DIAGNOSTIC IM AGING PROCEDURES documented in this encounter Visit Diagnoses Diagnosis Replacement Ankle Status Post Right documented in this encounter Care Teams Starbucks Clerk Relationship Specialty Start Date End Date Elsewhere, Pcp PCP - General Family Medicine 01/16/18 documented as of this encounter
--- OUTSIDE RECORDS SUMMARY | 2023-06-27 12:30 | XMS_ITS | Encounter Summary ---
Author Name Unknown Organization [facility] Address [address] [place] [address] Care Team Providers Care Weigher Production Name Role Phone Elsewhere, Pcp Primary Care Provider Unavailabl e Reason for Visit * Reason Onset Date Comments Pre-visit Intake 06/16/2023 Encounter Details Date Type Department Care Team (Latest Contact Info) Description 06/16/2023 10:15 AM CDT Clinical Communication Virtual Review in [place], [place] [address] [place] [address] Pre-visit Intake Social History Tobacco Use Types Packs/Day Years Used Date Smoking Tobacco: Former Cigarettes Smokeless Tobacco: Never Alcohol Use Standard Drinks/Week Comments Yes 0 (1 standard drink = 0.6 oz pur e alcohol) rare glass on wine [facility] Utilities Answer Date Recorded In the past 12 months has [employer], gas, oil, or water [employer] threatened to shut off services in your [...] your living situation today? I have a [facility] place to live 03/31/2023 Sex [...] on filedocumented in this encounter Care Teams Weigher Production Relationship Specialty Start Date End Date Elsewhere, Pcp PCP - General Family Medicine 01/16/18 documented as of this encounter
--- OUTSIDE RECORDS SUMMARY | 2023-06-27 12:30 | XMS_ITS | Encounter Summary ---
Author Name Unknown Organization [facility] Address [address] [place] [address] Care Team Providers Care Color Blender Name Role Phone Elsewhere, Pcp Primary Care Provider Unavailabl e Reason for Visit * Reason Onset Date Comments outside labs 06/26/2023 Encounter Details Date Type Department Care Team (Latest Contact Info) Description 06/26/2023 Clinical Communication Division of Nephrology and Hypertension in [place], [place] [address] [place] [address] Lashon Quinn R.N. [address] [place] [address] outside labs Social History Tobacco Use Types Packs/Day Years Used Date Smoking Tobacco: Former Cigarettes Smokeless Tobacco: Never Alcohol Use Standard Drinks/Week Comments Yes 0 (1 standard drink = 0.6 oz pur e alcohol) rare glass on wine [facility] Utilities Answer Date Recorded In the [...] your living situation today? I have a [facility] place to live 03/31/2023 Sex and Gender Information Value Date Recorded Sex Assigned at Female 07/31/2017 10:09 AM CDT Gender Identity Female 07/31/2017 10:09 AM CDT Sexual Orientation Straight 07/31/2017 10 :09 AM CDT documented as of this encounter Miscellaneous Notes * Telephone Encounter - Lashon Quinn R.N. - 06/26/2023 3:26 PM CDT Images from the original note were not included. documented in this encounter Plan of Treatment Scheduled Procedures Name Priority Associated Diagnoses Date/Ti nc OPERATIVE LAPAROSCOPY Mass Ovary SALPINGO - OOPHORECTOMY Mass Ovary documented as of this encounter Visit Diagnoses Not on filedocumented in this encounter Care Teams Color Blender Relationship Specialty Start Date End Date Elsewhere, Pcp PCP - General Family Medicine 01/16/18 documented as of this encounter
--- OUTSIDE RECORDS SUMMARY | 2023-06-27 12:30 | XMS_ITS | Clinical Summary ---
Author Name Unknown Organization [facility] Address [address] [place] [address] Care Team Providers Care Semiconductor Packages Leak Tester Name Role Phone Elsewhere, Pcp Primary Care Provider Unavailabl e Source Comments Patient records contain information from all sites at [facility]. For routine questions regarding patient records, call [phone] during business hours, M-F 8:00 AM - 5:00 PM Central Time. Record requests for emergency care only can be directed to [phone] at any time.[facility] Allergies Active Allergy Reactions Criticality Noted [...] Overview: Added automatically from request for surgery [id number] Proteinuria 03/13/2020 Hyperparathyroidism Secondary 07/24/2016 Incontinence Urinary Stress Female 10/09/2015 Abnormal Pap Smear Cervix 05/30/2011 Overview: reactive reparative 12/2006; ASCUS 07/2007(negative HPV) ASCUS positve HPV 10/16/2009 LEEP on 05/17/2010 Pap 05/30/2011 is Negative for intraepithelial lesion or malignancy. 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 outside labs 06/18/2023 11:15 AM CDT Office Visit Department of Orthopedic Surgery in [place], [place] [address] [place] [phone] Blanco Burt M.D. Replacement Ankle Status Post Right (Primary Dx) 06/18/2023 9:41 AM CDT - 06/18/2023 11:59 PM CDT Hospital Encounter Department of Radiology, [facility], in [address] [phone] Mary Partida P.A.-CStephen Replacement Ankle Status Post Right Discharge Disposition: Home or Self Care 06/16/2023 10:15 AM CDT Clinical Communication Virtual Review in [address] [phone] Pre-visit Intake 05/09/2023 2:13 PM CDT - 05/09/2023 11:59 PM CDT Hospital Encounter Department of Radiology, [facility], in [address] [phone] Mary Partida P.A.-CStephen Replacement Ankle Status Post Right Discharge Disposition: Home or Self Care 05/09/2023 2:13 PM CDT - 05/09/2023 3:58 PM CDT Hospital Encounter Department of Orthopedic Surgery in [address] [phone] Mary Partida P.A.-CStephen Replacement Ankle Status Post Right Discharge Disposition: Home or Self Care 04/15/2023 2:35 PM LIQUID WASTE TREATMENT PLANT OPERATOR - 04/15/2023 11:59 PM LIQUID WASTE TREATMENT PLANT OPERATOR Hospital Encounter Department of Radiology, [facility], in [address] [phone] Mary Partida P.A.-C. Replacement Ankle Status Post Right Discharge Disposition: Home or Self Care 04/15/2023 2:35 PM LIQUID WASTE TREATMENT PLANT OPERATOR - 04/15/2023 3:49 PM LIQUID WASTE TREATMENT PLANT OPERATOR Hospital Encounter Department of Orthopedic Surgery in [place], [place] [address] [place] [address] Mary Partida P.A.-C. Replacement Ankle Status Post Right 04/01/2023 Orders Only Department of Orthopedic Surgery in [place], [place] [address] [place] [address] Mary Partida P.A.-C. 03/31/2023 8:22 AM LIQUID WASTE TREATMENT PLANT OPERATOR - 03/31/2023 11:59 PM LIQUID WASTE TREATMENT PLANT OPERATOR Hospital Encounter Department of Radiology, [facility], in [place], [place] [address] [place] [address] Blanco Burt M.D. Replacement Ankle Status Post Right Discharge Disposition: Home or Self Care 03/31/2023 7:55 AM LIQUID WASTE TREATMENT PLANT OPERATOR - 03/31/2023 8:21 AM LIQUID WASTE TREATMENT PLANT OPERATOR Hospital Encounter Department of Orthopedic Surgery in [place], [place] [address] [place] [address] Sam Graham M.D. Ryssman, Daniel B, M.D. Arthritis Ankle (Primary Dx); Replacement Ankle Status Post Right Discharge Disposition: Home or Self Care 03/29/2023 Orders Only Department of Orthopedic Surgery in [place], [place] [address] [place] [address] Porfirio Luna M.D. 03/27/2023 6:17 AM LIQUID WASTE TREATMENT PLANT OPERATOR - 04/01/2023 11:18 AM LIQUID WASTE TREATMENT PLANT OPERATOR Hospital Encounter [facility], Ninth Floor [address] [place] [address] Blanco Burt M.D. Other Abnormalities Of Gait [...] pur e alcohol) rare glass on wine [employer] Utilities Answer Date Recorded In the past 12 months has [employer], gas, oil, or water [employer] threatened to shut off services in your [...] your living situation today? I have a [facility] place to live 03/31/2023 Sex and Gender Information Value Date Recorded Sex Assigned at Female 07/31/2017 10:09 AM CDT Gender Identity Female 07/31/2017 10:09 AM CDT Sexual Orientation Straight 07/31/2017 10 :09 AM CDT Last Filed Vital Signs Vital Sign Reading Time Taken Comments Blood Pressure 135/94 04/01/2023 11:04 AM LIQUID WASTE TREATMENT PLANT OPERATOR Pulse 81 04/01/2023 11:04 AM LIQUID WASTE TREATMENT PLANT OPERATOR Temperature 36.4 ??C (97.5 ??F) 04/01/2023 11:[address] Respiratory Rate 18 04/01/2023 11:04 AM LIQUID WASTE TREATMENT PLANT OPERATOR Oxygen Saturation 98% 04/01/2023 11:04 AM LIQUID WASTE TREATMENT PLANT OPERATOR Inhaled Oxygen Concentration - - Weight 73.7 kg (162 lb 7.7 oz) 03/27/2023 3:00 P M LIQUID WASTE TREATMENT PLANT OPERATOR Height 162 cm (5' 3.78) 03/27/2023 3:00 PM LIQUID WASTE TREATMENT PLANT OPERATOR Body Mass Index 28.08 03/27/2023 3:00 PM LIQUID WASTE TREATMENT PLANT OPERATOR Plan of Treatment Scheduled Procedures Name Priority [...] Completed 03/27/2023 Medical Devices Implanted Type Area Engine Room Helper Device Identifier Shelf Expiration Date Model / Serial / Lot Ankl Tlr Dom Inf 3d Sz2 Implanted:Qt y: 1 on 03/27/2023 by Blanco Burt M.D. at [facility] Ankle Implant Right: Ankle [facility] [id number] 11/11/2030 [id number] / / [id number] Ankl Tib Comp 3d Inf Sz2 Implanted:Qt y: 1 on 03/27/2023 by [facility] M[facility] at [facility] Ank[facility] Implant Right: Ankle [facility] [id number] 06/17/2030 [id number] / / [id number] Ankl Tl Inf Sz2.8 Implanted:Qt y: 1 on 03/27/2023 by Blanco [facility]urt M.D. at [facility] Ankle Implant Right: Ankle [facility] [id number] 10/21/2030 [id number] / / [id number] Procedures Procedure Name Priority Date/Time Associated Diagnosis [...] inpatients and all outpatients) 04/15/2023 3:33 PM LIQUID WASTE TREATMENT PLANT OPERATOR Replacement Ankle Status Post Right ORS CAST ROOM VISIT Routine 04/15/2023 3:00 PM LIQU[employer] WASTE TREATMENT PLANT OPERATOR Replacement Ankle Status Post Right EXTI BASIC METABOLIC PANEL, S/P Routine 04/09/2023 8:09 AM LIQUID WASTE TREATMENT PLANT OPERATOR DX ANKLE RIGHT 3+ VIEWS RAD - Routine (most inpatients and all outpatients) 03/31/2023 9:11 AM LIQUID WASTE TREATMENT PLANT OPERATOR Replacement Ankle Status Post Right DIPSTICK, U Routine 03/29/2023 2:17 PM LIQU[employer] WASTE TREATMENT PLANT OPERATOR PH, U Routine 03/29/2023 2:17 PM LIQU[employer] WASTE TREATMENT PLANT OPERATOR OSMOLALITY, U Routine 03/29/2023 2:17 PM LIQU[employer] WASTE TREATMENT PLANT OPERATOR MICROSCOPIC AUTOMATED Routine 03/29/2023 2:17 PM LIQUID WASTE TREATMENT PLANT OPERATOR URINALYSIS WITH MICROSCOPIC Routine 03/29/2023 2:17 PM LIQUID WASTE TREATMENT PLANT OPERATOR ECG Routine 03/29/2023 8:58 AM LIQUID WASTE TREATMENT PLANT OPERATOR OUTSIDE MG MAMMOGRAM Routine 09/27/2019 1:45 PM [...] by: Mary Partida P.A.-C. Authorized by: Mary Partdia P.A.-C. ?? Cast Room Note GONDA CASTROOM [...] patient was seen in conjunction with Dr. Brut and is doing well. ?? Unfortunately, she [...] PROCEDURE/MINOR S URGICAL ORDERABLES MMODAL NA * PROCEDURE PLACEHOLDER (04/15/2023 3:00 PM LIQUID WASTE TREATMENT PLANT OPERATOR) Narrative MMODAL - 04/15/2023 3:00 PM LIQUID WASTE TREATMENT PLANT OPERATOR Mary Partida P.A.-C. ? 04/15/2023 ??3:47 PM [...] Pain is well-controlled. ??She has at a snf facility. PHYSICAL EXAM: On exam the incision [...] PROCEDURE/MINOR S URGICAL ORDERABLES MMODAL NA * Dipstick, Urine (03/29/2023 2:17 PM LIQUID WASTE TREATMENT PLANT OPERATOR) Hemoglobin, QL, U Negative Negative 03/29/2023 2:50 PM LIQUID WASTE TREATMENT PLANT OPERATOR DTL Leukocyte Esterase, U Negative Negative 03/29/2023 2:50 PM LIQUID WASTE TREATMENT PLANT OPERATOR DTL Nitrite, U Negative Negative 03/29/2023 2:50 PM LIQUID WASTE TREATMENT PLANT OPERATOR DTL Ketone, U Negative Negative mg/dL 03/29/2023 2:50 PM LIQUID WASTE TREATMENT PLANT OPERATOR DTL Glucose, U Negative Negative mg/dL 03/29/2023 2:50 PM LIQUID WASTE TREATMENT PLANT OPERATOR DTL Urine 03/29/2023 2:17 PM LIQUID WASTE TREATMENT PLANT OPERATOR 03/29/2023 2:28 PM LIQUID WASTE TREATMENT PLANT OPERATOR David Fuller M.D. LAB URINE ORDERA BLES Performing Organization Address City/[facility]/ZIP Co de Phone Number [facility] [address] [place] [address], [facility] DTL [facility] [address] [place] [address] * Microscopic Automated (03/29/2023 2:17 PM LIQUID WASTE TREATMENT PLANT OPERATOR) Pathologist [facility] Microscopy Normal 03/29/2023 2:50 PM LIQUID WASTE TREATMENT PLANT OPERATOR DTL RBC None Seen <3 /hpf 03/29/2023 2:50 PM LIQUID WASTE TREATMENT PLANT OPERATOR DTL WBC 1-3 /hpf 03/29/2023 2:50 PM LIQUID WASTE TREATMENT PLANT OPERATOR DTL Comment: ----REFERENCE VALUE---- <4 ??(Males) <11 (Females) Casts, Hyaline 1-3 /lpf 03/29/2023 2:50 PM LIQUID WASTE TREATMENT PLANT OPERATOR DTL Squamous Epithelial Cells, U 1-3 /hpf 03/29/2023 2:50 PM LIQUID WASTE TREATMENT PLANT OPERATOR DTL Urine 03/29/2023 2:17 PM LIQUID WASTE TREATMENT PLANT OPERATOR 03/29/2023 2:28 PM LIQUID WASTE TREATMENT PLANT OPERATOR David Fuller M.D. LAB URINE ORDERA BLES Performing Organization Address City/[facility]/ZIP Co de Phone Number [facility] [address] [place] [address], [place] DTL [facility] [address] [place] [address] * pH, Urine (03/29/2023 2:17 PM LIQUID WASTE TREATMENT PLANT OPERATOR) Pathologist [facility] pH, U 5.6 4.5 - 8.0 03/29/2023 3:2 1 PM LIQUID WASTE TREATMENT PLANT OPERATOR DTL Urine 03/29/2023 2:17 PM LIQUID WASTE TREATMENT PLANT OPERATOR 03/29/2023 2:28 PM LIQUID WASTE TREATMENT PLANT OPERATOR David Fuller M.D. LAB URINE ORDERA BLES Performing Organization Address City/[facility]/ZIP Co de Phone Number [facility] [address] [place] [address], [facility] [address] [place] [address] * Osmolality, Urine (03/29/2023 2:17 PM LIQUID WASTE TREATMENT PLANT OPERATOR) [facility] Osmolality, U 366 150 - 1150 mOsm/kg 03/29/2023 3:21 PM LIQUID WASTE TREATMENT PLANT OPERATOR DTL Urine 03/29/2023 2:17 PM LIQUID WASTE TREATMENT PLANT OPERATOR 03/29/2023 2:28 PM LIQUID WASTE TREATMENT PLANT OPERATOR David Fuller M.D. LAB URINE ORDERA BLES Performing Organization Address [facility] Co de Phone Number [facility] [address] [place] [address], [facility] [address] [place] [address] * Urinalysis, with Microscopic: Urine, Midstream (03/29/2023 2:17 PM LIQUID WASTE TREATMENT PLANT OPERATOR) Pathologist [facility] Source Urine, Urine, Midstream 03/29/2023 2:28 PM LIQUID WASTE TREATMENT PLANT OPERATOR DTL Color, U Yellow 03/29/2023 2:28 PM LIQUID WASTE TREATMENT PLANT OPERATOR DTL Clarity, U Clear 03/29/2023 2:28 PM LIQUID WASTE TREATMENT PLANT OPERATOR DTL Protein, U 10 <26 mg/dL 03/29/2023 3:14 PM LIQUID WASTE TREATMENT PLANT OPERATOR DTL Protein/Osmol ality 0.27 <0.42 ratio 03/29/2023 3:21 PM LIQUID WASTE TREATMENT PLANT OPERATOR DTL Predicted 24 HR Protein, U 206 <229 mg/24 h 03/29/2023 3:21 PM LIQUID WASTE TREATMENT PLANT OPERATOR DTL Predicted Range 51-834 mg/24 h 03/29/2023 3:21 PM LIQUID WASTE TREATMENT PLANT OPERATOR DTL Urine (Urine, Midstream) 03/29/2023 2:17 PM LIQUID WASTE TREATMENT PLANT OPERATOR 03/29/2023 2:28 PM LIQUID WASTE TREATMENT PLANT OPERATOR David Fuller M.D. LAB URINE ORDERA BLES Performing Organization Address [facility]/ZIP Co de Phone Number [facility] [address] [place] [address], [facility] DTL [facility] [address] [place] [address] * ECG 12 Lead (03/29/2023 8:58 AM LIQUID WASTE TREATMENT PLANT OPERATOR) Ventricular Rate ECG/Min 68 BPM MUSE ND Interval 164 ms MUSE QRSD Interval 72 ms MUSE QT Interval 366 ms MUSE QTC Interval 389 ms MUSE P Duke 51 degrees MUSE R Duke -21 degrees MUSE T Wave Duke 50 degrees MUSE 03/29/2023 8:58 AM LIQUID WASTE TREATMENT PLANT OPERATOR 03/29/2023 9:13 AM LIQUID WASTE TREATMENT PLANT OPERATOR Impressions MUSE - 03/29/2023 9:13 AM LIQUID WASTE TREATMENT PLANT OPERATOR Normal sinus rhythm Normal ECG When compared with ECG of 20-DEC-2021 12:54, Premature ventricular complexes are no longer present Reviewed by EMILY Castrejon Narrative Procedure Note Nando Valdes M.D. - 03/29/2023 IMPRESSION: Normal sinus rhythm Normal ECG When compared with ECG of 20-DEC-2021 12:54, Premature ventricular complexes are no longer present Reviewed by EMILY Castrejon David Fuller M.D. ECG ORDERABLES MUSE NA * MAMMO SCREEN, BILAT, W/CAD-Outside Mammogram (09/27/2019 1:45 PM CDT) Narrative [facility] - 01/02/2021 3:36 PM LIQUID WASTE TREATMENT PLANT OPERATOR This order has been created and auto-finalized [...] Advance Directives For more information, please contact: [phone] * Full Code (Latest Code Status on File) Date Activated Date Inactivated Comments 03/27/2023 12:11 PM 04/01/2023 1:23 PM Question Answer Comments Full Code: Not Discussed Due to: Patient not available Care Teams Semiconductor Packages Leak Tester Relationship Specialty Start Date End Date Elsewhere, Pcp PCP - General Family Medicine 01/16/18
--- OUTSIDE RECORDS SUMMARY | 2023-06-27 12:30 | XMS_ITS | Encounter Summary ---
Author Name Unknown Organization [facility] Address [address] [place] [address] Care Team Providers Care Electronic Prepress Technician Name Role Phone Elsewhere, Pcp Primary Care Provider Unavailabl e Encounter Details Date Type Department Care Team (Late st Contact Info) Description 04/01/2023 Orders Only Department of Orthopedic Surgery in [place], [place] [address] [place] [phone] Mary Partida P.A.-Juana. [address] [place] [phone] Social History Tobacco Use Types Packs/Day Years Used Date Smoking Tobacco: Former Cigarettes Smokeless Tobacco: Never Alcohol Use Standard Drinks/Week Comments Yes 0 (1 standard drink = 0.6 oz pur e alcohol) rare glass on wine [facility] Utilities Answer Date Recorded In the past 12 months has th e electric, gas, oil, or water [employer] threatened to shut off services in your [...] your living situation today? I have a [facility] place to live 03/31/2023 Sex and Gender [...] on filedocumented in this encounter Care Teams Electronic Prepress Technician Relationship Specialty Start Date End Date Elsewhere, Pcp PCP - General Family Medicine 01/16/18 documented as of this encounter
--- OUTSIDE RECORDS SUMMARY | 2023-06-27 12:30 | XMS_ITS ---
Author Name Unknown Organization [facility] Address [address] [place] [address] Care Team Providers Care Doctor Of Naprapathy Name Role Phone Unavailable Unavailable Unavailable Surgery Details Not on file Complications Check Surgery Details section. Procedure Estimated Blood Loss Check Surgery Details section. Procedure Findings Check Surgery Details section. Procedure Specimens Taken Check Surgery Details section.
--- OUTSIDE RECORDS SUMMARY | 2023-06-27 12:30 | XMS_ITS | Clinical Summary ---
Author Name Unknown Organization [facility] Address [place], [place] [address] Care Team Providers Care Costume Rental Clerk Name Role Phone None Primary Care Provider [...] Type Department Care Team Description 06/18/2023 Telephone [facility] [address] [place] [address] Marina Sharp PA Form 05/01/2023 12:45 PM CDT Office Visit [facility] [address] [place] [address] Marina Sharp PA Hospital F/U (Right ankle replacement//Parking permit ) 05/01/2023 Travel 04/08/2023 Lab Requisition [facility] [phone] Ladan Caputo DIRECTOR TECHNICAL from Last 3 Months Immunizations Name Administration Dates Next Due COVID-19 vaccine ([employer] 30mcg/0.3mL) LEEANN FRANKEL 06/22/2021 Influenza Virus, [...] BASIC METABOLIC PANEL Routine 04/09/2023 8:09 AM CHAIRMAN OF THE BOARD Encounter for other orthopedic aftercare Hyperlipidemia, unspecified Chronic kidney disease, stage 3 unspecified (HC) Essential (primary) hypertension CBC W PLT NO DIFF Routine 04/09/2023 8:0 9 AM CHAIRMAN OF THE BOARD Encounter for other orthopedic aftercare Hyperlipidemia, unspecified Chronic kidney disease, stage 3 unspecified (HC) Essential (primary) hypertension from Last 3 Months Results * CBC W PLT NO DIFF (04/09/2023 8:09 AM CHAIRMAN OF THE BOARD) WHITE BLOOD COUNT 10.8 4.5 - 11.0 thou/cu mm 04/09/2023 8:59 AM CHAIRMAN OF THE BOARD [facility] RED BLOOD COUNT 4.41 4.00 - 5.20 mil/cu mm 04/09/2023 8:59 AM [facility] HEMOGLOBIN 13.4 12.0 - 16.0 g/dL 04/09/2023 8:59 AM [facility] HEMATOCRIT 40.6 33.0 - 51.0 % 04/09/2023 8:59 AM [facility] MCV 92 80 - 100 fL 04/09/2023 8:59 AM [facility] MCH 30.4 26.0 - 34.0 pg 04/09/2023 8:59 AM [facility] MCHC 33.0 32.0 - 36.0 g/dL 04/09/2023 8:59 AM [facility] RDW 14.5 11.5 - 15.5 % 04/09/2023 8:59 AM [facility] PLATELET COUNT 373 140 - 440 thou/cu mm 04/09/2023 8:59 AM [facility] MPV 9.9 6.5 - 11.0 fL 04/09/2023 8:59 AM [facility] Blood BLOOD SPECIMEN / Unknown Venipuncture / Unknown 04/09/2023 8:09 AM [facility] 04/09/2023 8:49 AM [facility] Ladan Caputo NP HEMATOLOGY [facility] [address] [place] [phone] * (ABNORMAL) BASIC METABOLIC PANEL (04/09/2023 8:09 AM [facility] SODIUM 139 136 - 145 mmol/L 04/09/2023 9:14 AM [facility] POTASSIUM 4.3 3.5 - 5.1 mmol/L 04/09/2023 9:14 AM [facility] CHLORIDE 107 98 - 107 mmol/L 04/09/2023 9:14 AM [facility] CO2,TOTAL 23 22 - 29 mmol/L 04/09/2023 9:14 AM [facility] ANION GAP 9 5 - 18 04/09/2023 9:14 AM [facility] GLUCOSE 94 70 - 99 mg/dL 04/09/2023 9:14 AM [facility] CALCIUM 8.7(L) 8.8 - 10.2 mg/dL 04/09/2023 9:14 AM [facility] BUN 22 8 - 23 mg/dL 04/09/2023 9:14 AM [facility] CREATININE 1.09(H) 0.50 - 0.90 mg/dL 04/09/2023 9:14 AM [facility] BUN/CREAT RATIO 20 10 - 20 9:14 AM [facility] eGFR 52(L) >90 mL/min/1.7 3m2 04/09/2023 9:14 AM [facility] Comment:As of 2021, eG FR is calculated by the CKD-EPI creatinine equation without race adjustment. ??eGFR can be influenced by muscle mass, exercise, and diet. ??The reported eGFR is an estimation only and is only applicable if the renal function is stable. Blood BLOOD SPECIMEN / Unknown Venipuncture / Unknown 04/09/2023 8:09 AM CHA[employer]MAN OF [employer] BOARD 04/09/2023 8:49 AM CHAIRMAN OF THE BOARD Ladan Caputo NP CHEMISTRY Performing Organization Address City/State/[facility] Co de Phone Number [facility] [address] [place] [address] from Last 3 Months Advance Directives * Full Code (Latest Code Status on File) Date Activated Date Inactivated Comments 11/16/2015 9:37 AM 11/16/2015 2:27 PM Care Teams Costume Rental Clerk Relationship Specialty Start Date End Date None . PCP - General 07/31/22
--- OUTSIDE RECORDS SUMMARY | 2023-06-27 12:30 | XMS_ITS | Encounter Summary ---
Author Name Unknown Organization [facility] Address [address] [place] [address] Care Team Providers Care Drill Sharpener Name Role Phone Elsewhere, Pcp Primary Care Provider Unavailabl e Reason for Referral * Outpatient (Routine) - Closed Specialty Diagnoses / Procedures Referred By Marko mares Referred To Contact Diagnoses Replacement Ankle Status Post Right Procedures ORS Cast Room Visit Mary Partida P.A.-C. [address] [place] [phone] [facility] Referral ID Status Reason Start Date Expiration Date Visits Re quested Visits Authorized [id number] Closed 03/25/2023 03/24/2024 1 1 Reason for Visit * Reason Comments Follow-up Cast Check * Outpatient (Routine) - Closed Specialty Diagnoses / Procedures Referred By Marko mares Referred To Contact Diagnoses Replacement Ankle Status Post Right Procedures ORS Cast Room Visit Mary Partida P.A.-C. [address] [place] [phone] [facility] Referral ID Status Reason Start Date Expiration Date Visits Re quested Visits Authorized [id number] Closed 03/25/2023 03/24/2024 1 1 Encounter Details Date Type Department Care Team (Latest Contact Info) Description 05/09/2023 2:13 PM CDT - 05/09/2023 3:58 PM CDT Hospital Encounter Department of Orthopedic Surgery in [place], [place] [address] [place] [address] Mary Partida P.A.-C. [address] [place] [address] Replacement Ankle Status Post Right Discharge Disposition: Home or Self Care Social History Tobacco Use Types Packs/Day Years Used Date Smoking Tobacco: Former Cigarettes Smokeless Tobacco: Never Alcohol Use Standard Drinks/Week Comments Yes 0 (1 standard drink = 0.6 oz pur e alcohol) rare glass on wine [facility] Patient Home Monitoringities Answer Date Recorded In the past 12 months has th e electric, gas, oil, or water [employer] threatened to shut off services in your [...] your living situation today? I have a [facility] place to live 03/31/2023 Sex [...] Right documented in this encounter Care Teams Drill Sharpener Relationship Specialty Start Date End Date Elsewhere, Pcp PCP - General Family Medicine 01/16/18 documented as of this encounter
--- OUTSIDE RECORDS SUMMARY | 2023-06-27 12:30 | XMS_ITS | Encounter Summary ---
Author Name Unknown Organization [facility] Address [address] [place] [address] Care Team Providers Care Senior Principal Architect Name Role Phone Elsewhere, Pcp Primary Care Provider Unavailabl e Reason for Referral * Outpatient (Routine) - Closed Specialty Diagnoses / Procedures Referred By Contac t Referred To Contact Diagnoses Replacement Ankle Status Post Right Procedures DX Ankle Right 3+ Views Mary Partida P.A.-C. [address] [place] [phone] [facility] Referral ID Status Reason Start Date Expiration Date Visits Re quested Visits Authorized [id number] Closed 03/25/2023 03/24/2024 1 1 Reason for Visit * Outpatient (Routine) - Closed Specialty Diagnoses / Procedures Referred By Marko mares Referred To Contact Diagnoses Replacement Ankle Status Post Right Procedures DX Ankle Right 3+ Views Mary Partida P.A.-C. [address] [place] [phone] [facility] Referral ID Status Reason Start Date Expiration Date Visits Re quested Visits Authorized [id number] Closed 03/25/2023 03/24/2024 1 1 Encounter Details Date Type Department Care Team (Latest Contact Info) Description 05/09/2023 2:13 PM CDT - 05/09/2023 11:59 PM CDT Hospital Encounter Department of Radiology, [facility], in [place], [place] [address] [place] [address] Mary Partida P.A.-C. [address] [place] [address] Replacement Ankle Status Post Right Discharge Disposition: Home or Self Care Social History Tobacco Use Types Packs/Day Years Used Date Smoking Tobacco: Former Cigarettes Smokeless Tobacco: Never Alcohol Use Standard Drinks/Week Comments Yes 0 (1 standard drink = 0.6 oz pur e alcohol) rare glass on wine [facility] [employer] Answer Date Recorded In the past 12 months has th e electric, gas, oil, or water [employer] threatened to shut off services in your [...] your living situation today? I have a [facility] place to live 03/31/2023 Sex [...] documented in this encounter Care Teams Senior Principal Architect Relationship Specialty Start Date End Date Elsewhere, Pcp PCP - General Family Medicine 01/16/18 documented as of this encounter
--- OUTSIDE RECORDS SUMMARY | 2023-06-27 12:30 | XMS_ITS | Encounter Summary ---
Author Name Unknown Organization [facility] Address [address] [place] [address] Care Team Providers Care Laminating Machine Operator Name Role Phone Elsewhere, Pcp Primary Care Provider Unavailabl e Reason for Referral * Outpatient (Routine) - Closed Specialty Diagnoses / Procedures Referred By Contac t Referred To Contact Diagnoses Replacement Ankle Status Post Right Procedures ORS Cast Room Visit Mary Partida P.A.-C. [address] [place] [phone] [facility] Referral ID Status Reason Start Date Expiration Date Visits Re quested Visits Authorized [id number] Closed 03/25/2023 03/24/2024 1 1 MBLER KNIFE Reason for Visit * Reason Comments Follow-up * Outpatient (Routine) - Closed Specialty Diagnoses / Procedures Referred By Marko mares Referred To Contact Diagnoses Replacement Ankle Status Post Right Procedures ORS Cast Room Visit Mary Partida P.A.-C. [address] [place] [phone] [facility] Referral ID Status Reason Start Date Expiration Date Visits Re quested Visits Authorized [id number] Closed 03/25/2023 03/24/2024 1 1 Encounter Details Date Type Department Care Team (Latest Contact Info) Description 04/15/2023 2:35 PM ASSEMBLER KNIFE - 04/15/2023 3:49 PM ASSEMBLER KNIFE Hospital Encounter Department of Orthopedic Surgery in [place], [place] [address] [place] [address] Mary Partida P.A.-C. [address] [place] [address] Replacement Ankle Status Post Right Social History Tobacco Use Types Packs/Day Years Used Date Smoking Tobacco: Former Cigarettes Smokeless Tobacco: Never Alcohol Use Standard Drinks/Week Comments Yes 0 (1 standard drink = 0.6 oz pur e alcohol) rare glass on wine [facility] Utilities Answer Date Recorded In the past 12 months has e [employer], gas, oil, or water [employer] threatened to shut off services in your [...] your living situation today? I have a [facility] place to live 03/31/2023 Sex and Gender [...] questions were answered. The patient expressed understanding. MBLER KNIFE documented in this encounter Miscellaneous Notes * Addendum Note - Jimmy Myers R.N. - 04/15/2023 3:00 PM CSTEncounter addended by: Jimmy Myers R.N. on: 04/15/2023 4:28 PM Actions taken: Flowsheet accepted MBLER KNIFE documented in this encounter Plan of Treatment Scheduled Procedures Name Priority Associated Diagnoses Date/Ti me OPERATIVE LAPAROSCOPY [place] SALPINGO - OOPHORECTOMY [place] documented as of this encounter Procedures Procedure Name Priority Date/Time Associated Diagnosis Comments ORS CAST ROOM VISIT Routine 04/15/2023 3 :00 PM ASSEMBLER KNIFE Replacement Ankle Status Post Right documented in this encounter Results * PROCEDURE PLACEHOLDER (04/15/2023 3:00 PM ASSEMBLER KNIFE) Narrative MMODAL - 04/15/2023 3:00 PM ASSEMBLER KNIFE Mary Partida P.A.-C. ? 04/15/2023 ??3:47 PM [...] Right documented in this encounter Care Teams Laminating Machine Operator Relationship Specialty Start Date End Date Elsewhere, Pcp PCP - General Family Medicine 01/16/18 documented as of this encounter
--- OUTSIDE RECORDS SUMMARY | 2023-06-27 12:30 | XMS_ITS | Encounter Summary ---
Author Name Unknown Organization [facility] Address [address] [place] [address] Care Team Providers Care High Rigger Name Role Phone Elsewhere, Pcp Primary Care Provider Unavailabl e Reason for Referral * Outpatient (Routine) - Authorized Specialty Diagnoses / Procedures Referred By Contac t Referred To Contact Diagnoses Replacement Ankle Status Post Right Procedures DX Ankle Right 3+ Views Jin Purvis M.D. [address] [place] [phone] [facility] Referral ID Status Reason Start Date Expiration Date V isits Requested Visits Authorized [id number] Authorized 06/18/2023 06/17/2024 1 1 * Outpatient (Routine) - Authorized Specialty Diagnoses / Procedures Referred By Contac t Referred To Contact Orthopedic Surgery Jin Purvis M.D. [address] [place] [phone] [facility] Referral ID Status Reason Start Date Expiration Date V isits Requested Visits Authorized [id number] Authorized 06/18/2023 12/17/2024 1 1 * Physical Therapy (Routine) - Authorized Specialty Diagnoses / Procedures Referred By Contac t Referred To Contact Diagnoses Replacement Ankle Status Post Right Jin Purvis M.D. [address] [place] [phone] Referral ID Status Reason Start Date Expiration Date Visits Requested Visits Authorized [id number] Authorized Patient Preference 06/18/2023 12/17/2024 1 1 Reason for Visit * Outpatient (Routine) - Closed Specialty Diagnoses / Procedures Referred By Marko mares Referred To Contact Orthopedic Surgery Mary Partida P.A.-C. [address] [place] [phone] [facility] Referral ID Status Reason Start Date Expiration Date Visits Re quested Visits Authorized [id number] Closed 03/25/2023 09/23/2024 1 1 Encounter Details Date Type Department Care Team (Late st Contact Info) Description 06/18/2023 11:15 AM CDT Office Visit Department of Orthopedic Surgery in [place], [place] [address] [place] [phone] Blanco Burt M.D. [address] [place] [phone] Replacement Ankle Status Post Right (Primary Dx) Social History Tobacco Use Types Packs/Day Years Used Date Smoking Tobacco: Former Cigarettes Smokeless Tobacco: Never Alcohol Use Standard Drinks/Week Comments Yes 0 (1 standard drink = 0.6 oz pur e alcohol) rare glass on wine [facility] Utilities Answer Date Recorded In the past 12 months has [employer] electric, gas, oil, or water [employer] threatened to shut off services in your [...] living situation today? I have a [facility] place to live 03/31/2023 Sex and [...] Primary documented in this encounter Care Teams High Rigger Relationship Specialty Start Date End Date Elsewhere, Pcp PCP - General Family Medicine 01/16/18 documented as of this encounter
--- OUTSIDE RECORDS SUMMARY | 2023-06-27 12:30 | XMS_ITS | Referral Summary ---
Author Name Unknown Organization [facility] Address [address] [place] [address] Care Team Providers Care Esthetics Instructor Name Role Phone Elsewhere, Pcp Primary Care Provider Unavailabl e Source Comments Patient records contain information from all sites at [facility]. For routine questions regarding patient records, call [phone] during business hours, M-F 8:00 AM - 5:00 PM Central Time. Record requests for emergency care only can be directed to [phone] at any time.[facility] Encounters Date Type Department Care Team Description 06/26/2023 Clinical Communication Division of Nephrology and Hypertension in [place], [place] [address] [place] [address] Lashon Quinn R.N. outside labs 06/18/2023 11:15 AM CDT Office Visit Department of Orthopedic Surgery in [place], [place] [address] [place] [address] Blanco Burt M.D. Replacement Ankle Status Post Right (Primary Dx) 06/18/2023 9:41 AM CDT - 06/18/2023 11:59 PM CDT Hospital Encounter Department of Radiology, [facility], in [place], [place] [address] [place] [address] Mary Partida P.A.-C. Replacement Ankle Status Post Right Discharge Disposition: Home or Self Care 06/16/2023 10:15 AM CDT Clinical Communication Virtual Review in [place], [place] [address] [place] [address] Pre-visit Intake 05/09/2023 2:13 PM CDT - 05/09/2023 11:59 PM CDT Hospital Encounter Department of Radiology, [facility], in [place], [place] [address] [place] [phone] Mary Partida P.A.-Holly Replacement Ankle Status Post Right Discharge Disposition: Home or Self Care 05/09/2023 2:13 PM CDT - 05/09/2023 3:58 PM CDT Hospital Encounter Department of Orthopedic Surgery in [place], [place] [address] [place] [phone] Mary Partida P.A.-Holly Replacement Ankle Status Post Right Discharge Disposition: Home or Self Care 04/15/2023 2:35 PM STOCK UNLOADER - 04/15/2023 11:59 PM STOCK UNLOADER Hospital Encounter Department of Radiology, [facility], in [place], [place] [address] [place] [phone] Mary Partida P.A.-CStephen Replacement Ankle Status Post Right Discharge Disposition: Home or Self Care 04/15/2023 2:35 PM STOCK UNLOADER - 04/15/2023 3:49 PM STOCK UNLOADER Hospital Encounter Department of Orthopedic Surgery in [place], [place] [address] [place] [phone] Mary Partida P.A.-CStephen Replacement Ankle Status Post Right 04/01/2023 Orders Only Department of Orthopedic Surgery in [place], [place] [address] [place] [phone] Mary Partida P.AStephen-CStephen 03/27/2023 6:17 AM STOCK UNLOADER - 04/01/2023 11:18 AM STOCK UNLOADER Hospital Encounter [facility], [facility], Ninth Floor [address] [place] [address] Blanco Burt M.D. Other Abnormalities Of Gait And Mobility [R26.89] (Primary Dx); Difficulty Walking Orthopedic Ankle Cause [R26.2]; Decline Functional Status [R53.81] Discharge Disposition: Longterm Facility 03/31/2023 8:22 AM STOCK UNLOADER - 03/31/2023 11:59 PM STOCK UNLOADER Hospital Encounter Department of Radiology, [facility], in [place], [place] [address] [place] [address] Blanco Burt M.D. Replacement Ankle Status Post Right Discharge Disposition: Home or Self Care 03/31/2023 7:55 AM STOCK UNLOADER - 03/31/2023 8:21 AM STOCK UNLOADER Hospital Encounter Department of Orthopedic Surgery in [place], [place] [address] [place] [address] Sam Graham M.D. Ryssman, Daniel B, M.D. Arthritis Ankle (Primary Dx); Replacement Ankle Status Post Right Discharge Disposition: Home or Self Care 03/29/2023 Orders Only Department of Orthopedic Surgery in [place], [place] [address] [place] [address] Porfirio Luna M.D. from Last 3 Months Allergies Active [...] Overview: Added automatically from request for surgery [id number] Proteinuria 03/13/2020 Hyperparathyroidism Secondary 07/24/2016 Incontinence Urinary Stress Female 10/09/2015 Abnormal Pap Smear Cervix 05/30/2011 Overview: reactive reparative 12/2006; ASCUS 07/2007(negative HPV) ASCUS positve HPV 10/16/2009 LEEP on 05/17/2010 Pap 05/30/2011 is Negative for intraepithelial lesion or malignancy. 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Barclay Chronic Kidney Disease (CKD) , Stage 3b [...] alcohol) rare glass on wine [facility] Utilities Answer Date Recorded In the past 12 months has e [employer], gas, oil, or water [employer] threatened to shut off services in your [...] living situation today? I have a [facility] place to live 03/31/2023 Sex and Gender Information Value Date Recorded Sex Assigned at Female 07/31/2017 10:09 AM CDT Gender Identity Female 07/31/2017 10:09 AM CDT Sexual Orientation Straight 07/31/2017 10 :09 AM CDT Last Filed Vital Signs Vital Sign Reading Time Taken Comments Blood Pressure 135/94 04/01/2023 11:04 AM STOCK UNLOADER Pulse 81 04/01/2023 11:04 AM STOCK UNLOADER Temperature 36.4 ??C (97.5 ??F) 04/01/2023 11:[address] Respiratory Rate 18 04/01/2023 11:04 AM STOCK UNLOADER Oxygen Saturation 98% 04/01/2023 11:04 AM STOCK UNLOADER Inhaled Oxygen Concentration - - Weight 73.7 kg (162 lb 7.7 oz) 03/27/2023 3:00 P M STOCK UNLOADER Height 162 cm (5' 3.78) 03/27/2023 3:00 PM STOCK UNLOADER Body Mass Index 28.08 03/27/2023 3:00 PM STOCK UNLOADER Plan of Treatment Scheduled Procedures Name Priority Associated Diagnoses Date/Ti me OPERATIVE LAPAROSCOPY Mass Ovary SALPINGO - OOPHORECTOMY Mass Ovary Medical Devices Implanted Type Area Short Order Cook Device Identifier Shelf Expiration Date Model / Serial / Lot Ankl Tlr Dom Inf 3d Sz2 Implanted:Qt y: 1 on 03/27/2023 by Blanco Burt M.D. at [employer] Ankle Implant Right: Ankle [facility] [id number] 11/11/2030 [id number] / / [id number] Ankl Tib Comp 3d Inf Sz2 Implanted:Qt y: 1 on 03/27/2023 by Blanco Burt M.D. at [employer] Ankle Implant Right: Ankle [facility] [id number] 06/17/2030 [id number] / / [id number] Ankl Tl Inf Sz2.8 Implanted:Qt y: 1 on 03/27/2023 by Blanco Burt M.D. at [employer]/[facility] Ankle Implant Right: Ankle [facility] [id number] 10/21/2030 [id number] / / [id number] Procedures Procedure Name Priority Date/Time Associated Diagnosis [...] inpatients and all outpatients) 04/15/2023 3:33 PM STOCK UNLOADER Replacement Ankle Status Post Right ORS CAST ROOM VISIT Routine 04/15/2023 3:00 PM STOCK UNLOADER Replacement Ankle Status Post Right EXTI BASIC METABOLIC PANEL, S/P Routine 04/09/2023 8:09 AM STOCK UNLOADER DX ANKLE RIGHT 3+ VIEWS RAD - Routine (most inpatients and all outpatients) 03/31/2023 9:11 AM STOCK UNLOADER Replacement Ankle Status Post Right DIPSTICK, U Routine 03/29/2023 2:17 PM STOCK UNLOADER PH, U Routine 03/29/2023 2:17 PM STOCK UNLOADER OSMOLALITY, U Routine 03/29/2023 2:17 PM STOCK UNLOADER MICROSCOPIC AUTOMATED Routine 03/29/2023 2:17 PM STOCK UNLOADER URINALYSIS WITH MICROSCOPIC Routine 03/29/2023 2:17 PM STOCK UNLOADER ECG Routine 03/29/2023 8:58 AM STOCK UNLOADER OUTSIDE MG MAMMOGRAM Routine 09/27/2019 1:45 PM [...] NA * PROCEDURE PLACEHOLDER (04/15/2023 3:00 PM STOCK UNLOADER) Narrative MMODAL - 04/15/2023 3:00 PM STOCK UNLOADER Mary Partida P.A.-C. ? 04/15/2023 ??3:47 PM [...] Pain is well-controlled. ??She has at a half-way facility. PHYSICAL EXAM: On exam the incision [...] NA * Dipstick, Urine (03/29/2023 2:17 PM STOCK UNLOADER) Hemoglobin, QL, U Negative Negative 03/29/2023 2:50 PM STOCK UNLOADER DTL Leukocyte Esterase, U Negative Negative 03/29/2023 2:50 PM STOCK UNLOADER DTL Nitrite, U Negative Negative 03/29/2023 2:50 PM STOCK UNLOADER DTL Ketone, U Negative Negative mg/dL 03/29/2023 2:50 PM STOCK UNLOADER DTL Glucose, U Negative Negative mg/dL 03/29/2023 2:50 PM STOCK UNLOADER DTL Urine 03/29/2023 2:17 PM STOCK UNLOADER 03/29/2023 2:28 PM STOCK UNLOADER David Fuller M.D. LAB URINE ORDERA BLES Performing Organization Address [facility] Co de Phone Number [address] [address], [facility] DTL [address] [address] * Microscopic Automated (03/29/2023 2:17 PM STOCK UNLOADER) Microscopy Normal 03/29/2023 2:50 PM STOCK UNLOADER DTL RBC None Seen <3 /hpf 03/29/2023 2:50 PM STOCK UNLOADER DTL WBC 1-3 /hpf 03/29/2023 2:50 PM STOCK UNLOADER DTL Comment: ----REFERENCE VALUE---- <4 ??(Males) <11 (Females) Casts, Hyaline 1-3 /lpf 03/29/2023 2:50 PM STOCK UNLOADER DTL Squamous Epithelial Cells, U 1-3 /hpf 03/29/2023 2:50 PM STOCK UNLOADER DTL Urine 03/29/2023 2:17 PM STOCK UNLOADER 03/29/2023 2:28 PM STOCK UNLOADER David Fuller M.D. LAB URINE ORDERA BLES Performing Organization Address City/[facility]/ZIP Co de Phone Number [facility] [address] [place], [place] [address] [address] [place] [address] * pH, Urine (03/29/2023 2:17 PM STOCK UNLOADER) pH, U 5.6 4.5 - 8.0 03/29/2023 3:2 1 PM STOCK UNLOADER DTL Urine 03/29/2023 2:17 PM STOCK UNLOADER 03/29/2023 2:28 PM STOCK UNLOADER David Fuller M.D. LAB URINE ORDERA BLES Performing Organization Address [facility] Co de Phone Number [facility] [address] [place], [place] [address] [address] [place] [address] * Osmolality, Urine (03/29/2023 2:17 PM STOCK UNLOADER) Osmolality, U 366 150 - 1150 mOsm/kg 03/29/2023 3:21 PM STOCK UNLOADER DTL Urine 03/29/2023 2:17 PM STOCK UNLOADER 03/29/2023 2:28 PM STOCK UNLOADER David Fuller M.D. LAB URINE ORDERA BLES Performing Organization Address City/[facility] Co de Phone Number [facility] [address] [place], [place] [address] [address] [place] [address] * Urinalysis, with Microscopic: Urine, Midstream (03/29/2023 2:17 PM STOCK UNLOADER) Source Urine, Urine, Midstream 03/29/2023 2:28 PM STOCK UNLOADER DTL Color, U Yellow 03/29/2023 2:28 PM STOCK UNLOADER DTL Clarity, U Clear 03/29/2023 2:28 PM STOCK UNLOADER DTL Protein, U 10 <26 mg/dL 03/29/2023 3:14 PM STOCK UNLOADER DTL Protein/Osmol ality 0.27 <0.42 ratio 03/29/2023 3:21 PM STOCK UNLOADER DTL Predicted 24 HR Protein, U 206 <229 mg/24 h 03/29/2023 3:21 PM STOCK UNLOADER DTL Predicted Range 51-834 mg/24 h 03/29/2023 3:21 PM STOCK UNLOADER DTL Urine (Urine, Midstream) 03/29/2023 2:17 PM STOCK UNLOADER 03/29/2023 2:28 PM STOCK UNLOADER David Fuller M.D. LAB URINE ORDERA BLES [facility] [address] [place] [address], [facility] [address] [place] [address] * ECG 12 Lead (03/29/2023 8:58 AM STOCK UNLOADER) Ventricular Rate ECG/Min 68 BPM MUSE WY Interval 164 ms MUSE QRSD Interval 72 ms MUSE QT Interval 366 ms MUSE QTC Interval 389 ms MUSE P [place] 51 degrees MUSE R [place] -21 degrees MUSE T Wave [place] 50 degrees MUSE 03/29/2023 8:58 AM STOCK UNLOADER 03/29/2023 9:13 AM STOCK UNLOADER Impressions MUSE - 03/29/2023 9:13 AM STOCK UNLOADER Normal sinus rhythm Normal ECG When compared with ECG of 20-DEC-2021 12:54, Premature ventricular complexes are no longer present Reviewed by EMILY Castrejon Narrative Procedure Note Nando Valdes M.D. - 03/29/2023 IMPRESSION: Normal sinus rhythm Normal ECG When compared with ECG of 20-DEC-2021 12:54, Premature ventricular complexes are no longer present Reviewed by EMILY Castrejon David C Jonny M.D. ECG ORDERABLES MUSE NA * MAMMO SCREEN, BILAT, W/CAD-Outside Mammogram (09/27/2019 1:45 PM CDT) Narrative IIMS - 01/02/2021 3:36 PM STOCK UNLOADER This order has been created and auto-finalized [...] Advance Directives For more information, please contact: [phone] * Full Code (Latest Code Status on File) Date Activated Date Inactivated Comments 03/27/2023 12:11 PM 04/01/2023 1:23 PM Question Answer Comments Full Code: Not Discussed Due to: Patient not available Care Teams Esthetics Instructor Relationship Specialty Start Date End Date Elsewhere, Pcp PCP - General Family Medicine 01/16/18
--- OUTSIDE RECORDS SUMMARY | 2023-06-27 12:30 | XMS_ITS | Encounter Summary ---
Author Name Unknown Organization [facility] Address [address] [place] [address] Care Team Providers Care Sales Order Clerk Name Role Phone Elsewhere, Pcp Primary Care Provider Unavailabl e Reason for Referral * Outpatient (Routine) - Closed Specialty Diagnoses / Procedures Referred By Contac t Referred To Contact Diagnoses Replacement Ankle Status Post Right Procedures DX Ankle Right 3+ Views Mary Partida P.A.-C. [address] [place] [phone] [facility] Referral ID Status Reason Start Date Expiration Date Visits Re quested Visits Authorized [id number] Closed 03/25/2023 03/24/2024 1 1 Reason for Visit * Outpatient (Routine) - Closed Specialty Diagnoses / Procedures Referred By Marko mares Referred To Contact Diagnoses Replacement Ankle Status Post Right Procedures DX Ankle Right 3+ Views Mary Partida P.A.-C. [address] [place] [phone] [facility] Referral ID Status Reason Start Date Expiration Date Visits Re quested Visits Authorized [id number] Closed 03/25/2023 03/24/2024 1 1 Encounter Details Date Type Department Care Team (Latest Contact Info) Description 06/18/2023 9:41 AM CDT - 06/18/2023 11:59 PM CDT Hospital Encounter Department of Radiology, [facility], in [place], [place] [address] [place] [address] Mary Partida P.A.-C. [address] [place] [address] Replacement Ankle Status Post Right Discharge Disposition: Home or Self Care Social History Tobacco Use Types Packs/Day Years Used Date Smoking Tobacco: Former Cigarettes Smokeless Tobacco: Never Alcohol Use Standard Drinks/Week Comments Yes 0 (1 standard drink = 0.6 oz pur e alcohol) rare glass on wine [facility] [employer] Answer Date Recorded In the past 12 months has th e electric, gas, oil, or water [employer] threatened to shut off services in your [...] your living situation today? I have a [facility] place to live 03/31/2023 Sex and [...] Right documented in this encounter Care Teams Sales Order Clerk Relationship Specialty Start Date End Date Elsewhere, Pcp PCP - General Family Medicine 01/16/18 documented as of this encounter
--- OUTSIDE RECORDS SUMMARY | 2023-06-27 12:31 | XMS_ITS | Encounter Summary ---
Author Name Unknown Organization [facility] Address [address] [place] [address] Care Team Providers Care Intermediate Manager Name Role Phone Elsewhere, Pcp Primary Care Provider Unavailabl e Reason for Visit * Auth/Cert (Routine) Specialty Diagnoses / Procedures Referred By Marko t Referred To Contact Diagnoses Arthritis Ankle Arthritis Ankle [M19.90] Procedures [place] ARTHROPLASTY ANK W IMPLANT right ARTHROPLASTY replacement total ankle; proceed as indicated Referral ID Status Reason Start Date Expiration Date Visits Re quested Visits Authorized [id number] 1 1 Encounter Details Date Type Department Care Team (Late st Contact Info) Description 03/27/2023 7:44 AM ENDING MACHINE OPERATOR Anesthesia Event Outpatient Procedure Center in [place], [place] [address] [place] [address] Esthela Weinberg APRN STRING STUDIES DIRECTOR, DNAP [address] [place] [address] Rios Kohli M.D. [address] [place] [phone] Anesthesia Record Procedure Summary Procedure Name Responsible Anesthesiologist Anesthesia Start Time Anesthesia Stop Time Right ARTHROPLASTY replacement total ankle and Achilles tendon lengthening (Right) Esthela Weinberg APRN STRING STUDIES DIRECTOR, DNAP 03/27/23 0744 03/27/23 1021 Events Date [...] pur e alcohol) rare glass on wine [facility] Utilities Answer Date Recorded In the past 12 months has e [employer], gas, oil, or water [employer] threatened to shut off services in your [...] living situation today? I have a [facility] place to live 03/27/2023 Sex and [...] Procedure Summary Date: 03/27/23 Room / Location: [place] [address] / [facility] in [place], [place] Anesthesia Start: 743 Anesthesia Stop: 102 [...] Post Op nausea/vomiting: none Hydration status: euvolemic NG MACHINE OPERATOR * Anesthesia Procedure Notes - Esthela Weinberg [...] Procedure outcome: successful Notable Events: no complications NG MACHINE OPERATOR * Anesthesia Procedure Notes - Rios Kohli M.D. - 03/27/2023 7:42 AM ENDING MACHINE OPERATOR Associated Order(s): Regional Block Regional Block Date/Time: [...] completed successfully: successful procedure Notable Events: none NG MACHINE OPERATOR * Anesthesia Procedure Notes - Rios Kohli M.D. - 03/27/2023 7:42 AM ENDING MACHINE OPERATOR Associated Order(s): Regional Block Regional Block Date/Time: [...] completed successfully: successful procedure Notable Events: none NG MACHINE OPERATOR * Anesthesia Preprocedure Evaluation - Rios Kohli M.D. - 03/27/2023 6:54 AM CST Preprocedure Anesthesia & H&P Assessment Procedure Summary Date/Time: 03/27/23724 Procedure: Right ARTHROPLASTY replacement total ankle, proceed as indicated. (Right) - popliteal and saphenous blocks, general, supine, hip bump. Diagnosis: Arthritis Ankle [M19.90] Pre-op diagnosis: Arthritis Ankle [M19.90]. Location: [address] in [place], [place] Surgeons: Blanco Burt M.D. Pertinent components [...] with patient /legal guardian or through an sanitation superintendent. Risks/Benefits/Alternatives of Blood transfusion discussed with patient / legal guardian, includingan opportunity to ask questions and/or decline some or all transfusion therapies. The patient / legal guardian consented to the use of all blood products, as deemed medically necessary Approval to Proceed: approved for anesthesia NG MACHINE OPERATOR documented in this encounter Plan of Treatment Scheduled Procedures Name Priority Associated Diagnoses Date/Ti me OPERATIVE LAPAROSCOPY Mass Ovary SALPINGO - OOPHORECTOMY Mass Ovary documented as of this encounter Procedures Procedure Name Priority Date/Time Associated Diagnosis Comments LDA ANE NON-SURGICAL AIRWAY Routine 03/27/2023 7:52 AM ENDING MACHINE OPERATOR [place] INJ ANES FEM NERVE W GUIDANCE Routine 03/27/2023 7:36 AM ENDING MACHINE OPERATOR [place] INJ ANES SCIATIC NERVE W GUIDANCE Routine 03/27/2023 7:30 AM ENDING MACHINE OPERATOR documented in this encounter Results * LDA ANE NON-SURGICAL AIRWAY (03/27/2023 7:52 AM ENDING MACHINE OPERATOR) Narrative Esthela Weinberg APRN, CRNA, DNAP - 03/27/2023 7:52 AM ENDING MACHINE OPERATOR Esthela Weinberg APRN, CRNA, DNAP ? 03/27/2023 [...] ?? Notable Events: no complications Esthela Weinberg OPTICAL ENGINEERING MANAGER, STRING STUDIES DIRECTOR, DNAP ANESTHE AMY ORDERABLES * [place] INJ ANES FEM NERVE W GUIDANCE (03/27/2023 7:36 AM ENDING MACHINE OPERATOR) Narrative Rios Kohli M.D. - 03/27/2023 7:36 AM ENDING MACHINE OPERATOR Rios Kohli M.D. ? 03/27/2023 ??7:43 AM [...] Medications: Injection(s), anesthetic agent(s) and/or steroid; See [facility] UNIVERSAL PROTOCOL All relevant documentation and testing [...] Kohli M.D. PROCEDURE/MINOR SURG ICAL ORDERABLES * [place] INJ ANES SCIATIC NERVE W GUIDANCE (03/27/2023 7:30 AM ENDING MACHINE OPERATOR) Narrative Rios Kohli M.D. - 03/27/2023 7:30 AM ENDING MACHINE OPERATOR Rios Kohli M.D. ? 03/27/2023 ??7:42 AM [...] 0733, Anesthesia Intra-op Given 03/27/2023 7:38 AM ENDING MACHINE OPERATOR 10 mL Given 03/27/2023 7:33 AM ENDING MACHINE OPERATOR 30 mL ceFAZolin injection 2,000 mg (ANCEF) [...] Indications: Prophylaxis, surgical Given 03/27/2023 8:03 AM ENDING MACHINE OPERATOR 2 g dexAMETHasone injection (DECADRON) intravenous, As needed, Starting on Jodie 03/27/23 at 0804, Anesthesia Intra-op Given 03/27/2023 8:04 AM ENDING MACHINE OPERATOR 8 mg fentaNYL injection (SUBLIMAZE) intravenous, As needed, Starting on Jodie 03/27/23 at 0806, Anesthesia Intra-op Given 03/27/2023 9:41 AM ENDING MACHINE OPERATOR 50 mcg Given 03/27/2023 9:25 AM ENDING MACHINE OPERATOR 25 mcg Given 03/27/2023 9:03 AM ENDING MACHINE OPERATOR 25 mcg Lactated Ringer's 20 mL/hr, intravenous, Continuous, Starting on Jodie 03/27/23 at 0715 Continued from OR 03/27/2023 10:26 AM ENDING MACHINE OPERATOR 20 mL/hr 20 mL/hr Rate/Dose Verify 03/27/2023 7:44 AM ENDING MACHINE OPERATOR 20 mL/h r New Bag 03/27/2023 7:17 AM ENDING MACHINE OPERATOR 20 mL/hr 20 mL/hr lidocaine (PF) (cardiac) injection intravenous, As needed, Starting on Jodie 03/27/23 at 0752, Anesthesia Intra-op Given 03/27/2023 7:52 AM ENDING MACHINE OPERATOR 60 mg ondansetron (PF) injection (ZOFRAN) intravenous, As needed, Starting on Jodie 03/27/23 at 0804, Anesthesia Intra-op Given 03/27/2023 8:04 AM ENDING MACHINE OPERATOR 4 mg propofol 10 mg/mL infusion (DIPRIVAN) intravenous, Continuous Infusion: Per Instructions PRN, Starting on Jodie 03/27/23 at 0752, Anesthesia Intra-op Rate/Dose Change 03/27/2023 8:37 AM ENDING MACHINE OPERATOR 50 mcg/kg/min 22.11 mL/hr Rate/Dose Change 03/27/2023 8:22 AM ENDING MACHINE OPERATOR 75 mcg/kg/min 33.1 65 mL/hr New Bag 03/27/2023 7:52 AM ENDING MACHINE OPERATOR 100 mcg/kg/min 44.22 mL/ hr propofoL injection (DIPRIVAN) intravenous, As needed, Starting on Jodie 03/27/23 at 0752, Anesthesia Intra-op Given 03/27/2023 7:52 AM ENDING MACHINE OPERATOR 170 mg tranexamic acid in NaCl IVPB 1,000 mg (CYKLOKAPRON) 1,000 mg (1 g), intravenous, at 300 mL/hr, Administer over 20 Minutes, Once, On Jodie 03/27/23 at 0715, For 1 dose, Intra-Op, Administer in OR upon induction Given 03/27/2023 7:58 AM ENDING MACHINE OPERATOR 1 g tranexamic acid in NaCl IVPB 1,000 mg (CYKLOKAPRON) 1,000 mg (1 g), intravenous, at 300 mL/hr, Administer over 20 Minutes, Once, On Jodie 03/27/23 at 0715, For 1 dose, Intra-Op, Administer in OR just before dropping tourniquet Given 03/27/2023 9:42 AM ENDING MACHINE OPERATOR 1 g documented in this encounter Care Teams Intermediate Manager Relationship Specialty Start Date End Date Elsewhere, Pcp PCP - General Family Medicine 01/16/18 documented as of this encounter
--- OUTSIDE RECORDS SUMMARY | 2023-06-27 12:31 | XMS_ITS | Encounter Summary ---
Author Name Unknown Organization [facility] Address [address] [place] [id number] Care Team Providers Care Nicu Rn Name Role Phone Elsewhere, Pcp Primary Care Provider Unavailabl e Reason for Visit * Physical Therapy (Routine) - Closed Specialty Diagnoses / Procedures Referred By Marko t Referred To Contact Diagnoses Arthritis Ankle Procedures PT Evaluate and treat Mary Partida P.A.-Holly [address] [place] [phone] [facility] Referral ID Status Reason Start Date Expiration Date Visits Re quested Visits Authorized [id number] Closed 01/15/2023 01/15/2024 1 1 Encounter Details Date Type Department Care Team (Latest Contact Info) Description 03/26/2023 1:00 PM OCCUPATIONAL HEALTH NURSING DIRECTOR Comprehensive Visit Department of Physical Medicine and Rehabilitation in [place], [place] [address] [place] [phone] Mary Partida P.A.-CStephen [address] [place] [phone] Marina Major PEma, D.P.TStephen [address] [place] [phone] Pain Right Ankle And Joints Right Foot (Primary Dx); Arthritis Ankle Social History Tobacco Use Types Packs/Day Years Used Date Smoking Tobacco: Former Cigarettes Smokeless Tobacco: Never Alcohol Use Standard Drinks/Week Comments Yes 0 (1 standard drink = 0.6 oz pur e alcohol) rare glass on wine [facility] Utilities Answer Date Recorded In [...] today? I have a [facility] place to live 03/27/2023 Sex and [...] (min): 57 min Marina Major P.T., D.P.T. PATIONAL HEALTH NURSING DIRECTOR documented in this encounter Plan of Treatment Scheduled Procedures Name Priority Associated Diagnoses Date/Ti me OPERATIVE LAPAROSCOPY [place] SALPINGO - OOPHORECTOMY [place] documented as of this encounter Visit Diagnoses Diagnosis Pain Right Ankle And Joints Right Foot- Primary Arthritis Ankle documented in this encounter Care Teams Nicu Rn Relationship Specialty Start Date End Date Elsewhere, Pcp PCP - General Family Medicine 01/16/18 documented as of this encounter
--- OUTSIDE RECORDS SUMMARY | 2023-06-27 12:31 | XMS_ITS | Encounter Summary ---
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 Pathologist [facility] Hemoglobin 12.8 11.6 - 15.0 g/dL 03/28/2023 4:56 AM BUTCHER APPRENTICE DTL Hematocrit 37.6 35.5 - 44.9 % 03/28/2023 4:56 AM BUTCHER APPRENTICE DTL Erythrocytes 4.20 3.92 - 5.13 x10(12)/L 03/28/2023 4:56 AM BUTCHER APPRENTICE DTL MCV 89.5 78.2 - 97.9 fL 03/28/2023 4:56 AM BUTCHER APPRENTICE DTL RBC Distrib Width 13.7 12.2 - 16.1 % 03/28/2023 4:56 AM BUTCHER APPRENTICE DTL Platelet Count 286 157 - 371 x10(9)/L 03/28/2023 4:56 AM BUTCHER APPRENTICE DTL Leukocytes 16.4(H) 3.4 - 9.6 x10(9)/L 03/28/2023 4:56 AM BUTCHER APPRENTICE DTL Blood (Blood, Venous) 03/28/2023 4:26 AM BUTCHER APPRENTICE 03/28/2023 4:50 AM BUTCHER APPRENTICE Sam Graham M.D. LAB BLOOD ADD-ON Performing Organization Address City/[facility]/ZIP Co de Phone Number [facility] [address] [place] [address], [facility] DTL Formerly [facility] [address] [place] [address] * (ABNORMAL) Basic Metabolic Panel (03/28/2023 4:26 AM BUTCHER APPRENTICE) Potassium, S 4.2 3.6 - 5.2 mmol/L 03/28/2023 5:30 AM BUTCHER APPRENTICE DTL Sodium, S 139 135 - 145 mmol/L 03/28/2023 5:30 AM BUTCHER APPRENTICE DTL Chloride, S 107 98 - 107 mmol/L 03/28/2023 5:30 AM BUTCHER APPRENTICE DTL Bicarbonate, S 20(L) 22 - 29 mmol/L 03/28/2023 5:30 AM BUTCHER APPRENTICE DTL Anion Gap 12 7 - 15 03/28/2023 5:30 AM BUTCHER APPRENTICE DTL BUN (Blood Urea Nitrogen), S 23(H) 6 - 21 mg/dL 03/28/2023 5:30 AM BUTCHER APPRENTICE DTL Creatinine 1.37(H) 0.59 - 1.04 mg/dL 03/28/2023 5:30 AM BUTCHER APPRENTICE DTL Estimated GFR (eGFR) 40(L) >=60 mL/min/BSA 03/28/2023 5:30 AM BUTCHER APPRENTICE DTL Comment: Estimated GFR calculated using the 2020 CKD_EPI creatinine equation. Calcium, Total, S 8.9 8.8 - 10.2 mg/dL 03/28/2023 5:30 AM BUTCHER APPRENTICE DTL Glucose, S 93 70 - 140 mg/dL 03/28/2023 5:30 AM BUTCHER APPRENTICE DTL Blood (Blood, Venous) 03/28/2023 4:26 AM BUTCHER APPRENTICE 03/28/2023 5:05 AM BUTCHER APPRENTICE Sam Graham M.D. LAB BLOOD ADD-ON [facility] [address] [place] [address], [facility] DTL [facility] [address] [place] [address] * [place] Fluoro Less Than 1 Hour (03/27/2023 10:15 AM BUTCHER APPRENTICE) Narrative [id number] - 03/27/2023 10:16 AM BUTCHER APPRENTICE This exam does not require a radiologist review or interpretation. Please refer to the patient's medical record on this date for clinical details. Mary Partida P.A.-C. IMG FLUOROSCOPY P ROCEDURES [id number] NA documented in this encounter Visit Diagnoses [...] 1 dose, Pre-Op Given 03/27/2023 7:17 AM BUTCHER APPRENTICE 1,000 mg acetaminophen tablet 1,000 mg (TYLENOL) 1,000 mg, oral, Every 6 hours, First dose on Jodie 03/27/23 at 1330 Given 04/01/2023 8:10 AM BUTCHER APPRENTICE 1,000 mg Given 04/01/2023 3:07 AM BUTCHER APPRENTICE 1,000 mg Given 03/31/2023 8:30 PM BUTCHER APPRENTICE 1,000 mg atorvastatin tablet 20 mg (LIPITOR) 20 mg, oral, Daily at bedtime, First dose on Jodie 03/27/23 at 2100, atorvaSTATin 20 mg oral daily was interchanged for simvastatin 5-40 mg oral daily Given 03/31/2023 9:48 PM BUTCHER APPRENTICE 20 mg Given 03/30/2023 9:05 PM BUTCHER APPRENTICE 20 mg Given 03/29/2023 8:52 PM BUTCHER APPRENTICE 20 mg ceFAZolin in dextrose (iso osm) [...] Prophylaxis, surgical New Bag 03/28/2023 12:30 AM BUTCHER APPRENTICE 2 g 200 mL/hr New Bag 03/27/2023 4:40 PM BUTCHER APPRENTICE 2 g 200 mL/hr D5W infusion 10-250 [...] Fri03/28/23 at 0900 Given 04/01/2023 8:11 AM BUTCHER APPRENTICE 40 mg Right Lower Abdomen Given 03/31/2023 9:32 AM BUTCHER APPRENTICE 40 mg Le ft Lower Abdomen Given 03/30/2023 8:12 AM BUTCHER APPRENTICE 40 mg Ri ght Upper Abdomen fentaNYL [...] 3 hours, Pre-Op Given 03/27/2023 7:27 AM BUTCHER APPRENTICE 50 mcg haloperidol lactate injection 2 mg (HALDOL) 2 mg, intravenous, Every 8 hours PRN, agitation, Starting on 03/29/23 at 0043 Given 03/29/2023 12:49 AM BUTCHER APPRENTICE 2 mg Lactated Ringer's 20 mL/hr, intravenous, Continuous, Starting on Jodie 03/27/23 at 0715 Continued from OR 03/27/2023 10:26 AM BUTCHER APPRENTICE 20 mL/hr 20 mL/hr Rate/Dose Verify 03/27/2023 7:44 AM BUTCHER APPRENTICE 20 mL/h r New Bag 03/27/2023 7:17 AM BUTCHER APPRENTICE 20 mL/hr 20 mL/hr Lactated Ringer's 75 mL/hr, intravenous, Continuous, Starting on Jodie 03/27/23 at 1230 New Bag 03/28/2023 12:32 AM BUTCHER APPRENTICE 75 mL/hr 75 mL/hr Rate/Dose Verify 03/27/2023 10:00 PM BUTCHER APPRENTICE 75 mL/hr 75 mL/ hr Continued from OR 03/27/2023 12:30 PM BUTCHER APPRENTICE 75 mL/hr 75 mL /hr losartan tablet 50 mg (COZAAR) 50 mg, oral, Daily, First dose on Fri03/30/23 at 0900 Given 04/01/2023 8:10 AM BUTCHER APPRENTICE 50 mg Given 03/31/2023 9:32 AM BUTCHER APPRENTICE 50 mg Given 03/30/2023 8:48 AM BUTCHER APPRENTICE 50 mg melatonin tablet 3 mg 3 mg, oral, Bedtime PRN, sleep, Starting on [place] 03/30/23 at 2109 midazolam (PF) injection 1 mg (VERSED) 1 mg, intravenous, Every 2 min PRN, sedation, RASS 0, Starting on Jodie 03/27/23 at 0653, For 3 hours, Pre-Op, May repeat every 2 minutes for a maximum of 5 mg. Do not give if respiratory rate is less than 8 breaths/minute. Given 03/27/2023 7:28 AM BUTCHER APPRENTICE 1 mg NaCl 0.9% infusion 10-250 mL/hr, [...] for new order. Given 03/28/2023 9:58 AM BUTCHER APPRENTICE 10 mg oxyCODONE IR tablet 5 mg (ROXICODONE) 5 mg, oral, Every 4 hours PRN, moderate pain or score 4-6 of 10, Starting on Jodie 03/27/23 at 1211, Second line therapy Given 03/28/2023 5:04 AM BUTCHER APPRENTICE 5 mg polyethylene glycol powder packet 1 packet (MIRALAX) 1 packet, oral, Daily, First dose on Fri03/28/23 at 0900, Ordered sequence of administration: polyethylene glycol, then bisacodyl until BM achieved. Avoid mixing with starch-based thickened liquids. Given 03/31/2023 9:31 AM BUTCHER APPRENTICE 1 packe t Given 03/30/2023 8:12 AM BUTCHER APPRENTICE 1 packet Given 03/29/2023 8:09 AM BUTCHER APPRENTICE 1 packet QUEtiapine tablet 50 mg (SEROquel) 50 mg, oral, Bedtime PRN, sleep, delirium, Starting on Fri03/28/23 at 2114 Given 03/28/2023 10:46 PM BUTCHER APPRENTICE 50 mg sennosides-docusate sodium 8.6-50 mg per tablet 1 tablet (SENOKOT-S) 1 tablet, oral, 2 times daily, First dose on Jodie 03/27/23 at 2100, Do not give if patient has diarrhea. Given 03/31/2023 9:48 PM BUTCHER APPRENTICE 1 tablet Given 03/31/2023 9:32 AM BUTCHER APPRENTICE 1 tablet Given 03/30/2023 9:05 PM BUTCHER APPRENTICE 1 tablet sodium chloride 0.9 % injection [...] maintain patency. Given 03/31/2023 9 :49 PM BUTCHER APPRENTICE 3 mL Given 03/30/2023 9:05 PM BUTCHER APPRENTICE 3 mL Given 03/30/2023 8:13 AM BUTCHER APPRENTICE 3 mL documented in this encounter Active and Recently Administered Medications Times are shown in BUTCHER APPRENTICE. Scheduled Medication Order 03/30/2023 03/31/2023 04/01/2023 acetaminophen tablet 1,000 mg (TYLENOL) 1,000 mg, oral, Every 6 hours, First dose on Jodie 24 at 1330 0111 (Given - Provider: Danny Phelps R.N.)0662 (Given - Provider: Danny Phelps R.N.)1334 (Given - Provider: Patience Ogden R.N.)1842 (Given - Provider: Patience Ogden R.N.) 0152 (Given - Provider: Delaney Flores R.N.)0639 (Given - Provider: Delaney Flores R.N.)1440 (Given - Provider: Sav Rmoero R.N.)2030 (Given - Provider: Debra Quiroga R.N.) [...] oral, As needed, sore throat, Starting on [place] 03/27/23 at 1211 bisacodyL suppository 10 mg [...] order. documented in this encounter Care Teams School Cafeteria Cook Relationship Specialty Start Date End Date Elsewhere, Pcp PCP - General Family Medicine 01/16/18 documented as of this encounter
--- OUTSIDE RECORDS SUMMARY | 2023-06-27 12:31 | XMS_ITS | Encounter Summary ---
Author Name Unknown Organization [facility] Address [address] [place] [address] Care Team Providers Care Interventional Radiology Rn Name Role Phone Elsewhere, Pcp Primary Care Provider Unavailabl e Encounter Details Date Type Department Care Team (Late st Contact Info) Description 03/27/2023 12:35 PM PRINTING ENGINEER Ancillary Procedure Department of Orthopedic Surgery Social History Tobacco Use Types Packs/Day Years Used Date Smoking Tobacco: Former Cigarettes Smokeless Tobacco: Never Alcohol Use Standard Drinks/Week Comments Yes 0 (1 standard drink = 0.6 oz pur e alcohol) rare glass on wine [facility] Utilities Answer Date Recorded In the past 12 months has [employer] electric, gas, oil, or water [employer] threatened to shut off services in your [...] a [facility] 03/27/2023 Sex and [...] SURGERY IMAGE EXAM Routine 03/27/2023 12:35 PM PRINTING ENGINEER documented in this encounter Results * Thigh-Orthopedic Surgery Image Exam (03/27/2023 12:35 PM PRINTING ENGINEER) 03/27/2023 12:3 4 PM PRINTING ENGINEER Narrative IIMS - 03/27/2023 12:37 PM PRINTING ENGINEER This order has been created and auto-finalized to support the import of images acquired without order. The clinical documentation to support these images can be found on the encounter that produced images. Provider Not In System IMG NON RAD IMAGI NG PROCEDURES IIMS NA documented in this encounter Visit Diagnoses Not on filedocumented in this encounter Care Teams Interventional Radiology Rn Relationship Specialty Start Date End Date Elsewhere, Pcp PCP - General Family Medicine 01/16/18 documented as of this encounter
--- OUTSIDE RECORDS SUMMARY | 2023-06-27 12:31 | XMS_ITS | Encounter Summary ---
Author Name Unknown Organization [facility] Address [address] [place] [address] Care Team Providers Care Granular Operator Name Role Phone Elsewhere, Pcp Primary Care Provider Unavailabl e Reason for Visit * Outpatient (Routine) - Closed Specialty Diagnoses / Procedures Referred By Marko t Referred To Contact Anesthesiology Diagnoses Arthritis Ankle Mary Partida, P.A.-C. [address] [place] [phone] [facility] Referral ID Status Reason Start Date Expiration Date Visits Re quested Visits Authorized [id number] Closed 01/15/2023 01/15/2024 1 1 Encounter Details Date Type Department Care Team (Latest Contact Info) Description 03/26/2023 9:00 AM [facility] Comprehensive Visit Preoperative Evaluation Center in [place], [place] [address] [place] [phone] Mary Partida, P.A.-C. [address] [place] [phone] Mike Marcus APRN, C.N.P., M.S.N. [address] [place] [phone] Peripheral Vascular Disease (HCC) (Primary Dx); Preanesthetic [...] pur e alcohol) rare glass on wine [facility] Utilities Answer Date Recorded In the past 12 months has e [employer], oil, or water [employer] threatened to shut off services in your [...] Comments Blood Pressure 139/83 03/26/2023 8:56 AM BORDER MEASURER AND CUTTER Pulse 69 03/26/2023 8:56 AM BORDER MEASURER AND CUTTER Temperature 36.2 ??C (97.2 ??F) 03/26/2023 8:56 AM CS T Respiratory Rate - - Oxygen Saturation 98% 03/26/2023 8:56 AM BORDER MEASURER AND CUTTER Inhaled Oxygen Concentration - - Weight 73.7 kg (162 lb 7.7 oz) 03/26/2023 8:56 A M BORDER MEASURER AND CUTTER Height 162 cm (5' 3.78) 03/26/2023 8:56 AM BORDER MEASURER AND CUTTER Body Mass Index 28.08 03/26/2023 8:56 AM BORDER MEASURER AND CUTTER documented in this encounter Consult Notes * [...] chemoprophylaxis. PATIENT EDUCATION: Checklist for Surgical Patients [id number] rev 1221. Educational instructions given. Evening before your surgery: Call [phone] or [phone] between 8:15 p.m. and midnight to learn report time for surgery next day. Phone system will ask for [facility] number and date of . Fasting for [...] as usual): Acetaminophen (Tylenol) (if needed) Simvastatin ER MEASURER AND CUTTER documented in this encounter Plan of Treatment Scheduled Procedures Name Priority Associated Diagnoses Date/Ti az OPERATIVE LAPAROSCOPY Mass Ovary SALPINGO - OOPHORECTOMY Mass Ovary documented as of this encounter Visit Diagnoses Diagnosis Peripheral Vascular Disease (HCC)- Primary Preanesthetic Medical Exam Arthritis Ankle Hypertension Essential Primary Dyslipidemia Hypertensive Chronic Kidney Disease (CKD) Stage 3b Glomerular Filtration Rate (GFR) 30 To 44 Hyperparathyroidism Secondary (HCC) documented in this encounter Care Teams Granular Operator Relationship Specialty Start Date End Date Elsewhere, Pcp PCP - General Family Medicine 01/16/18 documented as of this encounter
--- OUTSIDE RECORDS SUMMARY | 2023-06-27 12:31 | XMS_ITS | Encounter Summary ---
Author Name Unknown Organization [facility] Address [address] [place] [address] Care Team Providers Care Telephone Service Adviser Name Role Phone Elsewhere, Pcp Primary Care Provider Unavailabl e Encounter Details Date Type Department Care Team (Late st Contact Info) Description 03/29/2023 Orders Only Department of Orthopedic Surgery in [place], [place] [address] [place] [phone] Porfirio Luna M.D. [address] [place] [phone] Social History Tobacco Use Types Packs/Day Years Used Date Smoking Tobacco: Former Cigarettes Smokeless Tobacco: Never Alcohol Use Standard Drinks/Week Comments Yes 0 (1 standard drink = 0.6 oz pur e alcohol) rare glass on wine [facility] Utilities Answer Date Recorded In the past 12 months has [employer], gas, oil, or water [employer] threatened to shut off services in your [...] your living situation today? I have a [facility] place to live 03/31/2023 Sex and Gender [...] on filedocumented in this encounter Care Teams Telephone Service Adviser Relationship Specialty Start Date End Date Elsewhere, Pcp PCP - General Family Medicine 01/16/18 documented as of this encounter
--- OUTSIDE RECORDS SUMMARY | 2023-06-27 12:31 | XMS_ITS | Encounter Summary ---
Author Name Unknown Organization [facility] Address [address] [place] [address] Care Team Providers Care Service Establishment Attendant Name Role Phone Elsewhere, Pcp Primary Care Provider Unavailabl e Reason for Referral * Outpatient (Routine) - Closed Specialty Diagnoses / Procedures Referred By Marko mares Referred To Contact Diagnoses Replacement Ankle Status Post Right Procedures DX Ankle Right 3+ Views Blanco Burt M.D. [address] [place] [phone] [facility] Referral ID Status Reason Start Date Expiration Date Visits Re quested Visits Authorized [id number] Closed 03/31/2023 03/30/2024 1 1 NICAL PROGRAM MANAGER Reason for Visit * Auth/Cert (Routine) Specialty Diagnoses / Procedures Referred By Marko mares Referred To Contact Diagnoses Arthritis Ankle Arthritis Ankle [M19.90] Procedures RI ARTHROPLASTY ANK W IMPLANT right ARTHROPLASTY replacement total ankle; proceed as indicated Referral ID Status Reason Start Date Expiration Date Visits Re quested Visits Authorized [id number] 1 1 Encounter Details Date Type Department Care Team (Latest Contact Info) Description 03/31/2023 8:22 AM TECHNICAL PROGRAM MANAGER - 03/31/2023 11:59 PM TECHNICAL PROGRAM MANAGER Hospital Encounter Department of Radiology, [facility], in [place], [place] [address] [place] [phone] Blanco Burt M.D. [address] [place] [phone] Replacement Ankle Status Post Right Discharge Disposition: Home or Self Care Social History Tobacco Use Types Packs/Day Years Used Date Smoking Tobacco: Former Cigarettes Smokeless Tobacco: Never Alcohol Use Standard Drinks/Week Comments Yes 0 (1 standard drink = 0.6 oz pur e alcohol) rare glass on wine [facility] Utilities Answer Date Recorded In the past 12 months has th e [employer] gas, oil, or water [employer] threatened to shut off services in your [...] inpatients and all outpatients) 03/31/2023 9:11 AM TECHNICAL PROGRAM MANAGER Replacement Ankle Status Post Right documented in this encounter Results * DX Ankle Right 3+ Views (03/31/2023 9:11 AM TECHNICAL PROGRAM MANAGER) Anatomical Region Laterality Modality Lower Extremity, Ankle, Musc uloskeletal RST LOS, Musculoskeletal ARZ LOS, Muskuloskeletal FLA LOS Right Compu corinne Radiography Impressions 03/31/2023 9:18 AM TECHNICAL PROGRAM MANAGER Compared to prior radiographs 11/21/2022, interval tibiotalar arthroplasty. No hardware fracture or radiographic findings of loosening. Ghost tracks from intraoperative fixation hardware. Scattered hypertrophic changes. Small plantar calcaneal enthesophyte. Diffusely diminished bone mineral density. Soft tissue swelling about the ankle is presumably postoperative. Narrative 03/31/2023 9:18 AM TECHNICAL PROGRAM MANAGER EXAM: ??DX ANKLE RIGHT 3+ VIEWS Procedure [...] Right documented in this encounter Care Teams Service Establishment Attendant Relationship Specialty Start Date End Date Elsewhere, Pcp PCP - General Family Medicine 01/16/18 documented as of this encounter
--- OUTSIDE RECORDS SUMMARY | 2023-06-27 12:31 | XMS_ITS | Encounter Summary ---
Author Name Unknown Organization [facility] Address [address] [place] [address] Care Team Providers Care Electric Mule Operator Name Role Phone Elsewhere, Pcp Primary Care Provider Unavailabl e Encounter Details Date Type Department Care Team (Latest Contact Info) Description 03/27/2023 7:20 AM TENDERIZER TENDER Ancillary Procedure Department of Anesthesiology Social History Tobacco Use Types Packs/Day Years Used Date Smoking Tobacco: Former Cigarettes Smokeless Tobacco: Never Alcohol Use Standard Drinks/Week Comments Yes 0 (1 standard drink = 0.6 oz pur e alcohol) rare glass on wine [facility] Utilities Answer Date Recorded In the past 12 months has e electric, gas, oil, or water [employer] threatened to shut off services in your [...] your living situation today? I have a [facility] place to live 03/27/2023 Sex and [...] ANESTHESIOLOGY IMAGE EXAM Routine 03/27/2023 7:20 AM TENDERIZER TENDER documented in this encounter Results * Non-Radiology Image-Anesthesiology Image Exam (03/27/2023 7:20 AM TENDERIZER TENDER) 03/27/2023 7:18 AM TENDERIZER TENDER Narrative IIMS - 03/27/2023 7:48 AM TENDERIZER TENDER This order has been created and auto-finalized to support the import of images acquired without order. The clinical documentation to support these images can be found on the encounter that produced images. Provider Not In System IMG NON RAD IMAGI NG PROCEDURES IIMS NA documented in this encounter Visit Diagnoses Not on filedocumented in this encounter Care Teams Electric Mule Operator Relationship Specialty Start Date End Date Elsewhere, Pcp PCP - General Family Medicine 01/16/18 documented as of this encounter
--- OUTSIDE RECORDS SUMMARY | 2023-06-27 12:31 | XMS_ITS | Encounter Summary ---
Author Name Unknown Organization [facility] Address [address] [place] [address] Care Team Providers Care Coat Operator Insulator Name Role Phone Elsewhere, Pcp Primary Care Provider Unavailabl e Encounter Details Date Type Department Care Team (Late st Contact Info) Description 03/28/2023 Documentation Department of Orthopedic Surgery in [place], [place] [address] [place] [phone] Blanco Burt M.D. [address] [place] [phone] Social History Tobacco Use Types Packs/Day Years Used Date Smoking Tobacco: Former Cigarettes Smokeless Tobacco: Never Alcohol Use Standard Drinks/Week Comments Yes 0 (1 standard drink = 0.6 oz pur e alcohol) rare glass on wine [facility] Utilities Answer Date Recorded In the past 12 months has [employer] electric, gas, oil, or water [employer] threatened to shut off services in [...] living situation today? I have a [facility] place to live 03/27/2023 Sex [...] application. She will also go to a halfway facility after this hospitalization, as soon as Friday. I was able to discuss all this with her sons who also expressed understanding. ER PRESS CLIPPING documented in this encounter Plan of Treatment Scheduled Procedures Name Priority Associated Diagnoses Date/Ti me OPERATIVE LAPAROSCOPY Mass Ovary SALPINGO - OOPHORECTOMY Mass Ovary documented as of this encounter Visit Diagnoses Not on filedocumented in this encounter Care Teams Coat Operator Insulator Relationship Specialty Start Date End Date Elsewhere, Pcp PCP - General Family Medicine 01/16/18 documented as of this encounter
--- OUTSIDE RECORDS SUMMARY | 2023-06-27 12:31 | XMS_ITS | Encounter Summary ---
Author Name Unknown Organization [facility] Address [address] [place] [address] Care Team Providers Care Supervisor Drapery Hanging Name Role Phone Elsewhere, Pcp Primary Care Provider Unavailabl e Reason for Referral * Outpatient (Routine) - Closed Specialty Diagnoses / Procedures Referred By Marko mares Referred To Contact Diagnoses Replacement Ankle Status Post Right Procedures DX Ankle Right 3+ Views Blanco Burt M.D. [address] [place] [address] [facility] Referral ID Status Reason Start Date Expiration Date Visits Re quested Visits Authorized [id number] Closed 03/31/2023 03/30/2024 1 1 S DESIGNER Reason for Visit * Reason Comments Follow-up * Auth/Cert (Routine) Specialty Diagnoses / Procedures Referred By Marko mares Referred To Contact Diagnoses Arthritis Ankle Arthritis Ankle [M19.90] Procedures OH ARTHROPLASTY ANK W IMPLANT right ARTHROPLASTY replacement total ankle; proceed as indicated Referral ID Status Reason Start Date Expiration Date Visits Re quested Visits Authorized [id number] 1 1 Encounter Details Date Type Department Care Team (Latest Contact Info) Description 03/31/2023 7:55 AM SALES DESIGNER - 03/31/2023 8:21 AM SALES DESIGNER Hospital Encounter Department of Orthopedic Surgery in [place], [place] [address] [place] [id number] Sam Graham M.D. [address] [place] [address] Blanco Burt M.D. [address] [place] [address] Arthritis Ankle (Primary Dx); Replacement Ankle Status Post Right Discharge Disposition: Home or Self Care Social History Tobacco Use Types Packs/Day Years Used Date Smoking Tobacco: Former Cigarettes Smokeless Tobacco: Never Alcohol Use Standard Drinks/Week Comments Yes 0 (1 standard drink = 0.6 oz pur e alcohol) rare glass on wine [facility] [employer] Answer Date Recorded In the past 12 months has e electric, gas, oil, or water [employer] threatened to shut off services in [...] living situation today? I have a [facility] place to live 03/31/2023 Sex [...] Burt M.D. - 03/31/2023 8:00 AM [facility] PRE[facility]EDURE/POSTPROCEDURE DIAGNOSIS: 1. Status post [...] removal and cast exchange. She expressed understanding. S DESIGNER documented in this encounter Plan of Treatment Scheduled Procedures Name Priority Associated Diagnoses Date/Ti me OPERATIVE LAPAROSCOPY Mass Ovary SALPINGO - OOPHORECTOMY Mass Ovary documented as of this encounter Results * DX Ankle Right 3+ Views (03/31/2023 9:11 AM SALES DESIGNER) Anatomical Region Laterality Modality Lower Extremity, Ankle, Musc uloskeletal RST LOS, Musculoskeletal ARZ LOS, Muskuloskeletal FLA LOS Right Compu corinne Radiography Impressions 03/31/2023 9:18 AM SALES DESIGNER Compared to prior radiographs 11/21/2022, interval tibiotalar arthroplasty. No hardware fracture or radiographic findings of loosening. Ghost tracks from intraoperative fixation hardware. Scattered hypertrophic changes. Small plantar calcaneal enthesophyte. Diffusely diminished bone mineral density. Soft tissue swelling about the ankle is presumably postoperative. Narrative 03/31/2023 9:18 AM SALES DESIGNER EXAM: ??DX ANKLE RIGHT 3+ VIEWS Procedure [...] Right documented in this encounter Care Teams Supervisor Drapery Hanging Relationship Specialty Start Date End Date Elsewhere, Pcp PCP - General Family Medicine 01/16/18 documented as of this encounter
--- OUTSIDE RECORDS SUMMARY | 2023-06-27 12:31 | XMS_ITS | Encounter Summary ---
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 ECG/Min 68 BPM MUSE VA Interval 164 ms MUSE QRSD Interval 72 ms MUSE QT Interval 366 ms MUSE QTC Interval 389 ms MUSE P [place] 51 degrees MUSE R [place] -21 degrees MUSE T Wave [place] 50 degrees MUSE 03/29/2023 8:58 AM PIPER INSTALLER 03/29/2023 9:13 AM PIPER INSTALLER Impressions MUSE - 03/29/2023 9:13 AM PIPER INSTALLER Normal sinus rhythm Normal ECG When compared [...] (ABNORMAL) CBC without Differential (03/28/2023 4:26 AM PIPER INSTALLER) Hemoglobin 12.8 11.6 - 15.0 g/dL 03/28/2023 4:56 AM PIPER INSTALLER DTL Hematocrit 37.6 35.5 - 44.9 % 03/28/2023 4:56 AM PIPER INSTALLER DTL Erythrocytes 4.20 3.92 - 5.13 x10(12)/L 03/28/2023 4:56 AM PIPER INSTALLER DTL MCV 89.5 78.2 - 97.9 fL 03/28/2023 4:56 AM PIPER INSTALLER DTL RBC Distrib Width 13.7 12.2 - 16.1 % 03/28/2023 4:56 AM PIPER INSTALLER DTL Platelet Count 286 157 - 371 x10(9)/L 03/28/2023 4:56 AM PIPER INSTALLER DTL Leukocytes 16.4(H) 3.4 - 9.6 x10(9)/L 03/28/2023 4:56 AM PIPER INSTALLER DTL Blood (Blood, Venous) 03/28/2023 4:26 AM PIPER INSTALLER 03/28/2023 4:50 AM PIPER INSTALLER Sam Graham M.D. LAB BLOOD ADD-ON Performing Organization Address City/[facility] Co de Phone Number [facility] [address] [place] [address], [facility] [address] [place] [address] * (ABNORMAL) Basic Metabolic Panel (03/28/2023 4:26 AM PIPER INSTALLER) Potassium, S 4.2 3.6 - 5.2 mmol/L 03/28/2023 5:30 AM PIPER INSTALLER DTL Sodium, S 139 135 - 145 mmol/L 03/28/2023 5:30 AM PIPER INSTALLER DTL Chloride, S 107 98 - 107 mmol/L 03/28/2023 5:30 AM PIPER INSTALLER DTL Bicarbonate, S 20(L) 22 - 29 mmol/L 03/28/2023 5:30 AM PIPER INSTALLER DTL Anion Gap 12 7 - 15 03/28/2023 5:30 AM PIPER INSTALLER DTL BUN (Blood Urea Nitrogen), S 23(H) 6 - 21 mg/dL 03/28/2023 5:30 AM PIPER INSTALLER DTL Creatinine 1.37(H) 0.59 - 1.04 mg/dL 03/28/2023 5:30 AM PIPER INSTALLER DTL Estimated GFR (eGFR) 40(L) >=60 mL/min/BSA 03/28/2023 5:30 AM PIPER INSTALLER DTL Comment: Estimated GFR calculated using the 2020 CKD_EPI creatinine equation. Calcium, Total, S 8.9 8.8 - 10.2 mg/dL 03/28/2023 5:30 AM PIPER INSTALLER DTL Glucose, S 93 70 - 140 mg/dL 03/28/2023 5:30 AM PIPER INSTALLER DTL Blood (Blood, Venous) 03/28/2023 4:26 AM PIPER INSTALLER 03/28/2023 5:05 AM PIPER INSTALLER Sam Graham M.D. LAB BLOOD ADD-ON Performing Organization Address [facility] [place] [address], [facility] [place] [address] * [place] Fluoro Less Than 1 Hour (03/27/2023 10:15 AM PIPER INSTALLER) Narrative [id number] - 03/27/2023 10:16 AM PIPER INSTALLER This exam does not require a radiologist review or interpretation. Please refer to the patient's medical record on this date for clinical details. Mary Partida P.A.-C. IMG FLUOROSCOPY P ROCEDURES Performing Organization Address [facility] Co de Phone Number [id number] NA documented in this encounter Visit Diagnoses [...] Fri03/27/23 at 1330 Given 04/01/2023 8:10 AM PIPER INSTALLER 1,000 mg Given 04/01/2023 3:07 AM PIPER INSTALLER 1,000 mg Given 03/31/2023 8:30 PM PIPER INSTALLER 1,000 mg atorvastatin tablet 20 mg (LIPITOR) 20 mg, oral, Daily at bedtime, First dose on Fri03/27/23 at 2100, atorvaSTATin 20 mg oral daily was interchanged for simvastatin 5-40 mg oral daily Given 03/31/2023 9:48 PM PIPER INSTALLER 20 mg Given 03/30/2023 9:05 PM PIPER INSTALLER 20 mg Given 03/29/2023 8:52 PM PIPER INSTALLER 20 mg D5W infusion 10-250 mL/hr, intravenous, [...] Fri03/28/23 at 0900 Given 04/01/2023 8:11 AM PIPER INSTALLER 40 mg Right Lower Abdomen Given 03/31/2023 9:32 AM PIPER INSTALLER 40 mg Le ft Lower Abdomen Given 03/30/2023 8:12 AM PIPER INSTALLER 40 mg Ri ght Upper Abdomen Lactated Ringer's 20 mL/hr, intravenous, Continuous, Starting on Fri03/27/23 at 0715 Continued from OR 03/27/2023 10:26 AM PIPER INSTALLER 20 mL/hr 20 mL/hr Rate/Dose Verify 03/27/2023 7:44 AM PIPER INSTALLER 20 mL/h r New Bag 03/27/2023 7:17 AM PIPER INSTALLER 20 mL/hr 20 mL/hr Lactated Ringer's 75 mL/hr, intravenous, Continuous, Starting on Fri03/27/23 at 1230 New Bag 03/28/2023 12:32 AM PIPER INSTALLER 75 mL/hr 75 mL/hr Rate/Dose Verify 03/27/2023 10:00 PM PIPER INSTALLER 75 mL/hr 75 mL/ hr Continued from OR 03/27/2023 12:30 PM PIPER INSTALLER 75 mL/hr 75 mL /hr losartan tablet 50 mg (COZAAR) 50 mg, oral, Daily, First dose on Fri03/30/23 at 0900 Given 04/01/2023 8:10 AM PIPER INSTALLER 50 mg Given 03/31/2023 9:32 AM PIPER INSTALLER 50 mg Given 03/30/2023 8:48 AM PIPER INSTALLER 50 mg melatonin tablet 3 mg 3 [...] for new order. Given 03/28/2023 9:58 AM PIPER INSTALLER 10 mg oxyCODONE IR tablet 5 mg (ROXICODONE) 5 mg, oral, Every 4 hours PRN, moderate pain or score 4-6 of 10, Starting on Jodie 03/27/23 at 1211, Second line therapy Given 03/28/2023 5:04 AM PIPER INSTALLER 5 mg polyethylene glycol powder packet 1 packet (MIRALAX) 1 packet, oral, Daily, First dose on Fri03/28/23 at 0900, Ordered sequence of administration: polyethylene glycol, then bisacodyl until BM achieved. Avoid mixing with starch-based thickened liquids. Given 03/31/2023 9:31 AM PIPER INSTALLER 1 packe t Given 03/30/2023 8:12 AM PIPER INSTALLER 1 packet Given 03/29/2023 8:09 AM PIPER INSTALLER 1 packet QUEtiapine tablet 50 mg (SEROquel) 50 mg, oral, Bedtime PRN, sleep, delirium, Starting on Fri03/28/23 at 2114 Given 03/28/2023 10:46 PM PIPER INSTALLER 50 mg sennosides-docusate sodium 8.6-50 mg per tablet 1 tablet (SENOKOT-S) 1 tablet, oral, 2 times daily, First dose on Jodie 03/27/23 at 2100, Do not give if patient has diarrhea. Given 03/31/2023 9:48 PM PIPER INSTALLER 1 tablet Given 03/31/2023 9:32 AM PIPER INSTALLER 1 tablet Given 03/30/2023 9:05 PM PIPER INSTALLER 1 tablet sodium chloride 0.9 % injection [...] maintain patency. Given 03/31/2023 9 :49 PM PIPER INSTALLER 3 mL Given 03/30/2023 9:05 PM PIPER INSTALLER 3 mL Given 03/30/2023 8:13 AM PIPER INSTALLER 3 mL documented in this encounter Active and Recently Administered Medications Times are shown in PIPER INSTALLER. Scheduled Medication Order 03/30/2023 03/31/2023 04/01/2023 acetaminophen tablet 1,000 mg (TYLENOL) 1,000 mg, oral, Every 6 hours, First dose on Jodie 03/27/23 at 1330 0111 (Given - Provider: Danny Phelps RPaula)0642 (Given - Provider: Danny Phelps R.N.)1333 (Given - Provider: Patience Ogden R.N.)1842 (Given [...] R.N.) 0816 (Not Given - Provider: Sav Roemro R.N. - Reason: Patient/family refused) sodium chloride [...] Macie Emmanuel R.N.)2148 (Given - Provider: Debra Quirgoa R.N.) 0816 (Canceled Entry - Provider: Sav [...] order. documented in this encounter Care Teams Hydrate Thickener Operator Relationship Specialty Start Date End Date Elsewhere, Pcp PCP - General Family Medicine 01/16/18 documented as of this encounter
--- OUTSIDE RECORDS SUMMARY | 2023-06-27 12:32 | XMS_ITS | Encounter Summary ---
Author Name Unknown Organization [facility] Address [address] [place] [address] Care Team Providers Care Flanger Name Role Phone Elsewhere, Pcp Primary Care Provider Unavailabl e Encounter Details Date Type Department Care Team (Latest Contact Info) Description 03/26/2023 8:06 AM PIPELINE CONSTRUCTION INSPECTOR - 03/26/2023 11:59 PM PIPELINE CONSTRUCTION INSPECTOR Hospital Encounter Department of Laboratory Medicine and Pathology, [facility], in [place], [place] [address] [place] [address] Mary Partida PKeysha-C. [address] [place] [address] Deficiency Vitamin D Discharge Disposition: Home or Self Care Social History Tobacco Use Types Packs/Day Years Used Date Smoking Tobacco: Former Cigarettes Smokeless Tobacco: Never Alcohol Use Standard Drinks/Week Comments Yes 0 (1 standard drink = 0.6 oz pur e alcohol) rare glass on wine [facility] Utilities Answer Date Recorded In the past [...] a [facility] place to live 03/27/2023 Sex [...] IN D, S Routine 03/26/2023 8:21 AM PIPELINE CONSTRUCTION INSPECTOR Deficiency Vitamin D 25-HYDROXYVITAMIN D2 AND D3, S Routine 03/26/2023 8:21 AM PIPELINE CONSTRUCTION INSPECTOR Deficiency Vitamin D CALCIUM, TOT, S/P Routine 03/26/2023 8:2 1 AM PIPELINE CONSTRUCTION INSPECTOR Deficiency Vitamin D documented in this encounter Results * Calcium, Total (03/26/2023 8:21 AM PIPELINE CONSTRUCTION INSPECTOR) Calcium, Total, S 9.6 8.8 - 10.2 mg/dL 03/26/2023 12:10 PM PIPELINE CONSTRUCTION INSPECTOR DTL Blood (Blood, Venous) 03/26/2023 8:21 AM PIPELINE CONSTRUCTION INSPECTOR 03/26/2023 9:51 AM PIPELINE CONSTRUCTION INSPECTOR Mary Partida P.A.-C. LAB BLOOD ADD-ON Performing Organization Address City/[facility]/ZIP Co de Phone Number [facility] [address] [place] [address], [facility] DTL [facility] [address] [place] [address] * 25-Hydroxyvitamin D2 and D3 (03/26/2023 8:21 AM PIPELINE CONSTRUCTION INSPECTOR) 25-Hydroxy D2 <4.0 ng/mL 03/28/2023 12:01 AM PIPELINE CONSTRUCTION INSPECTOR SDS 25-Hydroxy D3 26 ng/mL 03/28/2023 12:01 AM PIPELINE CONSTRUCTION INSPECTOR [facility] 25-Hydroxy D Total 26 ng/mL 2023 12:01 AM PIPELINE CONSTRUCTION INSPECTOR [facility] Comment: ----REFERENCE VALUE---- 25-HYDROXY D TOTAL (D2+D3) Optimum levels in the healthy population are 20-50, patients with bone disease may benefit from higher levels within this range. ----ADDITIONAL INFORMATION---- This test was developed and its performance characteristics determined by [facility] in a manner consistent with CLIA requirements. This test has not been cleared or approved by the U.S. Food and Drug Administration. Blood (Blood, Venous) 03/26/2023 8:21 AM PIPELINE CONSTRUCTION INSPECTOR 03/26/2023 1:05 PM PIPELINE CONSTRUCTION INSPECTOR Mary Partida P.A.-C. LAB BLOOD ADD-ON Performing Organization Address City/[facility]/ZIP Co de Phone Number [facility] [address] [place] [address] [facility] [address] [place] [address] [place] [address] * 1,25-Dihydroxyvitamin D (03/26/2023 8:21 AM PIPELINE CONSTRUCTION INSPECTOR) 1, 25 DIHYDROXYVITAMIN D, S 34 18 - 78 pg/mL 03/28/2023 3:23 PM PIPELINE CONSTRUCTION INSPECTOR [facility] Comment: ----ADDITIONAL INFORMATION---- This test was developed and its performance characteristics determined by [facility] in a manner consistent with CLIA requirements. This test has not been cleared or approved by the U.S. Food and Drug Administration. Blood (Blood, Venous) 03/26/2023 8:21 AM PIPELINE CONSTRUCTION INSPECTOR 03/26/2023 12:58 PM PIPELINE CONSTRUCTION INSPECTOR Mary Partida P.A.-C. LAB BLOOD ADD-ON [facility] [address] [place] [address] [facility] [address] [place] [address] [place] [address] documented in this encounter Visit Diagnoses Diagnosis Deficiency Vitamin D documented in this encounter Care Teams Flanger Relationship Specialty Start Date End Date Elsewhere, Pcp PCP - General Family Medicine 01/16/18 documented as of this encounter
--- OUTSIDE RECORDS SUMMARY | 2023-06-27 12:32 | XMS_ITS | Encounter Summary ---
Author Name Unknown Organization [facility] Address [address] [place] [address] Care Team Providers Care Regional Clinical Director Name Role Phone Elsewhere, Pcp Primary Care Provider Unavailabl e Reason for Visit * Reason Onset Date Comments Pre-visit Intake 03/25/2023 Encounter Details Date Type Department Care Team (Latest Contact Info) Description 03/25/2023 9:00 AM AUTOMOTIVE SERVICE ASSISTANT Clinical Communication Virtual Review in [place], [place] [address] [place] [address] Pre-visit Intake Social History Tobacco Use Types [...] on filedocumented in this encounter Care Teams Regional Clinical Director Relationship Specialty Start Date End Date Elsewhere, Pcp PCP - General Family Medicine 01/16/18 documented as of this encounter
--- OUTSIDE RECORDS SUMMARY | 2023-06-27 12:32 | XMS_ITS | Encounter Summary ---
Author Name Unknown Organization [facility] Address [address] [place] [address] Care Team Providers Care Bindery Machine Setter/Set Up Operator Name Role Phone Elsewhere, Pcp Primary Care Provider Unavailabl e Reason for Visit * Reason Onset Date Comments Question 02/24/2023 Encounter Details Date Type Department Care Team (Late st Contact Info) Description 02/24/2023 Clinical Communication Department of Orthopedic Surgery in [place], [place] [address] [place] [phone] Blacno Burt M.D. [address] [place] [phone] Question Social History Tobacco Use Types Packs/Day Years Used Date Smoking Tobacco: Former Cigarettes Smokeless Tobacco: Never Alcohol Use Standard Drinks/Week Comments Yes 0 (1 standard drink = 0.6 oz pur e alcohol) rare glass on wine [facility] Utilities Answer Date Recorded In the [...] living situation today? I have a [facility] place to live 03/27/2023 Sex and [...] on filedocumented in this encounter Care Teams Bindery Machine Setter/Set Up Operator Relationship Specialty Start Date End Date Elsewhere, Pcp PCP - General Family Medicine 01/16/18 documented as of this encounter
--- OUTSIDE RECORDS SUMMARY | 2023-06-27 12:32 | XMS_ITS | Continuity of Care Document ---
Author Name Unknown Organization [facility] Address [address] [place] [address] Phone Care Team Providers Care Machinist Helper Name Role Phone Kwasi JACOBS, PhD, Lee [...] on Encounter [facility], [address], [place], [place], [id number] , [place] tel:[phone] [facility] [place] No Information 3 Kwasi Howard. [facility], [address], [place], [address], [place]. tel:[phone] Office/Outpa tient Visit,Est, Mod [facility], [address], [place], [place], [id number] , [place] [phone] [facility] Spinal stenosis, lumbar region with neurogenic claudication 3 Kwasi Lee. [facility], [address], [place], [address], [place]. tel:[phone] Referring Provider: Jojo Melara [facility] [address] [place], [address]. tel:[phone] Office/Outpa tient Visit,Est, Mod [facility], [address], [place], [place], [id number] , [place] tel:[phone] [facility] Spinal stenosis, lumbar region with neurogenic claudication 3 Kwasi Howard. [facility], [address], [place], [address], [place]. tel:[phone] Referring Provider: Jojo Melara [facility] [address] [place], [address]. tel:[phone] Office/Outpa tient Visit,New, Mod [facility], [address], [place], [place], [id number] , [place] tel:[phone] [facility] Other intervertebral disc displacement, lumbar region 1 No Information Referring Provider: Jojo Melara [facility] [address] [place], [address]. tel:[phone] Family History Family Member Type Diagnosis Age At Onset No Information Payers Payer name Insurance type Covered democrat ID Authoriza tisuman(s) [employer] Medicare Gold Choice Ada PIERRE [id number] Social History Type Description Quantity Date [...]
--- OUTSIDE RECORDS SUMMARY | 2023-06-27 12:32 | XMS_ITS | Encounter Summary ---
Author Name Unknown Organization [facility] Address [address] [place] [address] Care Team Providers Care Wind Energy Engineer Name Role Phone Elsewhere, Pcp Primary Care Provider Unavailabl e Reason for Referral * Outpatient (Routine) - Closed Specialty Diagnoses / Procedures Referred By Contac t Referred To Contact Diagnoses Replacement Ankle Status Post Right Procedures DX Ankle Right 3+ Views Mary Partida P.A.-C. [address] [place] [phone] [facility] Referral ID Status Reason Start Date Expiration Date Visits Re quested Visits Authorized [id number] Closed 03/25/2023 03/24/2024 1 1 ANDER * Outpatient (Routine) - Closed Specialty Diagnoses / Procedures Referred By Contac t Referred To Contact Orthopedic Surgery Mary Partida P.A.-C. [address] [place] [phone] [facility] Referral ID Status Reason Start Date Expiration Date Visits Re quested Visits Authorized [id number] Closed 03/25/2023 09/23/2024 1 1 ANDER * Outpatient (Routine) - Closed Specialty Diagnoses / Procedures Referred By Marko t Referred To Contact Diagnoses Replacement Ankle Status Post Right Procedures DX Ankle Right 3+ Views Mary Partida P.A.-C. [address] [place] [phone] [facility] Referral ID Status Reason Start Date Expiration Date Visits Re quested Visits Authorized [id number] Closed 03/25/2023 03/24/2024 1 1 ANDER * Outpatient (Routine) - Closed Specialty Diagnoses / Procedures Referred By Contge t Referred To Contact Diagnoses Replacement Ankle Status Post Right Procedures ORS Cast Room Visit Mary Partida P.A.-C. [address] [place] [phone] [facility] Referral ID Status Reason Start Date Expiration Date Visits Re quested Visits Authorized [id number] Closed 03/25/2023 03/24/2024 1 1 ANDER * Outpatient (Routine) - Closed Specialty Diagnoses / Procedures Referred By Contac t Referred To Contact Diagnoses Replacement Ankle Status Post Right Procedures DX Ankle Right 3+ Views Mary Partida P.A.-C. [address] [place] [phone] [facility] Referral ID Status Reason Start Date Expiration Date Visits Re quested Visits Authorized [id number] Closed 03/25/2023 03/24/2024 1 1 ANDER * Outpatient (Routine) - Closed Specialty Diagnoses / Procedures Referred By Contac t Referred To Contact Diagnoses Replacement Ankle Status Post Right Procedures ORS Cast Room Visit Mary Partida P.A.-C. [address] [place] [phone] [facility] Referral ID Status Reason Start Date Expiration Date Visits Re quested Visits Authorized [id number] Closed 03/25/2023 03/24/2024 1 1 ANDER Reason for Visit * Reason Comments Pre-op Exam * Outpatient (Routine) - Closed Specialty Diagnoses / Procedures Referred By Contac t Referred To Contact Orthopedic Surgery Mary Partida P.A.-C. [address] [place] [phone] Blanco Burt M.D. [address] [place] [phone] Referral ID Status Reason Start Date Expiration Date Visits Re quested Visits Authorized [id number] Closed 01/15/2023 01/14/2026 1 1 Encounter Details Date Type Department Care Team (Late st Contact Info) Description 03/26/2023 10:30 AM REBRANDER Office Visit Department of Orthopedic Surgery in [place], [place] [address] [place] [phone] Blanco Burt M.D. [address] [place] [phone] Arthritis Ankle (Primary Dx); Replacement Ankle Status Post Right Social History Tobacco Use Types Packs/Day Years Used Date Smoking Tobacco: Former Cigarettes Smokeless Tobacco: Never Alcohol Use Standard Drinks/Week Comments Yes 0 (1 standard drink = 0.6 oz pur e alcohol) rare glass on wine [facility] Utilities Answer Date Recorded In the past 12 months has [employer], gas, oil, or water [employer] threatened to shut off services in your [...] your living situation today? I have a [facility] place to live 03/31/2023 Sex and [...] patient expressed understanding and desires to proceed. ANDER documented in this encounter Plan of Treatment [...] joints of the foot. Mary Partida P.A.-C. [facility]ED[facility] * DX Ankle [...] Pesplanus. Soft tissue swelling. Mary Partida P.A.-C. [facility]ED[facility] * PROCEDURE PLACEHOLDER [...] Ankle Right 3+ Views (04/15/2023 3:33 PM REBRANDER) Anatomical Region Laterality Modality Lower Extremity, Ankle, Musc uloskeletal RST LOS, Musculoskeletal ARZ LOS, Muskuloskeletal FLA LOS Right Compu corinne Radiography Impressions 04/15/2023 3:35 PM REBRANDER Right ankle arthroplasty is well seated. Plantar calcaneal spur. Soft tissue swelling about the right ankle. Narrative 04/15/2023 3:35 PM REBRANDER EXAM: ??DX ANKLE RIGHT 3+ VIEWS Procedure Note Joshua Long M.D. - 04/15/2023 EXAM: DX ANKLE RIGHT 3+ VIEWS IMPRESSION: Right ankle arthroplasty is well seated. Plantar calcaneal spur. Softtissue swelling about the right ankle. Mary Partida P.A.-C. IMG DIAGNOSTIC IM AGING PROCEDURES * PROCEDURE PLACEHOLDER (04/15/2023 3:00 PM REBRANDER) Narrative [facility] - 04/15/2023 3:00 PM REBRANDER Mary Partida P.A.-C. ? 04/15/2023 ??3:47 PM [...] Pain is well-controlled. ??[facility]. PHYSICAL EXAM: On exam the incision [...] Right documented in this encounter Care Teams Wind Energy Engineer Relationship Specialty Start Date End Date Elsewhere, Pcp PCP - General Family Medicine 01/16/18 documented as of this encounter
== END 2023-06-26 08:59 | disposition home or self-care (01) ==
LOC: NFLDREF 06-27 12:28
PROVIDERS: PCP Family Medicine; Referring Provider Family Medicine; Visit Provider Internal Medicine Nephrology
DX: D63.1 Anemia in chronic kidney disease (principal); N18.30 Chronic kidney disease, stage 3 unspecified; Z52.4 Kidney donor
CPT/HCPCS: 82043; 82570

== ENCOUNTER 2023-08-13 10:41 | Outpatient (REF) | payer OTHER, SELFPAY ==
--- OUTSIDE RECORDS SUMMARY | 2023-08-13 10:46 | XMS_ITS | Encounter Summary ---
Author Organization [facility] Address [address] [place] [address] Care Team Providers Care Leadership Program Intern Name Role Phone Elsewhere, Pcp Primary Care Provider Unavailabl e Reason for Referral * Outpatient (Routine) - Authorized Specialty Diagnoses / Procedures Referred By Contac t Referred To Contact Orthopedic Surgery Mary Partida P.A.-C. [address] [place] [address] [facility] Referral ID Status Reason Start Date Expiration Date V isits Requested Visits Authorized [id number] Authorized 08/13/2023 02/11/2025 1 1 * Outpatient (Routine) - Authorized Specialty Diagnoses / Procedures Referred By Contac t Referred To Contact Diagnoses Replacement Ankle Status Post Right Procedures DX Foot Ankle Right 3+ Views Mary Partida P.A.-C. [address] [place] [address] [facility] Referral ID Status Reason Start Date Expiration Date V isits Requested Visits Authorized [id number] Authorized 08/13/2023 08/12/2024 1 1 Encounter Details Date Type Department Care Team (Late st Contact Info) Description 08/13/2023 Orders Only Department of Orthopedic Surgery in [place], [place] [address] [place] [address] Mary Partida P.A.-C. [address] [place] [address] Replacement Ankle Status Post Right (Primary Dx) Social History Tobacco Use Types Packs/Day Years Used Date Smoking Tobacco: Former Cigarettes Smokeless Tobacco: Never Alcohol Use Standard Drinks/Week Comments Yes 0 (1 standard drink = 0.6 oz pur e alcohol) rare glass on wine [facility] Utilities Answer Date Recorded In the past 12 months has e [employer], gas, oil, or water [employer] threatened to shut off services in your [...] your living situation today? I have a [facility] place to live 03/31/2023 Sex and Gender Information Value Date Recorded Sex Assigned at Female 07/31/2017 10:09 AM CDT Gender Identity Female 07/31/2017 10:09 AM CDT Sexual Orientation Straight 07/31/2017 10 :09 AM CDT documented as of this encounter Plan of Treatment Scheduled Orders Name Type Priority Associated Diagnoses Orde r Schedule DX Foot Ankle Right 3+ Views Imaging RAD - Routine (most inpatients and all outpatients) Replacement Ankle Status Post Right Expected: 08/28/2023 (Approximate), Expires: 08/12/2024 Scheduled Procedures Name Priority Associated Diagnoses Date/Ti me OPERATIVE LAPAROSCOPY Mass Ovary SALPINGO - OOPHORECTOMY Mass Ovary Scheduled Referrals Name Type Priority Associated Diagnoses Order Schedule Orthopedic Surgery office visit (clinic) Outpatient Referral Routine Expected: 08/28/2023 (Approximate), Expires: 11/12/2024 documented as of this encounter Visit Diagnoses Diagnosis Replacement Ankle Status Post Right- Primary documented in this encounter Care Teams Leadership Program Intern Relationship Specialty Start Date End Date Elsewhere, Pcp PCP - General Family Medicine 01/16/18 documented as of this encounter
--- OUTSIDE RECORDS SUMMARY | 2023-08-13 10:46 | XMS_ITS | Referral Summary ---
Author Organization [facility] Address [address] [place] [address] Care Team Providers Care 911 Dispatcher Name Role Phone Elsewhere, Pcp Primary Care Provider Unavailabl e Source Comments Patient records contain information from all sites at [facility]. For routine questions regarding patient records, call [phone] during business hours, M-F 8:00 AM - 5:00 PM Central Time. Record requests for emergency care only can be directed to [phone] at any time.[facility] Encounters Date Type Department Care Team Description 08/13/2023 Orders Only Department of Orthopedic Surgery in [place], [place] [address] [place] [phone] Mary Partida P.A.-C. Replacement Ankle Status Post Right (Primary Dx) 08/11/2023 Clinical Communication Department of Orthopedic Surgery in [place], [place] [address] [place] [phone] Blanco Burt M.D. Appointment 06/26/2023 Clinical Communication Division of Nephrology and Hypertension in [place], [place] [address] [place] [phone] Lashon Quinn R.N. outside labs 06/18/2023 11:15 AM CDT Office Visit Department of Orthopedic Surgery in [place], [place] [address] [place] [phone] Blanco Burt M.D. Replacement Ankle Status Post Right (Primary Dx) 06/18/2023 9:41 AM CDT - 06/18/2023 11:59 PM CDT Hospital Encounter Department of Radiology, [facility], in [place], [place] [address] [place] [address] Mary Partida P.A.-C. Replacement Ankle Status Post Right Discharge Disposition: Home or Self Care 06/16/2023 10:15 AM CDT Clinical Communication Virtual Review in [place], [place] [address] [place] [address] Pre-visit Intake from Last 3 Months Allergies Active Allergy [...] Overview: Added automatically from request for surgery [id number] Proteinuria 03/13/2020 Hyperparathyroidism Secondary 07/24/2016 Incontinence Urinary Stress Female 10/09/2015 Abnormal Pap Smear Cervix 05/30/2011 Overview: reactive reparative 12/2006; ASCUS 07/2007(negative HPV) ASCUS positve HPV 10/16/2009 LEEP on 05/17/2010 Pap 05/30/2011 is Negative for intraepithelial lesion or malignancy. 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[place] Chronic Kidney Disease (CKD) , Stage 3b [...] pur e alcohol) rare glass on wine [facility] Utilities Answer Date Recorded In the past 12 months has th e [employer], [employer], oil, or water [employer] ([employer] [place]) threatened to shut off services in your [...] Comments Blood Pressure 135/94 04/01/2023 11:04 AM PURCHASING AND FISCAL CLERK Pulse 81 04/01/2023 11:04 AM PURCHASING AND FISCAL CLERK Temperature 36.4 ??C (97.5 ??F) 04/01/2023 11:[address] Respiratory Rate 18 04/01/2023 11:04 AM PURCHASING AND FISCAL CLERK Oxygen Saturation 98% 04/01/2023 11:04 AM PURCHASING AND FISCAL CLERK Inhaled Oxygen Concentration - - Weight 73.7 kg (162 lb 7.7 oz) 03/27/2023 3:00 P M PURCHASING AND FISCAL CLERK Height 162 cm (5' 3.78) 03/27/2023 3:00 PM PURCHASING AND FISCAL CLERK Body Mass Index 28.08 03/27/2023 3:00 PM PURCHASING AND FISCAL CLERK Plan of Treatment Scheduled Procedures Name Priority Associated Diagnoses Date/Ti me OPERATIVE LAPAROSCOPY Mass Ovary SALPINGO - OOPHORECTOMY Mass Ovary Medical Devices Implanted Type Area Mechanical Systems Design Engineer Device Identifier Shelf Expiration Date Model / Serial / Lot Ankl Tlr Dom Inf 3d Sz2 Implanted:Qt y: 1 on 03/27/2023 by Blanco Burt M.D. at [facility] Ankle Implant Right: Ankle [facility] [id number] 11/11/2030 [id number] / / [id number] Ankl Tib Comp 3d Inf Sz2 Implanted:Qt y: 1 on 03/27/2023 by Blanco [facility] M.D. at [facility] Ankle Implant Right: Ankle [facility] [id number] 06/17/2030 [id number] / / [id number] Ankl Tl Inf Sz2.8 Implanted:Qt y: 1 on 03/27/2023 by Blanco Burt M.D. at [facility] Ankle Implant Right: Ankle [facility] [id number] 10/21/2030 [id number] / / [id number] Procedures Procedure Name Priority Date/Time Associated Diagnosis Comments DX ANKLE RIGHT 3+ VIEWS RAD - Routine (most inpatients and all outpatients) 06/18/2023 10:17 AM CDT Replacement Ankle Status Post Right EXTI BASIC METABOLIC PANEL, S/P Routine 04/09/2023 8:09 AM PURCHASING AND FISCAL CLERK OUTSIDE MG MAMMOGRAM Routine 09/27/2019 1:45 PM [...] P.A.-C. IMG DIAGNOSTIC IM AGING PROCEDURES * MAMMO SCREEN, BILAT, W/CAD-Outside Mammogram (09/27/2019 1:45 PM CDT) Narrative [facility] - 01/02/2021 3:36 PM PURCHASING AND FISCAL CLERK This order has been created and auto-finalized [...] Advance Directives For more information, please contact: [phone] * Full Code (Latest Code Status on File) Date Activated Date Inactivated Comments 03/27/2023 12:11 PM 04/01/2023 1:23 PM Question Answer Comments Full Code: Not Discussed Due to: Patient not available Care Teams 911 Dispatcher Relationship Specialty Start Date End Date Elsewhere, Pcp PCP - General Family Medicine 01/16/18
--- OUTSIDE RECORDS SUMMARY | 2023-08-13 10:46 | XMS_ITS | Continuity of Care Document ---
Author Organization [facility] Address [address] [place] [address] Phone Care Team Providers Care Certified Public Accountant Name Role Phone Kwasi JACOBS, PhD, Lee [...] on Encounter [facility], [address], [place], [place], [id number] , [place] [phone] [facility] No Information 3 Kwasi Howard. [facility] [place], [address], [place], [address], [place]. tel:[phone] Office/Outpa tient Visit,Est, Mod [facility], [address], [place], [place], [id number] , [place] [phone] [facility] Spinal stenosis, lumbar region with neurogenic claudication 3 Kwasi Lee. [facility] [place], [address], [place], [address], [place]. tel:[phone] Referring Provider: Jojo Melara [facility] [address] [place], [address]. tel:[phone] Office/Outpa tient Visit,Est, Mod [facility], [address], [place], [place], [id number] , [place] tel:[phone] [facility] Spinal stenosis, lumbar region with neurogenic claudication 3 Kwasi Lee. [facility] [place], [address], [place], [address], [place]. tel:[phone] Referring Provider: Jojo Melara [facility] [address] [place], [address]. tel:[phone] Office/Outpa tient Visit,New, Mod [facility], [address], [place], [place], [id number] , [place] tel:[phone] [facility] Other intervertebral disc displacement, lumbar region 1 No Information Referring Provider: Jojo Melara [facility] [address] [place], [address]. tel:[phone] Family History Family Member Type Diagnosis Age At Onset No Information Payers Payer name Insurance type Covered alliance party ID Authoriza tisuman(s) Humana Medicare Gold Choice Ada PIERRE [id number] Social History Type Description Quantity Date [...]
--- OUTSIDE RECORDS SUMMARY | 2023-08-13 10:46 | XMS_ITS | Encounter Summary ---
Author Organization [facility] Address [address] [place] [address] Care Team Providers Care Sweat Band Sewer Name Role Phone Elsewhere, Pcp Primary Care Provider Unavailabl e Reason for Visit * Reason Onset Date Comments outside labs 06/26/2023 Encounter Details Date Type Department Care Team (Latest Contact Info) Description 06/26/2023 Clinical Communication Division of Nephrology and Hypertension in [place], [place] [address] [place] [address] Lashon Quinn R.N. [address] [place] [address] outside labs Social History Tobacco Use Types [...] your living situation today? I have a [facility] place to live 03/31/2023 Sex and [...] on filedocumented in this encounter Care Teams Sweat Band Sewer Relationship Specialty Start Date End Date Elsewhere, Pcp PCP - General Family Medicine 01/16/18 documented as of this encounter
--- OUTSIDE RECORDS SUMMARY | 2023-08-13 10:46 | XMS_ITS ---
Author Organization [facility] Address [address] [place] [address] Care Team Providers Care Bean Picker Machine Operator Name Role Phone Unavailable Unavailable Unavailable Surgery Details Not on file Complications Check Surgery Details section. Procedure Estimated Blood Loss Check Surgery Details section. Procedure Findings Check Surgery Details section. Procedure Specimens Taken Check Surgery Details section.
--- OUTSIDE RECORDS SUMMARY | 2023-08-13 10:46 | XMS_ITS | Encounter Summary ---
Author Organization [facility] Address [address] [place] [address] Care Team Providers Care Car Audio Installer Name Role Phone Elsewhere, Pcp Primary Care Provider Unavailabl e Reason for Visit * Reason Onset Date Comments Appointment 08/11/2023 Encounter Details Date Type Department Care Team (Late st Contact Info) Description 08/11/2023 Clinical Communication Department of Orthopedic Surgery in [place], [place] [address] [place] [phone] Blanco Burt M.D. [address] [place] [phone] Appointment Social History Tobacco Use Types Packs/Day Years Used Date Smoking Tobacco: Former Cigarettes Smokeless Tobacco: Never Alcohol Use Standard Drinks/Week Comments Yes 0 (1 standard drink = 0.6 oz pur e alcohol) rare glass on wine [facility] Utilities Answer Date Recorded In [...] your living situation today? I [facility] a [facility] [employer] [facility] place to live 03/31/2023 Sex and Gender [...] on filedocumented in this encounter Care Teams Car Audio Installer Relationship Specialty Start Date End Date Elsewhere, Pcp PCP - General Family Medicine 01/16/18 documented as of this encounter
--- OUTSIDE RECORDS SUMMARY | 2023-08-13 10:46 | XMS_ITS | Encounter Summary ---
Author Organization [facility] Address [address] [place] [address] Care Team Providers Care Master Automotive Technician Name Role Phone Elsewhere, Pcp Primary Care Provider Unavailabl e Reason for Referral * Outpatient (Routine) - Authorized Specialty Diagnoses / Procedures Referred By Contac t Referred To Contact Diagnoses Replacement Ankle Status Post Right Procedures DX Ankle Right 3+ Views Jin Purvis M.D. [address] [place] [address] [facility] Referral ID Status Reason Start Date Expiration Date V isits Requested Visits Authorized [id number] Authorized 06/18/2023 06/17/2024 1 1 * Outpatient (Routine) - Authorized Specialty Diagnoses / Procedures Referred By Contac t Referred To Contact Orthopedic Surgery Jin Purvis M.D. [address] [place] [phone] [facility] Referral ID Status Reason Start Date Expiration Date V isits Requested Visits Authorized [id number] Authorized 06/18/2023 12/17/2024 1 1 * Physical Therapy (Routine) - Authorized Specialty Diagnoses / Procedures Referred By Contac t Referred To Contact Diagnoses Replacement Ankle Status Post Right Jin Purvis M.D. [address] [place] [phone] Referral ID Status Reason Start Date Expiration Date Visits Requested Visits Authorized [id number] Authorized Patient Preference 06/18/2023 12/17/2024 1 1 Reason for Visit * Outpatient (Routine) - Closed Specialty Diagnoses / Procedures Referred By Marko mares Referred To Contact Orthopedic Surgery Mary Partida P.A.-C. [address] [place] [phone] [facility] Referral ID Status Reason Start Date Expiration Date Visits Re quested Visits Authorized [id number] Closed 03/25/2023 09/23/2024 1 1 Encounter Details Date Type Department Care Team (Late st Contact Info) Description 06/18/2023 11:15 AM CDT Office Visit Department of Orthopedic Surgery in [place], [place] [address] [place] [phone] Blanco Burt M.D. [address] [place] [phone] Replacement Ankle Status Post Right (Primary Dx) Social History Tobacco Use Types Packs/Day Years Used Date Smoking Tobacco: Former Cigarettes Smokeless Tobacco: Never Alcohol Use Standard Drinks/Week Comments Yes 0 (1 standard drink = 0.6 oz pur e alcohol) rare glass on wine [facility] Utilities Answer Date Recorded In the past 12 months has [employer] gas, oil, or water [employer] threatened to shut off services in your [...] your living situation today? I have a [facility] place to live 03/31/2023 Sex [...] Primary documented in this encounter Care Teams Master Automotive Technician Relationship Specialty Start Date End Date Elsewhere, Pcp PCP - General Family Medicine 01/16/18 documented as of this encounter
--- OUTSIDE RECORDS SUMMARY | 2023-08-13 10:46 | XMS_ITS | Clinical Summary ---
Author Organization [facility] Address [place], [place] [address] Care Team Providers Care Surfboard Designer Name Role Phone None Primary Care Provider [...] 05/01/2023 History of arthroplasty of right ankle 4 Encounters Date Type Department Care Team Description 06/18/2023 Telephone [facility] [address] [place] [address] Marina Sharp PA Form from Last 3 Months Immunizations Name Administration Dates Next Due COVID-19 vaccine ([employer] [place] 30mcg/0.3mL) PF MDV 06/22/2021 Influenza Virus, Unspecified 12/04/2015, 11/03/2014,11/04/2013,2010 Influenza, [...] Mass Index - - Plan of Treatment Upcoming Encounters Date Type Department Care Team (Late st Contact Info) Description 08/27/2023 1:15 PM CDT Office Visit [facility] [address] [place] [address] Anish Espana DPM [address] [place] [address] Health Maintenance Due Date Last Done Comments [...] 05/30/2021 05/31/2011, 05/12, 07/14/2001, Additional history exists COVID-19 vaccine series ( season) 2023 11/13/2022, 11/14/2021, 06/22/2021, Additional history exists Influenza for age 65+ 10/12/2023 11/14/2021 , 12/01/2020, 11/23/2019, Additional history exists Tdap Completed 05/31/2011 Zoster (shingles) series for age 50+ Completed 02/27/2021, 12/28/2020, 05/12/2009 Advance Directives * Full Code (Latest Code Status on File) Date Activated Date Inactivated Comments 11/16/2015 9:37 AM 11/16/2015 2:27 PM Care Teams Surfboard Designer Relationship Specialty Start Date End Date None . PCP - General 07/31/22
--- OUTSIDE RECORDS SUMMARY | 2023-08-13 10:46 | XMS_ITS | Encounter Summary ---
Author Organization [facility] Address [address] [place] [address] Care Team Providers Care Clinical Informaticist Name Role Phone Elsewhere, Pcp Primary Care Provider Unavailabl e Reason for Referral * Outpatient (Routine) - Closed Specialty Diagnoses / Procedures Referred By Marko mares Referred To Contact Diagnoses Replacement Ankle Status Post Right Procedures ORS Cast Room Visit Mary Partida P.A.-C. [address] [place] [phone] [facility] Referral ID Status Reason Start Date Expiration Date Visits Re quested Visits Authorized [id number] Closed 03/25/2023 03/24/2024 1 1 Reason for Visit * Reason Comments Follow-up Cast Check * Outpatient (Routine) - Closed Specialty Diagnoses / Procedures Referred By Marko mares Referred To Contact Diagnoses Replacement Ankle Status Post Right Procedures ORS Cast Room Visit Mary Partida P.A.-C. [address] [place] [phone] [facility] Referral ID Status Reason Start Date Expiration Date Visits Re quested Visits Authorized [id number] Closed 03/25/2023 03/24/2024 1 1 Encounter Details Date Type Department Care Team (Latest Contact Info) Description 05/09/2023 2:13 PM CDT - 05/09/2023 3:58 PM CDT Hospital Encounter Department of Orthopedic Surgery in [place], [place] [address] [place] [address] Mayr Partida P.A.-C. [address] [place] [address] Replacement Ankle Status Post Right Discharge Disposition: Home or Self Care Social History Tobacco Use Types Packs/Day Years Used Date Smoking Tobacco: Former Cigarettes Smokeless Tobacco: Never Alcohol Use Standard Drinks/Week Comments Yes 0 (1 standard drink = 0.6 oz pur e alcohol) rare glass on wine [facility] [employer] Answer Date Recorded In the past 12 months has th e electric, gas, oil, or water [employer] threatened to shut off services in your [...] your living situation today? I have a [facility] place to live 03/31/2023 Sex and [...] Right documented in this encounter Care Teams Clinical Informaticist Relationship Specialty Start Date End Date Elsewhere, Pcp PCP - General Family Medicine 01/16/18 documented as of this encounter
--- OUTSIDE RECORDS SUMMARY | 2023-08-13 10:46 | XMS_ITS | Encounter Summary ---
Author Organization [facility] Address [address] [place] [phone] Care Team Providers Care Registered Nurse Nursery Name Role Phone Elsewhere, Pcp Primary Care Provider Unavailabl e Reason for Referral * Outpatient (Routine) - Closed Specialty Diagnoses / Procedures Referred By Contac t Referred To Contact Diagnoses Replacement Ankle Status Post Right Procedures DX Ankle Right 3+ Views Mary Partida P.A.-C. [address] [place] [phone] Health System Referral ID Status Reason Start Date Expiration Date Visits Re quested Visits Authorized [id number] Closed 03/25/2023 03/24/2024 1 1 Reason for Visit * Outpatient (Routine) - Closed Specialty Diagnoses / Procedures Referred By Contge mares Referred To Contact Diagnoses Replacement Ankle Status Post Right Procedures DX Ankle Right 3+ Views Mary Partida P.A.-C. [address] [place] [phone] Health System Referral ID Status Reason Start Date Expiration Date Visits Re quested Visits Authorized [id number] Closed 03/25/2023 03/24/2024 1 1 Encounter Details Date Type Department Care Team (Latest Contact Info) Description 06/18/2023 9:41 AM CDT - 06/18/2023 11:59 PM CDT Hospital Encounter Department of Radiology, [facility], in [place], [place] [address] [place] [address] Mary Partida P.A.-C. [address] [place] [address] Replacement Ankle Status Post Right Discharge Disposition: [...] th e electric, gas, oil, or water [employer] threatened to shut off services in your [...] your living situation today? I have a [facility] place to live 03/31/2023 Sex and [...] Right documented in this encounter Care Teams Registered Nurse Nursery Relationship Specialty Start Date End Date Elsewhere, Pcp PCP - General Family Medicine 01/16/18 documented as of this encounter
--- OUTSIDE RECORDS SUMMARY | 2023-08-13 10:46 | XMS_ITS | Clinical Summary ---
Author Organization [facility] Address [address] [place] [address] Care Team Providers Care Precision Dyer Name Role Phone Elsewhere, Pcp Primary Care Provider Unavailabl e Source Comments Patient records contain information from all sites at [facility]. For routine questions regarding patient records, call [phone] during business hours, M-F 8:00 AM - 5:00 PM Central Time. Record requests for emergency care only can be directed to [phone] at any time.[facility] Allergies Active Allergy Reactions Criticality Noted Date [...] Overview: Added automatically from request for surgery [id number] Proteinuria 03/13/2020 Hyperparathyroidism Secondary 07/24/2016 Incontinence Urinary Stress Female 10/09/2015 Abnormal Pap Smear Cervix 05/30/2011 Overview: reactive reparative 12/2006; ASCUS 07/2007(negative HPV) ASCUS positve HPV 10/16/2009 LEEP on 05/17/2010 Pap 05/30/2011 is Negative for intraepithelial lesion or malignancy. 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[place] Chronic Kidney Disease (CKD) , Stage 3b Glomerular Filtration Rate (GFR) 30 To 44 12/15/2005 Donor Kidney 12/15/2005 Hypertensive Chronic Kidney Disease (CKD) Stage 3b Glomerular Filtration Rate (GFR) 30 To 44 12/02/2005 Encounters Date Type Department Care Team Description 08/13/2023 Orders Only Department of Orthopedic Surgery in [place], [place] [address] [place] [phone] Mary Partida P.A.-CStephen Replacement Ankle Status Post Right (Primary Dx) 08/11/2023 Clinical Communication Department of Orthopedic Surgery in [place], [place] [address] [place] [phone] Blanco Burt M.D. Appointment 06/26/2023 Clinical Communication Division of Nephrology and Hypertension in [address] [phone] Lashon Quinn R.N. outside labs 06/18/2023 11:15 AM CDT Office Visit Department of Orthopedic Surgery in [address] [phone] Blanco Burt M.D. Replacement Ankle Status Post Right (Primary Dx) 06/18/2023 9:41 AM CDT - 06/18/2023 11:59 PM CDT Hospital Encounter Department of Radiology, [facility], in [address] [phone] Mary Partida P.A.-CStephen Replacement Ankle Status Post Right Discharge Disposition: Home or Self Care 06/16/2023 10:15 AM CDT Clinical Communication Virtual Review in [place], [place] [address] [place] [address] Pre-visit Intake from Last 3 Months Immunizations Name Administration [...] In the past 12 months has e [employer], gas, oil, or water [email or web address] threatened to shut off services in your [...] have a [facility] place to live 03/31/2023 Sex and Gender Information Value Date Recorded Sex Assigned at Female 07/31/2017 10:09 AM CDT Gender Identity Female 07/31/2017 10:09 AM CDT Sexual Orientation Straight 07/31/2017 10 :09 AM CDT Last Filed Vital Signs Vital Sign Reading Time Taken Comments Blood Pressure 135/94 04/01/2023 11:04 AM SPECIAL TESTER Pulse 81 04/01/2023 11:04 AM SPECIAL TESTER Temperature 36.4 ??C (97.5 ??F) 04/01/2023 11:[address] Respiratory Rate 18 04/01/2023 11:04 AM SPECIAL TESTER Oxygen Saturation 98% 04/01/2023 11:04 AM SPECIAL TESTER Inhaled Oxygen Concentration - - Weight 73.7 kg (162 lb 7.7 oz) 03/27/2023 3:00 P M SPECIAL TESTER Height 162 cm (5' 3.78) 03/27/2023 3:00 PM SPECIAL TESTER Body Mass Index 28.08 03/27/2023 3:00 PM SPECIAL TESTER Plan of Treatment Scheduled Procedures Name Priority [...] Depression Screening (Annual PHQ-2) 02/10/2023 COVID-19 Vaccine (7 2022-2 4 season) 2023 11/13/2022, 11/14/2021, 06/22/2021, Additional history exists Influenza Vaccine (#1) 2023 3, 11/14/2021, 12/01/2020, Additional history exists Office Visit for Blood [...] exists Zoster Vaccines Completed 02/27/2021, 12/11, 05/12/2009 Fall Risk Screen (Annual) Completed 03/27/2023 Medical Devices Implanted Type Area Brim Stiffener Device Identifier Shelf Expiration Date Model / Serial / Lot Ankl Tlr Dom Inf 3d Sz2 Implanted:Qt y: 1 on 03/27/2023 by Blanco Burt M.D. at [facility] Ankle Implant Right: Ankle [facility] [id number] 11/11/2030 [id number] / / [id number] Ankl Tib Comp 3d Inf Sz2 Implanted:Qt y: 1 on 03/27/2023 by Blanco Burt M.D. at [facility] Ankle Implant Right: Ankle [employer] [id number] 06/17/2030 [id number] / / [id number] Ankl Tl Inf Sz2.8 Implanted:Qt y: 1 on 03/27/2023 by Blanco Burt M.D. at [facility] Ankle Implant Right: Ankle [employer] [id number] 10/21/2030 [id number] / / [id number] Procedures Procedure Name Priority Date/Time Associated Diagnosis Comments DX ANKLE RIGHT 3+ VIEWS RAD - Routine (most inpatients and all outpatients) 06/18/2023 10:17 AM CDT Replacement Ankle Status Post Right EXTI BASIC METABOLIC PANEL, S/P Routine 04/09/2023 8:09 AM SPECIAL TESTER OUTSIDE MG MAMMOGRAM Routine 09/27/2019 1:45 PM [...] CDT) Narrative IIMS - 01/02/2021 3:36 PM SPECIAL TESTER This order has been created and auto-finalized to support the import of outside images. If available, original interpretation can be found on the Media Tab in Chart Review, in Document Viewer, or as an image in [employer]. If a re-interpretation or overread is required please follow defined workflow. ?? Provider Not In System IMG BI PROCEDURES IIMS NA from Last 3 Months or Most Recently Relevant to Health Maintenance Advance Directives For more information, please contact: [phone] * Full Code (Latest Code Status on File) Date Activated Date Inactivated Comments 03/27/2023 12:11 PM 04/01/2023 1:23 PM Question Answer Comments Full Code: Not Discussed Due to: Patient not available Care Teams Precision Dyer Relationship Specialty Start Date End Date Elsewhere, Pcp PCP - General Family Medicine 01/16/18
--- OUTSIDE RECORDS SUMMARY | 2023-08-13 10:46 | XMS_ITS | Encounter Summary ---
Author Organization [facility] Address [address] [place] [address] Care Team Providers Care Drop Forger Helper Name Role Phone Elsewhere, Pcp Primary Care Provider Unavailabl e Reason for Visit * Reason Onset Date Comments Pre-visit Intake 06/16/2023 Encounter Details Date Type Department Care Team (Latest Contact Info) Description 06/16/2023 10:15 AM CDT Clinical Communication Virtual Review in [place], [place] [address] [place] [address] Pre-visit Intake Social History Tobacco Use Types Packs/Day Years Used Date Smoking Tobacco: Former Cigarettes Smokeless Tobacco: Never Alcohol Use Standard Drinks/Week Comments Yes 0 (1 standard drink = 0.6 oz pur e alcohol) rare glass on wine [facility] Utilities Answer Date Recorded In the past 12 months has [employer] gas, oil, or water [employer] threatened to shut off services in your [...] your living situation today? I have a [facility] place to live 03/31/2023 Sex and [...] on filedocumented in this encounter Care Teams Drop Forger Helper Relationship Specialty Start Date End Date Elsewhere, Pcp PCP - General Family Medicine 01/16/18 documented as of this encounter
--- OUTSIDE RECORDS SUMMARY | 2023-08-13 10:46 | XMS_ITS | Encounter Summary ---
Author Organization [facility] Address [address] [place] [address] Care Team Providers Care Dinkey Engine Firer/Fireman Name Role Phone Elsewhere, Pcp Primary Care Provider Unavailabl e Reason for Referral * Outpatient (Routine) - Closed Specialty Diagnoses / Procedures Referred By Contac t Referred To Contact Diagnoses Replacement Ankle Status Post Right Procedures DX Ankle Right 3+ Views Mary Partida P.A.-C. [address] [place] [phone] [facility] Referral ID Status Reason Start Date Expiration Date Visits Re quested Visits Authorized [id number] Closed 03/25/2023 03/24/2024 1 1 Reason for Visit * Outpatient (Routine) - Closed Specialty Diagnoses / Procedures Referred By Marko mares Referred To Contact Diagnoses Replacement Ankle Status Post Right Procedures DX Ankle Right 3+ Views Mary Partida P.A.-C. [address] [place] [phone] [facility] Referral ID Status Reason Start Date Expiration Date Visits Re quested Visits Authorized [id number] Closed 03/25/2023 03/24/2024 1 1 Encounter Details Date Type Department Care Team (Latest Contact Info) Description 05/09/2023 2:13 PM CDT - 05/09/2023 11:59 PM CDT Hospital Encounter Department of Radiology, [facility], in [place], [place] [address] [place] [address] Mary Partida P.A.-C. [address] [place] [address] Replacement Ankle Status Post Right Discharge Disposition: [...] th e electric, gas, oil, or water [employer] threatened to shut off services in your [...] Right documented in this encounter Care Teams Dinkey Engine Firer/Fireman Relationship Specialty Start Date End Date Elsewhere, Pcp PCP - General Family Medicine 01/16/18 documented as of this encounter
[2023-08-13 11:41] LABS: Glucose 2 Hour 68 mg/dl (70-155)
[2023-08-13 11:41] LABS: Glucose Fasting 91 mg/dl (70-95)
[2023-08-13 13:27] LABS: Vitamin B12* > 1000 pg/mL (243-894)
[2023-08-16 19:06] LABS: Vitamin B6 (Pyridoxal 5-Phos) 21.6 nmol/L (20.0-125.0)
== END 2023-08-13 10:42 | disposition home or self-care (01) ==
LOC: NPINS 10:41
PROVIDERS: PCP Family Medicine; Visit Provider Psychiatry & Neurology Neurology
DX: G64 Other disorders of peripheral nervous system (principal); R26.89 Other abnormalities of gait and mobility; M62.81 Muscle weakness (generalized); M79.602 Pain in left arm
CPT/HCPCS: 82607; 82947; 82950; 84207; 86334

== ENCOUNTER 2023-10-08 07:30 | Outpatient (RCR) | payer OTHER, SELFPAY ==
--- NOTE | 2023-08-04 16:46 | PT.OPEX ---
PT [place] Outpatient Eval PT [facility] Outpatient Eval Start: 07/21/23 10:54 Freq: Status: Active Protocol: Document 08/04/23 08:17 MLS (Rec: 08/04/23 16:44 MLS [id number]) E-signed By Ciera Turner DPT Physical Therapy Outpatient Evaluation Insurance Information Recert Due Date 11/01/23 Insurance Name Medicare B,Other; See Comments Insurance Information/Comments [employer] Medical Diagnosis R26.89 other abnormalities of gait and mobility M25.571Pain in right ankle. s/ p right ankle replacement (Mar ) Treating Diagnosis Right ankle tightness and weakness Abnormality in gait Balance deficits Referring MD Dr. Tilley Subjective Subjective Patient is a 77 year old female who presents to physical therapy with signs and symptoms consistent with abnormalities of gait and mobility secondary to right ankle replacement. She states that in March she had right ankle replacement surgery at [place]. She reports that the surgery went well. She states that it is still swollen but the pain is gone. She reports that she was supposed to have physical therapy for the ankle but she never heard from them, so she didn't have any PT. She is having a lot of pain in her left ankle. She states that the left ankle pain started awhile ago and has gotten worse over the last week. She is going to get an appointment set up with her physician for her left ankle. She has not had any falls. 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 Significant past medical history includes high blood pressure, right ankle replacement, and arthritis. Patient would like to get stronger through physical therapy sessions. 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 Objective Other/Pertinent Objective GAIT Ambulates with antalgic gait and single point cane ANKLE ROM PF: R-10 L-25 DF: R-10 L-20 INversion: R-5 L-10 EVersion: R-5 L-10 LE MMT Hip flexion: R 4-/5 L 4-/5 Hip Extension: R 4-/5 L 4-/5 Hip abduction: R 4-/5 L 4-/5 knee extension: R 4-/5 L 4-/5 Knee Flexion: R 4-/5 L 4-/5 heel walk: unable to perform toe walk: unable to perform INV: R 3+/5 L 4-/5 MONET: R 3+/5 L 4-/5 JOINT MOBILITY/PALPATION Moderate swelling noted to right ankle Circumference measurements: 11.5 in malleolus to malleolus R, 10.5 in malleolus to malleolus left OTHER: SLS (single leg stance): unable to perform SL squat: unable to perform Myers Balance Score: 40/56 [place]: Access Code: [email or web address] URL: [email or web address] Date: 08/04/2023 Prepared by: Ciera Turner Exercises - Seated Heel Raise - 1 x daily - 7 x weekly - 3 sets - 10 reps - Towel Scrunches - 1 x daily - 7 x weekly - 3 sets - 10 reps - Seated Toe Raise - 1 x daily - 7 x weekly - 3 sets - 10 reps - Supine Ankle Pumps - 1 x daily - 7 x weekly - 3 sets - 10 reps - Seated Ankle Alphabet - 1 x daily - 7 x weekly - 3 sets - 10 reps - Supine Ankle Inversion Eversion AROM - 1 x daily - 7 x weekly - 3 sets - 10 reps Functional Test Performed & Score Lower Extremity Functional Scale 57/80 A score increase of 6 points shows a significant improvement in lower extremity function. Assessment Assessment/Impression Pt is a 77 year old female who presents with concerns of abnormalities with her gait and mobility secondary to right ankle replacement in March. Patient also has notable objective findings including limited ROM, tenderness to palpation, and decreased strength which are also likely contributing to the problem. Patient is a good candidate for skilled therapy to target deficits described above. Skilled PT intervention is necessary for use of therapeutic exercise manual therapy, neuromuscular re- education, gait training, and therapeutic activity. Functional impairments include difficulty with: walking, standing, exercising, driving and ADLS. See appropriate sections of PT eval for complete list of goals and POC . D/C plan and criteria is for pt to achieve the goals as listed below or until max rehab potential is met. Pt was agreeable with plan of care and goals established. Primary Functional Limitations standing walking driving exercising ADLs Plan of Care Rehabilitation Potential Good Physical Therapy Goals Within 10-12 weeks: 1.Pt will demonstrate independence in performance of home exercise program with the use of video and/or handouts in order to optimize functional mobility and reduce risk for re-injury. 2.Pt will demonstrate consistent HEP compliance to ensure progress in reaching established goals during course of care. 3.Patient will be able to walk around on her turkey farm and throughout the venessa without reports of falls. 4.Patient will report pain levels <2/10 with all activities in order to improve functional mobility at home, work and during functional leisure activities. 5.Patient will be able to walk up to one mile without pain. 6.Pt will be able to ascend/ descend 1 flight of stairs in order to perform ADLs pain free. 7.Pt will exhibit 5 pt improvement in Lower Extremity Functional scale to demonstrate functional improvement and progress towards goals Coordination/Communication With Referral Source Treatment Plan/Direct Interventions Gait Training,Joint Mobilization,Manual Therapy, Neuromuscular Re-ed, Therapeutic Activities, Therapeutic Exercises Patient Will Be Discharged From Therapy Independently Progressing Evaluation Billing Untimed Code Treatment Minutes 30 Complexity Low Certification Information Provider Signature Required Yes Provider Signature Shows Agreement With POC & Medical Necessity Physician NPI Number Write NPI# Here Physician Comment/Change : Physician Signature & Date Requested Please Sign/Date Here
== END 2023-10-22 15:52 | disposition home or self-care (01) ==
PROVIDERS: PCP Family Medicine; Visit Provider Family Medicine
DX: M25.571 Pain in right ankle and joints of right foot (principal); Z96.661 Presence of right artificial ankle joint; Z51.89 Encounter for other specified aftercare
CPT/HCPCS: 97110; 97140; 97161

== ENCOUNTER 2023-12-10 09:49 | Outpatient (CLI) | payer OTHER, SELFPAY ==
--- OUTSIDE RECORDS SUMMARY | 2023-12-10 15:16 | XMS_ITS | Clinical Summary ---
Author Organization [facility] Address [place], [place] [address] Care Team Providers Care Optical Glass Sawyer Name Role Phone Jojo Tilley MD Primary Care Provider + Allergies Active Allergy Reactions Criticality Noted Date [...] Encounters Date Type Department Care Team Description 09/22/2023 Telephone [facility] [address] [place] [address] Kody Cobos MD Results (EMG) 09/18/2023 Orders Only [facility] Scanner 1 scan: (1-Ord) NORAN from Last 3 Months Immunizations Name Administration Dates Next Due COVID-19 vaccine ([employer] NTZAOZAO 30mcg/0.3mL) LEEANN FRANKEL 06/22/2021 Influenza Virus, Unspecified [...] Sign Reading Time Taken Comments Blood Pressure 120/85 08/27/2023 1:24 PM CDT tow er Pulse 86 08/27/2023 1:24 PM CDT Temperature 36.5 ??C (97.7 ??F) 04/25/2022 8:43 AM CD T Respiratory Rate 18 11/16/2015 12:00 PM CDT Oxygen Saturation 97% 08/27/2023 1:24 PM CDT Inhaled Oxygen Concentration - - Weight 70.8 kg (156 lb) 08/27/2023 1:24 PM CDT Height - - Body Mass Index - - Plan of Treatment Upcoming Encounters Date Type Department Care Team (Late st Contact Info) Description 01/14/2024 2:20 PM EMAIL MARKETING MANAGER Office Visit [facility] [address] [place] [address] Kody Cobos MD [address] [place] [address] Health Maintenance Due Date Last Done Comments Depression screening for age 12+ 1956 BMI (ht and wt on same day) for age 18+ 1962 Hepatitis C screening for ag e 18-79 1962 DEXA/DXA scan for age 65+ 2009 Medicare Wellness for age 65+ 2009 RSV vaccine for adults or (1 - 1-dose 75+ series) 10/30/2019 Pneumococcal series for age 65+ (3 of 3 - PPSV23 or PCV20) 11/03/2019 11/02/2014, 07/11/2009 Tetanus booster 05/30/2021 05/31/2011, 05/12, 07/14/2001, Additional history exists COVID-19 vaccine series ( season) 2023 11/13/2022, 11/14/2021, 06/22/2021, Additional history exists Influenza for age 65+ 10/12/2023 11/14/2021 , 12/01/2020, 11/23/2019, Additional history exists Tdap Completed 05/31/2011 Zoster (shingles) series for age 50+ Completed 02/27/2021, 12/28/2020, 05/12/2009 Procedures Procedure Name Priority Date/Time Associated Diagnosis Comments SCAN-ELECTROMYOGRAM EMG 09/18/2023 12:00 AM CDT from Last 3 Months Results * SCAN-ELECTROMYOGRAM EMG (09/18/2023 12:00 AM CDT) Scanner OTHER from Last 3 Months Advance Directives * Full Code (Latest Code Status on File) Date Activated Date Inactivated Comments 11/16/2015 9:37 AM 11/16/2015 2:27 PM Care Teams Optical Glass Sawyer Relationship Specialty Start Date End Date Jojo Tilley MD [address] [place] [address] PCP - General Family Practice 08/27/23
--- OUTSIDE RECORDS SUMMARY | 2023-12-10 15:17 | XMS_ITS | Clinical Summary ---
Author Organization [facility] Address [address] [place] [address] Care Team Providers Care Receptionist Name Role Phone Elsewhere, Pcp Primary Care Provider Unavailabl e Source Comments Patient records contain information from all sites at [facility]. For routine questions regarding patient records, call [phone] during business hours, M-F 8:00 AM - 5:00 PM Central Time. Record requests for emergency care only can be directed to [phone] at any time.[facility] Allergies Active Allergy Reactions Criticality Noted Date Comments Nsaids (Non-Steroidal Anti-Inflammatory Drug) Other (see comments) 11/21/2017 Other reaction(s): Other - Describe In Comment Field Triamterene Other (see comments) 07/29/2022 Triamterene-Hydrochloro thiazid Rash 11/28/2005 Medications * This document contains information received from the source organization and may not represent a complete record from that organization. losartan (COZAAR) 50 mg tablet Take 1 tablet by mouth daily. 9 Active simvastatin (ZOCOR) 10 mg tablet Take 1 tablet by mouth at bedtime. 9 Active acetaminophen (TYLENOL) 500 mg tablet Take 2 tablets (1,000 mg total) by mouth every 6 (six) hours as needed for pain. Take on a routine schedule following surgery while having pain. Safe to combine with oxycodone. 4 Active oxyCODONE (ROXICODONE) 5 mg immediate release tabletIndicatio ns:Acute Pain Exception Take 1 tablet (5 mg total) by mouth every 4 (four) hours as needed for pain Indication: Acute Pain Exception. 25 tablet 4 Active Active Problems Problem Noted Date Diagnosed Date Replacement Ankle Status Post Right 03/27/2023 Dyslipidemia 03/26/2023 Hypertension Essential Primary 01/15/2023 Obesity Unspecified 01/15/2023 Arthritis Ankle 11/21/2022 Mass Ovary 12/20/2021 Overview (12/20/2021): Added automatically from request for surgery [id number] Proteinuria 03/13/2020 Hyperparathyroidism Secondary 07/24/2016 Incontinence Urinary Stress Female 10/09/2015 Abnormal Pap Smear Cervix 05/30/2011 Overview (07/31/2017): reactive reparative 12/2006; ASCUS 07/2007(negative HPV) ASCUS positve HPV 10/16/2009 LEEP on 05/17/2010 Pap 05/30/2011 is Negative for intraepithelial lesion or malignancy. 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[facility] Chronic Kidney Disease (CKD) , Stage 3b Glomerular Filtration Rate (GFR) 30 To 44 12/15/2005 Donor Kidney 12/15/2005 Hypertensive Chronic Kidney Disease With Stage 1 Through Stage 4 Chronic Kidney Disease, Or Unspecified Chronic Kidney Disease 12/02/2005 Encounters Date Type Department Care Team Description 09/16/2023 1:45 PM CDT Office Visit Department of Orthopedic Surgery in [place], [place] [address] [place] [address] Mary Partida P.A.-Holly Replacement Ankle Status Post Right (Primary Dx) 09/16/2023 12:13 PM CDT - 09/16/2023 11:59 PM CDT Hospital Encounter Department of Radiology, [facility], in [place], [place] [address] [place] [address] Mary Partida P.A.-C. Replacement Ankle Status Post Right Discharge Disposition: Home or Self Care from Last 3 Months Immunizations Name Administration Dates Next Due HZV (ZOSTAVAX) 05/12/2009 Influenza Split 12/11/2014,11/10/2013,11/10/2010 Influenza, Seasonal, Injectable 11/04/19 14,12/08/2012,10/24/2011,2010 Influenza, Unspecified 12/04/2015,2014,11/04/2013,2010 PCV13 11/03/2014 PPSV23 07/11/2009 Td (Adult), adsorbed 05/16/2001 Td, (Adult) Unspecified 05/16/2001 Tdap 05/31/2011 Tetanus Toxoid, Adsorbed (discontinued) 08/03/2001 influenza trivalent high dos e (HD)(PF) 11/19/2016,12/03/2015,12/11/2014,2013 influenza trivalent vaccine (6 months and older)(PF) 11/02/2014 Family History Medical History Relation Name Comments Diabetes Mother Hypertension Mother Relation Name Status Comments Mother Social History Tobacco Use Types Packs/Day Years Used Date Smoking Tobacco: Former Cigarettes Smokeless Tobacco: Never Tobacco Cessation:Counseling Given: Not Answered Alcohol Use Standard Drinks/Week Comments Yes 0 (1 standard drink = 0.6 oz pur e alcohol) rare glass on wine [facility] Utilities Answer Date Recorded In the past 12 months has th e [employer], gas, oil, or water [employer] threatened to shut off services in your [...] your living situation today? 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 Gender Identity Female 07/31/2017 10:09 AM CDT Sexual Orientation Straight 07/31/2017 10 :09 AM CDT Last Filed Vital Signs Vital Sign Reading Time Taken Comments Blood Pressure 135/94 04/01/2023 11:04 AM G[employer]MENT [employer] Pulse 81 04/01/2023 11:04 AM [employer] Temperature 36.4 ??C (97.5 ??F) 04/01/2023 11:[address] Respiratory Rate 18 04/01/2023 11:04 AM [employer] Oxygen Saturation 98% 04/01/2023 11:04 AM [employer] Inhaled Oxygen Concentration - - Weight 73.7 kg (162 lb 7.7 oz) 03/27/2023 3:00 P M [employer] Height 162 cm (5' 3.78) 03/27/2023 3:00 PM [employer] Body Mass Index 28.08 03/27/2023 3:00 PM [employer] Plan of Treatment Scheduled Procedures Name Priority Associated Diagnoses Date/Ti me OPERATIVE LAPAROSCOPY Mass Ovary SALPINGO - OOPHORECTOMY Mass Ovary Health Maintenance Due Date Last Done Comments RSV vaccine - (32-36 weeks) or 60+ years (1 - 1-dose 75+ series) 10/30/2019 Pneumococcal vaccine (65+ years) (3 of 3 - PPSV23 or PCV20) 11/04/2019 11/03/2014, 07/11/2009 DTaP,Tdap,and Td Vaccines (2 - Td or Tdap) 05/30/2021 05/31/2011, 05/31/2011, 07/14/2001, Additional history exists Depression Screening (Annual PHQ-2) 02/10/2023 COVID-19 Vaccine ( season) 2023 11/13/2022, 11/14/2021, 06/22/2021, Additional history exists Influenza Vaccine (#1) 2023 , 11/14/2021, 12/01/2020, Additional history exists Office Visit for Blood Pressure Check / Re-check 03/26/2024 03/26/2023 Creatinine Level (Kidney Function Test) 04/09/2024 04/09/2023, 03/28/2023, 12/20/2021, Additional history exists Potassium Level 04/09/2024 04/09/2023, 03/13, 12/20/2021, Additional history exists Sodium Level 04/09/2024 04/09/2023, 03/13, 12/20/2021, Additional history exists Hepatitis C Screening Completed 11/27/2005 Mammogram Discontinued 09/27/2019, 06/11 (Performed elsewhere), 05/19/2015, Additional history exists Zoster Vaccines Completed 02/27/2021, 12/11, 05/12/2009 Fall Risk Screen (Annual) Completed 03/27/2023 IPV Vaccines Aged Out No longer eligi ble based on patient's age to complete this topic Medical Devices Implanted Type Area Film Cleaner Device Identifier Shelf Expiration Date Model / Serial / Lot Ankl Tlr Dom Inf 3d Sz2 Implanted:Qt y: 1 on 03/27/2023 by Blanco Burt M.D. at [facility] Ankle Implant Right: Ankle [facility] [id number] 11/11/2030 [id number] / / [id number] Ankl Tib Comp 3d Inf Sz2 Implanted:Qt y: 1 on 03/27/2023 by Blanco Burt M.D. at [facility] Implant Right: Ankle [facility] [id number] 06/17/2030 [id number] / / [id number] Ankl Tl Inf Sz2.8 Implanted:Qt y: 1 on 03/27/2023 by Blanco Burt M.D. at [facility] Ankle Implant Right: Ankle [facility] [id number] 10/21/2030 [id number] / / [id number] Procedures Procedure Name Priority Date/Time Associated Diagnosis Comments DX FOOT ANKLE RIGHT 3+ VIEWS RAD - Routine (most inpatients and all outpatients) 09/16/2023 1:00 PM CDT Replacement Ankle Status Post Right BASIC METABOLIC PANEL, S/P Routine 03/28/2023 4:26 AM G[employer]MENT [employer] C[employer] OUTSIDE MG MAMMOGRAM Routine 09/27/2019 1:45 PM CDT from Last 3 Months or Most Recently Relevant to Health Maintenance Results * DX Foot Ankle Right 3+ Views (09/16/2023 1:00 PM CDT) Anatomical Region Laterality Modality Lower Extremity, Foot, Ankle , Musculoskeletal RST LOS, Musculoskeletal ARZ LOS, Muskuloskeletal FLA LOS Right Digit al Radiography Impressions 09/16/2023 1:22 PM CDT Right ankle arthroplasty. No evidence of loosening. Soft tissue prominence about the ankle. Arthritic changes of the foot. Pes planus. Hallux valgus. Osteopenia. Narrative 09/16/2023 1:22 PM CDT EXAM: ??DX FOOT ANKLE RIGHT 3+ VIEWS Procedure Note Chadwick Najera M.D. - 09/16/2023 EXAM: DX FOOT ANKLE RIGHT 3+ VIEWS IMPRESSION: Right ankle arthroplasty. No evidence of loosening. Soft tissue prominenceabout the ankle. Arthritic changes of the foot. Pes planus. Hallux valgus.Osteopenia. us Mary Partida P.A.-C. IMG DIAGNOSTIC IMAGING NE OCEDURES Final Result * (ABNORMAL) Basic Metabolic Panel (03/28/2023 4:26 AM [employer]) Potassium, S 4.2 3.6 - 5.2 mmol/L 03/28/2023 5:30 AM [employer] DTL Sodium, S 139 135 - 145 mmol/L 03/28/2023 5:30 AM [employer] DTL Chloride, S 107 98 - 107 mmol/L 03/28/2023 5:30 AM [employer] DTL Bicarbonate, S 20(L) 22 - 29 mmol/L 03/28/2023 5:30 AM [employer] DTL Anion Gap 12 7 - 15 03/28/2023 5:30 AM [employer] DTL BUN (Blood Urea Nitrogen), S 23(H) 6 - 21 mg/dL 03/28/2023 5:30 AM [employer] DTL Creatinine 1.37(H) 0.59 - 1.04 mg/dL 03/28/2023 5:30 AM [employer] DTL Estimated GFR (eGFR) 40(L) >=60 mL/min/BSA 03/28/2023 5:30 AM [employer] DTL Comment: Estimated GFR calculated using the 2020 CKD_EPI creatinine equation. Calcium, Total, S 8.9 8.8 - 10.2 mg/dL 03/28/2023 5:30 AM [employer] DTL Glucose, S 93 70 - 140 mg/dL 03/28/2023 5:30 AM [employer] DTL Blood (Blood, Venous) 03/28/2023 4:26 AM [employer] 03/28/2023 5:05 AM [employer] Sam Graham M.D. LAB BLOOD ADD-ON Final Resu lt [facility] [address] [place] [address], [facility] DTL [facility] [address] [place] [address] * MAMMO SCREEN, BILAT, W/CAD-Outside Mammogram (09/27/2019 1:45 PM CDT) Narrative IIMS - 01/02/2021 3:36 PM [employer] This order has been created and auto-finalized to support the import of outside images. If available, original interpretation can be found on the Media Tab in Chart Review, in Document Viewer, or as an image in QREADS. If a re-interpretation or overread is required please follow defined workflow. ?? us Provider Not In System IMG BI PROCEDURES Final R esult IIMS NA from Last 3 Months or Most Recently Relevant to Health Maintenance Insurance [employer] Advance Directives For more information, please contact: [phone] * Full Code (Latest Code Status on File) Date Activated Date Inactivated Comments 03/27/2023 12:11 PM 04/01/2023 1:23 PM Question Answer Comments Full Code: Not Discussed Due to: Patient not available Care Teams Receptionist Relationship Specialty Start Date End Date Elsewhere, Pcp PCP - General Family Medicine 01/16/18
--- OUTSIDE RECORDS SUMMARY | 2023-12-10 15:17 | XMS_ITS | Encounter Summary ---
Author Organization [facility] Address [address] [place] [address] Care Team Providers Care Self Sealing Fuel Tank Builder Name Role Phone Elsewhere, Pcp Primary Care Provider Unavailabl e Reason for Referral * Outpatient (Routine) - Closed Specialty Diagnoses / Procedures Referred By Contac t Referred To Contact Diagnoses Replacement Ankle Status Post Right Procedures DX Foot Ankle Right 3+ Views Mary Partida P.A.-C. [address] [place] [phone] Phone: tel: fax: [facility] Referral ID Status Reason Start Date Expiration Date Visits Re quested Visits Authorized [id number] Closed 08/13/2023 08/12/2024 1 1 Reason for Visit * Outpatient (Routine) - Closed Specialty Diagnoses / Procedures Referred By Contac t Referred To Contact Diagnoses Replacement Ankle Status Post Right Procedures DX Foot Ankle Right 3+ Views Mary Partida P.A.-C. [address] [place] [phone] Phone: tel: fax: [facility] Referral ID Status Reason Start Date Expiration Date Visits Re quested Visits Authorized [id number] Closed 08/13/2023 08/12/2024 1 1 Encounter Details Date Type Department Care Team (Latest Contact Info) Description 09/16/2023 12:13 PM CDT - 09/16/2023 11:59 PM CDT Hospital Encounter Department of Radiology, [facility], in [place], [place] [address] [place] [address] Mary Partida P.A.-C. [address] [place] [address] Replacement Ankle Status Post Right Discharge Disposition: Home or Self Care Social History Tobacco Use Types Packs/Day Years Used Date Smoking Tobacco: Former Cigarettes Smokeless Tobacco: Never Alcohol Use Standard Drinks/Week Comments Yes 0 (1 standard drink = 0.6 oz pur e alcohol) rare glass on wine [facility] Social Bicyclesities Answer Date Recorded In the past 12 months has e [employer], gas, oil, or water [employer] threatened to shut off services in your [...] living situation today? 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 Take on a routine schedule following surgery while having pain. Safe to combine with oxycodone. 03/27/2023 losartan (COZAAR) 50 mg tablet Take 1 tablet by mouth daily. 12/30/2008 oxyCODONE (ROXICODONE) 5 mg immediate release tabletIndication s:Acute Pain Exception Take 1 tablet (5 mg [...] of the foot. Pes planus. Hallux valgus.Osteopenia. Mary Partida P.A.-C. IMG DIAGNOSTIC IMAGING IL OCEDURES Final Result documented in this encounter Visit Diagnoses Diagnosis Replacement Ankle Status Post Right documented in this encounter Care Teams Self Sealing Fuel Tank Builder Relationship Specialty Start Date End Date Elsewhere, Pcp PCP - General Family Medicine 01/16/18 documented as of this encounter
--- OUTSIDE RECORDS SUMMARY | 2023-12-10 15:17 | XMS_ITS | Continuity of Care Document ---
Author Organization [facility] Address [address] [place] [address] Phone Care Team Providers Care Job Placement Specialist Name Role Phone Kwasi JACOBS, PhD, Lee [...] on Encounter [facility], [address], [place], [place], [id number] , [place] tel: [phone] [facility] [place] No Information 4 Kwasi Howard. [facility], [address], [place], [address], [place]. [phone] Office/Outpa tient Visit,Est, Mod [facility], [address], [place], [place], [id number] , [place] tel:[phone] [facility] Spinal stenosis, lumbar region with neurogenic claudication 3 Kwasi Howard. [facility], [address], [place], [address], [place]. tel:[phone] Referring Provider: Jojo Melara [facility] [address] [place], [address]. tel:[phone] Office/Outpa tient Visit,Est, Mod [facility], [address], [place], [place], [id number] , [place] tel:[phone] [facility] Spinal stenosis, lumbar region with neurogenic claudication 3 Kwasi Howard. [facility], [address], [place], [address], [place]. tel:[phone] Referring Provider: Jojo Melara [facility] [address] [place], [address]. tel:[phone] Office/Outpa tient Visit,New, Mod [facility], [address], [place], [place], [id number] , [place] tel:[phone] [facility] Other intervertebral disc displacement, lumbar region 1 No Information Referring Provider: Jojo Melara [facility] [address] [place], [address]. tel:[phone] Family History Family Member Type Diagnosis Age At Onset No Information Payers Payer name Insurance type Covered libertarian ID Authoriza tion(s) No Information Social History Type Description Quantity Date Captured [...]
--- OUTSIDE RECORDS SUMMARY | 2023-12-10 15:17 | XMS_ITS | Encounter Summary ---
Author Organization [facility] Address [address] [place] [address] Care Team Providers Care Bead Wire Insulator Name Role Phone Elsewhere, Pcp Primary Care Provider Unavailabl e Reason for Visit * Outpatient (Routine) - Closed Specialty Diagnoses / Procedures Referred By Marko mares Referred To Contact Orthopedic Surgery Mary Partida P.AStephen-CStephen [address] [place] [phone] Phone: tel: fax: [facility] Referral ID Status Reason Start Date Expiration Date Visits Re quested Visits Authorized [id number] Closed 08/13/2023 02/11/2025 1 1 Encounter Details Date Type Department Care Team (Late st Contact Info) Description 09/16/2023 1:45 PM CDT Office Visit Department of Orthopedic Surgery in [place], [place] [address] [place] [phone] Mary Partida P.AStephen-CStephen [address] [place] [phone] Replacement Ankle Status Post Right (Primary Dx) Social History Tobacco Use Types Packs/Day Years Used Date Smoking Tobacco: Former Cigarettes Smokeless Tobacco: Never Alcohol Use Standard Drinks/Week Comments Yes 0 (1 standard drink = 0.6 oz pur e alcohol) rare glass on wine [facility] Utilities Answer Date Recorded In the past [...] your living situation today? 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 - 09/16/2023 1:45 PM CDT CHIEF COMPLAINT / PURPOSE OF VISIT: Status post right total ankle arthroplasty (March 27, 2023) HISTORY OF PRESENT ILLNESS: Ladan Garcia is about 6 months out from surgery. Overall, she is doing well. She was workingwith physical therapy who noted quite a bit of swelling in her right lower extremity about a month ago. Therefore, we were seeing her today for further evaluation. She denies any pain in the ankle. She states the swelling has improved over the past few weeks. PHYSICAL EXAMINATION: General: Awake and alert. No acute distress. Skin: Well-healed surgical incision. Musc: Smooth ankle motion. 5?? dorsiflexion, 10?? plantar flexion. No tenderness to palpation throughout the foot or ankle. Neuro: Intact to light touch throughout the foot. Vasc: Toes are well perfused. A mild amount of swelling about the ankle which is to be expected postoperatively. IMAGING: Weightbearing x-rays of the right foot and ankle were obtained today and reviewed personally. They show satisfactory alignment with no evidence of hardware failure. No acute changes. ASSESSMENT & PLAN: Overall, the patient is doing well. Is normal to have increased swelling postoperatively for up to a year from the time of surgery. I am not sure what initially cause this significant increase in swelling but thankfully it has improved. She can wear compression as needed for edema control. We will plan to see her back at the year sadia from the time of surgery for her 1 year evaluation. documented in this encounter Plan of Treatment Scheduled Procedures Name Priority Associated Diagnoses Date/Ti nc OPERATIVE LAPAROSCOPY Mass Ovary SALPINGO - OOPHORECTOMY Mass Ovary documented as of this encounter Visit Diagnoses Diagnosis Replacement Ankle Status Post Right- Primary documented in this encounter Care Teams Bead Wire Insulator Relationship Specialty Start Date End Date Elsewhere, Pcp PCP - General Family Medicine 01/16/18 documented as of this encounter
--- OUTSIDE RECORDS SUMMARY | 2023-12-10 15:17 | XMS_ITS ---
Author Organization [facility] Address [address] [place] [address] Care Team Providers Care Jewelry Coater Name Role Phone Unavailable Unavailable Unavailable Surgery Details Not on file Complications Check Surgery Details section. Procedure Estimated Blood Loss Check Surgery Details section. Procedure Findings Check Surgery Details section. Procedure Specimens Taken Check Surgery Details section.
--- OUTSIDE RECORDS SUMMARY | 2023-12-10 15:17 | XMS_ITS | Referral Summary ---
Author Organization [facility] Address [address] [place] [id number] Care Team Providers Care Cotton Presser Name Role Phone Elsewhere, Pcp Primary Care Provider Unavailabl e Source Comments Patient records contain information from all sites at [facility]. For routine questions regarding patient records, call [phone] during business hours, M-F 8:00 AM - 5:00 PM Central Time. Record requests for emergency care only can be directed to [phone] at any time.[facility] Encounters Date Type Department Care Team Description 09/16/2023 1:45 PM CDT Office Visit Department of Orthopedic Surgery in [place], [place] [address] [place] [address] Mary Partida P.A.-CStephen Replacement Ankle Status Post Right (Primary Dx) 09/16/2023 12:13 PM CDT - 09/16/2023 11:59 PM CDT Hospital Encounter Department of Radiology, [facility], in [place], [place] [address] [place] [address] Mary Partida P.A.-C. Replacement Ankle Status Post Right Discharge Disposition: Home or Self Care from Last 3 Months Allergies Active Allergy [...] (12/20/2021): Added automatically from request for surgery [id number] Proteinuria 03/13/2020 Hyperparathyroidism Secondary 07/24/2016 Incontinence Urinary Stress Female 10/09/2015 Abnormal Pap Smear Cervix 05/30/2011 Overview (07/31/2017): reactive reparative 12/2006; ASCUS 07/2007(negative HPV) ASCUS positve HPV 10/16/2009 LEEP on 05/17/2010 Pap 05/30/2011 is Negative for intraepithelial lesion or malignancy. 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[place] Chronic Kidney Disease (CKD) , Stage 3b Glomerular Filtration Rate (GFR) 30 To 44 12/15/2005 Donor Kidney 12/15/2005 Hypertensive Chronic Kidney Disease With Stage 1 Through Stage 4 Chronic Kidney Disease, Or Unspecified Chronic Kidney Disease 12/02/2005 Immunizations Name Administration Dates Next Due HZV (ZOSTAVAX) 05/12/2009 Influenza Split 12/11/2014,11/10/2013,11/10/2010 Influenza, Seasonal, Injectable 11/04/19 14,12/08/2012,10/24/2011,2010 Influenza, Unspecified 12/04/2015,2014,11/04/2013,2010 PCV13 11/03/2014 PPSV23 07/11/2009 Td (Adult), adsorbed 05/16/2001 Td, (Adult) Unspecified 05/16/2001 Tdap 05/31/2011 Tetanus Toxoid, Adsorbed (discontinued) 08/03/2001 influenza trivalent high dos e (HD)(PF) 11/19/2016,12/03/2015,12/11/2014,2013 influenza trivalent vaccine (6 months and older)(PF) 11/02/2014 Social History Tobacco Use Types Packs/Day Years Used Date Smoking Tobacco: Former Cigarettes Smokeless Tobacco: Never Tobacco Cessation:Counseling Given: Not Answered Alcohol Use Standard Drinks/Week Comments Yes 0 (1 standard drink = 0.6 oz pur e alcohol) rare glass on wine [employer] Utilities Answer Date Recorded In the past 12 months has [employer], gas, oil, or water [employer] threatened to shut off services in your [...] your living situation today? I have a [facility] place to live 03/31/2023 Comments No Sex and Gender Information Value Date Recorded Sex Assigned at Female 07/31/2017 10:09 AM CDT Legal Sex Female 2:16 AM FIRE SPRINKLER INSPECTOR Gender Identity Female 07/31/2017 10:09 AM CDT Sexual Orientation Straight 07/31/2017 10 :09 AM CDT Last Filed Vital Signs Vital Sign Reading Time Taken Comments Blood Pressure 135/94 04/01/2023 11:04 AM FIRE SPRINKLER INSPECTOR Pulse 81 04/01/2023 11:04 AM FIRE SPRINKLER INSPECTOR Temperature 36.4 ??C (97.5 ??F) 04/01/2023 11:[address] Respiratory Rate 18 04/01/2023 11:04 AM FIRE SPRINKLER INSPECTOR Oxygen Saturation 98% 04/01/2023 11:04 AM FIRE SPRINKLER INSPECTOR Inhaled Oxygen Concentration - - Weight 73.7 kg (162 lb 7.7 oz) 03/27/2023 3:00 P M FIRE SPRINKLER INSPECTOR Height 162 cm (5' 3.78) 03/27/2023 3:00 PM FIRE SPRINKLER INSPECTOR Body Mass Index 28.08 03/27/2023 3:00 PM FIRE SPRINKLER INSPECTOR Plan of Treatment Scheduled Procedures Name Priority Associated Diagnoses Date/Ti me OPERATIVE LAPAROSCOPY Mass Ovary SALPINGO - OOPHORECTOMY Mass Ovary Medical Devices Implanted Type Area Office Clerk Assistant Device Identifier Shelf Expiration Date Model / Serial / Lot Ankl Tlr Dom Inf 3d Sz2 Implanted:Qt y: 1 on 03/27/2023 by [facility] Implant Right: Ankle [facility] [id number] 11/11/2030 [id number] / / [id number] Ankl Tib Comp 3d Inf Sz2 Implanted:Qt y: 1 on 03/27/2023 by Blanco Burt M.D. at [facility] Ank[facility] Implant Right: Ankle [facility] [id number] 06/17/2030 [id number] / / [id number] Ankl Tl Inf Sz2.8 Implanted:Qt y: 1 on 03/27/2023 by Blanco Burt M.D. at [facility] Ank[facility] Implant Right: Ankle [facility] [id number] 10/21/2030 [id number] / / [id number] Procedures Procedure Name Priority Date/Time Associated Diagnosis Comments DX FOOT ANKLE RIGHT 3+ VIEWS RAD - Routine (most inpatients and all outpatients) 09/16/2023 1:00 PM CDT Replacement Ankle Status Post Right BASIC METABOLIC PANEL, S/P Routine 03/28/2023 4:26 AM FIRE SPRINKLER INSPECTOR OUTSIDE MG MAMMOGRAM Routine 09/27/2019 1:45 PM [...] valgus.Osteopenia. Mary Partida P.A.-C. IMG DIAGNOSTIC IMAGING SD OCEDURES Final Result * (ABNORMAL) Basic Metabolic Panel (03/28/2023 4:26 AM FIRE SPRINKLER INSPECTOR) Pathologist [facility] Potassium, S 4.2 3.6 - 5.2 mmol/L 03/28/2023 5:30 AM FIRE SPRINKLER INSPECTOR DTL Sodium, S 139 135 - 145 mmol/L 03/28/2023 5:30 AM FIRE SPRINKLER INSPECTOR DTL Chloride, S 107 98 - 107 mmol/L 03/28/2023 5:30 AM FIRE SPRINKLER INSPECTOR DTL Bicarbonate, S 20(L) 22 - 29 mmol/L 03/28/2023 5:30 AM FIRE SPRINKLER INSPECTOR DTL Anion Gap 12 7 - 15 03/28/2023 5:30 AM FIRE SPRINKLER INSPECTOR DTL BUN (Blood Urea Nitrogen), S 23(H) 6 - 21 mg/dL 03/28/2023 5:30 AM FIRE SPRINKLER INSPECTOR DTL Creatinine 1.37(H) 0.59 - 1.04 mg/dL 03/28/2023 5:30 AM FIRE SPRINKLER INSPECTOR DTL Estimated GFR (eGFR) 40(L) >=60 mL/min/BSA 03/28/2023 5:30 AM FIRE SPRINKLER INSPECTOR DTL Comment: Estimated GFR calculated using the 2020 CKD_EPI creatinine equation. Calcium, Total, S 8.9 8.8 - 10.2 mg/dL 03/28/2023 5:30 AM FIRE SPRINKLER INSPECTOR DTL Glucose, S 93 70 - 140 mg/dL 03/28/2023 5:30 AM FIRE SPRINKLER INSPECTOR DTL Blood (Blood, Venous) 03/28/2023 4:26 AM FIRE SPRINKLER INSPECTOR 03/28/2023 5:05 AM FIRE SPRINKLER INSPECTOR Sam Graham M.D. LAB BLOOD ADD-ON Final Resu lt [facility] iPerceptions [facility] [address] [place] [address], [facility] [address] [place] [address] * MAMMO SCREEN, BILAT, W/CAD-Outside Mammogram (09/27/2019 1:45 PM CDT) Narrative IIMS - 01/02/2021 3:36 PM FIRE SPRINKLER INSPECTOR This order has been created and auto-finalized to support the import of outside images. If available, original interpretation can be found on the Media Tab in Chart Review, in Document Viewer, or as an image in QREADS. If a re-interpretation or overread is required please follow defined workflow. ?? us Provider Not In System IMG BI PROCEDURES Final R esult IIIL NA from Last 3 Months or Most Recently Relevant to Health Maintenance Insurance [employer] Advance Directives For more information, please contact: [phone] * Full Code (Latest Code Status on File) Date Activated Date Inactivated Comments 03/27/2023 12:11 PM 04/01/2023 1:23 PM Question Answer Comments Full Code: Not Discussed Due to: Patient not available Care Teams Cotton Presser Relationship Specialty Start Date End Date Elsewhere, Pcp PCP - General Family Medicine 01/16/18
--- OUTSIDE RECORDS SUMMARY | 2023-12-10 15:17 | XMS_ITS | Encounter Summary ---
Author Organization [facility] Address [address] [place] [address] Care Team Providers Care Residential Program Worker Name Role Phone Elsewhere, Pcp Primary Care Provider Unavailabl e Reason for Visit * Reason Onset Date Comments Appointment 08/11/2023 Encounter Details Date Type Department Care Team (Late st Contact Info) Description 08/11/2023 Clinical Communication Department of Orthopedic Surgery in [place], [place] [address] [place] [phone] Blanco Burt M.D. [address] [place] [phone] Appointment Social History Tobacco Use Types Packs/Day Years Used Date Smoking Tobacco: Former Cigarettes Smokeless Tobacco: Never Alcohol Use Standard Drinks/Week Comments Yes 0 (1 standard drink = 0.6 oz pur e alcohol) rare glass on wine [facility] Utilities Answer Date Recorded In the past 12 months has [employer], gas, oil, or water company threatened [...] your living situation today? I have a [facility] place to live 03/31/2023 Comments No Sex and Gender Information Value Date Recorded Sex Assigned at Female 07/31/2017 10:09 AM CDT Legal Sex Female 2:16 AM DREDGE CAPTAIN Gender Identity Female 07/31/2017 10:09 AM CDT Sexual Orientation Straight 07/31/2017 10 :09 AM CDT documented as of this encounter Plan of Treatment Scheduled Procedures Name Priority Associated Diagnoses Date/Ti me OPERATIVE LAPAROSCOPY Mass Ovary SALPINGO - OOPHORECTOMY Mass Ovary documented as of this encounter Visit Diagnoses Not on filedocumented in this encounter Care Teams Residential Program Worker Relationship Specialty Start Date End Date Elsewhere, Pcp PCP - General Family Medicine 01/16/18 documented as of this encounter
== END 2023-12-10 09:50 | disposition home or self-care (01) ==
LOC: NFLDREF 15:14
PROVIDERS: PCP Family Medicine; Referring Provider Family Medicine; Visit Provider Family Medicine
DX: N18.32 Chronic kidney disease, stage 3b (principal); D63.1 Anemia in chronic kidney disease; E78.5 Hyperlipidemia, unspecified; M85.80 Other specified disorders of bone density and structure, unspecified site; M81.0 Age-related osteoporosis without current pathological fracture
CPT/HCPCS: 80053; 80061; 82306

== ENCOUNTER 2024-04-05 09:00 | Outpatient (RCR) | payer OTHER, SELFPAY ==
--- NOTE | 2024-01-19 17:48 | PT.OPEX ---
Please review and sign the attached physical therapy evaluation. Thank you. PT [place] Outpatient Eval PT [facility] Outpatient Eval Start: 01/19/24 12:47 Freq: Status: Active Protocol: Document 01/19/24 12:47 TLQ (Rec: 01/19/24 17:37 TLQ [id number]) E-signed By Taylor Lamb DPT Physical Therapy Outpatient Evaluation Insurance Information Recert Due Date 04/18/24 Insurance Name Medicare B,Other; See Comments Insurance Information/Comments [employer] Gold Choice Medical Diagnosis Other abnormalities of gait and mobility R26.89 Treating Diagnosis Impaired balance R26.81 Abnormal gait R26.9 Muscle weakness M62.81 Referring MD Jojo Tilley MD Subjective Subjective Had her right ankle replaced in March, right leg feels fine. She is now having weakness on her left side. States she had a pinched nerve in her neck that caused her left leg to feel week, she states the nerve has since resolved but she still has the weakness. Does feel like this weakness is improving but has been very slow. Feels like her right leg is pretty strong . Recently the toenails fell off 4 of her toes, had to have the big toe toenail removed, this was a few weeks ago. Has pain in her toes when she walks. Using her cane on her right side to help with the weakness on her left side. Thinks she's maybe had one fall in the past 6 months. [place], in the past she walks the turkey venessa, has been walking in her yard more recently as there are not many turkeys right now . Lives in a split level home, has 4 steps with 1 railing. 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 Precautions Therapy Limitations/Systems Review Other Medical Problem Objective Strength LOWER EXTREMITY STRENGTH hip flexion: R 4+, L 3+ hip extension: R 4, L 4- hip abduction: R 4+, L 4 hip adduction: R 5, L 4 knee flexion: R 4+, L 3+ knee extension: R 5, L 3+ ankle dorsiflexion: R 5, L 4 ankle plantarflexion: not assessed d/t pain in L toes Other/Pertinent Objective BALANCE 30 second STS: 5 reps with arms crossed, posterior LOB x 2 (<10 reps for females ages 75-79 indicates increased risk of falls) TU seconds, use of SPC on R (>13.5 seconds indicates increased risk of falls) Myers Balance Scale: 35/56 (<45 /56 indicates increased risk of falls) GAIT ambulates with use of SPC in R hand, short strides BL, shuffle gait gait speed: 0.45 m/s (<1.0 m/s indicates increased risk of falls) STAIR NAVIGATION not assessed d/t pain in L toes Assessment Assessment/Impression Ladan is a 78-year-old female who presents to physical therapy to address concerns of unsteadiness during gait. Patient underwent a replacement of her right ankle in March 2023 and was seen at this clinic for post-op rehabilitation. Ladan was assessed by neurosurgery on who determined a diagnosis of Parkinson's Disease was unlikely at this time, per MD documentation peripheral neuropathy is possible. In addition to balance concerns, Ladan would like to address weakness in her left lower extremity which she attributes to a pinched nerve in her neck that has since resolved. Left lower extremity weakness present today with MMT. Ladan is determined to be at risk for falls based on performance of the following in clinic today: 30 second sit to stand, TUG, BBS, and gait speed. At this time she ambulates with a shuffle gait pattern, decreased stride length bilaterally, uses a SPC in her right hand. Portions of today 's evaluation were limited by pain Ladan is experiencing in her L toes due to recent toenail removal. Ladan had one near fall during today's evaluation with posterior LOB while completing toe taps for BBS, full LOB was prevented due to therapist assist, patient returned to standing position with therapist assistance. All examination findings were reviewed with the patient today. Discussed benefits and goals of physical therapy; patient verbalized agreement with POC. Ladan will greatly benefit from skilled physical therapy interventions to address strength and balance deficits for increased safety and decreased risk of falls during gait and mobility . Primary Functional Limitations unsteady gait, impaired balance, muscle weakness, fall risk, L foot pain Plan of Care Rehabilitation Potential Good Physical Therapy Goals In 5-6 visits: - Patient will complete 8 reps during 30 second STS for indicate improvements in functional strength. - Gait speed will increase to >0.6 m/s with LRD for increased efficiency with gait and mobility. - Patient will complete TUG using LRD in <19 seconds for decreased risk of falls during gait and transitional movements. In 10-12 visits: - Gross LLE strength will improve to 4/5 for improved functional strength needed for safe mobility. - Patient will complete TUG with use of LRD in <15 seconds to decrease risk of falling while navigating her home environments. - Patient will complete 10 repetitions during 30 second sit to stand for decreased risk of falls during transfers . - Score on BBS will increase to 39.9/56 to meet MDC (4.9 points) and indicated significant improvements in balance. - Patient will have good adherence to her HEP in order to maintain balance outside of formal PT. Treatment Plan/Direct Interventions Gait Training,Ice/Cold/ Vasopneumatic,Manual Therapy, Neuromuscular Re-ed,Self-Care/ Home Management,Therapeutic Activities,Therapeutic Exercises Frequency/Duration 1x/week for 10-12 weeks Patient Will Be Discharged From Therapy Completion of LTG(s),Skills Plateau,Independent w/HEP, Independently Progressing Evaluation Billing Untimed Code Treatment Minutes 40 Complexity Low Certification Information Initial Certification Date 01/19/24 Ending Certification Date 04/18/24 Provider Signature Required Yes Provider Signature Shows Agreement With POC & Medical Necessity Physician NPI Number Write NPI# Here Physician Comment/Change : Physician Signature & Date Requested Please Sign/Date Here
--- NOTE | 2024-03-22 11:43 | PT.OPDNX ---
Please review the attached physical therapy progress note. Patient has experienced two reported falls over the past two weeks without significant injury. Both falls occurred during transitions to/from her car at medical appointments. Thank you. PT [facility] Out[facility] Daily Note PT [facility] Out[facility] Daily Note Start: 01/19/24 12:47 Freq: Status: Active Protocol: Document 03/22/24 07:24 TLQ (Rec: 03/22/24 10:15 TLQ [id number]) E-signed By Taylor Lamb DPT PT [facility] Daily Progress Note Visit Information Note Type Daily Note,Recert/Progress Note Visit Number 8 Insurance Authorized Visits 12 Physician Authorized Visits Evaluate and treat Insurance Information Recert Due Date 04/18/24 Insurance Name Medicare B,Other; See Comments Insurance Information/Comments [employer] Choice 12 visits authorized 01/19/24 through 04/09/24 Medical Diagnosis Other abnormalities of gait and mobility R26.89 Treating Diagnosis Impaired balance R26.81 Abnormal gait R26.9 Muscle weakness M62.81 Referring MD Jojo Tilley MD Subjective Subjective Ladan states she had her MRI, indicated she has some fluid on her brain but not enough to drain, states it will continued to be monitored. Denies headaches. States she fell on her way back out to her car after her MRI, slipped on the ice. Fell this morning when checking in for her appointment, she states she tripped. States she used the counter to get back up. Landed on her knees, denies pain. States she has been working on her exercises at home. Has a neurology appointment scheduled for the end of this week. Date of Last Physician Visit 03/16/24 Precautions Treatment Precautions/Contraindications PMHx: HTN, dyslipidemia, chronic kidney disease, LBP w/ radiculopathy, R ankle replacement (2023) Home Exercise Home Exercise Comments Access Code: [email or web address] URL: [email or web address] Date: 03/22/2024 Prepared by: Taylor Lamb Exercises: - Seated Long Arc Quad - 1-2 x daily - 10 reps - 5 seconds hold - Seated April - 1-2 x daily - 10 reps - Standing Hip Abduction with Counter Support - 1-2 x daily - 10 reps - Standing Hip Extension with Counter Support - 1-2 x daily - 10 reps - Sit to Stand with Arms Crossed - 2 x daily - 5 reps - Forward Backward Weight Shift with Counter Support - 1-2 x daily - 10 reps - Side to Side Weight Shift with Counter Support - 1-2 x daily - 10 reps - Narrow Stance with Counter Support - 1-2 x daily - 2-3 reps - up to 30 seconds hold - Standing Quarter Turn with Counter Support - 1 x daily - 10 reps - Seated Slump Nerve [place] - 1-2 x daily - 5-10 reps Objective Other/Pertinent Objective OBSERVATION No observable edema or ecchymosis on/around bilateral knees Non-tender with all palpation of bilateral knees GAIT FWW used for home and in- clinic ambulation, use of SPC for car transfers ambulates with use of SPC in R hand, short strides BL, shuffle gait gait speed: 0.45 m/s (<1.0 m/s indicates increased risk of falls) Patient Instructed in Risks/Benefits Yes Therapeutic Exercise Therapeutic Exercise Minutes (minutes) 18 Therapeutic Exercise: To Restore - NuStep (seat/arms 6) L1 x 6 Functional Status minutes - not completed today - seated sciatic nerve mobilization x 5 reps each, positive response - seated LAQ x 10 reps each x 5 second holds, v/c for quad contraction - standing TKE with RTB x 5 reps each x 5 second holds - standing hip abduction/ extension with counter support x 10 reps each - squats with counter support x 10 reps - standing alt march with counter support x 20 reps total - sit to stands with arms crossed x 10 reps, v/c for nose over toes *seated rest provided prn throughout interventions* Therapeutic Activity Therapeutic Activity Minutes (minutes) 14 Therapeutic Activities Comments - floor transfer training, whole transfers x 3 - verbal instruction: discussed transfers from floor <>stand following a fall Neuromuscular Re-Ed Neuromuscular Reeducation Minutes ( 8 minutes) Neuromuscular Reeducation Comments - patient education: nerve healing rate and contributing factors - standing fwd/bkwd weight shifts at counter - quarter step outs at counter x 10 reps each, more unsteady towards L (HEP) - standing cross body reaching with trunk rotation x 10 each direction - mini sulema (6) step overs with L for foot clearance during gait x 10 reps with counter support, v/c for heel strike - not completed today - Romberg stance on firm surface with EO x 30 second bouts, SBA - not completed today - NBOS on firm surface EC x 30 second bouts, close SBA - not completed today Treatment Minutes Timed Code Treatment Minutes 40 Total Treatment Time 40 Billing Units Neuromuscular Reeducation Units 1 Therapeutic Activity Units 1 Therapeutic Exercise Units 1 Assessment/Impression Assessment/Impression Ladan fell while checking in for her appointment today. She states she landed on her knees and was able to get back up by using the check-in counter for support. She denies pain in her knees, no observable edema or ecchymosis present, non-tender with all palpation. No concerns for fracture at this time. Patient safely transitioned into her personal vehicle at the end of today's appointment, used FWW with SBA from therapist to ambulate from clinic to her car. Fall was not observed by documenting therapist, other clinic staff observed her fall and will complete incident report. Patient reports she fell one week ago in the [facility] parking lot after her MRI appointment. Ladan relies on a FWW for ambulation inside her home and while in clinic, however, due to limitations in her ability to transfer a walker in/out of her car, she relies on a cane when transitioning form her car <> clinic entry. Her strides are shortened with slower gait speed when using her cane versus FWW. Due to frequent falls with community ambulation, patient would benefit from a short term accessibility parking permit to decrease ambulatory distances and surface changes when attending her appointments. PT to discuss this with patient at upcoming visit and complete corresponding application. Given recent falls, progress report will be sent to referring provider. During today's appointment, patient practiced complete floor<> stand transfers with use of furniture support to stand. She completed x1 with verbal cues, then 2x without reliance on verbal cues. She continues to demonstrate limitations in balance, particularly with L stance, observed to use frequent touch assist when completing quarter turns in clinic today. Plan to reassess objective measures of functional strength and balance at upcoming visit. Given history of recent falls, Ladan will continue to benefit from skilled PT interventions to address functional strength and balance to decrease risk of future falls. Plan of Care Physical Therapy Goals In 5-6 visits: - Patient will complete 8 reps during 30 second STS for indicate improvements in functional strength. PROGRESSING - Gait speed will increase to >0.6 m/s with LRD for increased efficiency with gait and mobility. - Patient will complete TUG using LRD in <19 seconds for decreased risk of falls during gait and transitional movements. In 10-12 visits: - Gross LLE strength will improve to 4/5 for improved functional strength needed for safe mobility. - Patient will complete TUG with use of LRD in <15 seconds to decrease risk of falling while navigating her home environments. - Patient will complete 10 repetitions during 30 second sit to stand for decreased risk of falls during transfers . - Score on BBS will increase to 39.9/56 to meet MDC (4.9 points) and indicated significant improvements in balance. - Patient will have good adherence to her HEP in order to maintain balance outside of formal PT. Daily Plan of Care Continue per POC Daily Plan of Care Comments Upcoming visit: reassess TUG, 30 second STS, BBS Strength - LLE Static/dynamic balance Endurance - recumbent bike/ NuStep Gait training with LRD Floor transfers
== END 2024-07-07 07:19 | disposition home or self-care (01) ==
PROVIDERS: PCP Family Medicine; Visit Provider Family Medicine
DX: R26.89 Other abnormalities of gait and mobility (principal); Z51.89 Encounter for other specified aftercare
CPT/HCPCS: 97110; 97112; 97116; 97161; 97530

== ENCOUNTER 2024-12-28 08:06 | Outpatient (CLI) | payer OTHER, SELFPAY | END 2024-12-28 08:07 | disposition home or self-care (01) | LOC: NFLDREF 01-01 16:36 | PROVIDERS: PCP Family Medicine; Referring Provider Family Medicine; Visit Provider Family Medicine | DX: I12.9 Hypertensive chronic kidney disease with stage 1 through stage 4 chronic kidney disease, or unspecified chronic kidney disease (principal); N18.32 Chronic kidney disease, stage 3b; E78.5 Hyperlipidemia, unspecified; D63.1 Anemia in chronic kidney disease; M85.89 Other specified disorders of bone density and structure, multiple sites | CPT/HCPCS: 80053; 80061; 82306 ==